=== PATIENT | male | born 1945 | race Caucasian/White ===

== ENCOUNTER → 2016-07-03 | Outpatient (CLI) | payer OTHER ==
[~2016-07-03] MED LIST: ADVIN25/60 INH; ALBUAER19 INH; AMOX875T PO; ASPI-435 PO; ASPI325T45 PO; ATOR-22 PO; CEPH500C2 PO; DOXE100C4 PO; DXP/75 PO; FLM4 PO; FRS/40 PO; FURO20TA PO; GLIP1TAB85 PO; IMDSR60 PO; INDO-24 PO; INSDGI SC; INSDGIPEN SC; IPRASOL4 INH; LPR25 PO; METF1000 PO; METO50TA16 PO; OMEP20CA9 PO; PRENTAB26 PO; QUIN40TA18 PO; SPRIN/30 INH; TIOTCAP INH; TRAM-10 PO; VNTHFA/IN INH
[2016-07-03 13:05] LABS: ALT/SGPT 39 U/L (12-78); BLOOD UREA NITROGEN 21 mg/dl (7-18); BUN/CREATININE RATIO 12.1 (10-20); CALCIUM 8.6 mg/dl (8.5-10.1); CARBON DIOXIDE 28 mmol/L (21-32); CHLORIDE 104 mmol/L (98-107); CHOLESTEROL 89 mg/dl (0-200); GLUCOSE 230 mg/dl (70-99); POTASSIUM 4.5 mmol/L (3.5-5.1); SODIUM 140 mmol/L (136-145)
[2016-07-03 13:08] LABS: ALB/GLOB RATIO 0.8 (0.9-2); ALKALINE PHOSPHATASE 68 U/L (45-117); AST/SGOT 22 U/L (15-37); CHOLESTEROL/HDL RATIO 3.6; HDL CHOLESTEROL 25 mg/dl; LDL CHOLESTEROL CALCULATED 31 mg/dl; TRIGLYCERIDES 166 mg/dl (0-150); VERY LOW DENSITY LIPOPROT CALC 33 mg/dl
[2016-07-03 13:16] LABS: ESTIMATED AVERAGE GLUCOSE 128 mg/dl; HA1C FLAG Normal (Normal)
== END | disposition home or self-care (01) ==
LOC: C.LABPVFM 07:25
PROVIDERS: ATTEND Family Medicine
DX: I10 Essential (primary) hypertension (principal); E11.9 Type 2 diabetes mellitus without complications; E78.5 Hyperlipidemia, unspecified; J44.9 Chronic obstructive pulmonary disease, unspecified; I25.10 Atherosclerotic heart disease of native coronary artery without angina pectoris

== ENCOUNTER → 2016-10-09 | Outpatient (CLI) | payer OTHER ==
[~2016-10-09] MED LIST changes: +AMLO-110 PO; +CEFT1INJ57 IV; -CEPH500C2 PO; +ENOX40IN SQ; -INSDGIPEN SC; +INSDGIPEN SQ; +ISOS60TA25 PO; +TAMS0.4C38 PO
[2016-10-09 13:13] LABS: ESTIMATED AVERAGE GLUCOSE 154 mg/dl; HA1C FLAG Normal (Normal)
[2016-10-09 13:30] LABS: ALT/SGPT 31 U/L (12-78); AST/SGOT 21 U/L (15-37); BLOOD UREA NITROGEN 17 mg/dl (7-18); BUN/CREATININE RATIO 13.1 (10-20); CALCIUM 8.6 mg/dl (8.5-10.1); CARBON DIOXIDE 32 mmol/L (21-32); CHLORIDE 105 mmol/L (98-107); GLUCOSE 114 mg/dl (70-99); POTASSIUM 4.3 mmol/L (3.5-5.1); SODIUM 143 mmol/L (136-145)
[2016-10-09 13:32] LABS: ALB/GLOB RATIO 0.8 (0.9-2); ALKALINE PHOSPHATASE 86 U/L (45-117)
[2016-10-09 13:52] LABS: RATIO 3258.3 mcg/mg (0-30.0)
== END | disposition home or self-care (01) ==
LOC: C.LABPVFM 07:30
PROVIDERS: ATTEND Family Medicine
DX: Z12.5 Encounter for screening for malignant neoplasm of prostate (principal); R79.89 Other specified abnormal findings of blood chemistry; E11.9 Type 2 diabetes mellitus without complications

== ENCOUNTER 2016-11-06 01:01 | Inpatient (IN) | payer OTHER ==
[~2016-11-06] VITALS: Ht 180.3 cm; Wt 89.1 kg
[2016-11-06] VITALS (15 sets, daily range): BP systolic 110–131; BP diastolic 68–82; PULSE 84–105; TEMP 36.3–37; O2SAT 89–97; BMI 26.8
[~2016-11-06 01:01] MED LIST changes: -AMLO-110 PO; -AMOX875T PO; -ASPI-435 PO; -ATOR-22 PO; -CEFT1INJ57 IV; -DOXE100C4 PO; -ENOX40IN SQ; -FLM4 PO; -FRS/40 PO; -IMDSR60 PO; -INDO-24 PO; -INSDGIPEN SQ; -IPRASOL4 INH; -ISOS60TA25 PO; -LPR25 PO; -SPRIN/30 INH; -TAMS0.4C38 PO; -TRAM-10 PO; -VNTHFA/IN INH
[2016-11-06] MEDS ORDERED: METHYLPREDNISOLONE 125 MG VIAL IV STA (01:26)
[2016-11-06] MEDS ORDERED: ALBUT/IPRATROP 3MG/0.5MG NEB 3 ML VIAL INH STA (01:27)
[2016-11-06 02:22] LABS: ALLEN TEST POS (POS); ARTERIAL BLD GAS O2 SATURATION 88.4 % (90-95); ARTERIAL BLOOD GAS BASE EXCESS 2.6 mEq/L (-9-1.8); ARTERIAL BLOOD GAS HCO3 28 mmol/L (19-24); ARTERIAL BLOOD GAS PO2 57 mm/Hg (80-95); ARTERIAL BLOOD GAS pH 7.41 (7.35-7.45); BUN/CREATININE RATIO 18.9 (10-20); CALCIUM 7.7 mg/dl (8.5-10.1); HEMATOCRIT 43.5 % (42-52); MEAN CELL VOLUME 89.7 fL (80-100); MEAN CORPUSCULAR HEMOGLOBIN 30.7 pg (25-34); MEAN CORPUSCULAR HGB CONC 34.3 g/dl (32-36); MEAN PLATELET VOLUME 10.7 fL (7.4-10.4); O2 ADMINISTRATION 6 L; PLATELET COUNT 88 K/uL (130-400); RED BLOOD COUNT 4.85 M/uL (4.7-6.1); WHITE BLOOD COUNT 21.09 K/uL (4.8-10.8)
[2016-11-06 02:23] LABS: COMPLETE YES; IG% 0.4 %; LYMPH % 1.7 %; LYMPH ABS # 0.35 K/uL (1.2-3.4); MONO % 2.3 %; NEUT % 95.6 %; PLT ESTIMATE DECREASED
[2016-11-06] MEDS ORDERED: PIPERACILLIN/TAZOBACTAM 4.5 GM/100ML D5W IV STA (02:35)
[2016-11-06] MEDS ORDERED: VANCOMYCIN INJ 1,000 MG in SODIUM CHLORIDE 0.9% 250ML 250 ML IV STA (02:35)
[2016-11-06 02:57] LABS: ALB/GLOB RATIO 0.5 (0.9-2)
[2016-11-06] MEDS ORDERED: ASPI-435 PO (02:59)
[2016-11-06] MEDS ORDERED: DOXE100C4 PO (03:00)
[2016-11-06] MEDS ORDERED: ATOR-22 PO (03:00)
[2016-11-06] MEDS ORDERED: FRS/40 PO (03:00)
[2016-11-06] MEDS ORDERED: VNTHFA/IN INH (03:04)
[2016-11-06] MEDS ORDERED: SPRIN/30 INH (03:04)
[2016-11-06] MEDS ORDERED: TRAM-10 PO (03:04)
[2016-11-06] MEDS ORDERED: INSDGIPEN SQ (03:04)
[2016-11-06] MEDS ORDERED: IPRASOL4 INH (03:05)
[2016-11-06] MEDS ORDERED: INDO-24 PO (03:05)
--- NOTE | 2016-11-06 03:11 | EMERGENCY ROOM VISIT NOTE ---
History Report prepared by Perico: Vaibhav Bruce Under the Supervision of: Dr. Kathy Long D.O. First contact with patient: 01:20 Chief Complaint: SHORTNESS OF BREATH Stated Complaint: DIFFICULTY BREATHING History of Present Illness The patient is a 71 year old male who presents to the Emergency Room with complaints of worsening shortness of breath beginning two days ago. He was diagnosed with pneumonia two weeks ago. He was prescribed Prednisone and Levaquin as well as a nebulizer. The patient finished his treatments for the pneumonia this week, and skipped his follow-up appointment three days ago. Per nursing staff, the patient was found to have an oxygen saturation of 78% in triage. The patient states "I thought I was going to yesterday". He also complains of a productive cough. He states that his cough produces a yellow sputum. Nothing has improved his symptoms. Source of History: patient Onset: two days ago Quality: other (shortness of breath) Timing: worsening Modifying Factors (Relieving): other (none) Associated Symptoms: + cough (produces yellow sputum) Review of Systems See HPI for pertinent positives & negatives. A total of 10 systems reviewed and were otherwise negative. Past Medical & Surgical Medical Problems: (1) CHF exacerbation (2) COPD exacerbation (3) Diabetes (4) Hypertension Family History FH: aneurysm FH: coronary artery disease FH: myocardial infarction Social History Smoking Status: Former Smoker Drug Use: none Marital Status: Housing Status: lives with family Occupation Status: employed Current/Historical Medications Scheduled Aspirin (Aspirin 81), 81 MG PO DAILY Atorvastatin (Lipitor), 20 MG PO DAILY Doxepin Hcl (Doxepin), 100 MG PO HS Fluticasone Prop/Salmeterol (Advair Diskus 250/50 60 Dose), 1 PUFF INH BID Furosemide (Lasix), 40 MG PO DAILY Glipizide Xl (Glucotrol Xl), 10 MG PO BID Insulin Glargine (Lantus Solostar), 46 UNITS SC QPM Metformin Hcl (Glucophage), 1,000 MG PO BID Metoprolol Tartrate (Lopressor) (Lopressor), 50 MG PO BID Omeprazole (Prilosec), 20 MG PO DAILY Quinapril Hcl (Accupril), 20 MG PO BID Tiotropium [place] (Spiriva Handihaler), 1 CAP INH DAILY Scheduled PRN Albuterol Hfa (Ventolin Hfa), 2 PUFFS INH Q4 PRN for SOB/Wheezing Indomethacin (Indocin), 50 MG PO TID PRN for Pain Ipratropium-Albuterol (Duoneb), 1 TREATMENT INH Q4H PRN for SOB/Wheezing Tramadol (Ultram), 50 MG PO Q6 PRN for Pain Allergies Coded Allergies: No Known Allergies (Verified , 11/06/16) Physical Exam Vital Signs Date Time Temp Pulse Resp B/P Pulse Ox O2 Delivery O2 Flow Rate FiO2 11/06/16 03:41 94 24 115/62 92 BiPAP 60 11/06/16 03:06 90 95 60 11/06/16 02:47 96 24 95/59 91 Non-Rebreather 12.0 11/06/16 02:45 90 Non-Rebreather 15.0 11/06/16 02:42 87 Nasal Cannula 6.0 11/06/16 02:41 93 Non-Rebreather 15.0 11/06/16 01:49 77 Room Air 11/06/16 01:38 98 26 108/62 90 Nebulizer 10.0 11/06/16 01:28 93 Non-Rebreather 10.0 11/06/16 01:26 82 Nasal Cannula 6.0 11/06/16 01:25 102 11/06/16 01:14 36.9 105 20 106/64 78 Room Air Physical Exam General: Appears to be in moderate respiratory distress. HEENT: Head - normocephalic and atraumatic Pupils are equal, round, and reactive to light. Extraocular eye muscles are intact, and sclera are anicteric. Nose - moist nasal mucosa without discharge. Mouth - moist buccal mucosa. Oropharynx is nonerythematous and there is no tonsillar exudate or edema noted. Neck: Supple; no JVD, nuchal rigidity, cervical lymphadenopathy. Heart: Tachycardic rate with a regular rhythm. There is a normal S1 and S2 with no murmurs, clicks, or gallops appreciated. Lungs: Tachypneic. Diminished breath sounds in all lung gutierrez. Expiratory wheezing. Abdomen: Soft, completely nontender, nondistended, with good bowel sounds. There are no palpable pulsatile masses or hepatosplenomegaly. There is no guarding, rigidity, or rebound noted. Extremities: Significant peripheral vascular changes to the lower extremities with trace edema Skin: warm and dry with good turgor and no rashes. Patient appears slightly cyanotic. Medical Decision & Procedures ER Provider Diagnostic Interpretation: One View Chest X-ray interpreted by me: Pacer in place. Bilateral lower lobe infiltrates. No cardiomegaly. Pulmonary vascular congestion. CT results per statrad and my review. CT CHEST Without Contrast: Comparison: CT chest 09/30/13; chest radiography 11/06/16 Heterogeneous airspace disease involving the right middle lobe, inferior lingula , and both lower lobes most dense less/confluent at the lower lobes particularly on the right side posteromedially. Correlate clinically to exclude pneumonia. Probably reactive mediastinal and hilar adenopathy. No pleural effusion or pneumothorax. No cardiomegaly or pericardial effusion. Multivessel coronary calcifications. Cirrhotic liver with splenomegaly. No ascites evident. Laboratory Results 11/06/16 01:40 Test 11/06/16 01:40 RDW Standard Deviation 49.6 fL (36.4-46.3) RDW Coefficient of Variation 15.3 % (11.5-14.5) White Blood Count 21.09 K/uL (4.8-10.8) Red Blood Count 4.85 M/uL (4.7-6.1) Hemoglobin 14.9 g/dL (14.0-18.0) Hematocrit 43.5 % (42-52) Mean Corpuscular Volume 89.7 fL (80-100) Mean Corpuscular Hemoglobin 30.7 pg (25-34) Mean Corpuscular Hemoglobin Concent 34.3 g/dl (32-36) Platelet Count 88 K/uL (130-400) Mean Platelet Volume 10.7 fL (7.4-10.4) Neutrophils (%) (Auto) 95.6 % Lymphocytes (%) (Auto) 1.7 % Monocytes (%) (Auto) 2.3 % Eosinophils (%) (Auto) 0.0 % Basophils (%) (Auto) 0.0 % Neutrophils # (Auto) 20.17 K/uL (1.4-6.5) Lymphocytes # (Auto) 0.35 K/uL (1.2-3.4) Monocytes # (Auto) 0.48 K/uL (0.11-0.59) Eosinophils # (Auto) 0.00 K/uL (0-0.5) Basophils # (Auto) 0.00 K/uL (0-0.2) Immature Granulocyte % (Auto) 0.4 % Immature Granulocyte # (Auto) 0.09 K/uL (0.00-0.02) Platelet Estimate DECREASED Red Blood Cell Morphology Unremarkable Arterial Blood pH 7.41 (7.35-7.45) Arterial Blood Partial Pressure CO2 46 mmHg (35-46) Arterial Blood Partial Pressure O2 57 mm/Hg (80-95) Arterial Blood HCO3 28 mmol/L (19-24) Arterial Blood Oxygen Saturation 88.4 % (90-95) Arterial Blood Base Excess 2.6 mEq/L (-9-1.8) Arterial Blood Gas Delivery 6 L Gunnar Test POS (POS) Anion Gap 8.0 mmol/L (3-11) Est Creatinine Clear Calc Drug Dose 37.1 ml/min Estimated GFR () 38.3 Estimated GFR (Non- 33.1 BUN/Creatinine Ratio 18.9 (10-20) Calcium Level 7.7 mg/dl (8.5-10.1) Total Bilirubin 0.7 mg/dl (0.2-1) Aspartate Amino Transf (AST/SGOT) 22 U/L (15-37) Alanine Aminotransferase (ALT/SGPT) 30 U/L (12-78) Alkaline Phosphatase 73 U/L (45-117) Total Creatine Kinase 122 U/L (39-308) Creatine Kinase MB 3.7 ng/ml (0.5-3.6) Creatine Kinase MB Ratio 3.0 (0-3.0) Troponin I 2.160 ng/ml (0-0.045) Pro-B-Type Natriuretic Peptide 4030 pg/ml (0-900) Total Protein 6.5 gm/dl (6.4-8.2) Albumin 2.3 gm/dl (3.4-5.0) Globulin 4.2 gm/dl (2.5-4.0) Albumin/Globulin Ratio 0.5 (0.9-2) Laboratory results per my review. Medications Administered Medications (Trade) Dose Ordered Sig/Elsie Route Start Time Stop Time Status Last Admin Dose Admin Methylprednisolone Sodium Succinate (Solu-Medrol IV) 125 mg NOW STAT IV 11/06/16 01:26 11/06/16 01:27 DC 11/06/16 01:35 125 MG Albuterol/ Ipratropium (Duoneb) 3 ml NOW STAT INH 11/06/16 01:27 11/06/16 01:29 DC 11/06/16 01:32 3 ML Piperacillin Sod/ Tazobactam Sod (Zosyn Iv) 4.5 gm NOW STAT IV 11/06/16 02:35 11/06/16 02:37 DC 11/06/16 03:11 4.5 GM Procedure Medications ordered: Solu-Medrol IV, DuoNeb INH, Vancomycin HCl IV, Zosyn IV. ECG Indication: SOB/dyspnea Rate (beats per minute): 101 Rhythm: sinus tachycardia Findings: RBBB, ST depression (anterior and lateral leads) Comparison ECG Date: October 06, 2013 Change: RBBB and ST depressions are new. ED Course 0120: Past medical records reviewed. The patient was evaluated in room B10. A complete history and physical exam was performed. The patient's O2 saturation could not be maintained on 6 L by nasal cannula. He was switched to a nonrebreather mask at 10 L. A twelve-lead EKG was obtained. An IV lock was initiated and labs were drawn as above. 0126: Ordered Solu-Medrol 125 mg IV, Duoneb 3 mL INH. A chest x-ray was obtained. 0155: I reassessed the patient. He was on 10 L of supplemental oxygen by rebreather, but his oxygen saturations were around 87% at that time. I increased the quantity of oxygen to 12 L and his oxygen saturation increased to 90%. 0235: Ordered Vancomycin HCl 1000 mg/Sodium Chloride 270 ml @ 125 mls/hr IV, Zosyn 4.5 gm IV. 0242: Nursing staff placed the patient on nasal canula, but his oxygen saturation quickly dropped to the high 80's. He was placed back on a rebreather. I checked in on the patient. He sounds more congested, and will be placed on BiPAP. 0300: Upon reevaluation, I discussed findings and results with the patient. He verbalized agreement of the treatment plan. I discussed the possibility of intubation with the patient, but he refuses to be intubated. I spoke with Dr. Souza of the [facility]ist [facility]. The patient will be evaluated for further management and care. 0335: I spoke with Dr. Souza at bedside. He recommended ordering a CT of the chest. The patient is tolerating BiPAP well. Medical Decision The patient is a 71 year old male who presents to the ED with shortness of breath. Differential diagnosis includes pneumonia, hypercarbic respiratory failure, COPD exacerbation, cardiac ischemia, and CHF. Laboratory studies: White count of 21.09. Stable H&H. Platelet count of 88.95% neutrophils. ABGH pH 7.41. pO2 is 57. Bicarb 28. Troponin 2.160. BMP of 4030. Glucose of 185. BUN 38. Creatinine 2. LFTs are normal. I attest that I have personally reviewed the patient's current medication list. Patient was found to have normal blood pressure on screening and does not require follow-up. This is a 71-year-old male patient who has worsening shortness of breath. The patient recently finished a course of prednisone and Levaquin but symptoms have worsened. Chest x-ray is concerning for bilateral pulmonary infiltrates. This in conjunction with a white blood cell count greater than 20 with a bandemia was concerning for sepsis. The patient failed outpatient therapy on Levaquin. He was treated with IV Zosyn and vancomycin here in the emergency department. The patient has an elevated troponin and BNP. The patient was noted to be thrombocytopenic. Once the patient was placed on BiPAP, his respiratory status did seem to improve somewhat. CT scan of the chest to confirm bilateral lower lobe infiltrates. [facility] and [facility] will evaluate for further management. Consults Time Called: [phone] Consulting Physician: Dr. Souza -[facility] Returned Call: [phone] Discussed the patient's case. The patient will be evaluated for further management. Impression Primary Impression: Respiratory failure Additional Impressions: NSTEMI (non-ST elevated myocardial infarction) Renal insufficiency Thrombocytopenia Bilateral pneumonia Critical Care I have personally spent greater than 90 minutes of critical care time in the direct management of this patient. This includes bedside care, interpretation of diagnostic studies, and testing, discussion with consultants, patient, and family members, and other required patient management activities. This 90 minutes is in excess of all separately billable procedures. Scribe Attestation The scribe's documentation has been prepared under my direction and personally reviewed by me in its entirety. I confirm that the note above accurately reflects all work, treatment, procedures, and medical decision making performed by me. Departure Information Dispostion Being Evaluated By Hospitalist Referrals No Doctor, Assigned (PCP) Patient Instructions My [facility] Problem Qualifiers
[2016-11-06] MEDS ORDERED: ALUMINUM/MAGNESIUM/SIMETH (MAALOX MAX) 30 ML UDC PO PRN (04:30)
[2016-11-06] MEDS ORDERED: ONDANSETRON INJ 2 MG/ML 2 ML VIAL IV PRN (04:30)
[2016-11-06] MEDS ORDERED: ACETAMINOPHEN 325 MG TAB PO PRN (04:30)
[2016-11-06] MEDS ORDERED: MAGNESIUM HYDROXIDE SUSP 30 ML UDC PO PRN (04:30)
[2016-11-06] MEDS ORDERED: TRAMADOL HCL 50 MG TAB PO PRN (04:30)
[2016-11-06] MEDS ORDERED: POLYETHYLENE (MIRALAX) 17 GM PACK PO PRN (04:30)
[2016-11-06] MEDS ORDERED: VANCOMYCIN 1GM/270ML NSS ONE (04:40)
--- NOTE | 2016-11-06 04:45 | History and Physical ---
History & Physical Date & Time of Service: November 06, 2016 at 04:35 Chief Complaint: Difficulty Breathing Primary Care Physician: Onofre Betancur M.D. History of Present Illness Source: patient 71 y/o M Hx COPD, DM, obesity, severe PVD, ARF, CAD - NSTEMI - cardiac arrest 2013, AICD. Pt was recently treated for a COPD exacerbation with a 7 day course of Levaquin and steroids. Despite complying with treatment he has become progressively SOB. He has not had CP. He does not know if he has had fevers however his daughter states that he was rigorous a few days ago. On arrival to the ER the pt required Bipap to maintain an adequate saturation. Initial CXR is consistent with pulmonary edema. His BP has been intermittently low in the high 80s. Initial labs are notable for a troponin of 2, a low platelet count, leukocytosis and ARF. An EKG reveals sinus tachycardia, a new RBBB and lateral depressions. At the time of admission he is AAO x 3 , reports symptomatic improvement with Bipap and has an SBP of 110. Past Medical/Surgical History 1) COPD 2) CAD - CA 2013 - cath revealed diffuse CAD and likely RCA plaque rupture as culprit lesion - he was transferred to [facility] for CABG 3) Cardiac arrest prior to CA 2013 4) Severe PVD 5) Osteomyelitis L and R 5th toe 2013 treated with hyperbaric therapy and later amputated - 6) ARF - has had intermittently elevated creatinine but may have normal baseline function 7) Reduced EF at 45% on echo 2013 - No diastolic or RV failure reported 9) DM 2 10) Obesity 11) GERD 12) HTN 13) Liver is cirrhotic on current CT 14) AICD placement 2013 Family History FH: aneurysm FH: coronary artery disease FH: myocardial infarction Social History Quit smoking 30 years ago 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 [employer] does not drink alcohol Reports recent social stress as his is recovering from a cerebral aneurysm Smoking Status: Former Smoker Drug Use: none Marital Status: Occupational Status: employed Immunizations History of Influenza Vaccine: Yes Influenza Vaccine Date: Mar 11, 2013 History of Tetanus Vaccine?: Unknown History of Pneumococcal: Yes Pneumococcal Date: Mar 11, 2013 History of Hepatitis B Vaccine: No Multi-Drug Resistant Organisms History of MDRO: No Allergies Coded Allergies: No Known Allergies (Verified , 11/06/16) Home Medications Scheduled Aspirin (Aspirin 81), 81 MG PO DAILY Atorvastatin (Lipitor), 20 MG PO DAILY Doxepin Hcl (Doxepin), 100 MG PO HS Fluticasone Prop/Salmeterol (Advair Diskus 250/50 60 Dose), 1 PUFF INH BID Furosemide (Lasix), 40 MG PO DAILY Glipizide Xl (Glucotrol Xl), 10 MG PO BID Insulin Glargine (Lantus Solostar), 46 UNITS SC QPM Metformin Hcl (Glucophage), 1,000 MG PO BID Metoprolol Tartrate (Lopressor) (Lopressor), 50 MG PO BID Omeprazole (Prilosec), 20 MG PO DAILY Quinapril Hcl (Accupril), 20 MG PO BID Tiotropium [place] (Spiriva Handihaler), 1 CAP INH DAILY Scheduled PRN Albuterol Hfa (Ventolin Hfa), 2 PUFFS INH Q4 PRN for SOB/Wheezing Indomethacin (Indocin), 50 MG PO TID PRN for Pain Ipratropium-Albuterol (Duoneb), 1 TREATMENT INH Q4H PRN for SOB/Wheezing Tramadol (Ultram), 50 MG PO Q6 PRN for Pain Review of Systems Constitutional: + chills, + fever Eyes: No eye pain, No worsening of vision ENT: No hearing loss, No nasal symptoms, No unusual epistaxis Respiratory: + cough, + dyspnea at rest, + dyspnea on exertion, + shortness of breath, + sputum Cardiovascular: No PND, No chest pain, No orthopnea Abdomen: No nausea, No pain, No vomiting Musculoskeletal: No joint pain Genitourinary - Male: No dysuria, No hematuria, No urinary frequency, No urinary urgency Neurologic: + weakness, No memory loss, No paralysis Psychiatric: No anhedonism, No depression symptoms Endocrine: + fatigue, No excessive thirst Hematologic / Lymphatic: No abnormal bleeding/bruising, No clotting problems Integumentary: No rash Allergic / Immunologic: No environmental allergies Physical Exam Vital Signs Date Time Temp Pulse Resp B/P Pulse Ox O2 Delivery O2 Flow Rate FiO2 11/06/16 03:41 94 24 115/62 92 BiPAP 60 11/06/16 03:06 90 95 60 11/06/16 02:47 96 24 95/59 91 Non-Rebreather 12.0 5/29/17 02:45 90 Non-Rebreather 15.0 11/06/16 02:42 87 Nasal Cannula 6.0 11/06/16 02:41 93 Non-Rebreather 15.0 11/06/16 01:49 77 Room Air 11/06/16 01:38 98 26 108/62 90 Nebulizer 10.0 11/06/16 01:28 93 Non-Rebreather 10.0 11/06/16 01:26 82 Nasal Cannula 6.0 11/06/16 01:25 102 11/06/16 01:14 36.9 105 20 106/64 78 Room Air General Appearance: + mild distress, + obese Head: normocephalic, atraumatic Eyes: normal inspection, EOMI ENT: normal ENT inspection, pharynx normal Neck: supple, + JVD Respiratory/Chest: chest non-tender, + decreased breath sounds, + accessory muscle use, + crackles Cardiovascular: regular rate, rhythm, no gallop, + JVD Abdomen/GI: normal bowel sounds, soft, + pertinent finding (RUQ hernia palpable ) Back: normal inspection, no CVA tenderness, no muscle spasm, normal range of motion Extremities/Musculoskelatal: normal inspection, no calf tenderness, + pertinent finding (Slow capillary refil - post amputation of %th toes B/L) Neurologic/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, no motor/sensory deficits, alert, normal mood/affect, normal reflexes, oriented x 3 Skin: normal color, warm/dry, no rash Diagnostics Laboratory Results Results Past 24 Hours Test 11/06/16 01:40 Range/Units White Blood Count 21.09 4.8-10.8 K/uL Red Blood Count 4.85 4.7-6.1 M/uL Hemoglobin 14.9 14.0-18.0 g/dL Hematocrit 43.5 42-52 % Mean Corpuscular Volume 89.7 80-100 fL Mean Corpuscular Hemoglobin 30.7 25-34 pg Mean Corpuscular Hemoglobin Concent 34.3 32-36 g/dl Platelet Count 88 130-400 K/uL Mean Platelet Volume 10.7 7.4-10.4 fL Neutrophils (%) (Auto) 95.6 % Lymphocytes (%) (Auto) 1.7 % Monocytes (%) (Auto) 2.3 % Eosinophils (%) (Auto) 0.0 % Basophils (%) (Auto) 0.0 % Neutrophils # (Auto) 20.17 1.4-6.5 K/uL Lymphocytes # (Auto) 0.35 1.2-3.4 K/uL Monocytes # (Auto) 0.48 0.11-0.59 K/uL Eosinophils # (Auto) 0.00 0-0.5 K/uL Basophils # (Auto) 0.00 0-0.2 K/uL RDW Standard Deviation 49.6 36.4-46.3 fL RDW Coefficient of Variation 15.3 11.5-14.5 % Immature Granulocyte % (Auto) 0.4 % Immature Granulocyte # (Auto) 0.09 0.00-0.02 K/uL Platelet Estimate DECREASED Red Blood Cell Morphology Unremarkable Arterial Blood pH 7.41 7.35-7.45 Arterial Blood Partial Pressure CO2 46 35-46 mmHg Arterial Blood Partial Pressure O2 57 80-95 mm/Hg Arterial Blood HCO3 28 19-24 mmol/L Arterial Blood Oxygen Saturation 88.4 90-95 % Arterial Blood Base Excess 2.6 -9-1.8 mEq/L Arterial Blood Gas Delivery 6 L Gunnar Test POS POS Sodium Level 141 136-145 mmol/L Potassium Level 4.0 3.5-5.1 mmol/L Chloride Level 105 98-107 mmol/L Carbon Dioxide Level 28 21-32 mmol/L Anion Gap 8.0 3-11 mmol/L Blood Urea Nitrogen 38 7-18 mg/dl Creatinine 2.00 0.60-1.40 mg/dl Est Creatinine Clear Calc Drug Dose 37.1 ml/min Estimated GFR () 38.3 Estimated GFR (Non- 33.1 BUN/Creatinine Ratio 18.9 10-20 Random Glucose 185 70-99 mg/dl Calcium Level 7.7 8.5-10.1 mg/dl Total Bilirubin 0.7 0.2-1 mg/dl Aspartate Amino Transf (AST/SGOT) 22 15-37 U/L Alanine Aminotransferase (ALT/SGPT) 30 12-78 U/L Alkaline Phosphatase 73 45-117 U/L Total Creatine Kinase 122 39-308 U/L Creatine Kinase MB 3.7 0.5-3.6 ng/ml Creatine Kinase MB Ratio 3.0 0-3.0 Troponin I 2.160 0-0.045 ng/ml Pro-B-Type Natriuretic Peptide 4030 0-900 pg/ml Total Protein 6.5 6.4-8.2 gm/dl Albumin 2.3 3.4-5.0 gm/dl Globulin 4.2 2.5-4.0 gm/dl Albumin/Globulin Ratio 0.5 0.9-[address] chest: heterogenous airspace disease - R mid lobe, both lower lobes, inf lingula - 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 Impression Assessment and Plan 71 y/o M Hx COPD, DM, obesity, severe PVD, ARF, CAD - NSTEMI - cardiac arrest 2013, AICD. Pt was recently treated for a COPD exacerbation with a 7 day course of Levaquin and steroids. Despite complying with treatment he has become progressively SOB. He has not had CP. He does not know if he has had fevers however his daughter states that he was rigorous a few days ago. On arrival to the ER the pt required Bipap to maintain an adequate saturation. Initial CXR is consistent with pulmonary edema. His BP has been intermittently low in the high 80s. Initial labs are notable for a troponin of 2, a low platelet count, leukocytosis and ARF. An EKG reveals sinus tachycardia, a new RBBB and lateral depressions. At the time of admission he is AAO x 3 , reports symptomatic improvement with Bipap and has an SBP of 110. 1) Hypoxia - possibly multifactorial - recently treated for PNM/COPD with Levaquin and steroid taper - we will place him on Vanc, Levaquin, Zithromax, Nebs and Solumedrol pending culture results - COPD - treating for presumed exacerbation as above - Suspected CHF - troponin is elevated, B/L JVD present - discussed case with cardio. We will give a single dose of Lasix and hold his B florentino and AFSANEH due to hypotension on arrival. He will have an early AM echo and we will consider transfer to the ICU with recurrence of hypotension. 2) Elevated troponin - differential includes Demand ischemia due to either CHF, pnm/hypoxia or infection with low BP - also includes acute CA as he does have a history of diffuse COPD and lat EKG depression. Serial enzymes requested, echo pending to evaluate for wall motion abnormalities, Heparin GTT provided and Lipitor continued. 3) ARF - has occurred previously and recovered to baseline - will repeat BMP following diuresis as we might expect improvement if this is cardiorenal. If this is prerenal due to dehydration, we should administer IVF. 4) DM - placed on SS 5) Low platelets - Cirrhosis on imaging - watch for bleeding and trend CBC while on heparin - is not aware of diagnosis - likely etiology is GOOD and pt should follow-up with GI. Unlikely advanced cirrhosis at present as he does not have expected sequelae. 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 Y/N: Yes Risk Level: Moderate Given or contraindicated: Other Anticoagulation
[2016-11-06] MEDS ORDERED: ALBUTEROL 0.083% NEBU SOLN 3 ML VIAL INH PRN (06:00)
[2016-11-06] MEDS ORDERED: PIPERACILL/TAZOBAC CONSULT ACTIVE PRN (06:00)
[2016-11-06] MEDS ORDERED: VANCOMYCIN CONSULT ACTIVE PRN (06:00)
[2016-11-06 06:05] LABS: HEMATOCRIT 43.6 % (42-52); MEAN CELL VOLUME 90.1 fL (80-100); MEAN CORPUSCULAR HEMOGLOBIN 28.9 pg (25-34); MEAN CORPUSCULAR HGB CONC 32.1 g/dl (32-36); RED BLOOD COUNT 4.84 M/uL (4.7-6.1); WHITE BLOOD COUNT 18.73 K/uL (4.8-10.8)
[2016-11-06 06:11] LABS: MEAN PLATELET VOLUME 10.4 fL (7.4-10.4); PLATELET COUNT 87 K/uL (130-400)
[2016-11-06] MEDS: AZITHROMYCIN IV 500 MG in DEXTROSE 5% 250ML 250 ML IV SCH (06:24)
[2016-11-06] MEDS ORDERED: FUROSEMIDE INJ 40 MG in SYRINGE 0 ML IV ONE (06:30)
[2016-11-06] MEDS ORDERED: HEPARIN 25,000 UNIT/500ML D5W 500 ML IV PRN (06:30)
[2016-11-06] MEDS ORDERED: HEPARIN IV BOLUS 6,000 UNIT in SYRINGE 0 ML IV ONE (06:30)
[2016-11-06 06:36] LABS: INR 1.4 (0.9-1.1); PARTIAL THROMBOPLASTIN RATIO 1.4; PROTHROMBIN TIME (PATIENT) 14.8 SECONDS (9.0-12.0)
[2016-11-06] MEDS ORDERED: PERFLUTREN LIPID MICROSPHERE (DEFINITY) IV ONE (06:49)
[2016-11-06] MEDS: ALBUT/IPRATROP 3MG/0.5MG NEB 3 ML VIAL INH SCH ×3 (07:14→19:38)
--- NOTE | 2016-11-06 07:35 | ECHOCARDIOGRAM REPORT ---
*NOTICE TO RECEIVING LIBERTARIAN AGENCY This information is strictly Confidential and protected under [place] law. [place] law prohibits you from making any further disclosure of this information unless further disclosure is expressly permitted by the written consent of the person to whom it pertains or is authorized by law. A general authorization for the release of medical or other information is not sufficient for this purpose. Hospital accepts no responsibility if the information is made available to any other person, INCLUDING THE PATIENT. Interpretation Summary * Name: ZEINA WALLACE Study Date: 11/06/2016 06:21 AM BP: 110/74 mmHg * Patient Location: [facility] HR: 94 * : 1945 (M/d/yyyy) Gender: Male Height: 71 in * Age: 71 yrs Ethnicity: [place] Weight: 191 lb * Ordering Physician: Teo Ocampo MD, [facility] * Performed By: Reina Garcia [facility] * * Reason For Study: CHF EXAC / COPD EXAC * BSA: 2.1 m2 * -- Conclusions -- * The left ventricle is normal in size. * There is mild concentric left ventricular hypertrophy. * There is subtle hypokinesis of the posterior wall and lateral apex with otherwise preserved wall motion * Ejection Fraction = 55-60%. * There is no significant valvular disease * Normal inferior vena cava diameter and respiratory variation suggests normal central venous pressure. Procedure Details * A complete two-dimensional transthoracic echocardiogram was performed (2D, M-mode, Doppler and color flow Doppler). * The study was technically difficult. * There were technical limitations due to patient'sPoor acoustic windows secondary to severe lung disease. * A contrast injection of Definity was performed to improve assessment of LV function. * Contrast was injected into an intravenous site in the left arm. * One vial of Definity ultrasound contrast was diluted in normal saline to a total volume of 10 ml. A total of '1.5' ml of solution was administered during imaging. * Lot # [id number] of Definity utilized for procedure. * Expiration date NOV 26. * The attending nurse who injected the contrast agent was JOAQUIM DOTSON, RN. Left Ventricle * The left ventricle is normal in size. * There is mild concentric left ventricular hypertrophy. * Left ventricular systolic function is normal. * Ejection Fraction = 55-60%. * There is subtle hypokinesis of the posterior wall and lateral apex with otherwise preserved wall motion Right Ventricle * The right ventricle is normal in size and function. * There is a pacemaker lead in the right ventricle. Atria * The left atrial size is normal. * Right atrial size is normal. * No ASD detected; PFO is not assessed. Mitral Valve * The mitral valve is normal. * There is no mitral valve stenosis. * There is trace mitral regurgitation. Tricuspid Valve * The tricuspid valve is normal. * There is no tricuspid stenosis. * There is trace tricuspid regurgitation. Aortic Valve * The aortic valve is trileaflet. * Aortic valve sclerosis mild, without significant aortic valvular stenosis. * No hemodynamically significant valvular aortic stenosis. * No aortic regurgitation is present. Pulmonic Valve * The pulmonic valve is not well visualized. Great Vessels * The aortic root is normal size. Pericardium/Pleural * There is no pericardial effusion. Great Vessels * Normal inferior vena cava diameter and respiratory variation suggests normal central venous pressure. MMode 2D Measurements and Calculations IVSd 1.8 cm IVSs 1.6 cm LVIDd 4.8 cm LVIDs 3.7 cm LVPWd 1.1 cm LVPWs 1.4 cm IVS/LVPW 1.7 FS 23.2 % EDV(Teich) 109.4 ml ESV(Teich) 58.6 ml EF(Teich) 46.4 % EDV(cubed) 113.1 ml ESV(cubed) 51.2 ml EF(cubed) 54.8 % % IVS thick -7.47 % % LVPW thick 34.0 % LV mass(C)d 284.3 grams LV mass(C)dI 137.5 grams/m\S\2 LV mass(C)s 218.8 grams LV mass(C)sI 105.8 grams/m\S\2 SV(Teich) 50.8 ml SI(Teich) 24.6 ml/m\S\2 SV(cubed) 61.9 ml SI(cubed) 29.9 ml/m\S\2 LVOT diam 2.1 cm LVOT area 3.4 cm\S\2 LVAd ap4 39.1 cm\S\2 LVLd ap4 9.0 cm EDV(MOD-sp4) 138.7 ml EDV(sp4-el) 143.8 ml LVAs ap4 25.5 cm\S\2 LVLs ap4 7.6 cm ESV(MOD-sp4) 77.1 ml ESV(sp4-el) 72.5 ml EF(MOD-sp4) 44.4 % EF(sp4-el) 49.6 % LVAd ap2 32.9 cm\S\2 LVLd ap2 8.8 cm EDV(MOD-sp2) 100.4 ml EDV(sp2-el) 104.4 ml LVAs ap2 19.9 cm\S\2 LVLs ap2 6.9 cm ESV(MOD-sp2) 47.4 ml ESV(sp2-el) 48.6 ml EF(MOD-sp2) 52.8 % EF(sp2-el) 53.5 % LVLd %diff -2.37 % EDV(MOD-bp) 119.0 ml LVLs %diff -9.99 % ESV(MOD-bp) 62.8 ml EF(MOD-bp) 47.2 % SV(MOD-sp4) 61.6 ml SI(MOD-sp4) 29.8 ml/m\S\2 SV(MOD-sp2) 53.0 ml SI(MOD-sp2) 25.6 ml/m\S\2 SV(MOD-bp) 56.2 ml SI(MOD-bp) 27.2 ml/m\S\2 SV(sp4-el) 71.3 ml SI(sp4-el) 34.5 ml/m\S\2 SV(sp2-el) 55.8 ml SI(sp2-el) 27.0 ml/m\S\2 Doppler Measurements and Calculations MV E max manan 48.5 cm/sec MV A max manan 57.7 cm/sec MV E/A 0.84 MV P1/2t max manan 46.2 cm/sec MV P1/2t 69.3 msec MVA(P1/2t) 3.2 cm\S\2 MV dec slope 195.3 cm/sec\S\2 MV dec time 0.17 sec PA V2 max 85.4 cm/sec PA max PG 2.9 mmHg TR max manan 250.2 cm/sec
--- NOTE | 2016-11-06 07:49 | DIAGNOSTIC IMAGING REPORT ---
CHEST CT WITHOUT CONTRAST CT DOSE: 776.81 mGy.cm HISTORY: Short of breath. Difficulty breathing. TECHNIQUE: Multiaxial CT images of the chest were performed without contrast. COMPARISON: Chest CTA 09/30/2013. FINDINGS: Motion artifact. Small amount of mucoid material within the right mainstem bronchus. No pneumothorax. Mild emphysema. Nodular and consolidative airspace opacity seen within the lung bases. This includes the right middle lobe, bilateral lower lobes, and lingula. The bibasilar pattern raises the possibility of an aspiration pneumonia. No pleural or pericardial effusions. Old, healed bilateral rib fractures. Poststernotomy changes. Left-sided pacemaker. Normal caliber thoracic aorta. The heart is normal in size. Nodular contour to the liver consistent with cirrhosis. The visualized spleen and adrenal glands are unremarkable. IMPRESSION: 1. Bibasilar multifocal airspace opacities. This may represent an aspiration pneumonia. Recommend follow-up to ensure resolution. 2. Mild emphysema. 3. Cirrhotic liver. Electronically signed by: Tam Berry M.D. 11/06/2016 7:48 AM Dictated Date/Time: 11/06/2016 7:44 AM
[2016-11-06] MEDS ORDERED: GLUCAGON FOR INJ 1 MG VIAL SQ PRN (08:00)
[2016-11-06] MEDS ORDERED: GLUCOSE 40% GEL 15 GM TUBE PO PRN (08:00)
[2016-11-06] MEDS ORDERED: DEXTROSE 50% 50 ML SYR IV PRN (08:00)
[2016-11-06] MEDS ORDERED: GLUCOSE 10 TABS/TUBE PO PRN (08:00)
--- NOTE | 2016-11-06 08:23 | DIAGNOSTIC IMAGING REPORT ---
CHEST ONE VIEW PORTABLE HISTORY: Short of breath. COMPARISON: Chest 08/24/2015. FINDINGS: Bibasilar airspace opacities. The heart is stable in size. Left-sided pacemaker. Poststernotomy changes. No pleural effusions. No pneumothorax. IMPRESSION: Interval development of bibasilar airspace opacities. This likely represents a pneumonia. Recommend follow-up to ensure resolution. Electronically signed by: Tam Beryr M.D. 11/06/2016 8:22 AM Dictated Date/Time: 11/06/2016 8:21 AM
[2016-11-06] MEDS: FLUTICASONE/SALMETEROL 250/50 (ADVAIR) 14 PUFF/1 INHALER INH SCH ×2 (08:31→21:10)
[2016-11-06] MEDS: PIPERACILL/TAZOBAC IV 3.375 GM in DEXTROSE 5% 100ML 100 ML IV SCH ×3 (08:31→23:25)
[2016-11-06] MEDS: ASPIRIN 81 MG ECTAB PO SCH (08:31)
[2016-11-06] MEDS: ATORVASTATIN 20 MG TAB PO SCH (08:31)
[2016-11-06] MEDS: PANTOprazole SOD 40 MG TAB PO SCH (08:32)
--- NOTE | 2016-11-06 08:50 | Pharmacy Progress Note ---
Pharmacy Antibiotic Consult Date of Service: November 06, 2016. Pharmacy Dosing Scope Pharmacy is consulted to initiate vancomycin, zosyn IV dosing therapy, order appropriate labs and adjust drug dose/frequency. Subjective The patient is a 71 year old male admitted on November 06, 2016 at 04:27. Objective Height (Feet): 5 Height (Inches): 11.00 Weight (Kilograms): 87.000 Lab Results (24hrs): Test 11/06/16 01:40 11/06/16 05:49 White Blood Count 21.09 K/uL (4.8-10.8) 18.73 K/uL (4.8-10.8) Red Blood Count 4.85 M/uL (4.7-6.1) 4.84 M/uL (4.7-6.1) Hemoglobin 14.9 g/dL (14.0-18.0) 14.0 g/dL (14.0-18.0) Hematocrit 43.5 % (42-52) 43.6 % (42-52) Mean Corpuscular Volume 89.7 fL (80-100) 90.1 fL (80-100) Mean Corpuscular Hemoglobin 30.7 pg (25-34) 28.9 pg (25-34) Mean Corpuscular Hemoglobin Concent 34.3 g/dl (32-36) 32.1 g/dl (32-36) Platelet Count 88 K/uL (130-400) 87 K/uL (130-400) Mean Platelet Volume 10.7 fL (7.4-10.4) 10.4 fL (7.4-10.4) Neutrophils (%) (Auto) 95.6 % Lymphocytes (%) (Auto) 1.7 % Monocytes (%) (Auto) 2.3 % Eosinophils (%) (Auto) 0.0 % Basophils (%) (Auto) 0.0 % Neutrophils # (Auto) 20.17 K/uL (1.4-6.5) Lymphocytes # (Auto) 0.35 K/uL (1.2-3.4) Monocytes # (Auto) 0.48 K/uL (0.11-0.59) Eosinophils # (Auto) 0.00 K/uL (0-0.5) Basophils # (Auto) 0.00 K/uL (0-0.2) RDW Standard Deviation 49.6 fL (36.4-46.3) 50.3 fL (36.4-46.3) RDW Coefficient of Variation 15.3 % (11.5-14.5) 15.2 % (11.5-14.5) Immature Granulocyte % (Auto) 0.4 % Immature Granulocyte # (Auto) 0.09 K/uL (0.00-0.02) Platelet Estimate DECREASED Red Blood Cell Morphology Unremarkable Arterial Blood pH 7.41 (7.35-7.45) Arterial Blood Partial Pressure CO2 46 mmHg (35-46) Arterial Blood Partial Pressure O2 57 mm/Hg (80-95) Arterial Blood HCO3 28 mmol/L (19-24) Arterial Blood Oxygen Saturation 88.4 % (90-95) Arterial Blood Base Excess 2.6 mEq/L (-9-1.8) Arterial Blood Gas Delivery 6 L Gunnar Test POS (POS) Sodium Level 141 mmol/L (136-145) Potassium Level 4.0 mmol/L (3.5-5.1) Chloride Level 105 mmol/L (98-107) Carbon Dioxide Level 28 mmol/L (21-32) Anion Gap 8.0 mmol/L (3-11) Blood Urea Nitrogen 38 mg/dl (7-18) Creatinine 2.00 mg/dl (0.60-1.40) Est Creatinine Clear Calc Drug Dose 37.1 ml/min Estimated GFR () 38.3 Estimated GFR (Non- 33.1 BUN/Creatinine Ratio 18.9 (10-20) Random Glucose 185 mg/dl (70-99) Calcium Level 7.7 mg/dl (8.5-10.1) Total Bilirubin 0.7 mg/dl (0.2-1) Aspartate Amino Transf (AST/SGOT) 22 U/L (15-37) Alanine Aminotransferase (ALT/SGPT) 30 U/L (12-78) Alkaline Phosphatase 73 U/L (45-117) Total Creatine Kinase 122 U/L (39-308) Creatine Kinase MB 3.7 ng/ml (0.5-3.6) Creatine Kinase MB Ratio 3.0 (0-3.0) Troponin I 2.160 ng/ml (0-0.045) Pro-B-Type Natriuretic Peptide 4030 pg/ml (0-900) Total Protein 6.5 gm/dl (6.4-8.2) Albumin 2.3 gm/dl (3.4-5.0) Globulin 4.2 gm/dl (2.5-4.0) Albumin/Globulin Ratio 0.5 (0.9-2) Prothrombin Time 14.8 SECONDS (9.0-12.0) Prothromb Time International Ratio 1.4 (0.9-1.1) Activated Partial Thromboplast Time 36.4 SECONDS (21.0-31.0) Partial Thromboplastin Ratio 1.4 Lactic Acid Level 1.7 mmol/L (0.4-2.0) Assessment & Plan Patient started on vancomycin, zosyn and azithromycin (not consult) for possible pneumonia. Vancomycin: * Pt received Vancomycin 1000 mg x 1 in the ED (~12 mg/kg) * Will start MD of vancomycin 1250 (~14 mg/kg) iv q 18 hrs to achieve an estimated trough 15-20 mcg/ml (goal for PNA) * Will start MD now, due to only partial loading dose being given in the ED * Estimated kinetics: t1/2~19 hrs, ke~0.035 hr-1, CrCl ~37 ml/min; baseline Scr closer to 1.3 mg/dL * Will reassess in the am and order trough as necessary Zosyn: * 3.375 gm iv q 8 hrs (appropriate for CrCl >20 ml/min); no change Pharmacy will continue to follow and will adjust dose/frequency as necessary. Thank you
[2016-11-06] MEDS ORDERED: METOPROLOL TARTRATE 50 MG TAB PO SCH (09:00)
[2016-11-06] MEDS ORDERED: VANCOMYCIN INJ 1,000 MG in SODIUM CHLORIDE 0.9% 250ML 250 ML IV SCH (09:00)
[2016-11-06] MEDS ORDERED: QUINAPRIL HCL 20 MG PO SCH (09:00)
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
[2016-11-06] MEDS: VANCOMYCIN INJ 1,250 MG in SODIUM CHLORIDE 0.9% 250ML 250 ML IV SCH (10:30)
[2016-11-06 12:29] LABS: HEMATOCRIT 39.9 % (42-52); MEAN CELL VOLUME 90.3 fL (80-100); MEAN CORPUSCULAR HGB CONC 32.1 g/dl (32-36); MEAN PLATELET VOLUME 10.3 fL (7.4-10.4); PLATELET COUNT 73 K/uL (130-400); RED BLOOD COUNT 4.42 M/uL (4.7-6.1); WHITE BLOOD COUNT 14.41 K/uL (4.8-10.8)
[2016-11-06] MEDS: METOPROLOL TARTRATE 25 MG TAB PO SCH ×3 (12:44→23:25)
[2016-11-06 12:54] LABS: CALCIUM 7.2 mg/dl (8.5-10.1); CREATININE 2.5 mg/dl (0.60-1.40); POTASSIUM 3.9 mmol/L (3.5-5.1)
[2016-11-06 12:58] LABS: PARTIAL THROMBOPLASTIN RATIO 4.2
[2016-11-06] MEDS ORDERED: NURSING VERBAL MED ORDER ONE (13:00)
[2016-11-06 13:10] LABS: BETA-HYDROXYBUTYRATE 11.05 mg/dL (0.2-2.81)
--- NOTE | 2016-11-06 15:05 | Medical Consult ---
Consultation Date of Consultation: November 06, 2016. Attending Physician: Elsy Morton M.D. Reason for Consultation: Pneumonia with sepsis History of Present Illness 71-year-old male with complicated past medical history including coronary artery disease status post CABG, a long history of COPD, status post defibrillator, peripheral vascular disease who approximately 10 days ago developed increasing shortness of breath and cough, with possible low-grade fever and chills, consistent with exacerbation of COPD. He was given levofloxacin by his primary care physician, but symptoms progressively worsening and patient felt that he was going to so came to the emergency department. He was found to be hypoxic, with leukocytosis, low platelets, elevated creatinine, and bilateral infiltrates on chest x-ray. He has been started on broad-spectrum antibiotics with azithromycin, Zosyn, and vancomycin. Blood cultures are no growth to date. Serum creatinine up today to 2.5. Platelets appear to be dropping. No significant travel or exposure history. Past Medical/Surgical History Medical Problems: (1) Bilateral pneumonia Status: Acute (2) NSTEMI (non-ST elevated myocardial infarction) Status: Acute (3) Renal insufficiency Status: Acute (4) Respiratory failure Status: Acute (5) Thrombocytopenia Status: Acute Medical Problems: (1) CHF exacerbation (2) COPD exacerbation (3) Diabetes (4) Hypertension Family History FH: aneurysm FH: coronary artery disease FH: myocardial infarction Social History Smoking Status: Never Smoker Drug Use: none Marital Status: Housing Status: lives with family Occupation Status: employed Allergies Coded Allergies: No Known Allergies (Verified , 11/06/16) Current Inpatient Medications Current Inpatient Medications Medications (Trade) Dose Ordered Sig/Elsie Route Start Time Stop Time Status Last Admin Dose Admin Aspirin (Ecotrin Tab) 81 mg DAILY PO 11/06/16 09:00 12/06/16 08:59 11/06/16 08:31 81 MG Atorvastatin Calcium (Lipitor Tab) 20 mg DAILY PO 11/06/16 09:00 12/06/16 08:59 11/06/16 08:31 20 MG Doxepin HCl (Sinequan Cap) 100 mg HS PO 11/06/16 21:00 12/06/16 20:59 Salmeterol Xinafoate/ Fluticasone (Advair Diskus 250/50 Inh) 1 puff BID INH 11/06/16 09:00 12/06/16 08:59 11/06/16 08:31 1 PUFF Insulin Glargine (Lantus Solostar Pen) 25 unit QPM SC 11/06/16 21:00 12/06/16 20:59 Tramadol HCl (Ultram Tab) 50 mg Q6 PRN PO 11/06/16 04:30 12/06/16 04:29 Pantoprazole Sodium (Protonix Tab) 40 mg DAILY PO 11/06/16 09:00 12/06/16 08:59 11/06/16 08:32 40 MG Acetaminophen (Tylenol Tab) 650 mg Q4H PRN PO 11/06/16 04:30 12/06/16 04:29 Al Hydrox/Mg Hydrox/Simethicone (Maalox Max Susp) 15 ml Q4H PRN PO 11/06/16 04:30 12/06/16 04:29 Magnesium Hydroxide (Milk Of Magnesia Susp) 30 ml Q12H PRN PO 11/06/16 04:30 12/06/16 04:29 Ondansetron HCl (Zofran Inj) 4 mg Q6H PRN IV 11/06/16 04:30 12/06/16 04:29 Polyethylene 17 gm 17 gm DAILY PRN PO 11/06/16 04:30 12/06/16 04:29 Piperacillin Sod/ Tazobactam Sod 3.375 gm/Dextrose 115 ml @ 28.75 mls/ hr Q8H IV 11/06/16 08:00 11/13/16 07:59 11/06/16 08:31 28.75 MLS/HR Azithromycin/ Dextrose (Zithromax IV/D5 250ml) 255 ml @ 125 mls/hr Q24H IV 11/06/16 06:00 11/13/16 05:59 11/06/16 06:24 125 MLS/HR Vancomycin HCl (Consult) 1 ea UD PRN N/A 11/06/16 06:00 12/06/16 05:59 Piperacillin Sod/ Tazobactam Sod (Consult) 1 ea UD PRN N/A 11/06/16 06:00 12/06/16 05:59 Albuterol/ Ipratropium (Duoneb) 3 ml Q6R INH 11/06/16 09:00 12/06/16 08:59 11/06/16 07:14 3 ML Albuterol Sulfate (Ventolin 0.083% 2.5MG/3ML Neb) 2.5 mg Q4H PRN INH 11/06/16 06:00 12/06/16 05:59 Glucose (Glucose 40% Gel) 15-30 GRAMS 15 GRAMS... UD PRN PO 11/06/16 08:00 12/06/16 07:59 Glucose (Glucose Chew Tab) 4-8 Tablets 4 Tabl... UD PRN PO 11/06/16 08:00 12/06/16 07:59 Dextrose (Dextrose 50% 50ML Syringe) 25-50ML OF 50% DW IV FOR... UD PRN IV 11/06/16 08:00 12/06/16 07:59 Glucagon (Glucagon Inj) 1 mg UD PRN SQ 11/06/16 08:00 12/06/16 07:59 Metoprolol Tartrate 25 mg 25 mg Q6 PO 11/06/16 12:00 12/06/16 11:59 11/06/16 12:44 25 MG Vancomycin HCl/ Sodium Chloride (Vancomycin Inj/ Nss 250ml) 275 ml @ 125 mls/hr Q18H IV 11/06/16 10:00 11/13/16 09:59 11/06/16 10:30 125 MLS/HR Review of Systems Constitutional: + chills, + fever Eyes: No problem reported ENT: No problem reported Respiratory: + cough, + dyspnea on exertion, + shortness of breath Cardiovascular: No problem reported Abdomen: + nausea Musculoskeletal: No problem reported Genitourinary - Male: No problem reported Neurologic: No problem reported Psychiatric: No problem reported Endocrine: No problem reported Hematologic / Lymphatic: No problem reported Integumentary: No problem reported Allergic / Immunologic: No problem reported Physical Exam Date Time Temp Pulse Resp B/P Pulse Ox O2 Delivery O2 Flow Rate FiO2 11/06/16 12:01 37.0 89 20 121/77 90 BiPAP 11/06/16 12:00 93 BiPAP 60 11/06/16 10:04 89 90 60 11/06/16 08:10 36.5 93 20 111/68 91 BiPAP 11/06/16 08:00 92 BiPAP 60 11/06/16 07:14 91 22 91 BiPAP/CPAP 60 11/06/16 07:14 91 91 60 11/06/16 05:42 105 96 60 11/06/16 05:32 36.3 95 27 110/74 93 BiPAP 11/06/16 04:43 97 25 111/73 91 CPAP 60 11/06/16 03:41 94 24 115/62 92 BiPAP 60 11/06/16 03:06 90 95 60 11/06/16 02:47 96 24 95/59 91 Non-Rebreather 12.0 11/06/16 02:45 90 Non-Rebreather 15.0 11/06/16 02:42 87 Nasal Cannula 6.0 11/06/16 02:41 93 Non-Rebreather 15.0 11/06/16 01:49 77 Room Air 11/06/16 01:38 98 26 108/62 90 Nebulizer 10.0 11/06/16 01:28 93 Non-Rebreather 10.0 11/06/16 01:26 82 Nasal Cannula 6.0 11/06/16 01:25 102 11/06/16 01:14 36.9 105 20 106/64 78 Room Air General Appearance: WD/WN, + mild distress Head: normocephalic, atraumatic Eyes: normal inspection, EOMI, sclerae normal ENT: normal ENT inspection, pharynx normal Neck: supple, no adenopathy, thyroid normal, trachea midline Respiratory/Chest: chest non-tender, + respiratory distress, + rales, + wheezing Cardiovascular: regular rate, rhythm, no gallop, no murmur Abdomen/GI: normal bowel sounds, non tender, soft, no organomegaly Back: normal inspection, no CVA tenderness Extremities/Musculoskelatal: no calf tenderness, non-tender Neurologic/Psych: alert, oriented x 3 Skin: normal color, warm/dry, no rash Lymphatic: no adenopathy Laboratory Results Date/Time Source Procedure Growth Status 11/06/16 01:36 Blood Blood Culture Pending Received 11/06/16 01:31 Blood Blood Culture Pending Received Last 24 Hours Test 11/06/16 01:40 11/06/16 05:49 11/06/16 11:03 11/06/16 12:02 White Blood Count 21.09 K/uL 18.73 K/uL 14.41 K/uL Red Blood Count 4.85 M/uL 4.84 M/uL 4.42 M/uL Hemoglobin 14.9 g/dL 14.0 g/dL 12.8 g/dL Hematocrit 43.5 % 43.6 % 39.9 % Mean Corpuscular Volume 89.7 fL 90.1 fL 90.3 fL Mean Corpuscular Hemoglobin 30.7 pg 28.9 pg 29.0 pg Mean Corpuscular Hemoglobin Concent 34.3 g/dl 32.1 g/dl 32.1 g/dl Platelet Count 88 K/uL 87 K/uL 73 K/uL Mean Platelet Volume 10.7 fL 10.4 fL 10.3 fL Neutrophils (%) (Auto) 95.6 % Lymphocytes (%) (Auto) 1.7 % Monocytes (%) (Auto) 2.3 % Eosinophils (%) (Auto) 0.0 % Basophils (%) (Auto) 0.0 % Neutrophils # (Auto) 20.17 K/uL Lymphocytes # (Auto) 0.35 K/uL Monocytes # (Auto) 0.48 K/uL Eosinophils # (Auto) 0.00 K/uL Basophils # (Auto) 0.00 K/uL RDW Standard Deviation 49.6 fL 50.3 fL 50.0 fL RDW Coefficient of Variation 15.3 % 15.2 % 15.2 % Immature Granulocyte % (Auto) 0.4 % Immature Granulocyte # (Auto) 0.09 K/uL Platelet Estimate DECREASED Red Blood Cell Morphology Unremarkable Arterial Blood pH 7.41 Arterial Blood Partial Pressure CO2 46 mmHg Arterial Blood Partial Pressure O2 57 mm/Hg Arterial Blood HCO3 28 mmol/L Arterial Blood Oxygen Saturation 88.4 % Arterial Blood Base Excess 2.6 mEq/L Arterial Blood Gas Delivery 6 L Gunnar Test POS Sodium Level 141 mmol/L 137 mmol/L Potassium Level 4.0 mmol/L 3.9 mmol/L Chloride Level 105 mmol/L 101 mmol/L Carbon Dioxide Level 28 mmol/L 27 mmol/L Anion Gap 8.0 mmol/L 9.0 mmol/L Blood Urea Nitrogen 38 mg/dl 47 mg/dl Creatinine 2.00 mg/dl 2.50 mg/dl Est Creatinine Clear Calc Drug Dose 37.1 ml/min 29.7 ml/min Estimated GFR () 38.3 29.3 Estimated GFR (Non- 33.1 25.3 BUN/Creatinine Ratio 18.9 19.0 Random Glucose 185 mg/dl 337 mg/dl Calcium Level 7.7 mg/dl 7.2 mg/dl Total Bilirubin 0.7 mg/dl Aspartate Amino Transf (AST/SGOT) 22 U/L Alanine Aminotransferase (ALT/SGPT) 30 U/L Alkaline Phosphatase 73 U/L Total Creatine Kinase 122 U/L Creatine Kinase MB 3.7 ng/ml Creatine Kinase MB Ratio 3.0 Troponin I 2.160 ng/ml 2.320 ng/ml Pro-B-Type Natriuretic Peptide 4030 pg/ml Total Protein 6.5 gm/dl Albumin 2.3 gm/dl Globulin 4.2 gm/dl Albumin/Globulin Ratio 0.5 Prothrombin Time 14.8 SECONDS Prothromb Time International Ratio 1.4 Activated Partial Thromboplast Time 36.4 SECONDS Partial Thromboplastin Ratio 1.4 Lactic Acid Level 1.7 mmol/L Hepatitis C Antibody Screen NEG Bedside Glucose 292 mg/dl Magnesium Level 2.0 mg/dl Beta-Hydroxybutyric Acid 11.05 mg/dL Test 11/06/16 12:25 Activated Partial Thromboplast Time 108.7 SECONDS Partial Thromboplastin Ratio 4.2 Patient Name: ZEINA WALLACE Unit Number: [id number] Dictated: 11/06/16743 Transcribed: 11/06/16743 [employer] Printed Date/Time: [~ rep prt dt]/[~ rep prt tm] [~ rep ct labl] - [~ rep ct ivnm] [facility] Radiology Department [place], [place] [id number] Dictated: 11/06/16743 Transcribed: 11/06/16743 [facility] Printed Date/Time: [~ rep prt dt]/[~ rep prt tm] [~ rep ct labl] - [~ rep ct ivnm] CT DOSE: 776.81 mGy.cm HISTORY: Short of breath. Difficulty breathing. TECHNIQUE: Multiaxial CT images of the chest were performed without contrast. COMPARISON: Chest CTA 09/30/2013. FINDINGS: Motion artifact. Small amount of mucoid material within the right mainstem bronchus. No pneumothorax. Mild emphysema. Nodular and consolidative airspace opacity seen within the lung bases. This includes the right middle lobe, bilateral lower lobes, and lingula. The bibasilar pattern raises the possibility of an aspiration pneumonia. No pleural or pericardial effusions. Old, healed bilateral rib fractures. Poststernotomy changes. Left-sided pacemaker. Normal caliber thoracic aorta. The heart is normal in size. Nodular contour to the liver consistent with cirrhosis. The visualized spleen and adrenal glands are unremarkable. IMPRESSION: 1. Bibasilar multifocal airspace opacities. This may represent an aspiration pneumonia. Recommend follow-up to ensure resolution. 2. Mild emphysema. 3. Cirrhotic liver. Electronically signed by: Tam Berry M.D. 11/06/2016 7:48 AM Dictated Date/Time: 11/06/2016 7:44 AM The status of this report is Signed. Draft = Not yet reviewed or approved by Radiologist. Signed = Reviewed and approved by Radiologist. <AttendingPhy>Aldo Souza M.D.</AttendingPhy> <FamilyPhy>Onofre Betancur M.D.</FamilyPhy> <PrimaryPhy>Onofre Betancur M.D.</PrimaryPhy> < UnitNumber>[id number]</UnitNumber> <VisitNumber>[id number]</VisitNumber> < PatientName>ZEINA WALLACE</PatientName> <DateOfBirth>1945</DateOfBirth> < Location>[facility]</Location> <ServiceDate>11/06/16</ServiceDate> <MNE>ESINDI</MNE> < OrderingPhy>Kathy Long D.O.</OrderingPhy> <OrderingPhyMNE>f rep ord dr pimentel< /OrderingPhyMNE> <DictatingPhyMNE>f rep dict dr pimentel</DictatingPhyMNE> <CCListMNE >f rep ct dannie</CCListMNE> <AdmittingPhyMNE>f pt admit dr pimentel</AdmittingPhyMNE> < AttendingPhyMNE>f pt attend dr pimentel</AttendingPhyMNE> <ConsultingPhyMNE>f pt consult dr pimentel</ConsultingPhyMNE> <FamilyPhyMNE>f pt fam dr pimentel</FamilyPhyMNE> <OtherPhyMNE>f pt other dr pimentel</OtherPhyMNE> < PrimaryPhyMNE>f pt prim care dr pimentel</PrimaryPhyMNE> <ReferringPhyMNE>f pt referring dr pimentel</ReferringPhyMNE> Assessment & Plan 71-year-old diabetic male with coronary artery disease and COPD now with sepsis with progressive bilateral infiltrates despite levofloxacin therapy. pending further culture results, current antibiotic therapy appropriate. I have ordered Legionella urinary antigen. We will follow.
--- NOTE | 2016-11-06 16:16 | Family Medicine Progress Note ---
Progress Note Date of Service November 06, 2016. Subjective Pt evaluation today including: conversation w/ patient, conversation w/ family , physical exam, chart review, lab review, conversation w/ cardiology clinical consultant, review of inpatient medication list Pain: minimal Patient with no acute events overnight He did have one episode of SVT. It was 10 beats long. He remained asymptomatic Ct scan showed bilateral aspiration pneumonia Patient denied any chest pain, palpitations, nausea, vomiting, abdominal pain, shortness of breath, wheezing, cough, headache, light headedness. He did say that he was feeling quite fatigued. Additional Comments: Please see note above for ROS Medications Current Inpatient Medications Medications (Trade) Dose Ordered Sig/Elsie Route Start Time Stop Time Status Last Admin Dose Admin Aspirin (Ecotrin Tab) 81 mg DAILY PO 11/06/16 09:00 12/06/16 08:59 11/06/16 08:31 81 MG Atorvastatin Calcium (Lipitor Tab) 20 mg DAILY PO 11/06/16 09:00 12/06/16 08:59 11/06/16 08:31 20 MG Doxepin HCl (Sinequan Cap) 100 mg HS PO 11/06/16 21:00 12/06/16 20:59 Salmeterol Xinafoate/ Fluticasone (Advair Diskus 250/50 Inh) 1 puff BID INH 11/06/16 09:00 12/06/16 08:59 11/06/16 08:31 1 PUFF Insulin Glargine (Lantus Solostar Pen) 25 unit QPM SC 11/06/16 21:00 12/06/16 20:59 Tramadol HCl (Ultram Tab) 50 mg Q6 PRN PO 11/06/16 04:30 12/06/16 04:29 Pantoprazole Sodium (Protonix Tab) 40 mg DAILY PO 11/06/16 09:00 12/06/16 08:59 11/06/16 08:32 40 MG Acetaminophen (Tylenol Tab) 650 mg Q4H PRN PO 11/06/16 04:30 12/06/16 04:29 Al Hydrox/Mg Hydrox/Simethicone (Maalox Max Susp) 15 ml Q4H PRN PO 11/06/16 04:30 12/06/16 04:29 Magnesium Hydroxide (Milk Of Magnesia Susp) 30 ml Q12H PRN PO 11/06/16 04:30 12/06/16 04:29 Ondansetron HCl (Zofran Inj) 4 mg Q6H PRN IV 11/06/16 04:30 12/06/16 04:29 Polyethylene 17 gm 17 gm DAILY PRN PO 11/06/16 04:30 12/06/16 04:29 Piperacillin Sod/ Tazobactam Sod 3.375 gm/Dextrose 115 ml @ 28.75 mls/ hr Q8H IV 11/06/16 08:00 11/13/16 07:59 11/06/16 08:31 28.75 MLS/HR Azithromycin/ Dextrose (Zithromax IV/D5 250ml) 255 ml @ 125 mls/hr Q24H IV 11/06/16 06:00 11/13/16 05:59 11/06/16 06:24 125 MLS/HR Vancomycin HCl (Consult) 1 ea UD PRN N/A 11/06/16 06:00 12/06/16 05:59 Piperacillin Sod/ Tazobactam Sod (Consult) 1 ea UD PRN N/A 11/06/16 06:00 12/06/16 05:59 Albuterol/ Ipratropium (Duoneb) 3 ml Q6R INH 11/06/16 09:00 12/06/16 08:59 11/06/16 07:14 3 ML Albuterol Sulfate (Ventolin 0.083% 2.5MG/3ML Neb) 2.5 mg Q4H PRN INH 11/06/16 06:00 12/06/16 05:59 Glucose (Glucose 40% Gel) 15-30 GRAMS 15 GRAMS... UD PRN PO 11/06/16 08:00 12/06/16 07:59 Glucose (Glucose Chew Tab) 4-8 Tablets 4 Tabl... UD PRN PO 11/06/16 08:00 12/06/16 07:59 Dextrose (Dextrose 50% 50ML Syringe) 25-50ML OF 50% DW IV FOR... UD PRN IV 11/06/16 08:00 12/06/16 07:59 Glucagon (Glucagon Inj) 1 mg UD PRN SQ 11/06/16 08:00 12/06/16 07:59 Metoprolol Tartrate 25 mg 25 mg Q6 PO 11/06/16 12:00 12/06/16 11:59 11/06/16 12:44 25 MG Vancomycin HCl/ Sodium Chloride (Vancomycin Inj/ Nss 250ml) 275 ml @ 125 mls/hr Q18H IV 11/06/16 10:00 11/13/16 09:59 11/06/16 10:30 125 MLS/HR Objective Vital Signs Date Time Temp Pulse Resp B/P Pulse Ox O2 Delivery O2 Flow Rate FiO2 11/06/16 15:22 36.6 86 18 112/72 89 Nasal Cannula 11/06/16 12:01 37.0 89 20 121/77 90 BiPAP 11/06/16 12:00 93 BiPAP 60 11/06/16 10:04 89 90 60 11/06/16 08:10 36.5 93 20 111/68 91 BiPAP 11/06/16 08:00 92 BiPAP 60 11/06/16 07:14 91 22 91 BiPAP/CPAP 60 11/06/16 07:14 91 91 60 11/06/16 05:42 105 96 60 11/06/16 05:32 36.3 95 27 110/74 93 BiPAP 11/06/16 04:43 97 25 111/73 91 CPAP 60 11/06/16 03:41 94 24 115/62 92 BiPAP 60 11/06/16 03:06 90 95 60 11/06/16 02:47 96 24 95/59 91 Non-Rebreather 12.0 11/06/16 02:45 90 Non-Rebreather 15.0 11/06/16 02:42 87 Nasal Cannula 6.0 11/06/16 02:41 93 Non-Rebreather 15.0 11/06/16 01:49 77 Room Air 11/06/16 01:38 98 26 108/62 90 Nebulizer 10.0 11/06/16 01:28 93 Non-Rebreather 10.0 11/06/16 01:26 82 Nasal Cannula 6.0 11/06/16 01:25 102 11/06/16 01:14 36.9 105 20 106/64 78 Room Air Physical Exam General Appearance: WD/WN, + mild distress, + pertinent finding (patient with bipap on) Neck: supple, no JVD, trachea midline Respiratory/Chest: chest non-tender, + decreased breath sounds, + rhonchi ( bilateral) Cardiovascular: regular rate, rhythm, no JVD, + pertinent finding (distant heart sounds) Abdomen: normal bowel sounds, non tender, soft Extremities: non-tender, + pertinent finding (chronic venous changes with +1 pitting edema to mid andrade) Neurologic/Psychiatric: alert, normal mood/affect, oriented x 3 Laboratory Results Results Past 24 Hours Test 11/06/16 01:40 11/06/16 05:49 11/06/16 11:03 11/06/16 12:02 Range/Units White Blood Count 21.09 18.73 14.41 4.8-10.8 K/uL Red Blood Count 4.85 4.84 4.42 4.7-6.1 M/uL Hemoglobin 14.9 14.0 12.8 14.0-18.0 g/dL Hematocrit 43.5 43.6 39.9 42-52 % Mean Corpuscular Volume 89.7 90.1 90.3 80-100 fL Mean Corpuscular Hemoglobin 30.7 28.9 29.0 25-34 pg Mean Corpuscular Hemoglobin Concent 34.3 32.1 32.1 32-36 g/dl Platelet Count 88 87 73 130-400 K/uL Mean Platelet Volume 10.7 10.4 10.3 7.4-10.4 fL Neutrophils (%) (Auto) 95.6 % Lymphocytes (%) (Auto) 1.7 % Monocytes (%) (Auto) 2.3 % Eosinophils (%) (Auto) 0.0 % Basophils (%) (Auto) 0.0 % Neutrophils # (Auto) 20.17 1.4-6.5 K/uL Lymphocytes # (Auto) 0.35 1.2-3.4 K/uL Monocytes # (Auto) 0.48 0.11-0.59 K/uL Eosinophils # (Auto) 0.00 0-0.5 K/uL Basophils # (Auto) 0.00 0-0.2 K/uL RDW Standard Deviation 49.6 50.3 50.0 36.4-46.3 fL RDW Coefficient of Variation 15.3 15.2 15.2 11.5-14.5 % Immature Granulocyte % (Auto) 0.4 % Immature Granulocyte # (Auto) 0.09 0.00-0.02 K/uL Platelet Estimate DECREASED Red Blood Cell Morphology Unremarkable Arterial Blood pH 7.41 7.35-7.45 Arterial Blood Partial Pressure CO2 46 35-46 mmHg Arterial Blood Partial Pressure O2 57 80-95 mm/Hg Arterial Blood HCO3 28 19-24 mmol/L Arterial Blood Oxygen Saturation 88.4 90-95 % Arterial Blood Base Excess 2.6 -9-1.8 mEq/L Arterial Blood Gas Delivery 6 L Gunnar Test POS POS Sodium Level 141 137 136-145 mmol/L Potassium Level 4.0 3.9 3.5-5.1 mmol/L Chloride Level 105 101 98-107 mmol/L Carbon Dioxide Level 28 27 21-32 mmol/L Anion Gap 8.0 9.0 3-11 mmol/L Blood Urea Nitrogen 38 47 7-18 mg/dl Creatinine 2.00 2.50 0.60-1.40 mg/dl Est Creatinine Clear Calc Drug Dose 37.1 29.7 ml/min Estimated GFR () 38.3 29.3 Estimated GFR (Non- 33.1 25.3 BUN/Creatinine Ratio 18.9 19.0 10-20 Random Glucose 185 337 70-99 mg/dl Calcium Level 7.7 7.2 8.5-10.1 mg/dl Total Bilirubin 0.7 0.2-1 mg/dl Aspartate Amino Transf (AST/SGOT) 22 15-37 U/L Alanine Aminotransferase (ALT/SGPT) 30 12-78 U/L Alkaline Phosphatase 73 45-117 U/L Total Creatine Kinase 122 39-308 U/L Creatine Kinase MB 3.7 0.5-3.6 ng/ml Creatine Kinase MB Ratio 3.0 0-3.0 Troponin I 2.160 2.320 0-0.045 ng/ml Pro-B-Type Natriuretic Peptide 4030 0-900 pg/ml Total Protein 6.5 6.4-8.2 gm/dl Albumin 2.3 3.4-5.0 gm/dl Globulin 4.2 2.5-4.0 gm/dl Albumin/Globulin Ratio 0.5 0.9-2 Prothrombin Time 14.8 9.0-12.0 SECONDS Prothromb Time International Ratio 1.4 0.9-1.1 Activated Partial Thromboplast Time 36.4 21.0-31.0 SECONDS Partial Thromboplastin Ratio 1.4 Lactic Acid Level 1.7 0.4-2.0 mmol/L Hepatitis C Antibody Screen NEG NEG Bedside Glucose 292 70-99 mg/dl Magnesium Level 2.0 1.8-2.4 mg/dl Beta-Hydroxybutyric Acid 11.05 0.2-2.81 mg/dL Test 11/06/16 12:25 Range/Units Activated Partial Thromboplast Time 108.7 21.0-31.0 SECONDS Partial Thromboplastin Ratio 4.2 Microbiology Results 11/06/16 Blood Culture, Received Pending 11/06/16 Blood Culture, Received Pending Assessment and Plan 71 y/o M Hx COPD, DM, obesity, severe PVD, ARF, CAD - NSTEMI - cardiac arrest 2013, AICD. Pt was recently treated for a COPD exacerbation with a 7 day course of Levaquin and steroids. Despite complying with treatment he has become progressively SOB. Acute respiratory failure - sec to pneumonia with COPD exacerbation - Continue bipap Bilateral pneumonia (recent hospitalization with levaquin and steroids) - Vanc, Pip-Tazo and Azithromycin IV - Pending cultures - Duo nebs (not available), fluticasone and albuterol - methylprednisolone 40mg IV - ID consult (legionella antigen ordered) - Trend WBC - speech eval COPD exacerbation sec to pneumonia - Steroids - Nebs Elevated troponin with h/o DE, Cardiac arrest and AICD placement - restart BB - trend troponin - heparin stopped - cardiac consult - trop elevation likely due to demand ischemia - on surveillance system monitor Chronic CHF - echo this morning showed EF of 55-60% - stop alexey inhibitor - monitor I/O's Thrombocytopenia sec to cirrhosis - platelets in 80's - stopped heparin - elevated aptt--> continue to monitor - check for hep B and C HLD - lipitor ARF - start gentle IV hydration 80mls/hr - trend bmp DM - placed on SS Cirrhosis - diagnosed on CT - ordered hepatitis panel and portal vein US - follow as outpatient Diet - regular heart healthy Code - Full Continued [facility] stay due to: multiple IV medications needed Reviewed: Pt Seen/Exam by Me History breathing is improving. Constitutional: denies: fever Cardiovascular: denies chest pain Gastrointestinal/Abdominal: negative: abdominal pain General Appearance: other (comfortable on bipap) Respiratory: decreased breath sounds, other (on bipap) Cardiovascular: regular rate, rhythm Neurologic/Psychiatric: alert, oriented x 3 Skin Characteristics: warm/dry Assessment/Plan I have reviewed the medical record and performed a history and physical examination of this patient today. I have discussed the case with Dr. Snyder. The above note reflects my findings, conclusions, and recommendations.
[2016-11-06] MEDS: SODIUM CHLORIDE 0.9% 1000ML 1,000 ML IV SCH (16:41)
[2016-11-06] MEDS ORDERED: INSULIN GLARGINE SOLOSTAR 100 UNITS/ML 3 ML PEN SC SCH (21:00)
[2016-11-06] MEDS: DOXEPIN HCL 50 MG CAP PO SCH (21:10)
--- NOTE | 2016-11-06 22:46 | DIAGNOSTIC IMAGING REPORT ---
DOPPLER ULTRASOUND OF THE HEPATIC VESSELS CLINICAL HISTORY: Cirrhosis. COMPARISON STUDY: CT of the abdomen and pelvis September 30, 2013. TECHNIQUE: Color and duplex Doppler sonography of the major hepatic vessels was performed. FINDINGS: The main, left and right portal veins are patent with appropriately directed flow. The splenic vein is patent. Middle, left and right hepatic veins are patent. IMPRESSION: Patent major hepatic vessels with appropriately directed flow. Electronically signed by: Sathya Krishnan M.D. 11/06/2016 10:45 PM Dictated Date/Time: 11/06/2016 10:44 PM
[2016-11-07] VITALS (10 sets, daily range): BP systolic 125–159; BP diastolic 72–83; PULSE 81–103; TEMP 36.5–36.8; O2SAT 92–96; Ht 180.3 cm; Wt 89.1 kg
[2016-11-07] MEDS: ALBUT/IPRATROP 3MG/0.5MG NEB 3 ML VIAL INH SCH ×4 (03:18→19:52)
[2016-11-07] MEDS: VANCOMYCIN INJ 1,250 MG in SODIUM CHLORIDE 0.9% 250ML 250 ML IV SCH (03:51)
[2016-11-07] MEDS: SODIUM CHLORIDE 0.9% 1000ML 1,000 ML IV SCH ×2 (03:52→17:10)
[2016-11-07] MEDS: AZITHROMYCIN IV 500 MG in DEXTROSE 5% 250ML 250 ML IV SCH (06:06)
[2016-11-07] MEDS: METOPROLOL TARTRATE 25 MG TAB PO SCH ×4 (06:06→23:30)
[2016-11-07] MEDS ORDERED: METHYLPREDNISOLONE IV 40 MG in SYRINGE 0 ML IV SCH (06:15)
[2016-11-07 06:56] LABS: HEMATOCRIT 36.6 % (42-52); MEAN CELL VOLUME 90.8 fL (80-100); MEAN CORPUSCULAR HEMOGLOBIN 29.5 pg (25-34); MEAN CORPUSCULAR HGB CONC 32.5 g/dl (32-36); RED BLOOD COUNT 4.03 M/uL (4.7-6.1); WHITE BLOOD COUNT 9.53 K/uL (4.8-10.8)
[2016-11-07 06:58] LABS: COMPLETE YES; IG% 0.2 %; LYMPH % 1.9 %; LYMPH ABS # 0.18 K/uL (1.2-3.4); MEAN PLATELET VOLUME 11.1 fL (7.4-10.4); MONO % 2.6 %; NEUT % 95.3 %; PLATELET COUNT 78 K/uL (130-400)
[2016-11-07 07:09] LABS: INR 1.2 (0.9-1.1); PARTIAL THROMBOPLASTIN RATIO 1.4; PROTHROMBIN TIME (PATIENT) 12.7 SECONDS (9.0-12.0)
[2016-11-07 07:33] LABS: BUN/CREATININE RATIO 18.7 (10-20); CALCIUM 6.9 mg/dl (8.5-10.1); CREATININE 3.1 mg/dl (0.60-1.40); POTASSIUM 3.9 mmol/L (3.5-5.1)
[2016-11-07 07:35] LABS: ALB/GLOB RATIO 0.5 (0.9-2)
[2016-11-07 07:43] LABS: BETA-HYDROXYBUTYRATE 2.08 mg/dL (0.2-2.81)
[2016-11-07] MEDS: ATORVASTATIN 20 MG TAB PO SCH (07:46)
[2016-11-07] MEDS: ASPIRIN 81 MG ECTAB PO SCH (07:46)
[2016-11-07] MEDS: PANTOprazole SOD 40 MG TAB PO SCH (07:46)
[2016-11-07] MEDS: FLUTICASONE/SALMETEROL 250/50 (ADVAIR) 14 PUFF/1 INHALER INH SCH ×2 (07:47→21:31)
[2016-11-07] MEDS: INSULIN ASPART 100 UNITS/ML 3 ML PEN SC SCH ×4 (08:01→21:30)
[2016-11-07] MEDS: PIPERACILL/TAZOBAC IV 3.375 GM in DEXTROSE 5% 100ML 100 ML IV SCH ×3 (08:51→23:29)
--- NOTE | 2016-11-07 09:51 | Clinical Documentation Query ---
THOMAS Penaloza : CLINICAL DOCUMENTATION QUERY Patient is a 71 year old male admitted with increasing SOB, having undergone recent treatment for COPD exacerbation with Levaquin. Documentation includes pneumonia, not otherwise specified. Treatment included Vancomycin, Zosyn, and Azithromycin, with discontinuation of Vancomycin this a.m. CT scan of the chest suggested possible aspiration pneumonia. In your clinical opinion is this patient being managed for: ( ) (Possible/Likely/Suspected) Gram-negative and/or aspiration pneumonia ( ) Other explanation of clinical findings (Please Explain) ( ) Unable to determine (Please Define) ( ) Need to Discuss ( ) Not Agree The medical record reflects the following clinical findings, treatment, and risk factors. Clinical Indicators: Recent antibiotic use, CT findings, additionally as above. Treatment: As above, and additionally including nebs, steroids, cultures, speech eval. Risk Factors:COPD, smoking history, age, comorbidities Please clarify and document your clinical opinion in the progress notes and discharge summary. Terms such as "probable", "suspected", "likely", "questionable", "possible", or "still to be ruled out" are acceptable. IF IN AGREEMENT, YOU MUST DOCUMENT ABOVE DIAGNOSTIC STATEMENT IN DAILY PROGRESS NOTES AND DISCHARGE SUMMARY. This document is not part of the patient's record. Thank You, Brad Malik, JOSEFINA [phone]
--- NOTE | 2016-11-07 09:51 | Infectious Disease Progress Nt ---
Progress Note Date of Service November 07, 2016. Subjective Pt evaluation today including: conversation w/ patient, physical exam, chart review, lab review, review of studies, conversation w/ child welfare consultant, review of inpatient medication list Patient feeling better with less shortness of breath and cough. Remains afebrile. White count improving, now normal. Tolerating antibiotics without apparent difficulty. All cultures remain negative to date. All Other Systems: Reviewed and Negative Medications Current Inpatient Medications Medications (Trade) Dose Ordered Sig/Elsie Route Start Time Stop Time Status Last Admin Dose Admin Aspirin (Ecotrin Tab) 81 mg DAILY PO 11/06/16 09:00 12/06/16 08:59 11/07/16 07:46 81 MG Atorvastatin Calcium (Lipitor Tab) 20 mg DAILY PO 11/06/16 09:00 12/06/16 08:59 11/07/16 07:46 20 MG Doxepin HCl (Sinequan Cap) 100 mg HS PO 11/06/16 21:00 12/06/16 20:59 11/06/16 21:10 100 MG Salmeterol Xinafoate/ Fluticasone (Advair Diskus 250/50 Inh) 1 puff BID INH 11/06/16 09:00 12/06/16 08:59 11/07/16 07:47 1 PUFF Insulin Glargine (Lantus Solostar Pen) 25 unit QPM SC 11/06/16 21:00 12/06/16 20:59 11/06/16 21:10 25 UNIT Tramadol HCl (Ultram Tab) 50 mg Q6 PRN PO 11/06/16 04:30 12/06/16 04:29 Pantoprazole Sodium (Protonix Tab) 40 mg DAILY PO 11/06/16 09:00 12/06/16 08:59 11/07/16 07:46 40 MG Acetaminophen (Tylenol Tab) 650 mg Q4H PRN PO 11/06/16 04:30 12/06/16 04:29 11/07/16 07:46 650 MG Al Hydrox/Mg Hydrox/Simethicone (Maalox Max Susp) 15 ml Q4H PRN PO 11/06/16 04:30 12/06/16 04:29 Magnesium Hydroxide (Milk Of Magnesia Susp) 30 ml Q12H PRN PO 11/06/16 04:30 12/06/16 04:29 Ondansetron HCl (Zofran Inj) 4 mg Q6H PRN IV 11/06/16 04:30 12/06/16 04:29 Polyethylene 17 gm 17 gm DAILY PRN PO 11/06/16 04:30 12/06/16 04:29 Piperacillin Sod/ Tazobactam Sod 3.375 gm/Dextrose 115 ml @ 28.75 mls/ hr Q8H IV 11/06/16 08:00 11/13/16 07:59 11/07/16 08:51 28.75 MLS/HR Azithromycin/ Dextrose (Zithromax IV/D5 250ml) 255 ml @ 125 mls/hr Q24H IV 11/06/16 06:00 11/13/16 05:59 11/07/16 06:06 125 MLS/HR Piperacillin Sod/ Tazobactam Sod (Consult) 1 ea UD PRN N/A 11/06/16 06:00 12/06/16 05:59 Albuterol/ Ipratropium (Duoneb) 3 ml Q6R INH 11/06/16 09:00 12/06/16 08:59 11/07/16 07:23 3 ML Albuterol Sulfate (Ventolin 0.083% 2.5MG/3ML Neb) 2.5 mg Q4H PRN INH 11/06/16 06:00 12/06/16 05:59 Glucose (Glucose 40% Gel) 15-30 GRAMS 15 GRAMS... UD PRN PO 11/06/16 08:00 12/06/16 07:59 Glucose (Glucose Chew Tab) 4-8 Tablets 4 Tabl... UD PRN PO 11/06/16 08:00 12/06/16 07:59 Dextrose (Dextrose 50% 50ML Syringe) 25-50ML OF 50% DW IV FOR... UD PRN IV 11/06/16 08:00 12/06/16 07:59 Glucagon (Glucagon Inj) 1 mg UD PRN SQ 11/06/16 08:00 12/06/16 07:59 Metoprolol Tartrate 25 mg 25 mg Q6 PO 11/06/16 12:00 12/06/16 11:59 11/07/16 06:06 25 MG Methylprednisolone Sodium Succinate 40 mg/Syringe 0.64 ml @ 1.5 mls/min Q24H IV 11/07/16 06:15 12/07/16 06:14 11/07/16 06:06 1.5 MLS/MIN Sodium Chloride (Nss 1000ml) 1,000 ml @ 80 mls/hr [id number] IV 11/06/16 16:15 12/06/16 16:14 11/07/16 03:52 80 MLS/HR Insulin Aspart (novoLOG ASPART) SLIDING SCALE G... ACHS SC 11/07/16 07:00 12/07/16 06:59 11/07/16 08:01 13 UNITS Objective Vital Signs Date Time Temp Pulse Resp B/P Pulse Ox O2 Delivery O2 Flow Rate FiO2 11/07/16 08:00 Nasal Cannula 6.0 11/07/16 07:23 92 18 92 Nasal Cannula 5.0 11/07/16 04:15 36.5 85 19 136/79 92 Nasal Cannula 6.0 11/07/16 04:00 Nasal Cannula 6.0 11/07/16 03:18 92 18 94 Nasal Cannula 5.0 11/07/16 00:10 36.6 81 18 125/76 93 Nasal Cannula 6.0 11/06/16 23:59 Nasal Cannula 6.0 11/06/16 20:00 97 BiPAP 50 11/06/16 19:43 86 97 60 11/06/16 19:42 86 20 97 BiPAP/CPAP 60 11/06/16 19:15 36.4 84 16 131/82 96 BiPAP 11/06/16 16:00 97 BiPAP 60 11/06/16 15:22 36.6 86 18 112/72 89 Nasal Cannula 11/06/16 12:01 37.0 89 20 121/77 90 BiPAP 11/06/16 12:00 93 BiPAP 60 11/06/16 10:04 89 90 60 Physical Exam General Appearance: WD/WN, no apparent distress Eyes: normal inspection, EOMI, sclerae normal ENT: normal ENT inspection, pharynx normal Neck: supple, no adenopathy, trachea midline Respiratory/Chest: chest non-tender, no respiratory distress, + rales, + wheezing Cardiovascular: regular rate, rhythm, no gallop, no murmur Abdomen: normal bowel sounds, non tender, soft, no organomegaly Extremities: non-tender, + pertinent finding (Chronic venous stasis changes) Neurologic/Psychiatric: alert, oriented x 3 Skin: normal color, no rash, + pertinent finding (Bilateral lower extremity stasis dermatitis) Lymphatic: no adenopathy Laboratory Results Date/Time Source Procedure Growth Status 11/06/16 19:45 Nasal MRSA DNA Surveillance Screen - Final Specimen Negative for MRSA by DNA Probe Complete Last 24 Hours Test 11/06/16 11:03 11/06/16 12:02 11/06/16 12:25 11/06/16 15:57 Bedside Glucose 292 mg/dl 345 mg/dl White Blood Count 14.41 K/uL Red Blood Count 4.42 M/uL Hemoglobin 12.8 g/dL Hematocrit 39.9 % Mean Corpuscular Volume 90.3 fL Mean Corpuscular Hemoglobin 29.0 pg Mean Corpuscular Hemoglobin Concent 32.1 g/dl RDW Standard Deviation 50.0 fL RDW Coefficient of Variation 15.2 % Platelet Count 73 K/uL Mean Platelet Volume 10.3 fL Sodium Level 137 mmol/L Potassium Level 3.9 mmol/L Chloride Level 101 mmol/L Carbon Dioxide Level 27 mmol/L Anion Gap 9.0 mmol/L Blood Urea Nitrogen 47 mg/dl Creatinine 2.50 mg/dl Est Creatinine Clear Calc Drug Dose 29.7 ml/min Estimated GFR () 29.3 Estimated GFR (Non- 25.3 BUN/Creatinine Ratio 19.0 Random Glucose 337 mg/dl Calcium Level 7.2 mg/dl Magnesium Level 2.0 mg/dl Troponin I 2.320 ng/ml Beta-Hydroxybutyric Acid 11.05 mg/dL Activated Partial Thromboplast Time 108.7 SECONDS Partial Thromboplastin Ratio 4.2 Test 11/06/16 16:20 11/06/16 20:09 11/06/16 21:05 11/07/16 06:30 Troponin I 2.450 ng/ml Hepatitis B Surface Antigen NEG Hepatitis C Antibody NEG Bedside Glucose 340 mg/dl White Blood Count 9.53 K/uL Red Blood Count 4.03 M/uL Hemoglobin 11.9 g/dL Hematocrit 36.6 % Mean Corpuscular Volume 90.8 fL Mean Corpuscular Hemoglobin 29.5 pg Mean Corpuscular Hemoglobin Concent 32.5 g/dl Platelet Count 78 K/uL Mean Platelet Volume 11.1 fL Neutrophils (%) (Auto) 95.3 % Lymphocytes (%) (Auto) 1.9 % Monocytes (%) (Auto) 2.6 % Eosinophils (%) (Auto) 0.0 % Basophils (%) (Auto) 0.0 % Neutrophils # (Auto) 9.08 K/uL Lymphocytes # (Auto) 0.18 K/uL Monocytes # (Auto) 0.25 K/uL Eosinophils # (Auto) 0.00 K/uL Basophils # (Auto) 0.00 K/uL RDW Standard Deviation 50.7 fL RDW Coefficient of Variation 15.1 % Immature Granulocyte % (Auto) 0.2 % Immature Granulocyte # (Auto) 0.02 K/uL Prothrombin Time 12.7 SECONDS Prothromb Time International Ratio 1.2 Activated Partial Thromboplast Time 35.4 SECONDS Partial Thromboplastin Ratio 1.4 Sodium Level 137 mmol/L Potassium Level 3.9 mmol/L Chloride Level 102 mmol/L Carbon Dioxide Level 27 mmol/L Anion Gap 8.0 mmol/L Blood Urea Nitrogen 58 mg/dl Creatinine 3.10 mg/dl Est Creatinine Clear Calc Drug Dose 26.0 ml/min Estimated GFR () 22.6 Estimated GFR (Non- 19.5 BUN/Creatinine Ratio 18.7 Random Glucose 350 mg/dl Calcium Level 6.9 mg/dl Total Bilirubin 0.6 mg/dl Aspartate Amino Transf (AST/SGOT) 21 U/L Alanine Aminotransferase (ALT/SGPT) 27 U/L Alkaline Phosphatase 115 U/L Total Protein 5.8 gm/dl Albumin 1.8 gm/dl Globulin 4.0 gm/dl Albumin/Globulin Ratio 0.5 Beta-Hydroxybutyric Acid 2.08 mg/dL Procalcitonin 1.65 ng/ml Test 11/07/16 06:59 Bedside Glucose 399 mg/dl Patient Name: ZEINA WALLACE Unit Number: [id number] Dictated: 11/06/162243 Transcribed: 11/06/162243 ALONDRA Printed Date/Time: [~ rep prt dt]/[~ rep prt tm] [~ rep ct labl] - [~ rep ct ivnm] [facility] [place] [address] Dictated: 11/06/162243 Transcribed: 11/06/162243 ALONDRA Printed Date/Time: [~ rep prt dt]/[~ rep prt tm] [~ rep ct labl] - [~ rep ct ivnm] DOPPLER ULTRASOUND OF THE HEPATIC VESSELS CLINICAL HISTORY: Cirrhosis. COMPARISON STUDY: CT of the abdomen and pelvis September 30, 2013. TECHNIQUE: Color and duplex Doppler sonography of the major hepatic vessels was performed. FINDINGS: The main, left and right portal veins are patent with appropriately directed flow. The splenic vein is patent. Middle, left and right hepatic veins are patent. IMPRESSION: Patent major hepatic vessels with appropriately directed flow. Electronically signed by: Sathya Krishnan M.D. 11/06/2016 10:45 PM Dictated Date/Time: 11/06/2016 10:44 PM The status of this report is Signed. Draft = Not yet reviewed or approved by Radiologist. Signed = Reviewed and approved by Radiologist. <AttendingPhy>Elsy Morton M.D.</AttendingPhy> <FamilyPhy>Onofre Betancur M.D.</FamilyPhy> <PrimaryPhy>Onofre Betancur M.D.</PrimaryPhy > <UnitNumber>[id number]</UnitNumber> <VisitNumber>[id number]</VisitNumber> < PatientName>ZEINA WALLACE</PatientName> <DateOfBirth>1945</DateOfBirth> < Location>[facility]</Location> <ServiceDate>11/06/16</ServiceDate> <MNE>ESINDI</MNE> < OrderingPhy>Jung Snyder MD</OrderingPhy> <OrderingPhyMNE>f rep ord dr pimentel</ OrderingPhyMNE> <DictatingPhyMNE>f rep dict dr pimentel</DictatingPhyMNE> <CCListMNE> f rep ct dannie</CCListMNE> <AdmittingPhyMNE>f pt admit dr pimentel</AdmittingPhyMNE> < AttendingPhyMNE>f pt attend dr pimentel</AttendingPhyMNE> <ConsultingPhyMNE>f pt consult dr pimentel</ConsultingPhyMNE> <FamilyPhyMNE>f pt fam dr pimentel</FamilyPhyMNE> <OtherPhyMNE>f pt other dr pimentel</OtherPhyMNE> < PrimaryPhyMNE>f pt prim care dr pimentel</PrimaryPhyMNE> <ReferringPhyMNE>f pt referring dr pimentel</ReferringPhyMNE> Assessment and Plan 71-year-old diabetic male with coronary artery disease and COPD now with sepsis with progressive bilateral infiltrates despite levofloxacin therapy. Patient appears to be improving on current antibiotic therapy, would continue IVs for at least another day or 2. Await final culture and serology results.
--- NOTE | 2016-11-07 09:52 | Clinical Documentation Query ---
Dr. [facility] : CLINICAL DOCUMENTATION QUERY Patient is a 71 year old male admitted with increasing SOB, having undergone recent treatment for COPD exacerbation with Levaquin. Documentation includes pneumonia, not otherwise specified. Treatment included Vancomycin, Zosyn, and Azithromycin, with discontinuation of Vancomycin this a.m. CT scan of the chest suggested possible aspiration pneumonia. In your clinical opinion is this patient being managed for: (x ) (Possible/Likely/Suspected) Gram-negative and/or aspiration pneumonia ( ) Other explanation of clinical findings (Please Explain) ( ) Unable to determine (Please Define) ( ) Need to Discuss ( ) Not Agree The medical record reflects the following clinical findings, treatment, and risk factors. Clinical Indicators: Recent antibiotic use, CT findings, additionally as above. Treatment: As above, and additionally including nebs, steroids, cultures, speech eval. Risk Factors:COPD, smoking history, age, comorbidities Please clarify and document your clinical opinion in the progress notes and discharge summary. Terms such as "probable", "suspected", "likely", "questionable", "possible", or "still to be ruled out" are acceptable. IF IN AGREEMENT, YOU MUST DOCUMENT ABOVE DIAGNOSTIC STATEMENT IN DAILY PROGRESS NOTES AND DISCHARGE SUMMARY. This document is not part of the patient's record. Thank You, Brad Malik, JOSEFINA [phone]
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
--- NOTE | 2016-11-07 15:16 | Family Medicine Progress Note ---
Progress Note Date of Service November 07, 2016. Subjective Pt evaluation today including: conversation w/ patient Pain: none PO Intake: adeqaute Patient with no acute events overnight He is feeling much better since yesterday. He was transitioned off the bipap and is now on oxygen via nasal cannula He slept well throughout the night, he still has a dry cough but has not been expectorating sputum. Patient is able to ambulate to a from the washroom without any trouble Patient denies any chest pain, palpitations, fever, chills, night sweats, shortness of breath at rest, diarrhea, constipation Additional Comments: please see note above for ROS Medications Current Inpatient Medications Medications (Trade) Dose Ordered Sig/Elsie Route Start Time Stop Time Status Last Admin Dose Admin Aspirin (Ecotrin Tab) 81 mg DAILY PO 11/06/16 09:00 12/06/16 08:59 11/07/16 07:46 81 MG Atorvastatin Calcium (Lipitor Tab) 20 mg DAILY PO 11/06/16 09:00 12/06/16 08:59 11/07/16 07:46 20 MG Doxepin HCl (Sinequan Cap) 100 mg HS PO 11/06/16 21:00 12/06/16 20:59 11/06/16 21:10 100 MG Salmeterol Xinafoate/ Fluticasone (Advair Diskus 250/50 Inh) 1 puff BID INH 11/06/16 09:00 12/06/16 08:59 11/07/16 07:47 1 PUFF Insulin Glargine (Lantus Solostar Pen) 25 unit QPM SC 11/06/16 21:00 12/06/16 20:59 11/06/16 21:10 25 UNIT Tramadol HCl (Ultram Tab) 50 mg Q6 PRN PO 11/06/16 04:30 12/06/16 04:29 Pantoprazole Sodium (Protonix Tab) 40 mg DAILY PO 11/06/16 09:00 12/06/16 08:59 11/07/16 07:46 40 MG Acetaminophen (Tylenol Tab) 650 mg Q4H PRN PO 11/06/16 04:30 12/06/16 04:29 11/07/16 07:46 650 MG Al Hydrox/Mg Hydrox/Simethicone (Maalox Max Susp) 15 ml Q4H PRN PO 11/06/16 04:30 12/06/16 04:29 Magnesium Hydroxide (Milk Of Magnesia Susp) 30 ml Q12H PRN PO 11/06/16 04:30 12/06/16 04:29 Ondansetron HCl (Zofran Inj) 4 mg Q6H PRN IV 11/06/16 04:30 12/06/16 04:29 Polyethylene 17 gm 17 gm DAILY PRN PO 11/06/16 04:30 12/06/16 04:29 Piperacillin Sod/ Tazobactam Sod 3.375 gm/Dextrose 115 ml @ 28.75 mls/ hr Q8H IV 11/06/16 08:00 11/13/16 07:59 11/07/16 08:51 28.75 MLS/HR Azithromycin/ Dextrose (Zithromax IV/D5 250ml) 255 ml @ 125 mls/hr Q24H IV 11/06/16 06:00 11/13/16 05:59 11/07/16 06:06 125 MLS/HR Piperacillin Sod/ Tazobactam Sod (Consult) 1 ea UD PRN N/A 11/06/16 06:00 12/06/16 05:59 Albuterol/ Ipratropium (Duoneb) 3 ml Q6R INH 11/06/16 09:00 12/06/16 08:59 11/07/16 14:14 3 ML Albuterol Sulfate (Ventolin 0.083% 2.5MG/3ML Neb) 2.5 mg Q4H PRN INH 11/06/16 06:00 12/06/16 05:59 Glucose (Glucose 40% Gel) 15-30 GRAMS 15 GRAMS... UD PRN PO 11/06/16 08:00 12/06/16 07:59 Glucose (Glucose Chew Tab) 4-8 Tablets 4 Tabl... UD PRN PO 11/06/16 08:00 12/06/16 07:59 Dextrose (Dextrose 50% 50ML Syringe) 25-50ML OF 50% DW IV FOR... UD PRN IV 11/06/16 08:00 12/06/16 07:59 Glucagon (Glucagon Inj) 1 mg UD PRN SQ 11/06/16 08:00 12/06/16 07:59 Metoprolol Tartrate 25 mg 25 mg Q6 PO 11/06/16 12:00 12/06/16 11:59 11/07/16 11:44 25 MG Methylprednisolone Sodium Succinate 40 mg/Syringe 0.64 ml @ 1.5 mls/min Q24H IV 11/07/16 06:15 12/07/16 06:14 11/07/16 06:06 1.5 MLS/MIN Sodium Chloride (Nss 1000ml) 1,000 ml @ 80 mls/hr [id number] IV 11/06/16 16:15 12/06/16 16:14 11/07/16 03:52 80 MLS/HR Insulin Aspart (novoLOG ASPART) SLIDING SCALE G... ACHS SC 11/07/16 07:00 12/07/16 06:59 11/07/16 11:46 2 UNITS Objective Vital Signs Date Time Temp Pulse Resp B/P Pulse Ox O2 Delivery O2 Flow Rate FiO2 11/07/16 14:15 92 18 92 Nasal Cannula 5.0 11/07/16 12:08 36.8 99 18 138/72 96 11/07/16 12:00 Nasal Cannula 5.0 11/07/16 08:00 Nasal Cannula 6.0 11/07/16 07:23 92 18 92 Nasal Cannula 5.0 11/07/16 04:15 36.5 85 19 136/79 92 Nasal Cannula 6.0 11/07/16 04:00 Nasal Cannula 6.0 11/07/16 03:18 92 18 94 Nasal Cannula 5.0 11/07/16 00:10 36.6 81 18 125/76 93 Nasal Cannula 6.0 11/06/16 23:59 Nasal Cannula 6.0 11/06/16 20:00 97 BiPAP 50 11/06/16 19:43 86 97 60 11/06/16 19:42 86 20 97 BiPAP/CPAP 60 11/06/16 19:15 36.4 84 16 131/82 96 BiPAP 11/06/16 16:00 97 BiPAP 60 11/06/16 15:22 36.6 86 18 112/72 89 Nasal Cannula Physical Exam General Appearance: WD/WN, + mild distress ENT: hearing grossly normal, pharynx normal Neck: supple, no adenopathy, no JVD, no carotid bruits Respiratory/Chest: chest non-tender, no accessory muscle use, + decreased breath sounds, + rhonchi (diffuse bilaterally) Cardiovascular: no edema, no JVD, no murmur, + pertinent finding (decreased peripheral pulses with decreased sensation up the ankle bilaterally) Extremities: + pertinent finding (chronic venous changes of the extremities bilaterally) Neurologic/Psychiatric: alert, normal mood/affect, oriented x 3 Laboratory Results Results Past 24 Hours Test 11/06/16 15:57 11/06/16 16:20 11/06/16 20:09 11/06/16 21:05 Range/Units Bedside Glucose 345 340 70-99 mg/dl Troponin I 2.450 0-0.045 ng/ml Hepatitis B Surface Antigen NEG NEG Hepatitis C Antibody NEG NEG Test 11/07/16 06:30 11/07/16 06:59 Range/Units White Blood Count 9.53 4.8-10.8 K/uL Red Blood Count 4.03 4.7-6.1 M/uL Hemoglobin 11.9 14.0-18.0 g/dL Hematocrit 36.6 42-52 % Mean Corpuscular Volume 90.8 80-100 fL Mean Corpuscular Hemoglobin 29.5 25-34 pg Mean Corpuscular Hemoglobin Concent 32.5 32-36 g/dl Platelet Count 78 130-400 K/uL Mean Platelet Volume 11.1 7.4-10.4 fL Neutrophils (%) (Auto) 95.3 % Lymphocytes (%) (Auto) 1.9 % Monocytes (%) (Auto) 2.6 % Eosinophils (%) (Auto) 0.0 % Basophils (%) (Auto) 0.0 % Neutrophils # (Auto) 9.08 1.4-6.5 K/uL Lymphocytes # (Auto) 0.18 1.2-3.4 K/uL Monocytes # (Auto) 0.25 0.11-0.59 K/uL Eosinophils # (Auto) 0.00 0-0.5 K/uL Basophils # (Auto) 0.00 0-0.2 K/uL RDW Standard Deviation 50.7 36.4-46.3 fL RDW Coefficient of Variation 15.1 11.5-14.5 % Immature Granulocyte % (Auto) 0.2 % Immature Granulocyte # (Auto) 0.02 0.00-0.02 K/uL Prothrombin Time 12.7 9.0-12.0 SECONDS Prothromb Time International Ratio 1.2 0.9-1.1 Activated Partial Thromboplast Time 35.4 21.0-31.0 SECONDS Partial Thromboplastin Ratio 1.4 Sodium Level 137 136-145 mmol/L Potassium Level 3.9 3.5-5.1 mmol/L Chloride Level 102 98-107 mmol/L Carbon Dioxide Level 27 21-32 mmol/L Anion Gap 8.0 3-11 mmol/L Blood Urea Nitrogen 58 7-18 mg/dl Creatinine 3.10 0.60-1.40 mg/dl Est Creatinine Clear Calc Drug Dose 26.0 ml/min Estimated GFR () 22.6 Estimated GFR (Non- 19.5 BUN/Creatinine Ratio 18.7 10-20 Random Glucose 350 70-99 mg/dl Calcium Level 6.9 8.5-10.1 mg/dl Total Bilirubin 0.6 0.2-1 mg/dl Aspartate Amino Transf (AST/SGOT) 21 15-37 U/L Alanine Aminotransferase (ALT/SGPT) 27 12-78 U/L Alkaline Phosphatase 115 45-117 U/L Total Protein 5.8 6.4-8.2 gm/dl Albumin 1.8 3.4-5.0 gm/dl Globulin 4.0 2.5-4.0 gm/dl Albumin/Globulin Ratio 0.5 0.9-2 Beta-Hydroxybutyric Acid 2.08 0.2-2.81 mg/dL Procalcitonin 1.65 0-0.5 ng/ml Bedside Glucose 399 70-99 mg/dl Microbiology Results 11/06/16 MRSA DNA Surveillance Screen - Final, Complete Specimen Negative for MRSA by DNA Probe 11/07/16 Gram Stain, Received Pending 11/07/16 Sputum Culture, Received Pending Assessment and Plan 71 y/o M Hx COPD, DM, obesity, severe PVD, ARF, CAD - NSTEMI - cardiac arrest 2013, AICD. Pt was recently treated for a COPD exacerbation with a 7 day course of Levaquin and steroids. Despite complying with treatment he has become progressively SOB. Acute respiratory failure - sec to pneumonia with COPD exacerbation - no longer on bipap and currently on nasal cannula Suspected Gram-negative and/or aspiration pneumonia (recent hospitalization with levaquin and steroids) - Pip-Tazo and Azithromycin IV, Vanc stopped as patient with negative nasal MRSA swab - Pending cultures - Duo nebs (not available), fluticasone and albuterol - methylprednisolone 40mg IV bid - ID consult (legionella antigen ordered) - Trend WBC - speech eval COPD exacerbation sec to pneumonia - Steroids - Nebs Elevated troponin with h/o [place], Cardiac arrest and AICD placement - continue metoprolol and aspirin - trend troponin - heparin stopped - cardiac consult - trop elevation likely due to demand ischemia - on insurance adjustor Chronic CHF - echo this morning showed EF of 55-60% - hold alexey inhibitor and furosemide - monitor I/O's Thrombocytopenia sec to cirrhosis - platelets in 80's - stopped heparin - elevated aptt--> continue to monitor - check for hep B and C HLD - lipitor ARF - start gentle IV hydration 80mls/hr - trend bmp DM - placed on SS Cirrhosis - diagnosed on CT - Hep B and C both negative - portal vein US normal - follow as outpatient Diet - regular heart healthy Code - Full Continued [facility] stay due to: multiple IV medications needed Reviewed: Pt Seen/Exam by Me History off bipap breathing much better Constitutional: denies: fever Respiratory: negative: short of breath Cardiovascular: denies chest pain Gastrointestinal/Abdominal: negative: abdominal pain General Appearance: no apparent distress Respiratory: no respiratory distress, decreased breath sounds Cardiovascular: regular rate, rhythm Gastrointestinal: normal bowel sounds, non tender, soft Neurologic/Psychiatric: alert, oriented x 3 Assessment/Plan I have reviewed the medical record and performed a history and physical examination of this patient today. I have discussed the case with Dr. Snyder. The above note reflects my findings, conclusions, and recommendations.
[2016-11-07] MEDS: DOXEPIN HCL 50 MG CAP PO SCH (21:29)
[2016-11-07] MEDS: INSULIN GLARGINE SOLOSTAR 100 UNITS/ML 3 ML PEN SC SCH (21:30)
[2016-11-08] VITALS (19 sets, daily range): BP systolic 152–173; BP diastolic 72–96; PULSE 84–106; TEMP 36.5–37; O2SAT 94–98
[2016-11-08] MEDS ORDERED: NURSING VERBAL MED ORDER ONE (00:30)
[2016-11-08] MEDS ORDERED: INSULIN ASPART 100 UNITS/ML 3 ML PEN SC STA (00:38)
[2016-11-08] MEDS: ALBUT/IPRATROP 3MG/0.5MG NEB 3 ML VIAL INH SCH ×4 (02:15→19:26)
[2016-11-08 02:35] LABS: HEMATOCRIT 36.2 % (42-52); MEAN CELL VOLUME 89.6 fL (80-100); MEAN CORPUSCULAR HEMOGLOBIN 29.2 pg (25-34); MEAN CORPUSCULAR HGB CONC 32.6 g/dl (32-36); RED BLOOD COUNT 4.04 M/uL (4.7-6.1); WHITE BLOOD COUNT 7.03 K/uL (4.8-10.8)
[2016-11-08 02:47] LABS: MEAN PLATELET VOLUME 10.6 fL (7.4-10.4); PLATELET COUNT 87 K/uL (130-400)
[2016-11-08 02:54] LABS: INR 1.1 (0.9-1.1); PARTIAL THROMBOPLASTIN RATIO 1.2
[2016-11-08 02:58] LABS: BUN/CREATININE RATIO 18.1 (10-20); CALCIUM 6.8 mg/dl (8.5-10.1); CREATININE 3.3 mg/dl (0.60-1.40); POTASSIUM 3.7 mmol/L (3.5-5.1)
[2016-11-08 03:08] LABS: BETA-HYDROXYBUTYRATE 0.86 mg/dL (0.2-2.81)
[2016-11-08] MEDS: METOPROLOL TARTRATE 25 MG TAB PO SCH ×2 (05:43→11:49)
[2016-11-08] MEDS: SODIUM CHLORIDE 0.9% 1000ML 1,000 ML IV SCH (05:44)
[2016-11-08] MEDS: AZITHROMYCIN IV 500 MG in DEXTROSE 5% 250ML 250 ML IV SCH (05:44)
[2016-11-08] MEDS: BUDESONIDE 0.5 MG/2 ML VIAL (PULMICORT) INH SCH ×2 (07:53→19:26)
[2016-11-08] MEDS: PANTOprazole SOD 40 MG TAB PO SCH (08:02)
[2016-11-08] MEDS: ASPIRIN 81 MG ECTAB PO SCH (08:02)
[2016-11-08] MEDS: ATORVASTATIN 20 MG TAB PO SCH (08:03)
[2016-11-08] MEDS: FLUTICASONE/SALMETEROL 250/50 (ADVAIR) 14 PUFF/1 INHALER INH SCH ×2 (08:03→20:22)
[2016-11-08] MEDS: PIPERACILL/TAZOBAC IV 3.375 GM in DEXTROSE 5% 100ML 100 ML IV SCH ×3 (08:04→23:48)
[2016-11-08] MEDS: INSULIN ASPART 100 UNITS/ML 3 ML PEN SC SCH ×4 (08:12→20:34)
[2016-11-08] MEDS: INSULIN GLARGINE SOLOSTAR 100 UNITS/ML 3 ML PEN SC SCH ×2 (08:12→20:35)
[2016-11-08] MEDS: METHYLPREDNISOLONE IV 20 MG in SYRINGE 0 ML IV SCH (08:39)
--- NOTE | 2016-11-08 10:41 | Cardiology Follow-Up ---
Subjective General Date of Service: November 08, 2016. Chief Complaint: SOB Pt evaluation today including: conversation w/ patient, physical exam, chart review, lab review, review of studies, review of inpatient medication list History of Present Illness Patient seen and examined. Feeling better, improvement in dyspnea and congestion. Denies chest pain or tachypalpitations. Blood pressures are trending upward, off furosemide (40 mg/day) and quinapril ( 20 mg BID) Telemetry: Sinus rhythm in the 80's. PVC's in singles. No further wide complex runs since 11/06/2016 at 12:49:57. No significant bradyarrhythmias. November 06, 2016 TTE Interpretation Summary ([facility], Dr. Ocampo): The left ventricle is normal in size. There is mild concentric left ventricular hypertrophy. There is subtle hypokinesis of the posterior wall and lateral apex with otherwise preserved wall motion. Ejection Fraction = 55-60%. There is no significant valvular disease. Normal inferior vena cava diameter and respiratory variation suggests normal central venous pressure. Allergies Coded Allergies: No Known Allergies (Verified , 11/06/16) Social History Smoking Status: Never Smoker Hx Tobacco Use In Past Year?: No Hx Alcohol Use - Type And Amou: No Hx Substance Use - Type And Am: No Problem List Medical Problems: (1) Bilateral pneumonia Status: Acute (2) NSTEMI (non-ST elevated myocardial infarction) Status: Acute (3) Renal insufficiency Status: Acute (4) Respiratory failure Status: Acute (5) Thrombocytopenia Status: Acute Physical Exam Vital Signs Last Vital Signs Documentation Date Time Temp Pulse Resp B/P Pulse Ox O2 Delivery O2 Flow Rate FiO2 11/08/16 08:00 97 Nasal Cannula 3.0 11/08/16 07:53 36.7 98 20 153/93 11/08/16 04:00 50 Physical Exam Constitutional: Level of Distress: acutely ill, chronically ill Psychiatric: Mental Status: active & alert Orientation: to time, to place, to person Memory: recent memory normal, remote memory normal Head: normocephalic, atraumatic ENMT: pertinent finding (mucous membranes are quite dry) Neck: pertinent finding (Neck veins are flat) Lungs: Respiratory effort: dyspneic Auscultation: deminished air movement, decreased breath sounds, expiratory wheezing, rhonchi Cardiovascular: Heart Auscultation: normal S1, normal S2, no murmurs, no rubs, tachycardia ( 100 bpm) Peripheral Pulses: Radial Pulse: normal on the left, normal on the right Dorsalis Pedis Pulse: absent on the left, absent on the right Abdomen: Bowel Sounds: normal Inspection & Palpation: soft Extremities: pertinent finding (marked stasis changes. skin excoriation right andrade) Neurologic: Cranial Nerves: grossly intact Assessment and Plan Assessment and Plan Admission with acute respiratory failure secondary to pneumonia, acute obstructive pulmonary exacerbation. Elevated troponin, demand ischemia secondary to the above. No history or examination evidence of acute decompensated congestive heart failure History of ischemic heart disease, cardiac arrest in September 2013; severe three vessel CAD s/p CABG x 2 with a FREITAS to the LAD and a LEEANNA to the RCA. Non- graftable LCX. Status post single chamber defibrillator implantation with backup pacer set VVI 40 bpm. Chronic right bundle branch block Peripheral vascular disease Hypertension Hyperlipidemia Cirrhotic liver. RECOMMENDATIONS/PLAN: Change metoprolol tartrate back to 50 mg twice a day Add oral nitrates for additional blood pressure control. Continue without quinapril; furosemide (40 mg/day) remains on hold. Continue ASA and statin. CARDIOLOGY ATTENDING ADDENDUM: The patient was seen and personally examined. Agree with Zander Zabala PA-C's findings and plans as documented above. Pt. very ill on presentation. slowly improving. Laboratory Results Last 24 Hours Test 11/07/16 17:06 11/07/16 20:35 11/07/16 23:45 11/08/16 02:28 Bedside Glucose 471 mg/dl 467 mg/dl 384 mg/dl White Blood Count 7.03 K/uL Red Blood Count 4.04 M/uL Hemoglobin 11.8 g/dL Hematocrit 36.2 % Mean Corpuscular Volume 89.6 fL Mean Corpuscular Hemoglobin 29.2 pg Mean Corpuscular Hemoglobin Concent 32.6 g/dl RDW Standard Deviation 48.2 fL RDW Coefficient of Variation 14.8 % Platelet Count 87 K/uL Mean Platelet Volume 10.6 fL Prothrombin Time 12.0 SECONDS Prothromb Time International Ratio 1.1 Activated Partial Thromboplast Time 31.3 SECONDS Partial Thromboplastin Ratio 1.2 Sodium Level 140 mmol/L Potassium Level 3.7 mmol/L Chloride Level 104 mmol/L Carbon Dioxide Level 27 mmol/L Anion Gap 9.0 mmol/L Blood Urea Nitrogen 60 mg/dl Creatinine 3.30 mg/dl Est Creatinine Clear Calc Drug Dose 24.4 ml/min Estimated GFR () 20.9 Estimated GFR (Non- 18.1 BUN/Creatinine Ratio 18.1 Random Glucose 348 mg/dl Calcium Level 6.8 mg/dl Beta-Hydroxybutyric Acid 0.86 mg/dL Test 11/08/16 06:56 Bedside Glucose 335 mg/dl
--- NOTE | 2016-11-08 11:21 | Family Medicine Progress Note ---
Progress Note Date of Service November 08, 2016. 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 His creatinine also continued to rise and he had a bladder scan and was found to have 700ml and he urinated 300. We therefore d/c his fluids, started him on flomax and reinserted a guan catheter. We will have to investigate this issue further. Otherwise he has been asymptomatic and denies any worsening chest pain, palpitations, nausea, vomiting, abdominal pain, fevers, night sweats, chills. He continues to have a dry cough but has not brought up any sputum. Additional Comments: Please see note for ROS Medications Current Inpatient Medications Medications (Trade) Dose Ordered Sig/Elsie Route Start Time Stop Time Status Last Admin Dose Admin Aspirin (Ecotrin Tab) 81 mg DAILY PO 11/06/16 09:00 12/06/16 08:59 11/08/16 08:02 81 MG Atorvastatin Calcium (Lipitor Tab) 20 mg DAILY PO 11/06/16 09:00 12/06/16 08:59 11/08/16 08:03 20 MG Doxepin HCl (Sinequan Cap) 100 mg HS PO 11/06/16 21:00 12/06/16 20:59 11/07/16 21:29 100 MG Salmeterol Xinafoate/ Fluticasone (Advair Diskus 250/50 Inh) 1 puff BID INH 11/06/16 09:00 12/06/16 08:59 11/08/16 08:03 1 PUFF Tramadol HCl (Ultram Tab) 50 mg Q6 PRN PO 11/06/16 04:30 12/06/16 04:29 Pantoprazole Sodium (Protonix Tab) 40 mg DAILY PO 11/06/16 09:00 12/06/16 08:59 11/08/16 08:02 40 MG Acetaminophen (Tylenol Tab) 650 mg Q4H PRN PO 11/06/16 04:30 12/06/16 04:29 11/07/16 07:46 650 MG Al Hydrox/Mg Hydrox/Simethicone (Maalox Max Susp) 15 ml Q4H PRN PO 11/06/16 04:30 12/06/16 04:29 Magnesium Hydroxide (Milk Of Magnesia Susp) 30 ml Q12H PRN PO 11/06/16 04:30 12/06/16 04:29 Ondansetron HCl (Zofran Inj) 4 mg Q6H PRN IV 11/06/16 04:30 12/06/16 04:29 Polyethylene 17 gm 17 gm DAILY PRN PO 11/06/16 04:30 12/06/16 04:29 Piperacillin Sod/ Tazobactam Sod 3.375 gm/Dextrose 115 ml @ 28.75 mls/ hr Q8H IV 11/06/16 08:00 11/13/16 07:59 11/08/16 08:04 28.75 MLS/HR Azithromycin/ Dextrose (Zithromax IV/D5 250ml) 255 ml @ 125 mls/hr Q24H IV 11/06/16 06:00 11/13/16 05:59 11/08/16 05:44 125 MLS/HR Piperacillin Sod/ Tazobactam Sod (Consult) 1 ea UD PRN N/A 11/06/16 06:00 12/06/16 05:59 Albuterol/ Ipratropium (Duoneb) 3 ml Q6R INH 11/06/16 09:00 12/06/16 08:59 11/08/16 07:53 3 ML Albuterol Sulfate (Ventolin 0.083% 2.5MG/3ML Neb) 2.5 mg Q4H PRN INH 11/06/16 06:00 12/06/16 05:59 Glucose (Glucose 40% Gel) 15-30 GRAMS 15 GRAMS... UD PRN PO 11/06/16 08:00 12/06/16 07:59 Glucose (Glucose Chew Tab) 4-8 Tablets 4 Tabl... UD PRN PO 11/06/16 08:00 12/06/16 07:59 Dextrose (Dextrose 50% 50ML Syringe) 25-50ML OF 50% DW IV FOR... UD PRN IV 11/06/16 08:00 12/06/16 07:59 Glucagon (Glucagon Inj) 1 mg UD PRN SQ 11/06/16 08:00 12/06/16 07:59 Metoprolol Tartrate (Lopressor Tab) 25 mg Q6 PO 11/06/16 12:00 11/08/16 12:00 11/08/16 05:43 25 MG Insulin Aspart (novoLOG ASPART) SLIDING SCALE G... ACHS SC 11/07/16 07:00 11/08/16 08:12 10 UNITS Insulin Glargine 25 unit 25 unit BID SC 11/07/16 21:00 12/07/16 20:59 11/08/16 08:12 25 UNIT Methylprednisolone Sodium Succinate/ Syringe (Solu-Medrol IV/ Syringe) 0.32 ml @ 1.5 mls/min DAILY IV 11/08/16 09:00 12/08/16 08:59 11/08/16 08:39 1.5 MLS/MIN Budesonide (Pulmicort Respules 0.5MG/ 2ML Neb Soln) 0.5 mg BIDR INH 11/08/16 08:00 12/08/16 07:59 11/08/16 07:53 0.5 MG Metoprolol Tartrate (Lopressor Tab) 50 mg BID PO 11/08/16 21:00 12/08/16 20:59 Isosorbide Mononitrate (Imdur Ext Rel Tab) 60 mg QAM PO 11/08/16 10:45 12/08/16 10:44 Objective Vital Signs Date Time Temp Pulse Resp B/P Pulse Ox O2 Delivery O2 Flow Rate FiO2 11/08/16 08:00 97 Nasal Cannula 3.0 11/08/16 07:53 36.7 98 20 153/93 95 Nasal Cannula 4.0 11/08/16 07:53 92 16 97 Nasal Cannula 4.0 11/08/16 04:00 94 Nasal Cannula 6.0 50 11/08/16 03:53 36.5 99 19 158/83 94 Nasal Cannula 6.0 11/08/16 02:16 92 16 97 Nasal Cannula 4.0 11/08/16 00:00 96 Nasal Cannula 5.0 50 11/07/16 23:30 36.8 96 19 159/83 92 Nasal Cannula 4.0 11/07/16 20:00 Nasal Cannula 5.0 11/07/16 19:54 94 18 96 Nasal Cannula 5.0 11/07/16 19:45 36.5 96 20 155/83 94 Nasal Cannula 5.0 11/07/16 16:05 36.8 103 18 158/81 96 11/07/16 16:00 Nasal Cannula 5.0 11/07/16 14:15 92 18 92 Nasal Cannula 5.0 11/07/16 12:08 36.8 99 18 138/72 96 11/07/16 12:00 Nasal Cannula 5.0 Physical Exam Notes: General Appearance: WD/WN, no distress and on nasal cannula ENT: hearing grossly normal, pharynx normal Neck: supple, no adenopathy, no JVD, no carotid bruits Respiratory/Chest: chest non-tender, no accessory muscle use, + decreased breath sounds, + rhonchi (diffuse bilaterally) Cardiovascular: no edema, no JVD, no murmur, + pertinent finding (decreased peripheral pulses with decreased sensation up the ankle bilaterally) Extremities: + pertinent finding (chronic venous changes of the extremities bilaterally) Neurologic/Psychiatric: alert, normal mood/affect, oriented x 3 Laboratory Results Results Past 24 Hours Test 11/07/16 17:06 11/07/16 20:35 11/07/16 23:45 11/08/16 02:28 Range/Units Bedside Glucose 471 467 384 70-99 mg/dl White Blood Count 7.03 4.8-10.8 K/uL Red Blood Count 4.04 4.7-6.1 M/uL Hemoglobin 11.8 14.0-18.0 g/dL Hematocrit 36.2 42-52 % Mean Corpuscular Volume 89.6 80-100 fL Mean Corpuscular Hemoglobin 29.2 25-34 pg Mean Corpuscular Hemoglobin Concent 32.6 32-36 g/dl RDW Standard Deviation 48.2 36.4-46.3 fL RDW Coefficient of Variation 14.8 11.5-14.5 % Platelet Count 87 130-400 K/uL Mean Platelet Volume 10.6 7.4-10.4 fL Prothrombin Time 12.0 9.0-12.0 SECONDS Prothromb Time International Ratio 1.1 0.9-1.1 Activated Partial Thromboplast Time 31.3 21.0-31.0 SECONDS Partial Thromboplastin Ratio 1.2 Sodium Level 140 136-145 mmol/L Potassium Level 3.7 3.5-5.1 mmol/L Chloride Level 104 98-107 mmol/L Carbon Dioxide Level 27 21-32 mmol/L Anion Gap 9.0 3-11 mmol/L Blood Urea Nitrogen 60 7-18 mg/dl Creatinine 3.30 0.60-1.40 mg/dl Est Creatinine Clear Calc Drug Dose 24.4 ml/min Estimated GFR () 20.9 Estimated GFR (Non- 18.1 BUN/Creatinine Ratio 18.1 10-20 Random Glucose 348 70-99 mg/dl Calcium Level 6.8 8.5-10.1 mg/dl Beta-Hydroxybutyric Acid 0.86 0.2-2.81 mg/dL Test 11/08/16 06:56 Range/Units Bedside Glucose 335 70-99 mg/dl Assessment and Plan 71 y/o M Hx COPD, DM, obesity, severe PVD, ARF, CAD - NSTEMI - cardiac arrest 2013, AICD. Pt was recently treated for a COPD exacerbation with a 7 day course of Levaquin and steroids and presented to [facility] with worsening shortness of breath Acute respiratory failure - sec to pneumonia with COPD exacerbation - no longer on bipap and currently on nasal cannula Suspected Gram-negative and/or aspiration pneumonia (recent hospitalization with levaquin and steroids) - Pip-Tazo and Azithromycin IV - Pending cultures - Duo nebs Q6, budesonide neb INH started, albuterol prn, fluticasone held for now - methylprednisolone 40mg IV bid--> decreased to 20mg IV OD - ID consult (legionella antigen ordered) - WBC normal - speech eval done. continue current diet. aspiration precautions ARF - creatinine trending up - last creatinine was 3.3, likely due to bladder obstruction as post void residual was 400cc, guan catheter place and IVF stopped - trend bmp - check renal ultrasound - add flomax COPD exacerbation sec to pneumonia - Steroids - Nebs Elevated troponin with h/o VT, Cardiac arrest and AICD placement - increase metoprolol to 50 bid, hold furosemide - imdur 60mg OD added by cardiology - trend troponin - heparin stopped - cardiac consult - trop elevation likely due to demand ischemia - on cardiac monitor technician Chronic CHF - echo showed EF of 55-60% - hold alexey inhibitor and furosemide - monitor I/O's Thrombocytopenia sec to cirrhosis - platelets in 80's - stopped heparin - elevated aptt--> continue to monitor - Hep B and C both negative HLD - lipitor DM - placed on SS - insulin glargine 25 bid started Cirrhosis - diagnosed on CT - Hep B and C both negative - portal vein US normal - follow as outpatient Diet - regular heart healthy Code - Full Continued [facility] stay due to: multiple IV medications needed Reviewed: Pt Seen/Exam by Me History breathing continuing to be better noted to have urine retention last night - 700ml on bladder scan. guan placed. Constitutional: denies: fever Respiratory: negative: short of breath Cardiovascular: denies chest pain General Appearance: no apparent distress Respiratory: no respiratory distress, decreased breath sounds, rhonchi Cardiovascular: regular rate, rhythm Neurologic/Psychiatric: alert, oriented x 3 Skin Characteristics: warm/dry Assessment/Plan I have reviewed the medical record and performed a history and physical examination of this patient today. I have discussed the case with Dr. Snyder. The above note reflects my findings, conclusions, and recommendations.
[2016-11-08] MEDS: ISOSORBIDE MONONITRATE 60 MG TABCR PO SCH (11:50)
[2016-11-08] MEDS ORDERED: TAMSULOSIN HCL 0.4 MG CAP PO ONE (13:15)
[2016-11-08 14:24] LABS: LEGIONELLA ANTIGEN NOT DETECTED (NOT DETECTED)
--- NOTE | 2016-11-08 14:58 | DIAGNOSTIC IMAGING REPORT ---
ULTRASOUND KIDNEYS AND BLADDER CLINICAL HISTORY: Acute renal insufficiency. COMPARISON STUDY: Abdominal CT dated 09/30/2013. TECHNIQUE: Real-time, grayscale, and color flow sonography of the kidneys and bladder is performed. Images are reviewed in the transverse and longitudinal planes. FINDINGS: Kidneys: The kidneys demonstrate mild cortical atrophy and are normal in echotexture. The right kidney measures 12.7 x 5.9 x 6.1 cm and the left kidney measures 13.5 x 5.1 x 5.6 cm. There is no hydronephrosis. No shadowing renal calculi are identified. There is no sonographic evidence of contour deforming renal mass lesion. No perinephric fluid is identified. Bladder: The bladder is decompressed around a Moreira catheter and not well assessed. Ureteral jets could not be seen. Upper abdomen: Survey images of the upper abdomen show a cirrhotic liver morphology with heterogeneous echotexture and a nodular surface contour. Calcified gallstones are noted. The spleen is enlarged measuring 15 cm in length. IMPRESSION: 1. The kidneys demonstrate mild cortical atrophy and are without hydronephrosis. 2. The bladder was decompressed around a Moreira catheter and not well assessed. 3. Cirrhosis, splenomegaly, and cholelithiasis. Electronically signed by: Dexter Koenig M.D. 11/08/2016 2:57 PM Dictated Date/Time: 11/08/2016 2:54 PM
[2016-11-08 15:07] LABS: BUN/CREATININE RATIO 19.8 (10-20); CALCIUM 6.9 mg/dl (8.5-10.1); CREATININE 2.9 mg/dl (0.60-1.40); POTASSIUM 4.5 mmol/L (3.5-5.1)
[2016-11-08] MEDS: METOPROLOL TARTRATE 50 MG TAB PO SCH (20:22)
[2016-11-08] MEDS: DOXEPIN HCL 50 MG CAP PO SCH (20:23)
[2016-11-09] VITALS (17 sets, daily range): BP systolic 151–176; BP diastolic 62–95; PULSE 84–94; TEMP 36.4–37.2; O2SAT 93–97
[2016-11-09] MEDS: ALBUT/IPRATROP 3MG/0.5MG NEB 3 ML VIAL INH SCH ×4 (01:13→19:00)
[2016-11-09] MEDS: AZITHROMYCIN IV 500 MG in DEXTROSE 5% 250ML 250 ML IV SCH (05:37)
[2016-11-09] MEDS: BUDESONIDE 0.5 MG/2 ML VIAL (PULMICORT) INH SCH ×2 (07:16→19:00)
[2016-11-09 07:21] LABS: HEMATOCRIT 36.5 % (42-52); MEAN CELL VOLUME 90.8 fL (80-100); MEAN CORPUSCULAR HEMOGLOBIN 30.3 pg (25-34); MEAN CORPUSCULAR HGB CONC 33.4 g/dl (32-36); RED BLOOD COUNT 4.02 M/uL (4.7-6.1); WHITE BLOOD COUNT 4.59 K/uL (4.8-10.8)
[2016-11-09 07:30] LABS: MEAN PLATELET VOLUME 10.3 fL (7.4-10.4); PLATELET COUNT 79 K/uL (130-400)
[2016-11-09 08:00] LABS: BUN/CREATININE RATIO 19.7 (10-20); CALCIUM 7.1 mg/dl (8.5-10.1); CREATININE 2.7 mg/dl (0.60-1.40); POTASSIUM 3.9 mmol/L (3.5-5.1)
[2016-11-09 08:02] LABS: ALB/GLOB RATIO 0.5 (0.9-2)
[2016-11-09] MEDS: FLUTICASONE/SALMETEROL 250/50 (ADVAIR) 14 PUFF/1 INHALER INH SCH ×2 (08:02→20:29)
[2016-11-09] MEDS: METHYLPREDNISOLONE IV 20 MG in SYRINGE 0 ML IV SCH (08:02)
[2016-11-09] MEDS: TAMSULOSIN HCL 0.4 MG CAP PO SCH (08:03)
[2016-11-09] MEDS: ISOSORBIDE MONONITRATE 60 MG TABCR PO SCH (08:03)
[2016-11-09] MEDS: ATORVASTATIN 20 MG TAB PO SCH (08:03)
[2016-11-09] MEDS: METOPROLOL TARTRATE 50 MG TAB PO SCH (08:03)
[2016-11-09] MEDS: ASPIRIN 81 MG ECTAB PO SCH (08:03)
[2016-11-09] MEDS: PANTOprazole SOD 40 MG TAB PO SCH (08:03)
[2016-11-09] MEDS: PIPERACILL/TAZOBAC IV 3.375 GM in DEXTROSE 5% 100ML 100 ML IV SCH ×2 (08:07→16:19)
[2016-11-09] MEDS: INSULIN ASPART 100 UNITS/ML 3 ML PEN SC SCH ×4 (08:11→20:35)
[2016-11-09] MEDS: INSULIN GLARGINE SOLOSTAR 100 UNITS/ML 3 ML PEN SC SCH ×2 (08:12→20:36)
--- NOTE | 2016-11-09 10:45 | Cardiology Follow-Up ---
Subjective General Date of Service: Nov 09, 2016. Chief Complaint: SOB Pt evaluation today including: conversation w/ patient, physical exam, chart review, lab review, review of studies, review of inpatient medication list History of Present Illness Patient seen and examined. Feeling better. Denies chest pain or tachypalpitations. Improved dyspnea. Telemetry: Sinus rhythm in the 90's. Ectopy, without further wide complex runs since 11/06/2016 at 12:49:57. No significant bradyarrhythmias. November 06, 2016 TTE Interpretation Summary ([facility], Dr. Ocampo): The left ventricle is normal in size. There is mild concentric left ventricular hypertrophy. There is subtle hypokinesis of the posterior wall and lateral apex with otherwise preserved wall motion. Ejection Fraction = 55-60%. There is no significant valvular disease. Normal inferior vena cava diameter and respiratory variation suggests normal central venous pressure. Allergies Coded Allergies: No Known Allergies (Verified , 11/06/16) Social History Smoking Status: Never Smoker Hx Tobacco Use In Past Year?: No Hx Alcohol Use - Type And Amou: No Hx Substance Use - Type And Am: No Problem List Medical Problems: (1) Bilateral pneumonia Status: Acute (2) NSTEMI (non-ST elevated myocardial infarction) Status: Acute (3) Renal insufficiency Status: Acute (4) Respiratory failure Status: Acute (5) Thrombocytopenia Status: Acute Physical Exam Vital Signs Last Vital Signs Documentation Date Time Temp Pulse Resp B/P (MAP) Pulse Ox O2 Delivery O2 Flow Rate FiO2 11/09/16 08:07 36.4 94 16 163/82 (109) 95 2.0 11/09/16 08:00 Nasal Cannula 11/08/16 16:00 50 Physical Exam Constitutional: Level of Distress: acutely ill, chronically ill Psychiatric: Mental Status: active & alert Orientation: to time, to place, to person Memory: recent memory normal, remote memory normal Head: normocephalic, atraumatic ENMT: pertinent finding (mucous membranes are quite dry) Neck: pertinent finding (Neck veins are flat) Lungs: Respiratory effort: dyspneic Auscultation: deminished air movement, decreased breath sounds, expiratory wheezing, rhonchi Cardiovascular: Heart Auscultation: normal S1, normal S2, no murmurs, no rubs, tachycardia ( 100 bpm) Peripheral Pulses: Radial Pulse: normal on the left, normal on the right Dorsalis Pedis Pulse: absent on the left, absent on the right Abdomen: Bowel Sounds: normal Inspection & Palpation: soft Extremities: pertinent finding (marked stasis changes. skin excoriation right andrade) Neurologic: Cranial Nerves: grossly intact Assessment and Plan Assessment and Plan Admission with acute respiratory failure secondary to pneumonia, acute obstructive pulmonary exacerbation. Elevated troponin, demand ischemia secondary to the above. No history or examination evidence of acute decompensated congestive heart failure History of ischemic heart disease, cardiac arrest in September 2013; severe three vessel CAD s/p CABG x 2 with a FREITAS to the LAD and a LEEANNA to the RCA. Non- graftable LCX. Status post single chamber defibrillator implantation with backup pacer set VVI 40 bpm. Chronic right bundle branch block Peripheral vascular disease Hypertension Hyperlipidemia Cirrhotic liver. RECOMMENDATIONS/PLAN: Increase metoprolol tartrate to 75 mg twice a day for additional blood pressure and heart rate control. Imdur 60 mg/day added yesterday without difficulty. He does not utilize phosphodiesterase-5 inhibitors Continue ASA and statin. Please call with any questions or concerns Outpatient cardiology follow-up with Dr. Jorge A Bustillo Jr., DO on 2016 @ 8:25 AM. CARDIOLOGY ATTENDING ADDENDUM: The patient was seen and personally examined. Agree with Zander Zabala PA-C's findings and plans as documented above. Ok for D/C from cardiology stand point. Pt. doing much better. Laboratory Results Last 24 Hours Test 11/08/16 11:06 11/08/16 14:00 11/08/16 16:41 11/08/16 20:29 Bedside Glucose 297 mg/dl 224 mg/dl 288 mg/dl Sodium Level 142 mmol/L Potassium Level 4.5 mmol/L Chloride Level 107 mmol/L Carbon Dioxide Level 26 mmol/L Anion Gap 9.0 mmol/L Blood Urea Nitrogen 57 mg/dl Creatinine 2.90 mg/dl Est Creatinine Clear Calc Drug Dose 28.1 ml/min Estimated GFR () 24.5 Estimated GFR (Non- 21.1 BUN/Creatinine Ratio 19.8 Random Glucose 300 mg/dl Calcium Level 6.9 mg/dl Test 11/09/16 06:55 11/09/16 07:09 11/09/16 10:05 Bedside Glucose 193 mg/dl White Blood Count 4.59 K/uL Red Blood Count 4.02 M/uL Hemoglobin 12.2 g/dL Hematocrit 36.5 % Mean Corpuscular Volume 90.8 fL Mean Corpuscular Hemoglobin 30.3 pg Mean Corpuscular Hemoglobin Concent 33.4 g/dl RDW Standard Deviation 49.0 fL RDW Coefficient of Variation 14.7 % Platelet Count 79 K/uL Mean Platelet Volume 10.3 fL Activated Partial Thromboplast Time 26.1 SECONDS Partial Thromboplastin Ratio 1.0 Sodium Level 143 mmol/L Potassium Level 3.9 mmol/L Chloride Level 108 mmol/L Carbon Dioxide Level 28 mmol/L Anion Gap 7.0 mmol/L Blood Urea Nitrogen 53 mg/dl Creatinine 2.70 mg/dl Est Creatinine Clear Calc Drug Dose 29.8 ml/min Estimated GFR () 26.7 Estimated GFR (Non- 23.0 BUN/Creatinine Ratio 19.7 Random Glucose 207 mg/dl Calcium Level 7.1 mg/dl Total Bilirubin 0.5 mg/dl Aspartate Amino Transf (AST/SGOT) 34 U/L Alanine Aminotransferase (ALT/SGPT) 84 U/L Alkaline Phosphatase 57 U/L Total Protein 6.0 gm/dl Albumin 2.0 gm/dl Globulin 4.0 gm/dl Albumin/Globulin Ratio 0.5
[2016-11-09 11:12] LABS: ARTERIAL BLOOD GAS BASE EXCESS 1.9 mEq/L (-9-1.8); ARTERIAL BLOOD GAS HCO3 27 mmol/L (19-24); ARTERIAL BLOOD GAS PO2 84 mm/Hg (80-95); ARTERIAL BLOOD GAS pH 7.41 (7.35-7.45)
[2016-11-09 11:13] LABS: ALLEN TEST POS (POS); O2 ADMINISTRATION 2 L
--- NOTE | 2016-11-09 14:07 | Infectious Disease Progress Nt ---
Progress Note Date of Service Nov 09, 2016. Subjective Pt evaluation today including: conversation w/ patient, physical exam, chart review, lab review, review of studies, conversation w/ financial analysis consultant, review of inpatient medication list Offers no new complaints. Less cough. Less SOB. No fever. No CP. All Other Systems: Reviewed and Negative Medications Current Inpatient Medications Medications (Trade) Dose Ordered Sig/Elsie Route Start Time Stop Time Status Last Admin Dose Admin Aspirin (Ecotrin Tab) 81 mg DAILY PO 11/06/16 09:00 12/06/16 08:59 11/09/16 08:03 81 MG Atorvastatin Calcium (Lipitor Tab) 20 mg DAILY PO 11/06/16 09:00 12/06/16 08:59 11/09/16 08:03 20 MG Doxepin HCl (Sinequan Cap) 100 mg HS PO 11/06/16 21:00 12/06/16 20:59 11/08/16 20:23 100 MG Salmeterol Xinafoate/ Fluticasone (Advair Diskus 250/50 Inh) 1 puff BID INH 11/06/16 09:00 12/06/16 08:59 11/09/16 08:02 1 PUFF Tramadol HCl (Ultram Tab) 50 mg Q6 PRN PO 11/06/16 04:30 12/06/16 04:29 Pantoprazole Sodium (Protonix Tab) 40 mg DAILY PO 11/06/16 09:00 12/06/16 08:59 11/09/16 08:03 40 MG Acetaminophen (Tylenol Tab) 650 mg Q4H PRN PO 11/06/16 04:30 12/06/16 04:29 11/07/16 07:46 650 MG Al Hydrox/Mg Hydrox/Simethicone (Maalox Max Susp) 15 ml Q4H PRN PO 11/06/16 04:30 12/06/16 04:29 Magnesium Hydroxide (Milk Of Magnesia Susp) 30 ml Q12H PRN PO 11/06/16 04:30 12/06/16 04:29 Ondansetron HCl (Zofran Inj) 4 mg Q6H PRN IV 11/06/16 04:30 12/06/16 04:29 Polyethylene (Miralax Powder Packet) 17 gm DAILY PRN PO 11/06/16 04:30 12/06/16 04:29 Piperacillin Sod/ Tazobactam Sod 3.375 gm/Dextrose 115 ml @ 28.75 mls/ hr Q8H IV 11/06/16 08:00 11/13/16 07:59 11/09/16 08:07 28.75 MLS/HR Azithromycin 500 mg/Dextrose 255 ml @ 125 mls/hr Q24H IV 11/06/16 06:00 11/13/16 05:59 11/09/16 05:37 125 MLS/HR Piperacillin Sod/ Tazobactam Sod (Consult) 1 ea UD PRN N/A 11/06/16 06:00 12/06/16 05:59 Albuterol/ Ipratropium (Duoneb) 3 ml Q6R INH 11/06/16 09:00 12/06/16 08:59 11/09/16 07:16 3 ML Albuterol Sulfate (Ventolin 0.083% 2.5MG/3ML Neb) 2.5 mg Q4H PRN INH 11/06/16 06:00 12/06/16 05:59 Glucose (Glucose 40% Gel) 15-30 GRAMS 15 GRAMS... UD PRN PO 11/06/16 08:00 12/06/16 07:59 Glucose (Glucose Chew Tab) 4-8 Tablets 4 Tabl... UD PRN PO 11/06/16 08:00 12/06/16 07:59 Dextrose (Dextrose 50% 50ML Syringe) 25-50ML OF 50% DW IV FOR... UD PRN IV 11/06/16 08:00 12/06/16 07:59 Glucagon (Glucagon Inj) 1 mg UD PRN SQ 11/06/16 08:00 12/06/16 07:59 Insulin Aspart (novoLOG ASPART) SLIDING SCALE G... ACHS SC 11/07/16 07:00 11/09/16 12:36 9 UNITS Insulin Glargine (Lantus Solostar Pen) 25 unit BID SC 11/07/16 21:00 12/07/16 20:59 11/09/16 08:12 25 UNIT Methylprednisolone Sodium Succinate 20 mg/Syringe 0.32 ml @ 1.5 mls/min DAILY IV 11/08/16 09:00 12/08/16 08:59 11/09/16 08:02 1.5 MLS/MIN Budesonide (Pulmicort Respules 0.5MG/ 2ML Neb Soln) 0.5 mg BIDR INH 11/08/16 08:00 12/08/16 07:59 11/09/16 07:16 0.5 MG Isosorbide Mononitrate (Imdur Ext Rel Tab) 60 mg QAM PO 11/08/16 10:45 12/08/16 10:44 11/09/16 08:03 60 MG Tamsulosin HCl (Flomax Cap) 0.4 mg QAM PO 11/09/16 09:00 12/09/16 08:59 11/09/16 08:03 0.4 MG Metoprolol Tartrate (Lopressor Tab) 75 mg BID PO 11/09/16 21:00 12/08/16 20:59 Objective Vital Signs Date Time Temp Pulse Resp B/P (MAP) Pulse Ox O2 Delivery O2 Flow Rate FiO2 11/09/16 12:00 95 Nasal Cannula 2.0 11/09/16 11:52 36.9 84 18 154/62 (92) 96 11/09/16 08:07 36.4 94 16 163/82 (109) 95 2.0 11/09/16 08:00 97 Nasal Cannula 3.0 11/09/16 07:16 90 16 97 Nasal Cannula 3.0 11/09/16 04:02 36.8 91 20 166/86 (112) 93 Nasal Cannula 3.0 160/95 (116) 11/09/16 04:00 96 Nasal Cannula 3.0 11/09/16 01:14 88 16 96 Nasal Cannula 3.0 11/08/16 23:59 96 Nasal Cannula 3.0 11/08/16 23:32 37.0 89 20 152/72 (98) 94 Nasal Cannula 2.0 11/08/16 20:19 106 159/75 (103) 11/08/16 20:00 98 Nasal Cannula 11/08/16 19:45 36.7 99 22 171/85 (113) 98 Nasal Cannula 3.0 11/08/16 19:26 94 18 95 Nasal Cannula 3.0 11/08/16 16:00 95 Nasal Cannula 3.0 50 11/08/16 15:21 36.5 88 20 159/79 (105) 95 Nasal Cannula 3.0 11/08/16 14:07 92 16 97 Nasal Cannula 3.0 Physical Exam General Appearance: WD/WN, no apparent distress Eyes: normal inspection, sclerae normal ENT: normal ENT inspection, pharynx normal Neck: supple, no adenopathy, trachea midline Respiratory/Chest: chest non-tender, no respiratory distress, + rhonchi, + wheezing Cardiovascular: regular rate, rhythm, no gallop, no murmur Abdomen: normal bowel sounds, non tender, soft, no organomegaly Extremities: non-tender, no calf tenderness Neurologic/Psychiatric: alert, oriented x 3 Skin: normal color, warm/dry, no rash Lymphatic: no adenopathy Laboratory Results Last 24 Hours Test 11/08/16 14:00 11/08/16 16:41 11/08/16 20:29 11/09/16 06:55 Sodium Level 142 mmol/L Potassium Level 4.5 mmol/L Chloride Level 107 mmol/L Carbon Dioxide Level 26 mmol/L Anion Gap 9.0 mmol/L Blood Urea Nitrogen 57 mg/dl Creatinine 2.90 mg/dl Est Creatinine Clear Calc Drug Dose 28.1 ml/min Estimated GFR () 24.5 Estimated GFR (Non- 21.1 BUN/Creatinine Ratio 19.8 Random Glucose 300 mg/dl Calcium Level 6.9 mg/dl Bedside Glucose 224 mg/dl 288 mg/dl 193 mg/dl Test 11/09/16 07:09 11/09/16 10:57 11/09/16 11:27 White Blood Count 4.59 K/uL Red Blood Count 4.02 M/uL Hemoglobin 12.2 g/dL Hematocrit 36.5 % Mean Corpuscular Volume 90.8 fL Mean Corpuscular Hemoglobin 30.3 pg Mean Corpuscular Hemoglobin Concent 33.4 g/dl RDW Standard Deviation 49.0 fL RDW Coefficient of Variation 14.7 % Platelet Count 79 K/uL Mean Platelet Volume 10.3 fL Activated Partial Thromboplast Time 26.1 SECONDS Partial Thromboplastin Ratio 1.0 Sodium Level 143 mmol/L Potassium Level 3.9 mmol/L Chloride Level 108 mmol/L Carbon Dioxide Level 28 mmol/L Anion Gap 7.0 mmol/L Blood Urea Nitrogen 53 mg/dl Creatinine 2.70 mg/dl Est Creatinine Clear Calc Drug Dose 29.8 ml/min Estimated GFR () 26.7 Estimated GFR (Non- 23.0 BUN/Creatinine Ratio 19.7 Random Glucose 207 mg/dl Calcium Level 7.1 mg/dl Total Bilirubin 0.5 mg/dl Aspartate Amino Transf (AST/SGOT) 34 U/L Alanine Aminotransferase (ALT/SGPT) 84 U/L Alkaline Phosphatase 57 U/L Total Protein 6.0 gm/dl Albumin 2.0 gm/dl Globulin 4.0 gm/dl Albumin/Globulin Ratio 0.5 Arterial Blood pH 7.41 Arterial Blood Partial Pressure CO2 43 mmHg Arterial Blood Partial Pressure O2 84 mm/Hg Arterial Blood HCO3 27 mmol/L Arterial Blood Oxygen Saturation 96.0 % Arterial Blood Base Excess 1.9 mEq/L Arterial Blood Gas Delivery 2 L Gunnar Test POS Bedside Glucose 268 mg/dl Assessment and Plan 71-year-old diabetic male with coronary artery disease and COPD now with sepsis with progressive bilateral infiltrates despite levofloxacin therapy. Patient appears to be improving on current antibiotic therapy, would continue IVs for at least another day.
--- NOTE | 2016-11-09 15:24 | Family Medicine Progress Note ---
Progress Note Date of Service Nov 09, 2016. Subjective Pt evaluation today including: conversation w/ patient, physical exam, chart review, conversation w/ telecom sales consultant Pain: none PO Intake: good Voiding: guan catheter in place Patient with no acute events overnight He is feeling much better this morning and says his appetite is fully recovered He is still mildly short of breath at rest, but says he can walk to the toilet without any trouble He still has a mild dry cough but no mucus. He denies any wheezing, chest pain, palpitations, fevers, night sweats, chills, nausea, vomiting, leg swelling Additional Comments: Please see above for ROS Medications Current Inpatient Medications Medications (Trade) Dose Ordered Sig/Elsie Route Start Time Stop Time Status Last Admin Dose Admin Aspirin (Ecotrin Tab) 81 mg DAILY PO 11/06/16 09:00 12/06/16 08:59 11/09/16 08:03 81 MG Atorvastatin Calcium (Lipitor Tab) 20 mg DAILY PO 11/06/16 09:00 12/06/16 08:59 11/09/16 08:03 20 MG Doxepin HCl (Sinequan Cap) 100 mg HS PO 11/06/16 21:00 12/06/16 20:59 11/08/16 20:23 100 MG Salmeterol Xinafoate/ Fluticasone (Advair Diskus 250/50 Inh) 1 puff BID INH 11/06/16 09:00 12/06/16 08:59 11/09/16 08:02 1 PUFF Tramadol HCl (Ultram Tab) 50 mg Q6 PRN PO 11/06/16 04:30 12/06/16 04:29 Pantoprazole Sodium (Protonix Tab) 40 mg DAILY PO 11/06/16 09:00 12/06/16 08:59 11/09/16 08:03 40 MG Acetaminophen (Tylenol Tab) 650 mg Q4H PRN PO 11/06/16 04:30 12/06/16 04:29 11/07/16 07:46 650 MG Al Hydrox/Mg Hydrox/Simethicone (Maalox Max Susp) 15 ml Q4H PRN PO 11/06/16 04:30 12/06/16 04:29 Magnesium Hydroxide (Milk Of Magnesia Susp) 30 ml Q12H PRN PO 11/06/16 04:30 12/06/16 04:29 Ondansetron HCl (Zofran Inj) 4 mg Q6H PRN IV 11/06/16 04:30 12/06/16 04:29 Polyethylene (Miralax Powder Packet) 17 gm DAILY PRN PO 11/06/16 04:30 12/06/16 04:29 Piperacillin Sod/ Tazobactam Sod 3.375 gm/Dextrose 115 ml @ 28.75 mls/ hr Q8H IV 11/06/16 08:00 11/13/16 07:59 11/09/16 08:07 28.75 MLS/HR Azithromycin 500 mg/Dextrose 255 ml @ 125 mls/hr Q24H IV 11/06/16 06:00 11/13/16 05:59 11/09/16 05:37 125 MLS/HR Piperacillin Sod/ Tazobactam Sod (Consult) 1 ea UD PRN N/A 11/06/16 06:00 12/06/16 05:59 Albuterol/ Ipratropium (Duoneb) 3 ml Q6R INH 11/06/16 09:00 12/06/16 08:59 11/09/16 14:14 3 ML Albuterol Sulfate (Ventolin 0.083% 2.5MG/3ML Neb) 2.5 mg Q4H PRN INH 11/06/16 06:00 12/06/16 05:59 Glucose (Glucose 40% Gel) 15-30 GRAMS 15 GRAMS... UD PRN PO 11/06/16 08:00 12/06/16 07:59 Glucose (Glucose Chew Tab) 4-8 Tablets 4 Tabl... UD PRN PO 11/06/16 08:00 12/06/16 07:59 Dextrose (Dextrose 50% 50ML Syringe) 25-50ML OF 50% DW IV FOR... UD PRN IV 11/06/16 08:00 12/06/16 07:59 Glucagon (Glucagon Inj) 1 mg UD PRN SQ 11/06/16 08:00 12/06/16 07:59 Insulin Aspart (novoLOG ASPART) SLIDING SCALE G... ACHS SC 11/07/16 07:00 11/09/16 12:36 9 UNITS Insulin Glargine (Lantus Solostar Pen) 25 unit BID SC 11/07/16 21:00 12/07/16 20:59 11/09/16 08:12 25 UNIT Methylprednisolone Sodium Succinate 20 mg/Syringe 0.32 ml @ 1.5 mls/min DAILY IV 11/08/16 09:00 12/08/16 08:59 11/09/16 08:02 1.5 MLS/MIN Budesonide (Pulmicort Respules 0.5MG/ 2ML Neb Soln) 0.5 mg BIDR INH 11/08/16 08:00 12/08/16 07:59 11/09/16 07:16 0.5 MG Isosorbide Mononitrate (Imdur Ext Rel Tab) 60 mg QAM PO 11/08/16 10:45 12/08/16 10:44 11/09/16 08:03 60 MG Tamsulosin HCl (Flomax Cap) 0.4 mg QAM PO 11/09/16 09:00 12/09/16 08:59 11/09/16 08:03 0.4 MG Metoprolol Tartrate (Lopressor Tab) 75 mg BID PO 11/09/16 21:00 12/08/16 20:59 Objective Vital Signs Date Time Temp Pulse Resp B/P (MAP) Pulse Ox O2 Delivery O2 Flow Rate FiO2 11/09/16 14:15 90 16 95 Nasal Cannula 2.0 11/09/16 12:00 95 Nasal Cannula 2.0 11/09/16 11:52 36.9 84 18 154/62 (92) 96 11/09/16 08:07 36.4 94 16 163/82 (109) 95 2.0 11/09/16 08:00 97 Nasal Cannula 3.0 11/09/16 07:16 90 16 97 Nasal Cannula 3.0 11/09/16 04:02 36.8 91 20 166/86 (112) 93 Nasal Cannula 3.0 160/95 (116) 11/09/16 04:00 96 Nasal Cannula 3.0 11/09/16 01:14 88 16 96 Nasal Cannula 3.0 11/08/16 23:59 96 Nasal Cannula 3.0 11/08/16 23:32 37.0 89 20 152/72 (98) 94 Nasal Cannula 2.0 11/08/16 20:19 106 159/75 (103) 11/08/16 20:00 98 Nasal Cannula 11/08/16 19:45 36.7 99 22 171/85 (113) 98 Nasal Cannula 3.0 11/08/16 19:26 94 18 95 Nasal Cannula 3.0 11/08/16 16:00 95 Nasal Cannula 3.0 50 11/08/16 15:21 36.5 88 20 159/79 (105) 95 Nasal Cannula 3.0 Physical Exam Notes: General Appearance: WD/WN, no distress and on nasal cannula ENT: hearing grossly normal, pharynx normal Neck: supple, no adenopathy, no JVD, no carotid bruits Respiratory/Chest: chest non-tender, no accessory muscle use, good air entry bilaterally, mild scattered rhonchi bilaterally Cardiovascular: no edema, no JVD, no murmur, + pertinent finding (decreased peripheral pulses with decreased sensation up the ankle bilaterally) Extremities: + pertinent finding (chronic venous changes of the extremities bilaterally) Neurologic/Psychiatric: alert, normal mood/affect, oriented x 3 Laboratory Results Results Past 24 Hours Test 11/08/16 16:41 11/08/16 20:29 11/09/16 06:55 11/09/16 07:09 Range/Units Bedside Glucose 224 288 193 70-99 mg/dl White Blood Count 4.59 4.8-10.8 K/uL Red Blood Count 4.02 4.7-6.1 M/uL Hemoglobin 12.2 14.0-18.0 g/dL Hematocrit 36.5 42-52 % Mean Corpuscular Volume 90.8 80-100 fL Mean Corpuscular Hemoglobin 30.3 25-34 pg Mean Corpuscular Hemoglobin Concent 33.4 32-36 g/dl RDW Standard Deviation 49.0 36.4-46.3 fL RDW Coefficient of Variation 14.7 11.5-14.5 % Platelet Count 79 130-400 K/uL Mean Platelet Volume 10.3 7.4-10.4 fL Activated Partial Thromboplast Time 26.1 21.0-31.0 SECONDS Partial Thromboplastin Ratio 1.0 Sodium Level 143 136-145 mmol/L Potassium Level 3.9 3.5-5.1 mmol/L Chloride Level 108 98-107 mmol/L Carbon Dioxide Level 28 21-32 mmol/L Anion Gap 7.0 3-11 mmol/L Blood Urea Nitrogen 53 7-18 mg/dl Creatinine 2.70 0.60-1.40 mg/dl Est Creatinine Clear Calc Drug Dose 29.8 ml/min Estimated GFR () 26.7 Estimated GFR (Non- 23.0 BUN/Creatinine Ratio 19.7 10-20 Random Glucose 207 70-99 mg/dl Calcium Level 7.1 8.5-10.1 mg/dl Total Bilirubin 0.5 0.2-1 mg/dl Aspartate Amino Transf (AST/SGOT) 34 15-37 U/L Alanine Aminotransferase (ALT/SGPT) 84 12-78 U/L Alkaline Phosphatase 57 45-117 U/L Total Protein 6.0 6.4-8.2 gm/dl Albumin 2.0 3.4-5.0 gm/dl Globulin 4.0 2.5-4.0 gm/dl Albumin/Globulin Ratio 0.5 0.9-2 Test 11/09/16 10:57 11/09/16 11:27 Range/Units Arterial Blood pH 7.41 7.35-7.45 Arterial Blood Partial Pressure CO2 43 35-46 mmHg Arterial Blood Partial Pressure O2 84 80-95 mm/Hg Arterial Blood HCO3 27 19-24 mmol/L Arterial Blood Oxygen Saturation 96.0 90-95 % Arterial Blood Base Excess 1.9 -9-1.8 mEq/L Arterial Blood Gas Delivery 2 L Gunnar Test POS POS Bedside Glucose 268 70-99 mg/dl Assessment and Plan 71 y/o M Hx COPD, DM, obesity, severe PVD, ARF, CAD - NSTEMI - cardiac arrest 2013, AICD. Pt was recently treated for a COPD exacerbation with a 7 day course of Levaquin and steroids and presented to [facility] with worsening shortness of breath Acute respiratory failure - sec to pneumonia with COPD exacerbation - off bipap - continuing to oxygenate well on [place] oxygen Suspected Gram-negative and/or aspiration pneumonia (recent hospitalization with levaquin and steroids) - Pip-Tazo and Azithromycin IV - Blood cultures and sputum cultures negative - Duo nebs Q6, budesonide neb INH started, albuterol prn, fluticasone held for now - methylprednisolone 20mg IV OD - wean to prednisone in am - ID consult (legionella antigen ordered and negative result) - WBC normal - speech eval done. continue current diet. aspiration precautions ARF - postobstructive sec to ?BPH - d/bailee ivf - added flomax - continue guan. voiding trial in am - creatinine trending down at 2.7. - retroperitoneal ultrasound showed mild renal cortical atrophy COPD exacerbation sec to pneumonia - Steroids - Nebs Elevated troponin with h/o [place], Cardiac arrest and AICD placement - increase metoprolol to 50 bid, hold furosemide - imdur 60mg OD added by cardiology - trend troponin - heparin stopped - cardiac consult - trop elevation likely due to demand ischemia - transfer off tele Chronic CHF - echo showed EF of 55-60% - hold alexey inhibitor and furosemide - monitor I/O's Thrombocytopenia sec to cirrhosis - platelets in 80's - stopped heparin - elevated aptt--> continue to monitor - Hep B and C both negative HLD - lipitor DM - placed on SS - insulin glargine 25 bid started Cirrhosis - diagnosed on CT - Hep B and C both negative - portal vein US normal - follow as outpatient Diet - regular heart healthy Code - Full Continued [facility] stay due to: multiple IV medications needed Reviewed: Pt Seen/Exam by Me Constitutional: denies: fever Respiratory: negative: short of breath Cardiovascular: denies chest pain Gastrointestinal/Abdominal: negative: abdominal pain General Appearance: no apparent distress Respiratory: no respiratory distress, decreased breath sounds Cardiovascular: regular rate, rhythm Neurologic/Psychiatric: alert, oriented x 3 Skin Characteristics: warm/dry Assessment/Plan I have reviewed the medical record and performed a history and physical examination of this patient today. I have discussed the case with Dr. Snyder. The above note reflects my findings, conclusions, and recommendations. Anticipate d/c once renal function improved Might need O2 on discharge. Check nocturnal pulse ox
[2016-11-09] MEDS: METOPROLOL TARTRATE 25 MG TAB PO SCH (19:04)
[2016-11-09] MEDS: DOXEPIN HCL 50 MG CAP PO SCH (20:37)
[2016-11-10] VITALS: O2SAT 90
[2016-11-10] MEDS: PIPERACILL/TAZOBAC IV 3.375 GM in DEXTROSE 5% 100ML 100 ML IV SCH ×2 (00:19→08:23)
[2016-11-10 00:21] VITALS: BP 173/89; PULSE 80; TEMP 36.4; O2SAT 90
[2016-11-10] MEDS: ALBUT/IPRATROP 3MG/0.5MG NEB 3 ML VIAL INH SCH ×2 (02:00→07:43)
[2016-11-10] MEDS: AZITHROMYCIN IV 500 MG in DEXTROSE 5% 250ML 250 ML IV SCH (06:13)
[2016-11-10 07:09] VITALS: BP 158/89; PULSE 89; TEMP 36.5; O2SAT 89
[2016-11-10 07:32] LABS: HEMATOCRIT 39.2 % (42-52); MEAN CELL VOLUME 89.5 fL (80-100); MEAN CORPUSCULAR HEMOGLOBIN 28.8 pg (25-34); MEAN CORPUSCULAR HGB CONC 32.1 g/dl (32-36); RED BLOOD COUNT 4.38 M/uL (4.7-6.1); WHITE BLOOD COUNT 4.91 K/uL (4.8-10.8)
[2016-11-10 07:34] LABS: COMPLETE YES; EOS % 0.4 %; IG% 0.4 %; LYMPH ABS # 0.54 K/uL (1.2-3.4); MEAN PLATELET VOLUME 10.8 fL (7.4-10.4); MONO % 5.5 %; NEUT % 82.7 %; PLATELET COUNT 91 K/uL (130-400)
[2016-11-10 07:42] LABS: INR 1.2 (0.9-1.1); PARTIAL THROMBOPLASTIN RATIO 0.9; PROTHROMBIN TIME (PATIENT) 12.4 SECONDS (9.0-12.0)
[2016-11-10] MEDS: BUDESONIDE 0.5 MG/2 ML VIAL (PULMICORT) INH SCH (07:43)
[2016-11-10 07:45] VITALS: PULSE 92; O2SAT 93
[2016-11-10 07:59] LABS: BUN/CREATININE RATIO 17.6 (10-20); CALCIUM 7.4 mg/dl (8.5-10.1); CREATININE 2.5 mg/dl (0.60-1.40); POTASSIUM 3.9 mmol/L (3.5-5.1)
[2016-11-10] MEDS: TAMSULOSIN HCL 0.4 MG CAP PO SCH (08:18)
[2016-11-10] MEDS: PANTOprazole SOD 40 MG TAB PO SCH (08:19)
[2016-11-10] MEDS: FLUTICASONE/SALMETEROL 250/50 (ADVAIR) 14 PUFF/1 INHALER INH SCH (08:19)
[2016-11-10] MEDS: METOPROLOL TARTRATE 25 MG TAB PO SCH (08:19)
[2016-11-10] MEDS: ASPIRIN 81 MG ECTAB PO SCH (08:20)
[2016-11-10] MEDS: ATORVASTATIN 20 MG TAB PO SCH (08:20)
[2016-11-10] MEDS: ISOSORBIDE MONONITRATE 60 MG TABCR PO SCH (08:20)
[2016-11-10] MEDS: INSULIN ASPART 100 UNITS/ML 3 ML PEN SC SCH ×2 (08:29→13:10)
[2016-11-10] MEDS: METHYLPREDNISOLONE IV 20 MG in SYRINGE 0 ML IV SCH (08:48)
[2016-11-10] MEDS: INSULIN GLARGINE SOLOSTAR 100 UNITS/ML 3 ML PEN SC SCH (08:50)
--- NOTE | 2016-11-10 09:50 | Family Medicine Progress Note ---
Progress Note Date of Service Nov 10, 2016. Subjective Pt evaluation today including: conversation w/ patient, physical exam, chart review, lab review, conversation w/ wound care center consultant, review of inpatient medication list Pain: none PO Intake: good Voiding: guan catheter in place Patient with no acute events overnight He is feeling much better. he passed his two step last night and his shortness of breath has improved immensely.He still has a dry cough His creatinine is improving and he still has his guan catheter in place. We will remove this morning and attempt a voiding trial. He wants to be discharged today so that he can go look after his who has just been transferred to [facility] after having a brain aneurysm Patient denies any chest pain, wheezing, shortness of breath, leg swelling, palpitations, wet cough, fevers, night sweats or chills Additional Comments: Please see above for ROS Medications Current Inpatient Medications Medications (Trade) Dose Ordered Sig/Elsie Route Start Time Stop Time Status Last Admin Dose Admin Aspirin (Ecotrin Tab) 81 mg DAILY PO 11/06/16 09:00 12/06/16 08:59 11/10/16 08:20 81 MG Atorvastatin Calcium (Lipitor Tab) 20 mg DAILY PO 11/06/16 09:00 12/06/16 08:59 11/10/16 08:20 20 MG Doxepin HCl (Sinequan Cap) 100 mg HS PO 11/06/16 21:00 12/06/16 20:59 11/09/16 20:37 100 MG Salmeterol Xinafoate/ Fluticasone (Advair Diskus 250/50 Inh) 1 puff BID INH 11/06/16 09:00 12/06/16 08:59 11/10/16 08:19 1 PUFF Tramadol HCl (Ultram Tab) 50 mg Q6 PRN PO 11/06/16 04:30 12/06/16 04:29 Pantoprazole Sodium (Protonix Tab) 40 mg DAILY PO 11/06/16 09:00 12/06/16 08:59 11/10/16 08:19 40 MG Acetaminophen (Tylenol Tab) 650 mg Q4H PRN PO 11/06/16 04:30 12/06/16 04:29 11/07/16 07:46 650 MG Al Hydrox/Mg Hydrox/Simethicone (Maalox Max Susp) 15 ml Q4H PRN PO 11/06/16 04:30 12/06/16 04:29 Magnesium Hydroxide (Milk Of Magnesia Susp) 30 ml Q12H PRN PO 11/06/16 04:30 12/06/16 04:29 Ondansetron HCl (Zofran Inj) 4 mg Q6H PRN IV 11/06/16 04:30 12/06/16 04:29 Polyethylene (Miralax Powder Packet) 17 gm DAILY PRN PO 11/06/16 04:30 12/06/16 04:29 Piperacillin Sod/ Tazobactam Sod 3.375 gm/Dextrose 115 ml @ 28.75 mls/ hr Q8H IV 11/06/16 08:00 11/13/16 07:59 11/10/16 08:23 28.75 MLS/HR Azithromycin 500 mg/Dextrose 255 ml @ 125 mls/hr Q24H IV 11/06/16 06:00 11/13/16 05:59 11/10/16 06:13 125 MLS/HR Piperacillin Sod/ Tazobactam Sod (Consult) 1 ea UD PRN N/A 11/06/16 06:00 12/06/16 05:59 Albuterol/ Ipratropium (Duoneb) 3 ml Q6R INH 11/06/16 09:00 12/06/16 08:59 11/10/16 07:43 3 ML Albuterol Sulfate (Ventolin 0.083% 2.5MG/3ML Neb) 2.5 mg Q4H PRN INH 11/06/16 06:00 12/06/16 05:59 Glucose (Glucose 40% Gel) 15-30 GRAMS 15 GRAMS... UD PRN PO 11/06/16 08:00 12/06/16 07:59 Glucose (Glucose Chew Tab) 4-8 Tablets 4 Tabl... UD PRN PO 11/06/16 08:00 12/06/16 07:59 Dextrose (Dextrose 50% 50ML Syringe) 25-50ML OF 50% DW IV FOR... UD PRN IV 11/06/16 08:00 12/06/16 07:59 Glucagon (Glucagon Inj) 1 mg UD PRN SQ 11/06/16 08:00 12/06/16 07:59 Insulin Aspart (novoLOG ASPART) SLIDING SCALE G... ACHS SC 11/07/16 07:00 11/10/16 08:29 6 UNITS Insulin Glargine (Lantus Solostar Pen) 25 unit BID SC 11/07/16 21:00 12/07/16 20:59 11/10/16 08:50 25 UNIT Methylprednisolone Sodium Succinate 20 mg/Syringe 0.32 ml @ 1.5 mls/min DAILY IV 11/08/16 09:00 12/08/16 08:59 11/10/16 08:48 1.5 MLS/MIN Budesonide (Pulmicort Respules 0.5MG/ 2ML Neb Soln) 0.5 mg BIDR INH 11/08/16 08:00 12/08/16 07:59 11/10/16 07:43 0.5 MG Isosorbide Mononitrate (Imdur Ext Rel Tab) 60 mg QAM PO 11/08/16 10:45 12/08/16 10:44 11/10/16 08:20 60 MG Tamsulosin HCl (Flomax Cap) 0.4 mg QAM PO 11/09/16 09:00 12/09/16 08:59 11/10/16 08:18 0.4 MG Metoprolol Tartrate (Lopressor Tab) 75 mg BID PO 11/09/16 20:00 12/08/16 20:59 11/10/16 08:19 75 MG Objective Vital Signs Date Time Temp Pulse Resp B/P (MAP) Pulse Ox O2 Delivery O2 Flow Rate FiO2 11/10/16 07:45 92 16 93 Room Air 11/10/16 07:09 36.5 89 20 158/89 (112) 89 Room Air 11/10/16 00:21 36.4 80 18 173/89 (117) 90 Room Air 11/10/16 00:00 90 Room Air 11/09/16 21:35 151/69 (96) 11/09/16 19:00 84 18 95 Nasal Cannula 2.0 11/09/16 18:48 176/89 (118) 11/09/16 18:30 36.8 93 173/87 (115) 95 Nasal Cannula 2.0 11/09/16 17:55 95 Nasal Cannula 2.0 50 11/09/16 16:57 37.2 85 20 95 2.0 11/09/16 16:00 95 Nasal Cannula 2.0 11/09/16 15:35 37.2 85 20 161/88 (112) 93 Room Air 11/09/16 14:15 90 16 95 Nasal Cannula 2.0 11/09/16 12:00 95 Nasal Cannula 2.0 11/09/16 11:52 36.9 84 18 154/62 (92) 96 Physical Exam General Appearance: WD/WN, no apparent distress, + pertinent finding (patient sitting comfortably at side of bed) Neck: supple, no JVD, no carotid bruits, trachea midline Respiratory/Chest: chest non-tender, no respiratory distress, no accessory muscle use, + wheezing (very mild wheeze at left lower quadrant, otherwise lungs clear) Cardiovascular: regular rate, rhythm, no edema, no murmur Abdomen: normal bowel sounds, non tender, soft, + distended Extremities: non-tender, no calf tenderness, normal capillary refill, + pertinent finding (chronic venous skin changes bilaterally) Neurologic/Psychiatric: alert, normal mood/affect, oriented x 3 Laboratory Results Results Past 24 Hours Test 11/09/16 10:57 11/09/16 11:27 11/09/16 16:36 11/09/16 20:02 Range/Units Arterial Blood pH 7.41 7.35-7.45 Arterial Blood Partial Pressure CO2 43 35-46 mmHg Arterial Blood Partial Pressure O2 84 80-95 mm/Hg Arterial Blood HCO3 27 19-24 mmol/L Arterial Blood Oxygen Saturation 96.0 90-95 % Arterial Blood Base Excess 1.9 -9-1.8 mEq/L Arterial Blood Gas Delivery 2 L Gunnar Test POS POS Bedside Glucose 268 254 351 70-99 mg/dl Test 11/10/16 00:33 11/10/16 07:10 Range/Units Bedside Glucose 181 70-99 mg/dl White Blood Count 4.91 4.8-10.8 K/uL Red Blood Count 4.38 4.7-6.1 M/uL Hemoglobin 12.6 14.0-18.0 g/dL Hematocrit 39.2 42-52 % Mean Corpuscular Volume 89.5 80-100 fL Mean Corpuscular Hemoglobin 28.8 25-34 pg Mean Corpuscular Hemoglobin Concent 32.1 32-36 g/dl Platelet Count 91 130-400 K/uL Mean Platelet Volume 10.8 7.4-10.4 fL Neutrophils (%) (Auto) 82.7 % Lymphocytes (%) (Auto) 11.0 % Monocytes (%) (Auto) 5.5 % Eosinophils (%) (Auto) 0.4 % Basophils (%) (Auto) 0.0 % Neutrophils # (Auto) 4.06 1.4-6.5 K/uL Lymphocytes # (Auto) 0.54 1.2-3.4 K/uL Monocytes # (Auto) 0.27 0.11-0.59 K/uL Eosinophils # (Auto) 0.02 0-0.5 K/uL Basophils # (Auto) 0.00 0-0.2 K/uL RDW Standard Deviation 47.1 36.4-46.3 fL RDW Coefficient of Variation 14.4 11.5-14.5 % Immature Granulocyte % (Auto) 0.4 % Immature Granulocyte # (Auto) 0.02 0.00-0.02 K/uL Prothrombin Time 12.4 9.0-12.0 SECONDS Prothromb Time International Ratio 1.2 0.9-1.1 Activated Partial Thromboplast Time 24.6 21.0-31.0 SECONDS Partial Thromboplastin Ratio 0.9 Sodium Level 145 136-145 mmol/L Potassium Level 3.9 3.5-5.1 mmol/L Chloride Level 108 98-107 mmol/L Carbon Dioxide Level 30 21-32 mmol/L Anion Gap 7.0 3-11 mmol/L Blood Urea Nitrogen 44 7-18 mg/dl Creatinine 2.50 0.60-1.40 mg/dl Est Creatinine Clear Calc Drug Dose 29.7 ml/min Estimated GFR () 29.3 Estimated GFR (Non- 25.3 BUN/Creatinine Ratio 17.6 10-20 Random Glucose 143 70-99 mg/dl Calcium Level 7.4 8.5-10.1 mg/dl
[2016-11-10] MEDS ORDERED: FLM4 PO (14:38)
[2016-11-10] MEDS ORDERED: IMDSR60 PO (14:38)
[2016-11-10] MEDS ORDERED: LPR25 PO (14:38)
--- NOTE | 2016-11-10 14:42 | Discharge Instructions ---
Discharge Instructions Date of Service Nov 10, 2016. Admission Reason for Admission: Chf Exacerbation, Copd Exacerbation Discharge Discharge Diagnosis / Problem: Pneumonia Discharge Goals Goal(s): Decrease discomfort, Therapeutic intervention Activity Recommendations Activity Limitations: resume your previous activity . Instructions / Follow-Up Instructions / Follow-Up You were diagnosed with pneumonia while in the hospital. We will be sending you home with an antibiotic to take for another 3 days. Please take the medication as prescribed. We have stopped or quinapril and furosemide due to you kidney function. Please let your PCP know this. We have started you on tamsulosin (for enlarged prostate), metoprolol 75 mg twice daily and imdur. Please get your blood work drawn on Sunday before you go see your PCP. Current Hospital Diet Patient's current hospital diet: AHA Diet (Heart Healthy) Discharge Diet Recommended Diet: AHA Diet (Heart Healthy) Pending Studies Studies pending at discharge: no Laboratory Results Hemoglobin A1c Test 10/09/16 07:40 Range/Units Estimated Average Glucose 154 mg/dl Hemoglobin A1c 7.0 H 4.5-5.6 % Medical Emergencies . Who to Call and When: Medical Emergencies: If at any time you feel your situation is an emergency, please call 911 immediately. . Non-Emergent Contact Non-Emergency issues call your: Primary Care Provider, Enterostomal Therapy Nurse . . "Provider Documentation" section prepared by Jung Snyder. . VTE Core Measure Inpt VTE Proph given/why not?: Other Anticoagulation
[2016-11-10] MEDS ORDERED: AMOX875T PO (14:43)
--- NOTE | 2016-11-10 14:51 | Discharge Summary ---
Discharge Summary Date of Service Nov 10, 2016. (Jung Snyder MD) Discharge Summary Admission Date: November 06, 2016 at 04:27 Discharge Date: Nov 10, 2016 Discharge Disposition: Home Principal Diagnosis: Pneumonia Immunizations: Have You Had Influenza Vaccine: Yes Influenza Vaccine Date: Mar 11, 2013 History of Tetanus Vaccine?: Unknown History of Pneumococcal: Yes Pneumococcal Date: Mar 11, 2013 History of Hepatitis B Vaccine: No Consultations: Cardiology (Jung Snyder MD) Principal Diagnosis: Acute respiratory failure, Probable Gram negative pneumonia (Elsy Morton M.D.) Medication Reconciliation New Medications: Amoxicillin & Pot Clavulanate (Augmentin 875-125 mg) 1 Tab Tab 1 TAB PO BID for 3 Days, #6 TAB Isosorbide Mononitrate (Isosorbide Mononitrate ER) 60 Mg Tab 60 MG PO QAM for 30 Days, #30 TAB Metoprolol Tartrate (Lopressor) 25 Mg Tab 75 MG PO BID for 30 Days, #60 TAB Tamsulosin HCl (Tamsulosin HCl) 0.4 Mg Cap 0.4 MG PO QAM for 30 Days, #30 CAP Continued Medications: Albuterol Hfa (Ventolin Hfa) 200 Puffs/48853 Mcg Aers 2 PUFFS INH Q4 PRN for SOB/Wheezing, #1 INHALER Aspirin (Aspirin 81) 81 Mg Tab 81 MG PO DAILY Atorvastatin (Lipitor) 20 Mg Tab 20 MG PO DAILY, TAB Doxepin Hcl (Doxepin) 100 Mg Cap 100 MG PO HS Fluticasone Prop/Salmeterol (Advair Diskus 250/50 60 Dose) 1 Ea Aerp 1 PUFF INH BID, INHALER Glipizide Xl (Glucotrol Xl) 10 Mg Tab 10 MG PO BID Indomethacin (Indocin) 50 Mg Cap 50 MG PO TID PRN for Pain TAKE WITH FOOD Insulin Glargine (Lantus Solostar) 100 Unit/Ml Inj 46 UNITS SC QPM, PEN Ipratropium-Albuterol (Duoneb) 3 Ml Nebu 1 TREATMENT INH Q4H PRN for SOB/Wheezing, INHA Metformin Hcl (Glucophage) 1,000 Mg Tab 1000 MG PO BID, TAB Omeprazole (Prilosec) 20 Mg Cap 20 MG PO DAILY, CAP Tiotropium Vichy (Spiriva Handihaler) 30 Puff/540 Mcg Aerp 1 CAP INH DAILY, INHALER Tramadol (Ultram) 50 Mg Tab 50 MG PO Q6 PRN for Pain, TAB Discontinued Medications: Furosemide (Lasix) 40 Mg Tab 40 MG PO DAILY, TAB Metoprolol Tartrate (Lopressor) (Lopressor) 50 Mg Tab 50 MG PO BID Quinapril Hcl (Accupril) 40 Mg Tab 20 MG PO BID, TAB Discharge Exam Patient with no acute events overnight He is feeling much better. he passed his two step last night and his shortness of breath has improved immensely.He still has a dry cough His creatinine is improving and he still has his guan catheter in place. We will remove this morning and attempt a voiding trial. He wants to be discharged today so that he can go look after his who has just been transferred to [facility] after having a brain aneurysm Patient denies any chest pain, wheezing, shortness of breath, leg swelling, palpitations, wet cough, fevers, night sweats or chills Review of Systems: Constitutional: No fever, No chills, No sweats Respiratory: No cough, No sputum, No wheezing Cardiovascular: No chest pain, No orthopnea, No PND Abdomen: No pain, No nausea, No vomiting Genitourinary - Female: No dysuria, No urinary frequency, No urinary urgency , No urinary incontinence (Jung Snyder MD) Review of Systems: Constitutional: No fever Respiratory: No shortness of breath Cardiovascular: No chest pain Abdomen: No pain Physical Exam: General Appearance: no apparent distress (sitting comfortably at the edge of bed) Respiratory/Chest: lungs clear, no respiratory distress Cardiovascular: regular rate, rhythm Abdomen / GI: soft Neurologic/Psychiatric: alert, oriented x 3 Skin: warm/dry (Elsy Morton M.D.) Hospital Course 71 y/o M Hx COPD, DM, obesity, severe PVD, ARF, CAD - NSTEMI - cardiac arrest 2013, AICD. Pt was recently treated for a COPD exacerbation with a 7 day course of Levaquin and steroids and presented to [facility] with worsening shortness of breath. Acute respiratory failure - sec to pneumonia with COPD exacerbation - patient was on bipap in the hospital, but upon discharge he left with passing two step and did not require oxygen Suspected Gram-negative and/or aspiration pneumonia (recent hospitalization with levaquin and steroids) - Pip-Tazo and Azithromycin IV in hospital - Discharged with augmentin for 3 days, was not discharged with any steroids, did receive IV steroids in hospital - Blood cultures and sputum cultures negative - methylprednisolone 20mg IV OD - wean to prednisone in am ARF - postobstructive sec to ?BPH - added flomax on discharge - creatinine was 2.5 upon discharge, patient getting repeat BMP on Sunday - retroperitoneal ultrasound showed mild renal cortical atrophy Elevated troponin with h/o ID, Cardiac arrest and AICD placement - increase metoprolol to 75 bid - furosemide and AFSANEH held upon discharge due to elevated creatinine - imdur 60mg OD added by cardiology Chronic CHF - echo showed EF of 55-60% HLD - lipitor DM - placed on SS glargine 25 bid in hospital - metformin held on discharge due to elevated creatinine - patient discharged with home diabetes regimen (except for metformin) Cirrhosis - diagnosed on CT - Hep B and C both negative - portal vein US normal - follow as outpatient Total Time Spent: Less than 30 minutes This includes examination of the patient, discharge planning, medication reconciliation, and communication with other providers. (Jung Snyder MD) I have reviewed the medical record and performed a history and physical examination of this patient today. I have discussed the case with Dr. Snyder. The above note reflects my findings, conclusions, and recommendations. Total Time Spent: Greater than 30 minutes (Elsy Morton M.D.) Discharge Instructions Please refer to the electronic Patient Visit Report (Discharge Instructions) for additional information. (Jung Snyder MD) Additional Copies To Onofre Betancur M.D.
[2016-11-10 14:55] VITALS: BP 158/89; PULSE 92; TEMP 36.5; O2SAT 93
[2017-05-07] MEDS ORDERED: AMLO-110 PO (22:42)
[2017-05-17] MEDS ORDERED: ASPI325T45 PO (12:31)
== END 2016-11-10 15:21 | disposition home or self-care (01) | DRG 177 ==
LOC: ENRESERVDT → ENRESERVTM → C.EDB 01:03 → C.2T 04:27 → ENRESERV 11-09 16:21 → C.MS4W 11-09 17:44
PROVIDERS: ADMIT Internal Medicine; ATTEND Family Medicine
DX: J15.6 Pneumonia due to other Gram-negative bacteria (principal); I21.4 Non-ST elevation (NSTEMI) myocardial infarction; J44.1 Chronic obstructive pulmonary disease with (acute) exacerbation; N17.9 Acute kidney failure, unspecified; J96.01 Acute respiratory failure with hypoxia; J44.0 Chronic obstructive pulmonary disease with (acute) lower respiratory infection; I24.8 Other forms of acute ischemic heart disease; J69.0 Pneumonitis due to inhalation of food and vomit; I50.9 Heart failure, unspecified; I10 Essential (primary) hypertension; Z79.82 Long term (current) use of aspirin; D69.6 Thrombocytopenia, unspecified; I25.2 Old myocardial infarction; I73.9 Peripheral vascular disease, unspecified; I25.10 Atherosclerotic heart disease of native coronary artery without angina pectoris; K21.9 Gastro-esophageal reflux disease without esophagitis; K74.60 Unspecified cirrhosis of liver; Z82.49 Family history of ischemic heart disease and other diseases of the circulatory system; N40.1 Benign prostatic hyperplasia with lower urinary tract symptoms; E78.5 Hyperlipidemia, unspecified; Z95.810 Presence of automatic (implantable) cardiac defibrillator; E11.9 Type 2 diabetes mellitus without complications; Z86.74 Personal history of sudden cardiac arrest; Z95.1 Presence of aortocoronary bypass graft; Z87.891 Personal history of nicotine dependence; I45.10 Unspecified right bundle-branch block

== ENCOUNTER → 2016-11-13 | Outpatient (CLI) | payer OTHER ==
[~2016-11-13] MED LIST changes: -ALBUAER19 INH; +AMLO-110 PO; +AMOX875T PO; +ASPI-435 PO; +ATOR-22 PO; +CEFT1INJ57 IV; +DOXE100C4 PO; -DXP/75 PO; +ENOX40IN SQ; +FLM4 PO; -FURO20TA PO; +IMDSR60 PO; +INDO-24 PO; -INSDGI SC; +INSDGIPEN SQ; +IPRASOL4 INH; +ISOS60TA25 PO; +LPR25 PO; -METF1000 PO; -PRENTAB26 PO; -QUIN40TA18 PO; +SPRIN/30 INH; +TAMS0.4C38 PO; -TIOTCAP INH; +TRAM-10 PO; +VNTHFA/IN INH
[2016-11-13 12:29] LABS: BLOOD UREA NITROGEN 31 mg/dl (7-18); BUN/CREATININE RATIO 13.7 (10-20); CALCIUM 7.9 mg/dl (8.5-10.1); CARBON DIOXIDE 36 mmol/L (21-32); CHLORIDE 105 mmol/L (98-107); GLUCOSE 71 mg/dl (70-99); POTASSIUM 4.7 mmol/L (3.5-5.1); SODIUM 144 mmol/L (136-145)
--- NOTE | 2016-11-15 13:47 | CODING QUERY NO DIAGNOSIS ---
: 1945 TREATMENT RENDERED WITHOUT A DIAGNOSIS To promote full compliance with coding requirements relating to patient care, physician participation is requested in all cases of kiln furniture caster uncertainty. Please assist us with providing a diagnosis/symptom for the test(s) below: A diagnosis/symptom was not documented on your Order. A valid diagnosis/symptom is required to bill all insurances. Please remember that we are unable to code a diagnosis of rule out, probable, possible, questionable, or suspected. Tests that require a diagnosis: DOS: 11/13/16 * Partial Renal Profile DIAGNOSIS: Provider Signature: Date: Thank you Pilar Quiroz Health Information Management Once completed, please kindly fax back to [phone] For questions please call [phone]
== END | disposition home or self-care (01) ==
LOC: C.LABPVFM 07:26
PROVIDERS: ATTEND Family Medicine
DX: E11.9 Type 2 diabetes mellitus without complications (principal); J18.9 Pneumonia, unspecified organism

== ENCOUNTER → 2016-11-22 | Outpatient (CLI) | payer OTHER ==
[~2016-11-22] MED LIST changes: -AMOX875T PO
--- NOTE | 2016-11-22 15:14 | DIAGNOSTIC IMAGING REPORT ---
EXAMINATION: RENAL ULTRASOUND CLINICAL HISTORY: N18.9 Chronic kidney [id number] COMPARISON STUDY: 11/08/2016 FINDINGS: The right kidney measures 12.5 cm. The left kidney measures 14.1 cm. There is no evidence of hydronephrosis. There is a tiny left renal cyst. There is a prominent prostate. Neither ureteral jet was visualized. Spleen is enlarged measuring 15.5 cm IMPRESSION : 1. Relatively symmetric renal size and cortical thickness. No evidence of hydronephrosis 2. Mild splenomegaly (15.5 cm). Electronically signed by: Kamaljit Raymundo M.D. 11/22/2016 3:12 PM Dictated Date/Time: 11/22/2016 3:10 PM
== END | disposition home or self-care (01) ==
LOC: C.ULTR 14:39
PROVIDERS: ATTEND Family Medicine
DX: N18.9 Chronic kidney disease, unspecified (principal)

== ENCOUNTER → 2016-11-24 | Outpatient (CLI) | payer OTHER ==
[2016-11-24 13:31] LABS: URINE PROTIEN/CREAT RATIO 3.6 (0-0.2); URINE TOTAL PROTEIN 467.2 mg/dl (0-11.9)
[2016-11-24 13:39] LABS: URINE APPEARANCE CLEAR (CLEAR); URINE BILIRUBIN NEG (NEG); URINE COLOR YELLOW; URINE EPITHELIAL CELL AUTO 20-30 /lpf (0-5); URINE NITRITE NEG (NEG); URINE PH 5.5 (4.5-7.5); URINE SPECIFIC GRAVITY 1.022 (1.000-1.030); UROBILINOGEN NEG (NEG); ZZUR CULT IF INDIC CLEAN CATCH NO
[2016-11-24 13:56] LABS: MANUAL MICROSCOPIC REQUIRED? NO; REVIEW REQ? NO
== END | disposition home or self-care (01) ==
LOC: C.LABPVFM 15:08
PROVIDERS: ATTEND Internal Medicine Nephrology
DX: N28.9 Disorder of kidney and ureter, unspecified (principal)

== ENCOUNTER → 2017-01-02 | Outpatient (CLI) | payer OTHER ==
[~2017-01-02] MED LIST changes: -AMLO-110 PO; -ASPI325T45 PO; -CEFT1INJ57 IV; -ENOX40IN SQ; +INSDGIPEN SC; -INSDGIPEN SQ; -ISOS60TA25 PO; -METO50TA16 PO; -TAMS0.4C38 PO
[2017-01-02 17:45] LABS: URINE APPEARANCE CLEAR (CLEAR); URINE BILIRUBIN NEG (NEG); URINE COLOR YELLOW; URINE NITRITE NEG (NEG); URINE PH 6.5 (4.5-7.5); URINE SPECIFIC GRAVITY 1.024 (1.000-1.030); UROBILINOGEN NEG (NEG); ZZUR CULT IF INDIC CLEAN CATCH NO
[2017-01-02 17:48] LABS: MANUAL MICROSCOPIC REQUIRED? NO; REVIEW REQ? NO
[2017-01-02 18:05] LABS: ALT/SGPT 30 U/L (12-78); BLOOD UREA NITROGEN 17 mg/dl (7-18); BUN/CREATININE RATIO 11.8 (10-20); CALCIUM 9.1 mg/dl (8.5-10.1); CARBON DIOXIDE 33 mmol/L (21-32); CHLORIDE 104 mmol/L (98-107); GLUCOSE 206 mg/dl (70-99); POTASSIUM 4.7 mmol/L (3.5-5.1); SODIUM 140 mmol/L (136-145)
[2017-01-02 18:08] LABS: ALKALINE PHOSPHATASE 84 U/L (45-117); AST/SGOT 22 U/L (15-37); PHOSPHORUS 3.1 mg/dl (2.5-4.9)
== END | disposition home or self-care (01) ==
LOC: C.LABPVFM 10:38
PROVIDERS: ATTEND Internal Medicine Nephrology
DX: K76.9 Liver disease, unspecified (principal); N28.9 Disorder of kidney and ureter, unspecified; N18.9 Chronic kidney disease, unspecified

== ENCOUNTER → 2017-02-24 | Outpatient (CLI) | payer OTHER ==
[2017-02-24 13:10] LABS: ESTIMATED AVERAGE GLUCOSE 166 mg/dl; HA1C FLAG Normal (Normal)
[2017-02-24 13:19] LABS: ALT/SGPT 26 U/L (12-78); BLOOD UREA NITROGEN 19 mg/dl (7-18); BUN/CREATININE RATIO 16.8 (10-20); CALCIUM 9.2 mg/dl (8.5-10.1); CARBON DIOXIDE 30 mmol/L (21-32); CHLORIDE 103 mmol/L (98-107); CHOLESTEROL 94 mg/dl (0-200); GLUCOSE 107 mg/dl (70-99); POTASSIUM 4.1 mmol/L (3.5-5.1); SODIUM 139 mmol/L (136-145); URIC ACID 6.1 mg/dl (2.6-7.2)
[2017-02-24 13:22] LABS: ALB/GLOB RATIO 0.8 (0.9-2); ALKALINE PHOSPHATASE 73 U/L (45-117); AST/SGOT 21 U/L (15-37); CHOLESTEROL/HDL RATIO 3.2; HDL CHOLESTEROL 29 mg/dl; LDL CHOLESTEROL CALCULATED 50 mg/dl; TRIGLYCERIDES 76 mg/dl (0-150); VERY LOW DENSITY LIPOPROT CALC 15 mg/dl
== END | disposition home or self-care (01) ==
LOC: C.LABPVFM 08:38
PROVIDERS: ATTEND Family Medicine
DX: I10 Essential (primary) hypertension (principal); E11.9 Type 2 diabetes mellitus without complications; E78.5 Hyperlipidemia, unspecified; M25.562 Pain in left knee

== ENCOUNTER → 2017-04-02 | Outpatient (CLI) | payer OTHER ==
[2017-04-02 13:41] LABS: ALT/SGPT 36 U/L (12-78); AST/SGOT 26 U/L (15-37); BLOOD UREA NITROGEN 23 mg/dl (7-18); BUN/CREATININE RATIO 17.7 (10-20); CALCIUM 8.6 mg/dl (8.5-10.1); CARBON DIOXIDE 30 mmol/L (21-32); CHLORIDE 103 mmol/L (98-107); CREATININE 1.28 mg/dl (0.60-1.40); GLUCOSE 147 mg/dl (70-99); POTASSIUM 4.8 mmol/L (3.5-5.1); SODIUM 138 mmol/L (136-145)
[2017-04-02 13:46] LABS: ALB/GLOB RATIO 0.8 (0.9-2); ALKALINE PHOSPHATASE 82 U/L (45-117)
== END | disposition home or self-care (01) ==
LOC: C.LABPVFM 08:17
PROVIDERS: ATTEND Family Medicine
DX: N18.9 Chronic kidney disease, unspecified (principal); K76.9 Liver disease, unspecified

== ENCOUNTER 2017-05-07 19:25 | Inpatient (IN) | payer OTHER ==
[~2017-05-07] VITALS: Ht 177.8 cm; Wt 88.2 kg
[~2017-05-07 19:25] MED LIST changes: -INSDGIPEN SC; +INSDGIPEN SQ; +IPRA-64 INH; -IPRASOL4 INH
[2017-05-07] MEDS ORDERED: PIPERACILL/TAZOBAC IV 4.5 GM in DEXTROSE 5% 100ML 100 ML IV STA (19:45)
[2017-05-07] MEDS ORDERED: VANCOMYCIN IV 2,000 MG in SODIUM CHLORIDE 0.9% 250ML 250 ML IV STA (19:45)
[2017-05-07] MEDS ORDERED: SODIUM CHLORIDE 0.9% 1000ML 2,000 ML IV STA (19:45)
[2017-05-07] MEDS ORDERED: ACETAMINOPHEN IV 100 ML IV STA (19:53)
--- NOTE | 2017-05-07 20:24 | DIAGNOSTIC IMAGING REPORT ---
CHEST ONE VIEW PORTABLE CLINICAL HISTORY: 72 years-old Male presenting with Evaluate Fever/Sepsis. TECHNIQUE: Portable upright AP view of the chest was obtained. COMPARISON: 11/06/2016. FINDINGS: Left subclavian implanted cardiac defibrillator with lead to the right ventricle. Median sternotomy wires unchanged. Cardiac mediastinal silhouette otherwise normal. Interval resolution of previously noted bibasilar opacities. No new focal infiltrate. No large effusion or pneumothorax. Osseous structures normal. Upper abdomen normal. IMPRESSION: 1. No acute cardiopulmonary disease. Electronically signed by: Shon Morgan M.D. 05/07/2017 8:23 PM Dictated Date/Time: 05/07/2017 8:22 PM
--- NOTE | 2017-05-07 20:27 | DIAGNOSTIC IMAGING REPORT ---
L TIBIA/FIBULA 2 VIEWS ROUTINE CLINICAL HISTORY: 72 years-old Male presenting with eval osteo, nec fasc. TECHNIQUE: Frontal and lateral views of the left lower leg were obtained. COMPARISON: None. FINDINGS: No acute fracture or malalignment. No osseous erosion or periosteal reaction. Diffuse infiltration of the subcutaneous tissue. No radiographic evidence of soft tissue emphysema. Atherosclerosis. Knee joint and ankle mortise grossly congruent. IMPRESSION: No radiographic evidence of osteomyelitis or necrotizing fasciitis within the limitations of technique. If there is continuing clinical concern, cross-sectional imaging could be obtained. Electronically signed by: Shon Morgan M.D. 05/07/2017 8:26 PM Dictated Date/Time: 05/07/2017 8:24 PM
--- NOTE | 2017-05-07 20:29 | DIAGNOSTIC IMAGING REPORT ---
L ANKLE MIN 3 VIEWS ROUTINE CLINICAL HISTORY: 72 years-old Male presenting with eval osteo, nec fasc. TECHNIQUE: Frontal, mortise, and lateral views of the left ankle were obtained. COMPARISON: None. FINDINGS: Ankle mortise intact. No acute fracture or malalignment. No osseous erosion. Suggestion of periosteal reaction along the medial aspect of the distal tibia. Diffuse soft tissue swelling and infiltration. No radiographic evidence of soft tissue emphysema. Atherosclerosis. Enthesophyte noted at the inferior calcaneus. IMPRESSION: Suggestion of subtle periosteal reaction along the medial distal tibia. This raises concern for osteomyelitis in the appropriate clinical setting. Electronically signed by: Shon Morgan M.D. 05/07/2017 8:28 PM Dictated Date/Time: 05/07/2017 8:26 PM
--- NOTE | 2017-05-07 20:31 | DIAGNOSTIC IMAGING REPORT ---
L FOOT MIN 3 VIEWS ROUTINE CLINICAL HISTORY: 72 years-old Male presenting with eval osteo, nec fasc. TECHNIQUE: Frontal, oblique, and lateral views the left foot were obtained. COMPARISON: None. FINDINGS: Postsurgical changes of resection of the distal fifth metatarsal and fifth toe. Extensive soft tissue emphysema noted at the bases of the first through fourth toes. Osteopenia suspected, which limits evaluation for osseous erosion and nondisplaced fracture. Within this limitation, no radiographic evidence of osseous erosion or periosteal reaction. Diffuse soft tissue swelling and subcutaneous edema suggested. No acute fracture or malalignment. IMPRESSION: Soft tissue emphysema at the bases of the first through fourth toes raise concern for necrotizing fasciitis. Correlate clinically. The report will be called/faxed according to standard departmental protocol. Electronically signed by: Shon Morgan M.D. 05/07/2017 8:30 PM Dictated Date/Time: 05/07/2017 8:28 PM
[2017-05-07 20:37] LABS: BASO % 0.1 %; BASO ABS # 0.01 K/uL (0-0.2); EOS % 0.1 %; EOS ABS # 0.01 K/uL (0-0.5); HEMATOCRIT 36.2 % (42-52); HEMOGLOBIN 12.4 g/dL (14.0-18.0); IG# 0.02 K/uL (0.00-0.02); LYMPH % 3.2 %; LYMPH ABS # 0.31 K/uL (1.2-3.4); MEAN CELL VOLUME 86.8 fL (80-100); MEAN CORPUSCULAR HEMOGLOBIN 29.7 pg (25-34); MEAN CORPUSCULAR HGB CONC 34.3 g/dl (32-36); MEAN PLATELET VOLUME 9.9 fL (7.4-10.4); MONO % 4.4 %; MONO ABS # 0.43 K/uL (0.11-0.59); NEUT ABS # 9.05 K/uL (1.4-6.5); PLATELET COUNT 155 K/uL (130-400); RED CELL DISTRIBUTION WIDTH CV 15.4 % (11.5-14.5); RED CELL DISTRIBUTION WIDTH SD 48.8 fL (36.4-46.3); WHITE BLOOD COUNT 9.83 K/uL (4.8-10.8)
[2017-05-07] MEDS ORDERED: VANCOMYCIN IV 2,000 MG in SODIUM CHLORIDE 0.9% 500ML 500 ML IV ONE (20:45)
[2017-05-07 20:48] LABS: ISTAT CREATININE 1.7 mg/dl (0.6-1.3); ISTAT IONIZED CALCIUM 1.11 mmol/l (1.12-1.32); ISTAT POTASSIUM 3.9 mEq/L (3.3-5.0)
[2017-05-07 20:50] LABS: INR 1.3 (0.9-1.1); PTT PATIENT 35.1 SECONDS (21.0-31.0)
[2017-05-07 20:57] LABS: ALBUMIN 2.5 gm/dl (3.4-5.0); CREATININE 1.79 mg/dl (0.60-1.40); POTASSIUM 3.9 mmol/L (3.5-5.1)
[2017-05-07 21:04] LABS: TOTAL PROTEIN 7.8 gm/dl (6.4-8.2)
--- NOTE | 2017-05-07 21:28 | EMERGENCY ROOM VISIT NOTE ---
History First contact with patient: 19:37 Chief Complaint: INFECTION Stated Complaint: UGLY TOE Nursing Triage Summary: would to left foot, started "some time ago" and "I was stupid I should have come in earlier". Aram noticed sangeous d/c this date hwile in shower that prompted ED evaluation. Fever this date on arrival. Aram has history of amputations of 4th adn 5th digit on same foot. History of Present Illness The patient is a 72 year old male who presents to the Emergency Room with complaints of wound to his left foot that he believes started approximately 2 weeks ago. He is a poor historian and unable to give specific details regarding his condition. He states he noticed a small bump on his left fourth toe several days ago, when he squeezed it "pus came out." He did not see his doctor regarding this, and wrapped the foot in a dressing. He states that he has not taken his socks off for at least 4 or 5 days, today when he got in the shower, he noticed that his fourth toe was black, and had discharge and a foul odor. He also notes some increased redness and swelling with mild pain to his left foot and calf, but notes that he has "bad neuropathy" and peripheral vascular disease of the lower extremities. Patient states that he has been having some chills and feeling poorly yesterday and today. He also reports that he has had a decreased appetite and has not been eating much for the past few days. He is an insulin-dependent diabetic, history of amputation of his left fifth toe in the past. He denies any chest pain, shortness of breath, dizziness or passing out, abdominal pain, nausea or vomiting, diarrhea, blood in his stool, dysuria or urinary frequency, rash. Review of Systems A complete 10 point review of systems was reviewed with the patient with pertinent positives and negatives as per history of present illness. All else were negative. Past Medical/Surgical History Medical Problems: (1) CHF exacerbation (2) COPD exacerbation (3) Diabetes (4) Hypertension Family History FH: aneurysm FH: coronary artery disease FH: myocardial infarction Social History Smoking Status: Former Smoker Drug Use: none Marital Status: Housing Status: lives with family Occupation Status: employed Current/Historical Medications Scheduled Amlodipine (Norvasc), 5 MG PO DAILY Aspirin (Aspirin 81), 81 MG PO DAILY Atorvastatin (Lipitor), 20 MG PO DAILY Doxepin Hcl (Doxepin), 100 MG PO HS Fluticasone Prop/Salmeterol (Advair Diskus 250/50 60 Dose), 1 PUFF INH BID Glipizide Xl (Glucotrol Xl), 10 MG PO BID Insulin Glargine (Lantus Solostar), 48 UNITS SQ QPM Isosorbide Mononitrate Ext Rel (Imdur Ext Rel), 60 MG PO QAM Metoprolol Tartrate (Lopressor) (Lopressor), 75 MG PO BID Omeprazole (Prilosec), 20 MG PO DAILY Tamsulosin Hcl (Flomax), 0.4 MG PO QAM Tiotropium [place] (Spiriva Handihaler), 1 CAP INH DAILY Scheduled PRN Albuterol Hfa (Ventolin Hfa), 2 PUFFS INH Q4 PRN for SOB/Wheezing Ipratropium-Albuterol (Duoneb), 1 TREATMENT INH Q4H PRN for SOB/Wheezing Tramadol (Ultram), 50 MG PO Q6 PRN for Pain Allergies Coded Allergies: No Known Allergies (Verified , 11/06/16) Physical Exam Vital Signs Date Time Temp Pulse Resp B/P (MAP) Pulse Ox O2 Delivery O2 Flow Rate FiO2 05/07/17 22:03 37.5 96 16 132/63 94 05/07/17 20:42 122 16 157/75 97 05/07/17 19:57 39.5 05/07/17 19:31 38.4 128 20 132/68 96 Room Air Physical Exam CONSTITUTIONAL: No acute distress. Dehydrated. Disheveled with poor hygiene. Alert and oriented X 4 with normal affect. HEENT: Normocephalic, atraumatic. Pupils equal, round and reactive to light, EOMI. TMs normal. Pharynx normal. Dry mucous membranes. NECK: Supple, full active range of motion without discomfort. RESPIRATORY: Clear to auscultation bilaterally with no wheezing, crackles, rhonchi or stridor. Equal expansion bilaterally. CARDIOVASCULAR: Regular rate and rhythm with no murmurs, rubs or gallops. Normal peripheral perfusion. No edema. GASTROINTESTINAL: Soft, nontender, nondistended. Bowel sounds present in all quadrants. MUSCULOSKELETAL: The left fourth toe is black, necrotic, boggy, with foul- smelling discharge. The toenail and surrounding skin is sloughing off of the toe. The entire foot and calf are swollen, erythematous and hot to the touch, with some weeping wounds to the calf of serosanguineous fluid. No palpable crepitus, but the leg and foot are edematous and boggy. PT and DP pulses intact , sensation diminished secondary to neuropathy, which patient states is unchanged. INTEGUMENTARY: No rash. Skin is dry. NEUROLOGIC: Cranial nerves II-XII grossly intact. No focal neurologic deficits noted. Medical Decision & Procedures ER Provider Diagnostic Interpretation: CHEST ONE VIEW PORTABLE CLINICAL HISTORY: 72 years-old Male presenting with Evaluate Fever/Sepsis. TECHNIQUE: Portable upright AP view of the chest was obtained. COMPARISON: 11/06/2016. FINDINGS: Left subclavian implanted cardiac defibrillator with lead to the right ventricle. Median sternotomy wires unchanged. Cardiac mediastinal silhouette otherwise normal. Interval resolution of previously noted bibasilar opacities. No new focal infiltrate. No large effusion or pneumothorax. Osseous structures normal. Upper abdomen normal. IMPRESSION: 1. No acute cardiopulmonary disease. ----- L FOOT MIN 3 VIEWS ROUTINE CLINICAL HISTORY: 72 years-old Male presenting with eval osteo, nec fasc. TECHNIQUE: Frontal, oblique, and lateral views the left foot were obtained. COMPARISON: None. FINDINGS: Postsurgical changes of resection of the distal fifth metatarsal and fifth toe. Extensive soft tissue emphysema noted at the bases of the first through fourth toes. Osteopenia suspected, which limits evaluation for osseous erosion and nondisplaced fracture. Within this limitation, no radiographic evidence of osseous erosion or periosteal reaction. Diffuse soft tissue swelling and subcutaneous edema suggested. No acute fracture or malalignment. IMPRESSION: Soft tissue emphysema at the bases of the first through fourth toes raise concern for necrotizing fasciitis. Correlate clinically. ----- LOWER EXTREMITY WITHOUT CLINICAL HISTORY: 72 years-old Male presenting with eval nec fasc. TECHNIQUE: Multidetector CT of the left lower extremity was performed without the use of intravenous contrast. IV contrast: None. A dose lowering technique was used consistent with the principles of ALARA (as low as reasonably achievable). COMPARISON: Plain radiographs performed earlier the same day. CT DOSE (mGy.cm): The estimated cumulative dose is 334.24 mGy.cm. 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 Extensive subcutaneous emphysema in the fourth toe extending from the tuft to the base of the toe along the medial aspect. Soft tissue gas also surrounds the fourth metatarsophalangeal articulation extends proximally and medially along the flexor compartment. Soft tissue gas is noted immediately inferior to the sustentaculum reginaldo in the hindfoot but does not appear to extend proximal to the ankle mortise. Extensive subcutaneous edema and skin thickening noted diffusely in the foot and extending proximally to the level of the knee. Fatty atrophy of musculature noted. Osseous erosion of the proximal phalanx of the fourth toe suspected. Postsurgical changes of the fifth toe amputation as well as amputation of the head of the fifth metatarsal. No acute fracture or malalignment. Visualized portion of the right lower extremity within normal limits. Extensive atherosclerosis. IMPRESSION: Soft tissue emphysema most concerning for necrotizing fasciitis involving the fourth toe and extending proximally in the flexor compartment to the level of the sustentaculum reginaldo but not proximal to the ankle mortise. Osseous erosion of the proximal phalanx of the fourth toe also suggest osteomyelitis. Extensive soft tissue subcutaneous infiltration could suggest cellulitis. Laboratory Results Test 05/07/17 20:12 05/07/17 20:36 Erythrocyte Sedimentation Rate 67 mm/hr (0-14) Prothrombin Time 13.7 SECONDS (9.0-12.0) Prothromb Time International Ratio 1.3 (0.9-1.1) Activated Partial Thromboplast Time 35.1 SECONDS (21.0-31.0) Partial Thromboplastin Ratio 1.4 Total Bilirubin 1.3 mg/dl (0.2-1) Direct Bilirubin 0.7 mg/dl (0-0.2) Aspartate Amino Transf (AST/SGOT) 83 U/L (15-37) Alanine Aminotransferase (ALT/SGPT) 81 U/L (12-78) Alkaline Phosphatase 82 U/L (45-117) Troponin I 0.041 ng/ml (0-0.045) C-Reactive Protein 22.70 mg/dl (0-0.29) Total Protein 7.8 gm/dl (6.4-8.2) Albumin 2.5 gm/dl (3.4-5.0) Bedside Hemoglobin 11.6 g/dl (14.0-18.0) Bedside Hematocrit 34 % (42-52) Bedside Sodium 134 mEq/L (135-144) Bedside Potassium 3.9 mEq/L (3.3-5.0) Bedside Chloride 96 mEq/L (101-112) Bedside Total CO2 25 mEq/l (24-31) Bedside Blood Urea Nitrogen 26 mg/dl (7-18) Bedside Creatinine 1.7 mg/dl (0.6-1.3) Bedside Glucose (other) 182 mg/dl (70-99) Bedside Ionized Calcium (Javan) 1.11 mmol/l (1.12-1.32) Medications Administered Medications (Trade) Dose Ordered Sig/Elsie Route Start Time Stop Time Status Last Admin Dose Admin Sodium Chloride 2,000 ml @ 999 mls/hr Q2H1M STAT IV 05/07/17 19:45 05/07/17 21:45 DC 05/07/17 20:42 999 MLS/HR Piperacillin Sod/ Tazobactam Sod 4.5 gm/Dextrose 120 ml @ 200 mls/hr NOW STAT IV 05/07/17 19:45 05/07/17 20:20 DC 05/07/17 21:01 200 MLS/HR Acetaminophen 100 ml @ 400 mls/hr NOW STAT IV 05/07/17 19:53 05/07/17 20:07 DC 05/07/17 20:42 400 MLS/HR Vancomycin HCl 2000 mg/Sodium Chloride 540 ml @ 200 mls/hr 2045 ONCE IV 05/07/17 20:45 05/07/17 23:26 DC 05/07/17 22:03 200 MLS/HR Clindamycin Phosphate (Cleocin 600mg/ 54ml D5W) 600 mg ONE ONCE IV 05/07/17 22:30 05/07/17 22:31 DC 05/07/17 22:51 600 MG Sodium Chloride 1,000 ml @ 125 mls/hr Q8H STAT IV 05/07/17 22:24 05/08/17 00:06 DC 05/07/17 22:51 125 MLS/HR ECG Indication: tachycardia Rate (beats per minute): 115 Rhythm: sinus tachycardia Findings: RBBB, ST depression (Anterior), no ectopy Change: no significant change (when compared to EKG from 11/06/2016, RBBB and ST depression appears to be unchanged) Medical Decision CC: Patient presenting with complaint of cellulitis and wound of left foot Interpretation of Labs: No leukocytosis, but note left shift, no significant anemia, no significant electrolyte abnormalities, elevated BUN and creatinine ( no significant change from baseline), elevated T bili and ALT/AST. Lactic acid WNL. Inflammatory markers significantly elevated. UA negative. Differential Diagnosis: Includes, but not limited to cellulitis, abscess, gas gangrene, osteomyelitis, necrotizing fasciitis, dehydration, sepsis/bacteremia, among others Medication Reconciliation: I attest that I have personally reviewed the patient' s current medication list. Vital signs review: I reviewed the patient's vital signs and interpret them as follows: T: Febrile; BP: Normotensive; HR: Tachycardic; RR: Within normal limits; Pulse Ox: Within normal limits on room air. Summary: Patient was evaluated at bedside, history and physical exam performed. Patient is alert and oriented, in no acute distress, sitting in a chair fully clothed in the exam room. The patient was asked to change into a gown. Patient is noted to be febrile and tachycardic, he does appear clinically dehydrated on exam as well. Evaluation of the foot wound revealed a necrotic fourth toe, with sloughing off of the nail and surrounding tissues, very foul odor. There is no palpable crepitus on my exam, however given the patient's significant clinical progression of cellulitis, abnormal vital signs, and history of diabetes, I am concerned for gas gangrene/necrotizing fasciitis of the foot and lower extremity. Orders were placed at bedside for labs, UA, urine and blood cultures, lactic acid, plain film x-rays of the foot, ankle, tib/fib to evaluate for osteomyelitis, subcutaneous gas. 2 L IV fluid bolus and broad-spectrum antibiotics were ordered to cover for sepsis, suspected secondary to cellulitis. Patient discussed with Dr. Hodge, who agrees with my assessment and plan. Labs reviewed as above, significant for a left shift with markedly elevated inflammatory markers. X-ray imaging concerning for possible soft tissue gas of the left foot. CT imaging of the lower extremity was ordered for further clarification. CT imaging confirms presence of soft tissue emphysema of the left foot, concerning for necrotizing fasciitis. IV clindamycin was ordered for additional antitoxin coverage. I spoke on the phone with Dr. Siddiqi, orthopedics, regarding my concern for necrotizing fasciitis. He agrees to come in to evaluate the patient, and recommends getting him admitted to the hospitalist for medical management. I then spoke on the phone with Dr. Holden, hospitalist, who agrees to come evaluate the patient for admission. The OR has also been notified by Dr. Siddiqi for possible surgery tonight. Patient reassessed multiple times throughout ED stay, he remains clinically stable, alert and oriented, defervesce after Tylenol and tachycardia has improved after IV fluid boluses. Patient is remaining nothing by mouth, IV fluid maintenance running. Patient awaiting evaluation by orthopedic surgery and hospitalist team for admission and management. Consults Time Called: 10:09M Consulting Physician: Dr. Siddiiq (Orthopedics) Returned Call: 10:14PM Impression Primary Impression: Gangrenous toe Additional Impressions: Cellulitis of lower extremity Sepsis Necrotizing fasciitis Departure Information Dispostion Being Evaluated By Surgeon Condition FAIR Referrals Onofre Betancur M.D. (PCP) Patient Instructions My [facility] Problem Qualifiers Additional Impressions: Cellulitis of lower extremity Laterality: left Qualified Codes: L03.116 - Cellulitis of left lower limb Sepsis Sepsis type: sepsis due to unspecified organism Qualified Codes: A41.9 - Sepsis, unspecified organism
--- NOTE | 2017-05-07 22:06 | DIAGNOSTIC IMAGING REPORT ---
LOWER EXTREMITY WITHOUT CLINICAL HISTORY: 72 years-old Male presenting with eval nec fasc. TECHNIQUE: Multidetector CT of the left lower extremity was performed without the use of intravenous contrast. IV contrast: None. A dose lowering technique was used consistent with the principles of ALARA (as low as reasonably achievable). COMPARISON: Plain radiographs performed earlier the same day. CT DOSE (mGy.cm): The estimated cumulative dose is 334.24 mGy.cm. FINDINGS: Super[employer] topogram: Unremarkable. Extensive subcutaneous emphysema in the fourth toe extending from the tuft to the base of the toe along the medial aspect. Soft tissue gas also surrounds the fourth metatarsophalangeal articulation extends proximally and medially along the flexor compartment. Soft tissue gas is noted immediately inferior to the sustentaculum reginaldo in the hindfoot but does not appear to extend proximal to the ankle mortise. Extensive subcutaneous edema and skin thickening noted diffusely in the foot and extending proximally to the level of the knee. Fatty atrophy of musculature noted. Osseous erosion of the proximal phalanx of the fourth toe suspected. Postsurgical changes of the fifth toe amputation as well as amputation of the head of the fifth metatarsal. No acute fracture or malalignment. Visualized portion of the right lower extremity within normal limits. Extensive atherosclerosis. IMPRESSION: Soft tissue emphysema most concerning for necrotizing fasciitis involving the fourth toe and extending proximally in the flexor compartment to the level of the sustentaculum reginaldo but not proximal to the ankle mortise. Osseous erosion of the proximal phalanx of the fourth toe also suggest osteomyelitis. Extensive soft tissue subcutaneous infiltration could suggest cellulitis. The report will be called/faxed according to standard departmental protocol. Electronically signed by: Shon Mrogan M.D. 05/07/2017 10:05 PM Dictated Date/Time: 05/07/2017 10:01 PM
[2017-05-07] MEDS ORDERED: SODIUM CHLORIDE 0.9% 1000ML 1,000 ML IV STA (22:24)
[2017-05-07] MEDS ORDERED: CLINDAMYCIN 600 MG/54 ML D5W IV ONE (22:30)
[2017-05-07] MEDS ORDERED: AMLO5TAB3 PO (22:42)
[2017-05-07] MEDS ORDERED: ISOS60TA25 PO (22:45)
[2017-05-07] MEDS ORDERED: METO50TA16 PO (22:47)
[2017-05-07] MEDS ORDERED: TAMS0.4C38 PO (22:49)
[2017-05-07] MEDS ORDERED: ACETAMINOPHEN 325 MG TAB PO PRN (23:15)
[2017-05-07] MEDS ORDERED: POLYETHYLENE (MIRALAX) 17 GM PACK PO PRN (23:15)
[2017-05-07] MEDS ORDERED: ALUMINUM/MAGNESIUM/SIMETH (MAALOX MAX) 30 ML UDC PO PRN (23:15)
[2017-05-07] MEDS ORDERED: MAGNESIUM HYDROXIDE SUSP 30 ML UDC PO PRN (23:15)
[2017-05-07] MEDS ORDERED: ONDANSETRON INJ 2 MG/ML 2 ML VIAL IV PRN (23:15)
[2017-05-07] MEDS ORDERED: MoRPHine SULFATE 2 MG/ML CARP IV PRN (23:15)
[2017-05-07] MEDS ORDERED: TRAMADOL HCL 50 MG TAB PO PRN (23:45)
[2017-05-07] MEDS ORDERED: ALBUTEROL HFA 8 GM INHALER INH PRN (23:45)
[2017-05-08] VITALS (11 sets, daily range): BP systolic 111–166; BP diastolic 66–77; PULSE 83–109; TEMP 36.4–38.2; O2SAT 90–97; BMI 27.9
[2017-05-08] MEDS ORDERED: ALBUT/IPRATROP 3MG/0.5MG NEB 3 ML VIAL INH PRN
[2017-05-08] MEDS ORDERED: GLUCAGON FOR INJ 1 MG VIAL SQ PRN (00:15)
[2017-05-08] MEDS ORDERED: VANCOMYCIN CONSULT ACTIVE PRN (00:15)
[2017-05-08] MEDS ORDERED: GLUCOSE 10 TABS/TUBE PO PRN (00:15)
[2017-05-08] MEDS ORDERED: PIPERACILL/TAZOBAC CONSULT ACTIVE PRN (00:15)
[2017-05-08] MEDS ORDERED: GLUCOSE 40% GEL 15 GM TUBE PO PRN (00:15)
[2017-05-08] MEDS ORDERED: LEVOFLOXACIN CONSULT ACTIVE PRN (00:15)
[2017-05-08] MEDS ORDERED: DEXTROSE 50% 50 ML SYR IV PRN (00:15)
--- NOTE | 2017-05-08 00:22 | Medical Consult ---
Consultation Note Date of Service May 07, 2017. Consultation Note CC: Ugly toe HPI: The patient is a 72 year old male who presented to the ER with complaints of wound to his left foot that he believes started approximately 2 weeks ago. He noticed a bump and squeezed pus out of his left 4th toe several days ago and did not see his doctor. In stead he wrapped the foot in a dressing. He did not take his socks off for at 4 or 5 days. After he showered today, he noticed that his fourth toe was black, and had discharge and a foul odor. He has "bad neuropathy" and peripheral vascular disease of the lower extremities. + chills and feeling poorly past 2 days. He has had a decreased appetite. He is an insulin-dependent diabetic, history of amputation of his left fifth toe in the past. He denies any chest pain, shortness of breath, dizziness or passing out, abdominal pain, nausea or vomiting, diarrhea, blood in his stool, dysuria or urinary frequency, rash. Orthopaedics was consulted as there was concern for necrotizing fascitis. 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 Toe amputations x 2. Lumbar surgery. FHx: aneurysm, coronary artery disease, myocardial infarction Current/Historical Medications Scheduled Amlodipine (Norvasc), 5 MG PO DAILY Aspirin (Aspirin 81), 81 MG PO DAILY Atorvastatin (Lipitor), 20 MG PO DAILY Doxepin Hcl (Doxepin), 100 MG PO HS Fluticasone Prop/Salmeterol (Advair Diskus 250/50 60 Dose), 1 PUFF INH BID Glipizide Xl (Glucotrol Xl), 10 MG PO BID Insulin Glargine (Lantus Solostar), 46 UNITS SC QPM Isosorbide Mononitrate (Isosorbide Mononitrate ER), 60 MG PO QAM Isosorbide Mononitrate Ext Rel (Imdur Ext Rel), 60 MG PO QAM Metoprolol Tartrate (Lopressor), 75 MG PO BID Omeprazole (Prilosec), 20 MG PO DAILY Tamsulosin HCl (Tamsulosin HCl), 0.4 MG PO QAM Tiotropium [place] (Spiriva Handihaler), 1 CAP INH DAILY Scheduled PRN Albuterol Hfa (Ventolin Hfa), 2 PUFFS INH Q4 PRN for SOB/Wheezing Indomethacin (Indocin), 50 MG PO TID PRN for Pain Ipratropium-Albuterol (Duoneb), 1 TREATMENT INH Q4H PRN for SOB/Wheezing Tramadol (Ultram), 50 MG PO Q6 PRN for Pain Allergies: NKDA. Social History: Denies smoking, quit drinking 8 yrs ago after CO. . 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 ROS: 10 point review of systems is noted in the ER and patient had not been feeling well over the last couple of days. Physical Exam: Vitals: Temp 39.5-37.5, Pulse 128-96, RR 20-16, BP 132/64, Pulse Ox 94 % RA. Focusing on the left lower extremity, he has limited sensation to light touch on the dorsum of foot. Evidence of previous left small toe amputation. able to wiggle toes and ankle up and down. Left 4th toe has an eschar around it and the nail is falling off. The is some soft tissue swelling and thickening of the skin on the dorsum of the foot and anterior aspect of the lower leg consistent with cellulitis. IMAGIN views of the Left foot show evidence of osteomyelitis Small toe distal phalanx and previous 5th toe amputation. No free air noted on x-ray. Radiographs ankle and Tib/fib show no evidence of acute fracture or dislocation or free air. Evidence of peripheral vascular disease. CT scan of the LLE show evidence of the 4th toe osteomyelitis and emphysema within the flexor tendons of foot. 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 Plan: After a lengthy discussion with the patient regarding my above findings, I recommended surgical I&D, partial 4th toe amputation and possible wound vac placement once medically stable. Discussed plan with primary team and there is significant concern about the cardiac risk for this patient as he was admitted for CO back in November. He will be treated with IV antibiotics and admitted to hospital under the medicine service. He will remain NPO and has been placed on the add on list for tomorrow. WBAT through his heel. Orthopaedics will continue to follow while in the hospital. The patient understands the risks of surgery and I, Dr. Siddiqi, had him sign the informed consent.
[2017-05-08] MEDS ORDERED: INSULIN GLARGINE SOLOSTAR 100 UNITS/ML 3 ML PEN SC STA (00:36)
--- NOTE | 2017-05-08 00:37 | NUR ---
A/I&D: PT ADMITTED TO ROOM 229-1. PT ABLE TO WALK TO BED WITH MIN ASSIST. PLACED ON MONITOR, PT ASSESSED IN BED, SEE INTERVENTIONS FOR DETAILS. PT NPO FOR PROCEDURE IN AM. RAILS X 2 AND CALL FERRIS WITHIN REACH. D/C PLANS TO BE DETERMINED.
[2017-05-08] MEDS ORDERED: LEVOFLOXACIN / D5W 750 MG in PREMIXED IN D5W 150 ML IV SCH (01:00)
--- NOTE | 2017-05-08 01:27 | History and Physical ---
History & Physical Date & Time of Service: May 07, 2017 at 23:59 Chief Complaint: Sepsis Primary Care Physician: Onofre Betancur M.D. History of Present Illness Source: patient The patient is a 72 year old male with a history of CHF, CAD s/p CABG, COPD, Type 2 DM with peripheral neuropathy, HTN, and Depression who presents to the ED with a gangrenous toe. The patients states that 3 week ago he was having his toenails cut by a software engineering manager who noted a small boil under his left 4th toe. The boil was popped. The patient wanted to have the wound assessed at the wound clinic but was unable to get an appointment. He states that for the past 1 week he has been covering the left foot with wrapping in hopes that it would improve healing. However, today he took off the wrapping so he could shower and noted that the 4th toe was dark and gangrenous. He denies having in pain in the toe, foot or calf, but admits that this is due to his neuropathy. He denies any fevers, chills or sweats. He does states poor appetite and no intake in the past 48 hours. He has not had any shortness of breath, coughing, wheezing, chest pain, palpitation, orthopnea, syncope or lower extremity edema. Given the dark toe the patient came to the ED for further evaluation. On arrival he was found to have features of sepsis. Imaging of the foot was concerning for necrotizing fasciitis. Orthopedics was called to evaluate the patient for possible surgical intervention this tonight. Decision was made to admit the patient for evaluation. 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 Family History FH: aneurysm FH: coronary artery disease FH: myocardial infarction No family history was endorsed by the patient Social History Smoking Status: Former Smoker Smokeless Tobacco Use: No Alcohol Use: none Drug Use: none Marital Status: Housing status: lives alone Occupational Status: employed Immunizations History of Influenza Vaccine: Yes Influenza Vaccine Date: Mar 11, 2013 History of Tetanus Vaccine?: Unknown History of Pneumococcal: Yes Pneumococcal Date: Mar 11, 2013 History of Hepatitis B Vaccine: No Multi-Drug Resistant Organisms History of MDRO: No Allergies Coded Allergies: No Known Allergies (Verified , 11/06/16) Home Medications Scheduled Amlodipine (Norvasc), 5 MG PO DAILY Aspirin (Aspirin 81), 81 MG PO DAILY Atorvastatin (Lipitor), 20 MG PO DAILY Doxepin Hcl (Doxepin), 100 MG PO HS Fluticasone Prop/Salmeterol (Advair Diskus 250/50 60 Dose), 1 PUFF INH BID Glipizide Xl (Glucotrol Xl), 10 MG PO BID Insulin Glargine (Lantus Solostar), 48 UNITS SQ QPM Isosorbide Mononitrate Ext Rel (Imdur Ext Rel), 60 MG PO QAM Metoprolol Tartrate (Lopressor) (Lopressor), 75 MG PO BID Omeprazole (Prilosec), 20 MG PO DAILY Tamsulosin Hcl (Flomax), 0.4 MG PO QAM Tiotropium [place] (Spiriva [place]), 1 CAP INH DAILY Scheduled PRN Albuterol Hfa (Ventolin Hfa), 2 PUFFS INH Q4 PRN for SOB/Wheezing Ipratropium-Albuterol (Duoneb), 1 TREATMENT INH Q4H PRN for SOB/Wheezing Tramadol (Ultram), 50 MG PO Q6 PRN for Pain Review of Systems A 10 point review of systems was negative unless stated above. Physical Exam Vital Signs Date Time Temp Pulse Resp B/P (MAP) Pulse Ox O2 Delivery O2 Flow Rate FiO2 05/08/17 00:28 94 16 141/75 98 05/08/17 00:18 94 16 141/75 98 Room Air 05/07/17 23:18 90 18 132/60 98 Room Air 05/07/17 22:03 37.5 96 16 132/63 94 05/07/17 20:42 122 16 157/75 97 05/07/17 19:57 39.5 05/07/17 19:31 38.4 128 20 132/68 96 Room Air General Appearance: WD/WN, no apparent distress Head: normocephalic, atraumatic Eyes: normal inspection, EOMI ENT: hearing grossly normal, pharynx normal Neck: supple, no adenopathy, no JVD Respiratory/Chest: lungs clear, + wheezing (mild end-expiratory wheezing) Cardiovascular: regular rate, rhythm, no gallop, no murmur Abdomen/GI: normal bowel sounds, non tender, soft Back: no CVA tenderness, no muscle spasm Extremities/Musculoskelatal: + pertinent finding (chronic hemosiderin deposition bilaterally; erythema of the left calf and foot; 5th digit amputations bilaterally; gangrenous left 4th toe) Neurologic/Psych: alert, normal mood/affect, oriented x 3 Skin: normal color, warm/dry, no rash Lymphatic: no adenopathy Diagnostics Laboratory Results Results Past 24 Hours Test 05/07/17 20:12 05/07/17 20:36 05/08/17 00:26 Range/Units White Blood Count 9.83 4.8-10.8 K/uL Red Blood Count 4.17 4.7-6.1 M/uL Hemoglobin 12.4 14.0-18.0 g/dL Hematocrit 36.2 42-52 % Mean Corpuscular Volume 86.8 80-100 fL Mean Corpuscular Hemoglobin 29.7 25-34 pg Mean Corpuscular Hemoglobin Concent 34.3 32-36 g/dl Platelet Count 155 130-400 K/uL Mean Platelet Volume 9.9 7.4-10.4 fL Neutrophils (%) (Auto) 92.0 % Lymphocytes (%) (Auto) 3.2 % Monocytes (%) (Auto) 4.4 % Eosinophils (%) (Auto) 0.1 % Basophils (%) (Auto) 0.1 % Neutrophils # (Auto) 9.05 1.4-6.5 K/uL Lymphocytes # (Auto) 0.31 1.2-3.4 K/uL Monocytes # (Auto) 0.43 0.11-0.59 K/uL Eosinophils # (Auto) 0.01 0-0.5 K/uL Basophils # (Auto) 0.01 0-0.2 K/uL RDW Standard Deviation 48.8 36.4-46.3 fL RDW Coefficient of Variation 15.4 11.5-14.5 % Immature Granulocyte % (Auto) 0.2 % Immature Granulocyte # (Auto) 0.02 0.00-0.02 K/uL Erythrocyte Sedimentation Rate 67 0-14 mm/hr Prothrombin Time 13.7 9.0-12.0 SECONDS Prothromb Time International Ratio 1.3 0.9-1.1 Activated Partial Thromboplast Time 35.1 21.0-31.0 SECONDS Partial Thromboplastin Ratio 1.4 Sodium Level 131 136-145 mmol/L Potassium Level 3.9 3.5-5.1 mmol/L Chloride Level 97 98-107 mmol/L Carbon Dioxide Level 25 21-32 mmol/L Anion Gap 9.0 18.0 16-25 mmol/L Blood Urea Nitrogen 27 7-18 mg/dl Creatinine 1.79 0.60-1.40 mg/dl Est Creatinine Clear Calc Drug Dose 39.5 ml/min Estimated GFR () 43.5 Estimated GFR (Non- 37.6 BUN/Creatinine Ratio 15.0 10-20 Random Glucose 178 70-99 mg/dl Lactic Acid Level 1.7 0.7 0.4-2.0 mmol/L Calcium Level 9.0 8.5-10.1 mg/dl Total Bilirubin 1.3 0.2-1 mg/dl Direct Bilirubin 0.7 0-0.2 mg/dl Aspartate Amino Transf (AST/SGOT) 83 15-37 U/L Alanine Aminotransferase (ALT/SGPT) 81 12-78 U/L Alkaline Phosphatase 82 45-117 U/L Troponin I 0.041 0-0.045 ng/ml C-Reactive Protein 22.70 0-0.29 mg/dl Total Protein 7.8 6.4-8.2 gm/dl Albumin 2.5 3.4-5.0 gm/dl Bedside Hemoglobin 11.6 14.0-18.0 g/dl Bedside Hematocrit 34 42-52 % Bedside Sodium 134 135-144 mEq/L Bedside Potassium 3.9 3.3-5.0 mEq/L Bedside Chloride 96 101-112 mEq/L Bedside Total CO2 25 24-31 mEq/l Bedside Blood Urea Nitrogen 26 7-18 mg/dl Bedside Creatinine 1.7 0.6-1.3 mg/dl Bedside Glucose (other) 182 70-99 mg/dl Bedside Ionized Calcium (Javan) 1.11 1.12-1.32 mmol/l Microbiology Results 05/07/17 Blood Culture, Received Pending 05/07/17 Blood Culture, Received Pending 05/07/17 Gram Stain - Final, Resulted 05/07/17 Wound Culture, Resulted Pending Diagnostic Radiology LOWER EXTREMITY WITHOUT CLINICAL HISTORY: 72 years-old Male presenting with eval nec fasc. TECHNIQUE: Multidetector CT of the left lower extremity was performed without the use of intravenous contrast. IV contrast: None. A dose lowering technique was used consistent with the principles of ALARA (as low as reasonably achievable). COMPARISON: Plain radiographs performed earlier the same day. CT DOSE (mGy.cm): The estimated cumulative dose is 334.24 mGy.cm. FINDINGS: Manual Plate Filler topogram: Unremarkable. Extensive subcutaneous emphysema in the fourth toe extending from the tuft to the base of the toe along the medial aspect. Soft tissue gas also surrounds the fourth metatarsophalangeal articulation extends proximally and medially along the flexor compartment. Soft tissue gas is noted immediately inferior to the sustentaculum reginaldo in the hindfoot but does not appear to extend proximal to the ankle mortise. Extensive subcutaneous edema and skin thickening noted diffusely in the foot and extending proximally to the level of the knee. Fatty atrophy of musculature noted. Osseous erosion of the proximal phalanx of the fourth toe suspected. Postsurgical changes of the fifth toe amputation as well as amputation of the head of the fifth metatarsal. No acute fracture or malalignment. Visualized portion of the right lower extremity within normal limits. Extensive atherosclerosis. IMPRESSION: Soft tissue emphysema most concerning for necrotizing fasciitis involving the fourth toe and extending proximally in the flexor compartment to the level of the sustentaculum reginaldo but not proximal to the ankle mortise. Osseous erosion of the proximal phalanx of the fourth toe also suggest osteomyelitis. Extensive soft tissue subcutaneous infiltration could suggest cellulitis. The report will be called/faxed according to standard departmental protocol. Electronically signed by: Shon Morgan M.D. 05/07/2017 10:05 PM Dictated Date/Time: 05/07/2017 10:01 PM L ANKLE MIN 3 VIEWS ROUTINE CLINICAL HISTORY: 72 years-old Male presenting with eval osteo, nec fasc. TECHNIQUE: Frontal, mortise, and lateral views of the left ankle were obtained. COMPARISON: None. FINDINGS: Ankle mortise intact. No acute fracture or malalignment. No osseous erosion. Suggestion of periosteal reaction along the medial aspect of the distal tibia. Diffuse soft tissue swelling and infiltration. No radiographic evidence of soft tissue emphysema. Atherosclerosis. Enthesophyte noted at the inferior calcaneus. IMPRESSION: Suggestion of subtle periosteal reaction along the medial distal tibia. This raises concern for osteomyelitis in the appropriate clinical setting. Electronically signed by: Shon Morgan M.D. 05/07/2017 8:28 PM Dictated Date/Time: 05/07/2017 8:26 PM L FOOT MIN 3 VIEWS ROUTINE CLINICAL HISTORY: 72 years-old Male presenting with eval osteo, nec fasc. TECHNIQUE: Frontal, oblique, and lateral views the left foot were obtained. COMPARISON: None. FINDINGS: Postsurgical changes of resection of the distal fifth metatarsal and fifth toe. Extensive soft tissue emphysema noted at the bases of the first through fourth toes. Osteopenia suspected, which limits evaluation for osseous erosion and nondisplaced fracture. Within this limitation, no radiographic evidence of osseous erosion or periosteal reaction. Diffuse soft tissue swelling and subcutaneous edema suggested. No acute fracture or malalignment. IMPRESSION: Soft tissue emphysema at the bases of the first through fourth toes raise concern for necrotizing fasciitis. Correlate clinically. The report will be called/faxed according to standard departmental protocol. Electronically signed by: Shon Morgan M.D. 05/07/2017 8:30 PM Dictated Date/Time: 05/07/2017 8:28 PM L TIBIA/FIBULA 2 VIEWS ROUTINE CLINICAL HISTORY: 72 years-old Male presenting with eval osteo, nec fasc. TECHNIQUE: Frontal and lateral views of the left lower leg were obtained. COMPARISON: None. FINDINGS: No acute fracture or malalignment. No osseous erosion or periosteal reaction. Diffuse infiltration of the subcutaneous tissue. No radiographic evidence of soft tissue emphysema. Atherosclerosis. Knee joint and ankle mortise grossly congruent. IMPRESSION: No radiographic evidence of osteomyelitis or necrotizing fasciitis within the limitations of technique. If there is continuing clinical concern, cross-sectional imaging could be obtained. Electronically signed by: Shon Morgan M.D. 05/07/2017 8:26 PM Dictated Date/Time: 05/07/2017 8:24 PM Impression Assessment and Plan 72 year old with sepsis 2/2 necrotizing fasciitis of the left lower extremity. His problem list is as follows: 1 - Sepsis 2/2 Necrotizing fasciitis of the left lower extremity 2 - Acute Kidney Injury 3 - Hyponatremia 4 - Chronic CHF with preserved EF 5 - COPD 6 - Type 2 Diabetes Mellitus 7 - Peripheral Neuropathy 8 - Hypertension 9 - Depression The plan is as follows: - Regarding necrotizing fasciitis, orthopedics has been consulted and has evaluated the patient. Patient NPO except meds for anticipated surgery tomorrow. Cardiology ([facility]) consulted for pre-operative cardiac evaluation - Vancomycin/Zosyn/Levaquin, which includes MRSA and dual Pseudomonal cover. Patient will likely require prolonged antibiotic course. Per day team to consider need for PICC placement - Regarding ANGELITO, gentle rehydration (cautious with hx of CHF). Baseline Cr 1.2- 1.4. Repeat BMP daily. Avoid nephrotoxins. Renally dose meds as needed - Regarding hyponatremia, currently rehydrating gently. Repeat daily BMP. - Regarding diabetes, home meds held. Lantus changed to 15 units HS, day team to adjust once patient can eat. SSI protocol started. q6h BSG when NPO. AC/ HS BSG when eating. Type 2 DM diet - Regarding COPD: Continue Ventolin, Advair and Spiriva. Duonebs q4h PRN as needed - ASA held as anticipated for surgery tomorrow. Automatic order to resume in 24 hours. - Continue home doses of Amlodipine, Metoprolol and Atorvastatin - For Depression, continue Doxepine - DVT prophylaxis: SCDs and TEDs - OT and PT consults - Level I Full Code - Admission Telemetry Attending Addendum: I have physically seen and examined this patient, have directed the resident's medical activities, and agree with the H&P as noted above with the following exceptions as noted. The patient is awake, alert and oriented 3, normocephalic and atraumatic, lying in bed and in no acute distress. HEENT--PERRL, EOMI, mucous membranes and oropharynx dry. Neck--supple, no JVD or bruits, thyroid normal, trachea midline, no adenopathy. Heart--normal S1 and S2, no extra beats, no murmurs, rubs or gallops. Lungs--clear bilaterally with good air movement, no respiratory distress, no accessory muscle use. Abdomen--normal bowel sounds and soft, nontender and nondistended, no hernias or masses, no organomegaly. Extremities--right lower extremity with chronic venous stasis changes. Left lower extremity left fifth toe irritation/left fourth toe with erythema and Eschar Dermatologic--as above Neurologic--cranial nerves II through XII grossly intact. Rheumatologic--normal range of motion. Psychiatric--normal affect. Assessment and Plan: Cellulitis of left lower extremity-- Possible necrotizing fasciitis Place on vancomycin IV, Zosyn IV and Levaquin IV. Seen by orthopedics Dr. Siddiqi in the ED. Has significant cardiac history and will need to be followed by cardiology, who was contacted in the ED, due to recent NSTEMI in October 2016. Order a three-phase limited bone scan since CT with unclear results, and inability to do MRI due to AICD Patient has agreed to PICC line, as in either case, the patient will need long- term antibiotic therapy. Consult infectious disease. CAD/hypertension/history of NSTEMI/status post CABG-- Hold aspirin for possible procedure Continue amlodipine 5 mg by mouth daily, Imdur extended release 60 mg by mouth every morning and metoprolol tartrate 75 mg by mouth twice a day with hold parameters Diabetes mellitus-- Reduce Lantus insulin in half Hold Glipizide XL Place on Accu-Cheks before meals and at bedtime with NovoLog coverage per scale. COPD-- Continue Advair discus and Spiriva. Duonebs every 4 hours when necessary Hyperlipidemia-- Continue atorvastatin 20 mg by mouth daily. GERD-- Change omeprazole to pantoprazole with milligrams daily BPH-- Continue tamsulosin 0.4 mg but change to at bedtime Insomnia-- Continue doxepin 100 mg by mouth at bedtime ASA Classification: ASA Class III Level of Care Telemetry Advanced Directives Existing Advance Directive: No Existing Living Will: No Existing Power of Acoustical Material Worker: No Resuscitation Status FULL RESUSCITATION VTE Prophylaxis VTE Risk Assessment Done? Y/N: Yes Risk Level: Moderate Given or contraindicated: SCD's, Contraindicated
[2017-05-08] MEDS ORDERED: PNEUMOCOCCAL ADMINISTRATION CHARGE ONE (01:30)
[2017-05-08] MEDS ORDERED: PNEUMOCOCCAL POLYSACCHARIDES 25 MCG/0.5 ML VIAL/SYR IM. ONE (01:30)
--- NOTE | 2017-05-08 01:40 | NUR ---
A: Dr Holden contacted re: insulin dose, NPO status. Lantus to be given as ordered.
[2017-05-08] MEDS ORDERED: PIPERACILL/TAZOBAC IV 3.375 GM in DEXTROSE 5% 100ML 100 ML IV SCH (02:00)
[2017-05-08] MEDS ORDERED: NSS + 20MEQ KCL 1000ML 1,000 ML IV SCH (02:00)
--- NOTE | 2017-05-08 04:00 | NUR ---
A: Pt alert and oriented, VSS on room air. SR/ST on monitor. Pt denies pain or SOB at this time. IV fluids infusing per MD order. Dressing to left foot c/d/i. NPO for surgery today. Voiding concentrated urine in urinal. D/c plans uncertain at this time. Call vieira in reach. Will continue to monitor.
[2017-05-08] MEDS: INSULIN ASPART 100 UNITS/ML 3 ML PEN SC SCH ×4 (06:00→20:06)
[2017-05-08 06:54] LABS: CALCIUM 7.8 mg/dl (8.5-10.1); CREATININE 1.33 mg/dl (0.60-1.40); POTASSIUM 3.9 mmol/L (3.5-5.1)
[2017-05-08 06:55] LABS: BASO % 0.2 %; BASO ABS # 0.01 K/uL (0-0.2); EOS % 0.6 %; EOS ABS # 0.04 K/uL (0-0.5); HEMATOCRIT 31.1 % (42-52); HEMOGLOBIN 10.7 g/dL (14.0-18.0); IG# 0.01 K/uL (0.00-0.02); LYMPH ABS # 0.44 K/uL (1.2-3.4); MEAN CELL VOLUME 87.1 fL (80-100); MEAN CORPUSCULAR HGB CONC 34.4 g/dl (32-36); MONO % 7.3 %; MONO ABS # 0.46 K/uL (0.11-0.59); NEUT % 84.7 %; PLATELET COUNT 143 K/uL (130-400); RED CELL DISTRIBUTION WIDTH CV 15.4 % (11.5-14.5); RED CELL DISTRIBUTION WIDTH SD 49.3 fL (36.4-46.3); WHITE BLOOD COUNT 6.26 K/uL (4.8-10.8)
[2017-05-08] MEDS ORDERED: INSULIN ASPART 100 UNITS/ML 3 ML PEN SC SCH (07:00)
--- NOTE | 2017-05-08 07:55 | Family Medicine Progress Note ---
Progress Note Date of Service May 08, 2017. Subjective Pt evaluation today including: conversation w/ patient, physical exam, chart review, lab review, review of inpatient medication list Pain: No pain reported PO Intake: NPO Voiding: no voiding problems Mr. Frank reports he feels fine today. He denies any fever, chills, nausea, vomiting, chest pain and SOB. He reports he does not feel pain in his toe, but also has severe peripheral neuropathy so this is normal for him. He is upset about his current situation and not taking better care of it. He states he had his last 2 amputations somewhere from 5-8 years ago. He reports he was in the hospital for a pneumonia about a year ago and they had some concerns about his heart at that time. Constitutional: No fever, No chills, No sweats Respiratory: No cough, No sputum, No wheezing, No shortness of breath Cardiovascular: No chest pain Abdomen: No pain, No nausea, No vomiting, No diarrhea Musculoskeletal: No joint pain All Other Systems: Reviewed and Negative Medications Current Inpatient Medications Medications (Trade) Dose Ordered Sig/Elsie Route Start Time Stop Time Status Last Admin Dose Admin Acetaminophen (Tylenol Tab) 650 mg Q4H PRN PO 05/07/17 23:15 06/06/17 23:14 Al Hydrox/Mg Hydrox/Simethicone (Maalox Max Susp) 15 ml Q4H PRN PO 05/07/17 23:15 06/06/17 23:14 Magnesium Hydroxide (Milk Of Magnesia Susp) 30 ml Q12H PRN PO 05/07/17 23:15 06/06/17 23:14 Ondansetron HCl (Zofran Inj) 4 mg Q6H PRN IV 05/07/17 23:15 06/06/17 23:14 Morphine Sulfate (MoRPHine SULFATE INJ) 2 mg Q30M PRN IV 05/07/17 23:15 05/21/17 23:14 Polyethylene (Miralax Powder Packet) 17 gm DAILY PRN PO 05/07/17 23:15 06/06/17 23:14 Levofloxacin 750 mg/Prmx 150 ml @ 100 mls/hr Q48H IV 05/08/17 01:00 05/18/17 00:59 05/08/17 01:40 100 MLS/HR Piperacillin Sod/ Tazobactam Sod 3.375 gm/Dextrose 115 ml @ 28.75 mls/ hr Q8H IV 05/08/17 02:00 05/18/17 01:59 05/08/17 03:23 28.75 MLS/HR Albuterol (Ventolin Hfa Inhaler) 2 puffs Q4 PRN INH 05/07/17 23:45 06/06/17 23:44 Amlodipine Besylate (Norvasc Tab) 5 mg DAILY PO 05/08/17 09:00 06/07/17 08:59 Aspirin (Ecotrin Tab) 81 mg DAILY PO 05/08/17 09:00 06/07/17 08:59 Future hold Atorvastatin Calcium (Lipitor Tab) 20 mg DAILY PO 05/08/17 09:00 06/07/17 08:59 Doxepin HCl (Sinequan Cap) 100 mg HS PO 05/08/17 21:00 06/07/17 20:59 Salmeterol Xinafoate/ Fluticasone (Advair Diskus 250/50 Inh) 1 puff BID INH 05/08/17 09:00 06/07/17 08:59 05/08/17 08:41 1 PUFF Isosorbide Mononitrate (Imdur Ext Rel Tab) 60 mg QAM PO 05/08/17 09:00 06/07/17 08:59 Metoprolol Tartrate (Lopressor Tab) 75 mg BID PO 05/08/17 09:00 06/07/17 08:59 Tamsulosin HCl (Flomax Cap) 0.4 mg QAM PO 05/08/17 09:00 06/07/17 08:59 Tiotropium [place] (Spiriva Handihaler Inhaler) 1 puff DAILY INH 05/08/17 09:00 06/07/17 08:59 05/08/17 08:41 1 PUFF Tramadol HCl (Ultram Tab) 50 mg Q6 PRN PO 05/07/17 23:45 06/06/17 23:44 Pantoprazole Sodium (Protonix Tab) 40 mg QAM PO 05/08/17 09:00 06/07/17 08:59 Albuterol/ Ipratropium (Duoneb) 3 ml Q4H PRN INH 05/08/17 00:00 06/07/17 00:00 Glucose (Glucose 40% Gel) 15-30 GRAMS 15 GRAMS... UD PRN PO 05/08/17 00:15 06/07/17 00:14 Glucose (Glucose Chew Tab) 4-8 Tablets 4 Tabl... UD PRN PO 05/08/17 00:15 06/07/17 00:14 Dextrose (Dextrose 50% 50ML Syringe) 25-50ML OF 50% DW IV FOR... UD PRN IV 05/08/17 00:15 06/07/17 00:14 Glucagon (Glucagon Inj) 1 mg UD PRN SQ 05/08/17 00:15 06/07/17 00:14 Vancomycin HCl (Consult) 1 ea UD PRN N/A 05/08/17 00:15 06/07/17 00:14 Piperacillin Sod/ Tazobactam Sod (Consult) 1 ea UD PRN N/A 05/08/17 00:15 06/07/17 00:14 Levofloxacin (Consult) 1 ea UD PRN N/A 05/08/17 00:15 06/07/17 00:14 Insulin Glargine (Lantus Solostar Pen) 15 units HS SC 05/08/17 21:00 06/07/17 20:59 Insulin Aspart (novoLOG ASPART) SLIDING SCALE G... Q6 SC 05/08/17 06:00 06/07/17 05:59 Potassium Chloride/Sodium Chloride 1,000 ml @ 75 mls/hr [id number] IV 05/08/17 02:00 06/07/17 01:59 05/08/17 03:23 75 MLS/HR Objective Vital Signs Date Time Temp Pulse Resp B/P (MAP) Pulse Ox O2 Delivery O2 Flow Rate FiO2 05/08/17 07:53 37.9 99 20 164/75 (104) 92 Room Air 05/08/17 07:53 Room Air 05/08/17 04:03 36.5 85 18 166/75 (105) 94 Room Air 05/08/17 04:00 Room Air 05/08/17 00:36 36.4 93 16 163/70 92 Room Air 05/08/17 00:28 94 16 141/75 98 05/08/17 00:18 94 16 141/75 98 Room Air 05/07/17 23:18 90 18 132/60 98 Room Air 05/07/17 22:03 37.5 96 16 132/63 94 05/07/17 20:42 122 16 157/75 97 05/07/17 19:57 39.5 05/07/17 19:31 38.4 128 20 132/68 96 Room Air Physical Exam General Appearance: WD/WN, no apparent distress Respiratory/Chest: chest non-tender, lungs clear, normal breath sounds, no respiratory distress, no accessory muscle use Cardiovascular: regular rate, rhythm, no edema, no gallop, no JVD, no murmur Abdomen: normal bowel sounds, non tender, soft, no organomegaly, no pulsatile mass Extremities: no pedal edema, + pertinent finding (left foot in dressing ) Laboratory Results Last 24 Hours Test 05/07/17 20:12 05/07/17 20:36 05/08/17 00:26 05/08/17 00:58 White Blood Count 9.83 K/uL Red Blood Count 4.17 M/uL Hemoglobin 12.4 g/dL Hematocrit 36.2 % Mean Corpuscular Volume 86.8 fL Mean Corpuscular Hemoglobin 29.7 pg Mean Corpuscular Hemoglobin Concent 34.3 g/dl Platelet Count 155 K/uL Mean Platelet Volume 9.9 fL Neutrophils (%) (Auto) 92.0 % Lymphocytes (%) (Auto) 3.2 % Monocytes (%) (Auto) 4.4 % Eosinophils (%) (Auto) 0.1 % Basophils (%) (Auto) 0.1 % Neutrophils # (Auto) 9.05 K/uL Lymphocytes # (Auto) 0.31 K/uL Monocytes # (Auto) 0.43 K/uL Eosinophils # (Auto) 0.01 K/uL Basophils # (Auto) 0.01 K/uL RDW Standard Deviation 48.8 fL RDW Coefficient of Variation 15.4 % Immature Granulocyte % (Auto) 0.2 % Immature Granulocyte # (Auto) 0.02 K/uL Erythrocyte Sedimentation Rate 67 mm/hr Prothrombin Time 13.7 SECONDS Prothromb Time International Ratio 1.3 Activated Partial Thromboplast Time 35.1 SECONDS Partial Thromboplastin Ratio 1.4 Sodium Level 131 mmol/L Potassium Level 3.9 mmol/L Chloride Level 97 mmol/L Carbon Dioxide Level 25 mmol/L Anion Gap 9.0 mmol/L 18.0 mmol/L Blood Urea Nitrogen 27 mg/dl Creatinine 1.79 mg/dl Est Creatinine Clear Calc Drug Dose 39.5 ml/min Estimated GFR () 43.5 Estimated GFR (Non- 37.6 BUN/Creatinine Ratio 15.0 Random Glucose 178 mg/dl Lactic Acid Level 1.7 mmol/L 0.7 mmol/L Calcium Level 9.0 mg/dl Total Bilirubin 1.3 mg/dl Direct Bilirubin 0.7 mg/dl Aspartate Amino Transf (AST/SGOT) 83 U/L Alanine Aminotransferase (ALT/SGPT) 81 U/L Alkaline Phosphatase 82 U/L Troponin I 0.041 ng/ml C-Reactive Protein 22.70 mg/dl Total Protein 7.8 gm/dl Albumin 2.5 gm/dl Bedside Hemoglobin 11.6 g/dl Bedside Hematocrit 34 % Bedside Sodium 134 mEq/L Bedside Potassium 3.9 mEq/L Bedside Chloride 96 mEq/L Bedside Total CO2 25 mEq/l Bedside Blood Urea Nitrogen 26 mg/dl Bedside Creatinine 1.7 mg/dl Bedside Glucose (other) 182 mg/dl Bedside Ionized Calcium (Javan) 1.11 mmol/l Bedside Glucose 194 mg/dl Test 05/08/17 05:24 05/08/17 06:46 White Blood Count 6.26 K/uL Red Blood Count 3.57 M/uL Hemoglobin 10.7 g/dL Hematocrit 31.1 % Mean Corpuscular Volume 87.1 fL Mean Corpuscular Hemoglobin 30.0 pg Mean Corpuscular Hemoglobin Concent 34.4 g/dl Platelet Count 143 K/uL Mean Platelet Volume 10.0 fL Neutrophils (%) (Auto) 84.7 % Lymphocytes (%) (Auto) 7.0 % Monocytes (%) (Auto) 7.3 % Eosinophils (%) (Auto) 0.6 % Basophils (%) (Auto) 0.2 % Neutrophils # (Auto) 5.30 K/uL Lymphocytes # (Auto) 0.44 K/uL Monocytes # (Auto) 0.46 K/uL Eosinophils # (Auto) 0.04 K/uL Basophils # (Auto) 0.01 K/uL RDW Standard Deviation 49.3 fL RDW Coefficient of Variation 15.4 % Immature Granulocyte % (Auto) 0.2 % Immature Granulocyte # (Auto) 0.01 K/uL Sodium Level 136 mmol/L Potassium Level 3.9 mmol/L Chloride Level 102 mmol/L Carbon Dioxide Level 26 mmol/L Anion Gap 8.0 mmol/L Blood Urea Nitrogen 23 mg/dl Creatinine 1.33 mg/dl Est Creatinine Clear Calc Drug Dose 57.8 ml/min Estimated GFR () 62.3 Estimated GFR (Non- 53.8 BUN/Creatinine Ratio 17.4 Random Glucose 182 mg/dl Calcium Level 7.8 mg/dl Hepatitis C Antibody Screen NEG Bedside Glucose 173 mg/dl Assessment and Plan Mr. 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 Sepsis secondary to necrotizing fasciitis of the left lower extremity - ortho following - surgery this afternoon - cleared for surgery by cardiology - thank you for the consult - continue Vancomycin/Zosyn/Levaquin, which includes MRSA and dual Pseudomonal cover. Patient will likely require prolonged antibiotic course. ?PICC placement. Will re-evaluate post-surgery to determine if ID needs to be consulted - blood cultures and wound cultures pending Acute Kidney Injury - gentle rehydration (cautious with hx of CHF). Baseline Cr 1.2-1.4 - improved from 1.7 to 1.3 - seems to be back at baseline - continue 75mls/hr of KCl/NaCl - continue to monitor - Avoid nephrotoxins. - Renally dose meds as needed Hyponatremia - resolved - Na 136 (increased from 134 yesterday) - daily BMP CAD s/p CABG & Chronic CHF with preserved EF - ASA held in anticipation of surgery. - Continue home doses of Amlodipine, Metoprolol and Atorvastatin Peripheral Arterial Disease - as per cardio - pt will be establishing care with [facility] vascular surgery for f/u of his peripheral arterial disease COPD - Continue Ventolin, Advair and Spiriva. Duonebs q4h PRN as needed Type 2 Diabetes Mellitus - home meds held. - Lantus changed to 15 units HS - SSI with q6h BSG when NPO - AC/HS BSG when eating. Depression - continue Doxepine DVT prophylaxis: SCDs and TEDs Code Status: Full Disposition: remains on telemetry Resident Physician Supervision Note: I interviewed and examined the patient. Discussed with Dr. Casas and agree with findings and plan as documented in the note. Any exceptions or clarifications are listed here: None Documented By: Tyler Maria feeling OK, waiting on OR. no new complaints. vitals noted nad breathing unlabored L 4th toe purple and blistered somewhat. no erythema up andrade gangrenous toe, concern on necrotizing fasciitis on imaging - fortunately more consistent with "just" severe infection clinically - for OR this afternoon, agree amputation unfortunately appears best course, continue current antibiotics , otherwise as above Resident Tracking Resident Involvement: Resident Care Provided Care Provided: Adult Hospital Medicine
--- NOTE | 2017-05-08 08:00 | NUR ---
A: pt assessed.a/ox4 siting at bs. cooperative.sr with ivcd and pvc. ra lungs clear. abd soft + bs. pt npo for surgery. voiding chanelle urine. margret lower edema with purple red color. pt has neuropathy from knees down.
[2017-05-08] MEDS: FLUTICASONE/SALMETEROL 250/50 (ADVAIR) 14 PUFF/1 INHALER INH SCH ×2 (08:41→20:16)
[2017-05-08] MEDS: TIOTROPIUM BROMIDE 5 PUFF/90 MCG INH INH SCH (08:41)
[2017-05-08] MEDS: AMLODIPINE BESYLATE 5 MG TAB PO SCH ×2 (08:44→10:25)
[2017-05-08] MEDS: PANTOprazole SOD 40 MG TAB PO SCH ×2 (08:44→10:26)
[2017-05-08] MEDS: ISOSORBIDE MONONITRATE 60 MG TABCR PO SCH ×2 (08:44→10:25)
[2017-05-08] MEDS: METOPROLOL TARTRATE 50 MG TAB PO SCH ×2 (08:44→20:18)
[2017-05-08] MEDS: ATORVASTATIN 20 MG TAB PO SCH ×2 (08:44→10:26)
[2017-05-08] MEDS: TAMSULOSIN HCL 0.4 MG CAP PO SCH ×2 (08:44→10:25)
[2017-05-08] MEDS ORDERED: VANCOMYCIN IV 1,000 MG in SODIUM CHLORIDE 0.9% 250ML 250 ML IV SCH (09:00)
--- NOTE | 2017-05-08 09:45 | Orthopedic Progress Note ---
Orthopedic Progress Note Date of Service May 08, 2017. 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 Significant peripheral vascular diseases of both LE's with hypertrophic eschar epidermal tissue extending from dorsum of foot to area just distal to knee joint. No tenderness to palpation. No active discharge. Appropriate dexterity of 1st,2nd and 3rd toes. Unable to depict sensation to 4th toe. Periph pulses faintly palpable. Cap refill unable to be tested due to onychomycosis of nails. Previous amputation of Lt 5th toe. Date Time Temp Pulse Resp B/P (MAP) Pulse Ox O2 Delivery O2 Flow Rate FiO2 05/08/17 07:53 37.9 99 20 164/75 (104) 92 Room Air 05/08/17 07:53 Room Air 05/08/17 04:03 36.5 85 18 166/75 (105) 94 Room Air 05/08/17 04:00 Room Air 05/08/17 00:36 36.4 93 16 163/70 92 Room Air 05/08/17 00:28 94 16 141/75 98 05/08/17 00:18 94 16 141/75 98 Room Air 05/07/17 23:18 90 18 132/60 98 Room Air 05/07/17 22:03 37.5 96 16 132/63 94 05/07/17 20:42 122 16 157/75 97 05/07/17 19:57 39.5 05/07/17 19:31 38.4 128 20 132/68 96 Room Air Laboratory Results 24 Hours: Test 05/07/17 20:12 05/08/17 05:24 White Blood Count 9.83 K/uL 6.26 K/uL Red Blood Count 4.17 M/uL 3.57 M/uL Hemoglobin 12.4 g/dL 10.7 g/dL Hematocrit 36.2 % 31.1 % Mean Corpuscular Volume 86.8 fL 87.1 fL Mean Corpuscular Hemoglobin 29.7 pg 30.0 pg Mean Corpuscular Hemoglobin Concent 34.3 g/dl 34.4 g/dl Platelet Count 155 K/uL 143 K/uL Mean Platelet Volume 9.9 fL 10.0 fL Neutrophils (%) (Auto) 92.0 % 84.7 % Lymphocytes (%) (Auto) 3.2 % 7.0 % Monocytes (%) (Auto) 4.4 % 7.3 % Eosinophils (%) (Auto) 0.1 % 0.6 % Basophils (%) (Auto) 0.1 % 0.2 % Neutrophils # (Auto) 9.05 K/uL 5.30 K/uL Lymphocytes # (Auto) 0.31 K/uL 0.44 K/uL Monocytes # (Auto) 0.43 K/uL 0.46 K/uL Eosinophils # (Auto) 0.01 K/uL 0.04 K/uL Basophils # (Auto) 0.01 K/uL 0.01 K/uL Prothromb Time International Ratio 1.3 Prothrombin Time 13.7 SECONDS Assessment & Plan Assessment: Gangrenous Left 4th toe (Possible Necrotizing Fascitis) Plan: Cont PO pain meds Cont IV ABX Dressing changed (keep in place) Has been evaluated by Medicine Still awaiting Cardiac Clearance Planning on Surgical Amputation with Dr. Siddiqi this afternoon Will discuss findings with Dr. Siddiqi. I, Dr. Siddiqi, saw and examined the patient and agree with the above findings and plan of care as discussed with the PA. Cardiac and medical cleared. Will hold off on Bone scan as that would delay surgery.
--- NOTE | 2017-05-08 09:52 | Pharmacy Progress Note ---
Pharmacy Abx Initial Consult Date of Service May 08, 2017. Pharmacy Dosing Scope Date of Consult: 05/07/17 Consultation requested by: Dr. Holden Pharmacy is consulted to initiate IV VANCOMYCIN + ZOSYN + LEVOFLOXACIN therapy, order appropriate labs and adjust drug dose/frequency. Subjective The patient is a 72 year old male admitted on May 07, 2017 at 23:15 for gangrenous L 4th toe. Objective Height (Feet): 5 Height (Inches): 10.00 Weight (Kilograms): 88.200 Vital Signs (Past 12Hrs) Vital Signs Past 12 Hours Date Time Temp Pulse Resp B/P (MAP) Pulse Ox O2 Delivery O2 Flow Rate FiO2 05/08/17 07:53 37.9 99 20 164/75 (104) 92 Room Air 05/08/17 07:53 Room Air 05/08/17 04:03 36.5 85 18 166/75 (105) 94 Room Air 05/08/17 04:00 Room Air 05/08/17 00:36 36.4 93 16 163/70 92 Room Air 05/08/17 00:28 94 16 141/75 98 05/08/17 00:18 94 16 141/75 98 Room Air 05/07/17 23:18 90 18 132/60 98 Room Air 05/07/17 22:03 37.5 96 16 132/63 94 Lab Results (24Hrs) Laboratory Tests (24 Hours) Test 05/07/17 20:12 05/08/17 00:26 05/08/17 05:24 C-Reactive Protein 22.70 mg/dl (0-0.29) H Erythrocyte Sedimentation Rate 67 mm/hr (0-14) H Lactic Acid Level 0.7 mmol/L (0.4-2.0) White Blood Count 6.26 K/uL (4.8-10.8) Red Blood Count 3.57 M/uL (4.7-6.1) L Hemoglobin 10.7 g/dL (14.0-18.0) L Hematocrit 31.1 % (42-52) L Mean Corpuscular Volume 87.1 fL (80-100) Mean Corpuscular Hemoglobin 30.0 pg (25-34) Mean Corpuscular Hemoglobin Concent 34.4 g/dl (32-36) Platelet Count 143 K/uL (130-400) Mean Platelet Volume 10.0 fL (7.4-10.4) Neutrophils (%) (Auto) 84.7 % Lymphocytes (%) (Auto) 7.0 % Monocytes (%) (Auto) 7.3 % Eosinophils (%) (Auto) 0.6 % Basophils (%) (Auto) 0.2 % Neutrophils # (Auto) 5.30 K/uL (1.4-6.5) Lymphocytes # (Auto) 0.44 K/uL (1.2-3.4) L Monocytes # (Auto) 0.46 K/uL (0.11-0.59) Eosinophils # (Auto) 0.04 K/uL (0-0.5) Basophils # (Auto) 0.01 K/uL (0-0.2) Micro Results Date/Time Source Procedure Growth Status 05/07/17 20:19 Blood Blood Culture Pending Received 05/07/17 20:12 Blood Blood Culture Pending Received 05/07/17 19:55 Abscess Swab Gram Stain - Final Resulted 05/07/17 19:55 Abscess Swab Wound Culture Pending Resulted Assessment & Plan Assessment * 72 year old male admitted w/ gangrenous L 4th toe + sepsis * Patient does have a h/o DM and prior h/o amputation of R + L 5th toes * Blood and wound abscess cx's pending * CT of L lower extremity: Soft tissue emphysema most concerning for necrotizing fasciitis involving the fourth toe and extending proximally in the flexor compartment to the level of the sustentaculum reginaldo but not proximal to the ankle mortise. Osseous erosion of the proximal phalanx of the fourth toe also suggest osteomyelitis. Extensive soft tissue subcutaneous infiltration could suggest cellulitis. * Empiric broad-spectrum abx started last evening * Renal fxn improving based upon labs w/ IV hydration, SCr down to 1.33 today, reported baseline ~1.2-1.4 * Planned OR today Plan Vancomycin IV * Loading dose: 2000 mg (22.6 mg/kg) * Maintenance dose: 1250 mg IV (14.1 mg/kg) every 14 hours * Goal trough level for sepsis / necrotizing fasciitis : 15 to 20 mcg/mL * Trough level ordered for 05/10/17 w/ 4th maintenance dose * p'kinetic estimates: Vd 0.7L/kg; half-life ~13 hours Piperacillin/tazobactam * 4.5 g bolus administered over 30 minutes, then 4.5 g IV extended infusion every 8 hours for CrCl greater than 20 mL/min * Aggressive dosing selected due to severity of infxn Levofloxacin * Increase dose to 750mg IV Q 24 hours as eCrCl > 50cc/min with IV hydration Pharmacy will continue to follow and will adjust dose/frequency as necessary. Thank you.
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
--- NOTE | 2017-05-08 10:47 | NUR ---
Case management note. Social service consult for discharge planning. Spoke with pt. Pt lives at home alone. Pt just put his in a snf. Pt lives in a 2 story house and normally can ambulate the steps. Pt does not use any assistive devices. Pt drives. Pt does not have home health. Pt is normally independent with adl's. Explained role of disease case manager rn. Discharge needs are uncertain at this time. Recommend PT/OT evals once able. Plan for OR today. Case management to follow with pt.
[2017-05-08] MEDS: VANCOMYCIN IV 1,250 MG in SODIUM CHLORIDE 0.9% 250ML 250 ML IV SCH (12:29)
[2017-05-08] MEDS: PIPERACILL/TAZOBAC IV 4.5 GM in DEXTROSE 5% 100ML IV SCH ×2 (12:30→20:13)
[2017-05-08] MEDS ORDERED: ONDANSETRON INJ 2 MG/ML 2 ML VIAL IV PRN (15:30)
[2017-05-08] MEDS ORDERED: ATROPINE SULFATE 0.1 MG/ML 5ML SYR IV PRN (15:30)
[2017-05-08] MEDS ORDERED: MEPERIDINE HCL 25 MG/ML CARP IV PRN (15:30)
[2017-05-08] MEDS ORDERED: HYDROmorphone INJ 1 MG/ML SYR IV PRN (15:30)
[2017-05-08] MEDS ORDERED: FENTANYL CITRATE INJ 50 MCG/1 ML 2 ML VIAL IV PRN (15:30)
[2017-05-08] MEDS ORDERED: LABETALOL HCL IV 5 MG/ML 20ML IV PRN (15:30)
[2017-05-08] MEDS ORDERED: EpHEDrine SULFATE INJ 50 MG/ML AMP IV PRN (15:30)
[2017-05-08] MEDS ORDERED: LIDOCAINE/EPINEPHRINE 1% 20 ML VIAL ONE (15:44)
[2017-05-08] MEDS ORDERED: BACITRACIN 50000 UNIT VIAL ONE (15:45)
[2017-05-08] MEDS ORDERED: BUPIVACAINE 0.5 % 5 MG/1 ML MPF 30ML VIAL ONE (15:45)
--- NOTE | 2017-05-08 15:52 | NUR ---
A: pt to OR at this time, up to see pt. made aware temp 38.2.
[2017-05-08] MEDS ORDERED: MIDAZOLAM HCL 1 MG/ML 2ML VIAL ONE (16:05)
[2017-05-08] MEDS ORDERED: FENTANYL CITRATE INJ 50 MCG/1 ML 2 ML VIAL ONE (16:05)
[2017-05-08] MEDS ORDERED: POVIDONE-IODINE OP SOLN 30 ML BTL ONE (16:40)
[2017-05-08] MEDS ORDERED: ONDANSETRON INJ 2 MG/ML 2 ML VIAL ONE (16:49)
[2017-05-08] MEDS ORDERED: PHENYLEPHRINE 100MCG/ML 5ML SYR ONE (16:49)
[2017-05-08] MEDS ORDERED: LIDOCAINE HCL 2% 2 ML VIAL (20MG/ML) ONE (16:49)
[2017-05-08] MEDS ORDERED: PROPOFOL IV EMULSION 10 MG/ML 20 ML VIAL IV ONE (16:49)
[2017-05-08] MEDS ORDERED: HYDROCODONE/ACETAMIN 5/325MG TAB PO PRN (18:00)
--- NOTE | 2017-05-08 19:02 | [facility] Operative Report ---
Operative Report Operative Date May 08, 2017. Pre-Operative Diagnosis left fourth toe gangrene Post-Operative Diagnosis left fourth toe gangrene Procedure(s) Performed 1) left fourth toe amputation. 2) Incision and Drainage Left Foot, deep. 3) Wound vac placement. Surgeon Dr. Collin Siddiqi Rubber Cutter Surgeon(s) Dr. Umair Simon Estimated Blood Loss 10ML Findings As above, with tracking of purulent material along the flexor tendons. Remaining wound 4 x 8 cm. Fluids 750 Specimens A: Lefth fourth toe B: Lefth fourth metatarsal tissue Micro-#1: Left fourth toe exudate-gram stain, culture and sensitivity, anaerobic/aerobic #2: Left fourth toe deep exudate-gram stain, culture and sensitivity, anaerobic/aerobic Drains Wound Vac Anesthesia LMA Complication(s) None Disposition Recovery Room / PACU (Stable) Indications The patient is a 72-year-old male with history of diabetes and peripheral vascular disease, past surgical history with previous fifth toe amputations, presents now with several day history of draining and gangrenous left fourth toe. The patient understands the risks of surgery, which include but are not limited to: bleeding, infection, re-operation, damage to nerves and arteries, continued pain and DVT. The patient understands all of these instructions and explanations, all of their questions have been satisfactorily addressed. The patient has elected to proceed with surgery and the informed consent was signed. Description of Procedure The patient was taken to the Operating Room and placed in the [place] position on the operating table. After general anesthetic was administered a multidisciplinary time-out was performed identifying my initials on the left limb as the correct and operative limb. Antibiotics were held as he is on a regime of vancomycin and Zosyn. The left leg was prepped and draped in the usual Orthopaedic sterile fashion. The patient's previous incision along was marked as well as elliptical excision of the 2 open lesions. The skin edges and a digital block were injected with a 50:50 mixture of 1% lidocaine and 0.5 % Marcaine with epi for a total of 6cc. The planned incision around the left fourth toe had been marked with a racket type approach extending proximally along the lateral aspect as there was some macerated skin. The left fourth toe was sharply removed through the MCP joint. The metatarsal head and distal aspect of the bone was soft. There was devitalized, necrotic soft tissue all around the fourth metatarsal head. The metatarsal head and neck were removed with a combination of rongeur and saw. The devitalized and necrotic soft tissue was removed with a combination of sharp dissection with a scalpel, curette, rongeur, and VersaJet. The wound was copiously irrigated with Betadine/Betadine ophthalmic solution and another 2.5 L of normal saline throughout the case. There was noted tracking of purulent material down the flexor tendons. Using the suction down the track, an incision was made over the sucker tip along the plantar surface of the foot allowing for evacuation and irrigation through both wounds. The flexor tendons were excised. Cultures had been obtained early on as the toe was amputated as well as later on from the purulent drainage that was tracking down the flexor tendons. Following irrigation and debridement there was some bleeding. The incision on the plantar aspect of the foot was closed with 3-0 Prolene. A wound VAC along with an incisional bridging components was placed over the wounds in the standard fashion and maintained a continuous 125 mmHg vacuum seal. The sponge and needle counts were correct. POST-OP: Patient will be re-admitted and continued on IV per the primary service. He will start Lovenox in the a.m. 40 mg daily subcutaneous. He will be allowed to be weightbearing as tolerated through his heel. Continue wound VAC at 125 mmHg on continuous. Postop x-rays of the left foot will be obtained. Due to the tracking of the purulent drainage down the flexor tendons , we will plan on returning to the operating room on Sunday for a wound VAC exchange and repeat I&D. I attest to the content of the Intraoperative Record and any orders documented therein. Any exceptions are noted below.
--- NOTE | 2017-05-08 19:31 | DIAGNOSTIC IMAGING REPORT ---
L FOOT 2 VIEWS CLINICAL HISTORY: s/p L 4th toe amputation postoperative evaluation COMPARISON: None. DISCUSSION: Evidence for pre-existing resection of the phalanges and distal aspect of the fifth metatarsal. Current operative changes consistent with resection of the phalanges as well as distal aspect of the fourth metatarsal. Bony alignment is anatomic. Soft tissue postoperative edema is present. IMPRESSION: Expected post operative changes post resection of the phalanges and distal aspect of the fourth metatarsal. Pre-existing similar resection of the fifth toe phalanges and distal fifth metatarsal. Unremarkable post operative images. The above report was generated using voice recognition software. It may contain grammatical, syntax or spelling errors. Electronically signed by: Zander Rodrigues M.D. 05/08/2017 7:30 PM Dictated Date/Time: 05/08/2017 7:28 PM
--- NOTE | 2017-05-08 19:42 | Anesthesiology Progress Note ---
Anesthesia Post Op Note Date & Time May 08, 2017 at 19:42 Vital Signs Pain Intensity: 0 Vital Signs Past 12 Hours Date Time Temp Pulse Resp B/P (MAP) Pulse Ox O2 Delivery O2 Flow Rate FiO2 05/08/17 19:36 109 22 05/08/17 19:36 110 22 127/67 97 05/08/17 19:35 37.0 110 20 127/67 (83) 95 Nasal Cannula 2 05/08/17 19:31 108 21 144/67 96 05/08/17 19:31 109 21 05/08/17 19:27 122/66 05/08/17 19:26 112 19 97 05/08/17 19:26 112 19 05/08/17 19:25 113 20 97 05/08/17 19:25 113 20 97 05/08/17 19:25 113 20 05/08/17 19:25 113 20 05/08/17 19:21 104/48 05/08/17 19:21 104/48 05/08/17 19:20 109 20 05/08/17 19:20 20 05/08/17 19:20 109 20 05/08/17 19:20 20 05/08/17 19:16 112/48 05/08/17 19:16 112/48 05/08/17 19:15 107 19 05/08/17 19:15 106 19 100 05/08/17 19:15 106 19 100 05/08/17 19:15 107 19 05/08/17 19:11 133/69 05/08/17 19:11 133/69 05/08/17 19:10 102 20 99 05/08/17 19:10 104 20 05/08/17 19:10 102 20 99 05/08/17 19:10 104 20 05/08/17 19:07 126/69 05/08/17 19:07 126/69 05/08/17 19:05 37.0 101 14 126/69 99 Oxymask 10 05/08/17 15:53 38.5 105 16 131/68 (89) 92 Room Air 05/08/17 15:21 38.2 104 20 150/70 (96) 90 Room Air 05/08/17 12:15 92 Room Air 05/08/17 11:01 37.3 100 20 153/68 (96) 92 05/08/17 07:53 37.9 99 20 164/75 (104) 92 Room Air 05/08/17 07:53 Room Air Notes Mental Status: alert / awake / arousable, participated in evaluation Pt Amnestic to Procedure: Yes Nausea / Vomiting: adequately controlled Pain: adequately controlled Airway Patency, RR, SpO2: stable & adequate BP & HR: stable & adequate Hydration State: stable & adequate Anesthetic Complications: no major complications apparent
--- NOTE | 2017-05-08 20:00 | NUR ---
A: ARRIVED POST OP TOE AMPUTATION/FOOT I&D. VSS. MONITOR ON READS ST 110'S. DENIES SOB/CP, PAIN, NAUSEA OR NUMBNESS/TINGLING. +CMS. WOUND VAC IN PLACE TO -125MMHG. AFSANEH DSG CDI. EATING DINNER TRAY. GIVEN HS MEDS. SEE EMR FOR COMPLETE POST OP ASSESSMENT. CALL FERRIS IN REACH.
[2017-05-08] MEDS: POTASSIUM CHLORIDE INJ 10 MEQ in SODIUM CHLORIDE 0.9% 1000ML 1,000 ML IV SCH (20:13)
[2017-05-08] MEDS: DOCUSATE SODIUM 100 MG CAP PO SCH (20:17)
[2017-05-08] MEDS: DOXEPIN HCL 50 MG CAP PO SCH (20:19)
[2017-05-08] MEDS ORDERED: INSULIN GLARGINE SOLOSTAR 100 UNITS/ML 3 ML PEN SC SCH (21:00)
[2017-05-09] VITALS (11 sets, daily range): BP systolic 121–166; BP diastolic 66–92; PULSE 66–101; TEMP 36.4–37.5; O2SAT 90–98
--- NOTE | 2017-05-09 | NUR ---
A: Pt alert and oriented, VSS on 2l oxygen. SR on monitor. AFSANEH wrap, wound vac c/d/i, ice pack in place. Pt denies pain at this time. IV fluids infusing per MD order. Voiding concentrated yellow in urinal. D/c plans uncertain at this time. Call vieira in reach. Will continue to monitor.
[2017-05-09] MEDS: LEVOFLOXACIN / D5W 750 MG in PREMIXED IN D5W 150 ML IV SCH (00:25)
[2017-05-09] MEDS: VANCOMYCIN IV 1,250 MG in SODIUM CHLORIDE 0.9% 250ML 250 ML IV SCH ×2 (02:12→16:19)
--- NOTE | 2017-05-09 04:00 | NUR ---
A: Assessment and vitals as charted. No change in pt condition noted. No new needs verbalized. Monitoring ongoing.
[2017-05-09] MEDS: PIPERACILL/TAZOBAC IV 4.5 GM in DEXTROSE 5% 100ML IV SCH (04:37)
[2017-05-09] MEDS: POTASSIUM CHLORIDE INJ 10 MEQ in SODIUM CHLORIDE 0.9% 1000ML 1,000 ML IV SCH (05:56)
[2017-05-09 06:02] LABS: HEMATOCRIT 30.1 % (42-52); HEMOGLOBIN 9.9 g/dL (14.0-18.0); MEAN CELL VOLUME 88.5 fL (80-100); MEAN CORPUSCULAR HEMOGLOBIN 29.1 pg (25-34); MEAN CORPUSCULAR HGB CONC 32.9 g/dl (32-36); MEAN PLATELET VOLUME 9.3 fL (7.4-10.4); PLATELET COUNT 150 K/uL (130-400); RED CELL DISTRIBUTION WIDTH CV 15.6 % (11.5-14.5); RED CELL DISTRIBUTION WIDTH SD 50.3 fL (36.4-46.3); WHITE BLOOD COUNT 9.12 K/uL (4.8-10.8)
[2017-05-09 06:30] LABS: CALCIUM 7.6 mg/dl (8.5-10.1); CREATININE 1.32 mg/dl (0.60-1.40); POTASSIUM 4.2 mmol/L (3.5-5.1)
--- NOTE | 2017-05-09 07:28 | Family Medicine Progress Note ---
Progress Note Date of Service May 09, 2017. Subjective Pt evaluation today including: conversation w/ patient, physical exam, chart review, lab review, review of inpatient medication list Pain: No pain reported PO Intake: Tolerating PO intake Voiding: no voiding problems Mr. Frank states he feels well today. He denies any chest pain, SOB, n/v, diarrhea, abdominal pain or pain in his legs. Constitutional: No fever, No chills Respiratory: No cough, No sputum Cardiovascular: No chest pain Abdomen: No pain, No nausea, No vomiting, No diarrhea All Other Systems: Reviewed and Negative Medications Current Inpatient Medications Medications (Trade) Dose Ordered Sig/Elsie Route Start Time Stop Time Status Last Admin Dose Admin Acetaminophen (Tylenol Tab) 650 mg Q4H PRN PO 05/07/17 23:15 06/06/17 23:14 Al Hydrox/Mg Hydrox/Simethicone (Maalox Max Susp) 15 ml Q4H PRN PO 05/07/17 23:15 06/06/17 23:14 Magnesium Hydroxide (Milk Of Magnesia Susp) 30 ml Q12H PRN PO 05/07/17 23:15 06/06/17 23:14 Ondansetron HCl (Zofran Inj) 4 mg Q6H PRN IV 05/07/17 23:15 06/06/17 23:14 Morphine Sulfate (MoRPHine SULFATE INJ) 2 mg Q30M PRN IV 05/07/17 23:15 05/21/17 23:14 Polyethylene (Miralax Powder Packet) 17 gm DAILY PRN PO 05/07/17 23:15 06/06/17 23:14 Albuterol (Ventolin Hfa Inhaler) 2 puffs Q4 PRN INH 05/07/17 23:45 06/06/17 23:44 Amlodipine Besylate (Norvasc Tab) 5 mg DAILY PO 05/08/17 09:00 06/07/17 08:59 05/09/17 08:28 5 MG Aspirin (Ecotrin Tab) 81 mg DAILY PO 05/08/17 09:00 06/07/17 08:59 Future hold Atorvastatin Calcium (Lipitor Tab) 20 mg DAILY PO 05/08/17 09:00 06/07/17 08:59 05/09/17 08:28 20 MG Doxepin HCl (Sinequan Cap) 100 mg HS PO 05/08/17 21:00 06/07/17 20:59 05/08/17 20:19 100 MG Salmeterol Xinafoate/ Fluticasone (Advair Diskus 250/50 Inh) 1 puff BID INH 05/08/17 09:00 06/07/17 08:59 05/09/17 08:25 1 PUFF Isosorbide Mononitrate (Imdur Ext Rel Tab) 60 mg QAM PO 05/08/17 09:00 06/07/17 08:59 05/09/17 08:28 60 MG Metoprolol Tartrate (Lopressor Tab) 75 mg BID PO 05/08/17 09:00 06/07/17 08:59 05/09/17 08:27 75 MG Tamsulosin HCl (Flomax Cap) 0.4 mg QAM PO 05/08/17 09:00 06/07/17 08:59 05/09/17 08:26 0.4 MG Tiotropium [place] (Spiriva Handihaler Inhaler) 1 puff DAILY INH 05/08/17 09:00 06/07/17 08:59 05/09/17 08:25 1 PUFF Tramadol HCl (Ultram Tab) 50 mg Q6 PRN PO 05/07/17 23:45 06/06/17 23:44 Pantoprazole Sodium (Protonix Tab) 40 mg QAM PO 05/08/17 09:00 06/07/17 08:59 05/09/17 08:28 40 MG Albuterol/ Ipratropium (Duoneb) 3 ml Q4H PRN INH 05/08/17 00:00 06/07/17 00:00 Glucose (Glucose 40% Gel) 15-30 GRAMS 15 GRAMS... UD PRN PO 05/08/17 00:15 06/07/17 00:14 Glucose (Glucose Chew Tab) 4-8 Tablets 4 Tabl... UD PRN PO 05/08/17 00:15 06/07/17 00:14 Dextrose (Dextrose 50% 50ML Syringe) 25-50ML OF 50% DW IV FOR... UD PRN IV 05/08/17 00:15 06/07/17 00:14 Glucagon (Glucagon Inj) 1 mg UD PRN SQ 05/08/17 00:15 06/07/17 00:14 Vancomycin HCl (Consult) 1 ea UD PRN N/A 05/08/17 00:15 06/07/17 00:14 Piperacillin Sod/ Tazobactam Sod (Consult) 1 ea UD PRN N/A 05/08/17 00:15 06/07/17 00:14 Levofloxacin (Consult) 1 ea UD PRN N/A 05/08/17 00:15 06/07/17 00:14 Insulin Glargine (Lantus Solostar Pen) 15 units HS SC 05/08/17 21:00 06/07/17 20:59 05/08/17 20:24 15 UNITS Insulin Aspart (novoLOG ASPART) SLIDING SCALE G... Q6 SC 05/08/17 06:00 06/07/17 05:59 05/09/17 08:30 2 UNITS Vancomycin HCl 1250 mg/Sodium Chloride 275 ml @ 125 mls/hr Q14H IV 05/08/17 12:00 05/18/17 11:59 05/09/17 02:12 125 MLS/HR Levofloxacin 750 mg/Prmx 150 ml @ 100 mls/hr Q24H IV 05/09/17 01:00 05/18/17 00:59 05/09/17 00:25 100 MLS/HR Piperacillin Sod/ Tazobactam Sod 4.5 gm/Dextrose 120 ml @ 30 mls/hr Q8H IV 05/08/17 12:00 05/18/17 03:59 05/09/17 04:37 30 MLS/HR Potassium Chloride 10 meq/ Sodium Chloride 1,005 ml @ 100 mls/hr Q10H3M IV 05/08/17 19:00 05/09/17 18:59 05/09/17 05:56 100 MLS/HR Acetaminophen/ Hydrocodone Bitart ([place] 5/325 Tab) 1-2 TABS FOR PAIN 1 TABLET ... Q6H PRN PO 05/08/17 18:00 05/22/17 17:59 Docusate Sodium (coLACE CAP) 100 mg BID PO 05/08/17 21:00 06/07/17 20:59 05/09/17 08:26 100 MG Multivitamins (Multivitamin Tab) 1 tab QAM PO 05/09/17 09:00 06/08/17 08:59 05/09/17 08:26 1 TAB Enoxaparin Sodium (Lovenox Inj) 40 mg QAM SQ 05/09/17 09:00 06/08/17 08:59 05/09/17 08:29 40 MG Objective Vital Signs Date Time Temp Pulse Resp B/P (MAP) Pulse Ox O2 Delivery O2 Flow Rate FiO2 05/09/17 07:33 37.0 91 18 129/71 (90) 94 Nasal Cannula 3.0 05/09/17 04:23 36.7 87 20 121/66 (84) 97 Nasal Cannula 2.0 05/09/17 04:00 Nasal Cannula 2.0 05/09/17 00:48 37.5 05/09/17 00:00 Nasal Cannula 2.0 05/08/17 23:37 37.9 97 20 158/68 (98) 95 Nasal Cannula 2.0 05/08/17 21:30 37.0 83 20 111/66 (81) 97 Nasal Cannula 2.0 05/08/17 21:00 36.8 91 20 133/77 (95) 96 Nasal Cannula 2.0 05/08/17 20:30 37.0 108 20 156/72 (100) 97 Nasal Cannula 2.0 05/08/17 20:30 94 Nasal Cannula 2.0 05/08/17 20:00 37.3 109 20 129/70 (89) 94 Nasal Cannula 2.0 05/08/17 20:00 94 Nasal Cannula 2.0 05/08/17 19:47 109 17 05/08/17 19:47 109 17 94 05/08/17 19:46 143/67 05/08/17 19:42 111 23 05/08/17 19:42 111 23 134/66 94 05/08/17 19:41 160/129 05/08/17 19:37 110 20 98 05/08/17 19:37 110 20 05/08/17 19:36 109 22 05/08/17 19:36 110 22 127/67 97 05/08/17 19:35 37.0 110 20 127/67 (83) 95 Nasal Cannula 2 05/08/17 19:31 108 21 144/67 96 05/08/17 19:31 109 21 05/08/17 19:27 122/66 05/08/17 19:26 112 19 97 05/08/17 19:26 112 19 05/08/17 19:25 113 20 97 05/08/17 19:25 113 20 97 05/08/17 19:25 113 20 05/08/17 19:25 113 20 05/08/17 19:21 104/48 05/08/17 19:21 104/48 05/08/17 19:20 109 20 05/08/17 19:20 20 05/08/17 19:20 109 20 05/08/17 19:20 20 05/08/17 19:16 112/48 05/08/17 19:16 112/48 05/08/17 19:15 107 19 05/08/17 19:15 106 19 100 05/08/17 19:15 106 19 100 05/08/17 19:15 107 19 05/08/17 19:11 133/69 05/08/17 19:11 133/69 05/08/17 19:10 102 20 99 05/08/17 19:10 104 20 05/08/17 19:10 102 20 99 05/08/17 19:10 104 20 05/08/17 19:07 126/69 05/08/17 19:07 126/69 05/08/17 19:05 37.0 101 14 126/69 99 Oxymask 10 05/08/17 15:53 38.5 105 16 131/68 (89) 92 Room Air 05/08/17 15:21 38.2 104 20 150/70 (96) 90 Room Air 05/08/17 12:15 92 Room Air 05/08/17 11:01 37.3 100 20 153/68 (96) 92 Physical Exam General Appearance: WD/WN, no apparent distress Respiratory/Chest: chest non-tender, lungs clear, normal breath sounds, no respiratory distress, no accessory muscle use Cardiovascular: regular rate, rhythm, no edema, no gallop, no JVD, no murmur Abdomen: normal bowel sounds, non tender, soft, no organomegaly, no pulsatile mass Extremities: + pertinent finding (left foot bandaged with wound vac in place draining brown fluid. Left calf appears hyperpigmented, warm to touch, but is not tender) Laboratory Results Last 24 Hours Test 05/08/17 11:03 05/08/17 19:12 05/08/17 20:01 05/09/17 05:33 Bedside Glucose 166 mg/dl 130 mg/dl 156 mg/dl White Blood Count 9.12 K/uL Red Blood Count 3.40 M/uL Hemoglobin 9.9 g/dL Hematocrit 30.1 % Mean Corpuscular Volume 88.5 fL Mean Corpuscular Hemoglobin 29.1 pg Mean Corpuscular Hemoglobin Concent 32.9 g/dl RDW Standard Deviation 50.3 fL RDW Coefficient of Variation 15.6 % Platelet Count 150 K/uL Mean Platelet Volume 9.3 fL Sodium Level 132 mmol/L Potassium Level 4.2 mmol/L Chloride Level 101 mmol/L Carbon Dioxide Level 27 mmol/L Anion Gap 4.0 mmol/L Blood Urea Nitrogen 18 mg/dl Creatinine 1.32 mg/dl Est Creatinine Clear Calc Drug Dose 58.2 ml/min Estimated GFR () 62.9 Estimated GFR (Non- 54.3 BUN/Creatinine Ratio 13.4 Random Glucose 222 mg/dl Calcium Level 7.6 mg/dl Test 05/09/17 06:43 Bedside Glucose 224 mg/dl Assessment and Plan Mr. 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 Sepsis secondary to necrotizing fasciitis of the left lower extremity - cleared for surgery by cardiology - thank you for the consult - post-op day 1 - Dr. Siddiqi performed a left fourth toe amputation, incision and drainage and placed a wound vac - he will be taking the patient back on Sunday for a repeat I&D and wound vac exchange --> he noted the presence of purulent material tracking along flexor tendons --> as per Dr. Siddiqi, vascular surgery will be consulted given his poor vascular status - continue Vancomycin and Levaquin, given culture and sensitivity results. Patient will likely require prolonged antibiotic course. - d/c zosyn as no need for dual pseudomonal cover given culture results - blood cultures - one positive for staph aureus and one negative - likely contaminated. Repeating today. - wound cx - grew klebsiella oxytoca and group G beta strep Acute Kidney Injury - gentle rehydration (cautious with hx of CHF). Baseline Cr 1.2-1.4 - improved from 1.7 to 1.32 - seems to be back at baseline - d/c IVF given adequate oral intake - continue to monitor - Avoid nephrotoxins. Hyponatremia - Na low at 132, decreased from 136 yesterday - daily BMP CAD s/p CABG & Chronic CHF with preserved EF - continue aspirin - Continue home doses of Amlodipine, Metoprolol and Atorvastatin Peripheral Arterial Disease - as per cardio - pt will be establishing care with [facility] vascular surgery for f/u of his peripheral arterial disease COPD - Continue Ventolin, Advair and Spiriva. Duonebs q4h PRN as needed Type 2 Diabetes Mellitus - home meds held. - Lantus 15 units HS increased to 25 units HS now that he is no longer NPO ( home dose was 48 units HS) - sugars today have been 130-241 - SSI with AC/HS BSG . Depression - continue Doxepine DVT prophylaxis: SCDs and TEDs Code Status: Full Disposition: transferred to med/surg Resident Physician Supervision Note: I interviewed and examined the patient. Discussed with Dr. Casas and agree with findings and plan as documented in the note. Any exceptions or clarifications are listed here: None Documented By: Tyler Maria feeling better, no significant pain no f/c/s. understands need for ongoing IV abx and likely further surgery vitals noted nad breathing unlabored no pallor or icterus. legs w L foot dresssed, no tracking erythema or crepitis, just chronic changes. nontender - admittedly sensation seems diminished but does have sensation, and also both legs feel the same to him wtih pressure not worse on L side gangrenous toe infection w sepsis - improving post op. will likely need more debridement. ortho requested vascular consult but d/w vascular and felt that fasciotomy/debridement type interventions were not in their realm as much as in the realm of orthopedics. since pt improving/stable and no urgency to situtaion , asked surgical subspecialists to discuss so that optimal care can be continued. otherwise as above Resident Tracking Resident Involvement: Resident Care Provided Care Provided: [facility] Medicine
[2017-05-09] MEDS: TIOTROPIUM BROMIDE 5 PUFF/90 MCG INH INH SCH (08:25)
[2017-05-09] MEDS: FLUTICASONE/SALMETEROL 250/50 (ADVAIR) 14 PUFF/1 INHALER INH SCH ×2 (08:25→20:53)
[2017-05-09] MEDS: MULTIVITAMIN TAB PO SCH (08:26)
[2017-05-09] MEDS: TAMSULOSIN HCL 0.4 MG CAP PO SCH (08:26)
[2017-05-09] MEDS: DOCUSATE SODIUM 100 MG CAP PO SCH ×2 (08:26→20:00)
[2017-05-09] MEDS: METOPROLOL TARTRATE 50 MG TAB PO SCH ×2 (08:27→20:54)
[2017-05-09] MEDS: ATORVASTATIN 20 MG TAB PO SCH (08:28)
[2017-05-09] MEDS: PANTOprazole SOD 40 MG TAB PO SCH (08:28)
[2017-05-09] MEDS: ISOSORBIDE MONONITRATE 60 MG TABCR PO SCH (08:28)
[2017-05-09] MEDS: AMLODIPINE BESYLATE 5 MG TAB PO SCH (08:28)
[2017-05-09] MEDS: ENOXAPARIN 40 MG/0.4 ML SYR SQ SCH (08:29)
[2017-05-09] MEDS: INSULIN ASPART 100 UNITS/ML 3 ML PEN SC SCH ×4 (08:30→21:31)
--- NOTE | 2017-05-09 09:12 | NUR ---
A: pt assessed. a/ox4. cooperative.sr on monitor. 2l weaned to room air.lungs clear diminished in bases. no sob. face flushed.+ edema lower ext. left more than right. lower legs purple red in color. left wound vac and alexey intact. wound MD in to see pt. ot at bs and in chair. [place] well. voiding light chanelle urine
--- NOTE | 2017-05-09 09:27 | Orthopedic Progress Note ---
Orthopedic Progress Note Date of Service May 09, 2017. Subjective Post OP Day: 1 Reports: feeling well, Denies: complaints, chest pain, SOB, nausea / vomiting, light headedness, calf pain, pain controlled w PO medications Additional Notes: Denies pain in left foot. States that he is doing well. Tolerating a regular diet. Ate breakfast this morning. Objective calves soft nontender, capillary refill less than 2 sec., dressing C/D/I, A&O x3 , toes mobile Wound VAC functioning. Decreased sensation left foot as present preoperatively. Chronic stasis changes of left lower extremity. Minimal edema. Able to tolerate gentle range of motion of left knee ankle and toes. Left foot elevated on pillow. Date Time Temp Pulse Resp B/P (MAP) Pulse Ox O2 Delivery O2 Flow Rate FiO2 05/09/17 08:00 Room Air 05/09/17 07:33 37.0 91 18 129/71 (90) 94 Nasal Cannula 3.0 05/09/17 04:23 36.7 87 20 121/66 (84) 97 Nasal Cannula 2.0 05/09/17 04:00 Nasal Cannula 2.0 05/09/17 00:48 37.5 05/09/17 00:00 Nasal Cannula 2.0 05/08/17 23:37 37.9 97 20 158/68 (98) 95 Nasal Cannula 2.0 05/08/17 21:30 37.0 83 20 111/66 (81) 97 Nasal Cannula 2.0 05/08/17 21:00 36.8 91 20 133/77 (95) 96 Nasal Cannula 2.0 05/08/17 20:30 37.0 108 20 156/72 (100) 97 Nasal Cannula 2.0 05/08/17 20:30 94 Nasal Cannula 2.0 05/08/17 20:00 37.3 109 20 129/70 (89) 94 Nasal Cannula 2.0 05/08/17 20:00 94 Nasal Cannula 2.0 05/08/17 19:47 109 17 05/08/17 19:47 109 17 94 05/08/17 19:46 143/67 05/08/17 19:42 111 23 05/08/17 19:42 111 23 134/66 94 05/08/17 19:41 160/129 05/08/17 19:37 110 20 98 05/08/17 19:37 110 20 05/08/17 19:36 109 22 05/08/17 19:36 110 22 127/67 97 05/08/17 19:35 37.0 110 20 127/67 (83) 95 Nasal Cannula 2 05/08/17 19:31 108 21 144/67 96 05/08/17 19:31 109 21 05/08/17 19:27 122/66 05/08/17 19:26 112 19 97 05/08/17 19:26 112 19 05/08/17 19:25 113 20 97 05/08/17 19:25 113 20 97 05/08/17 19:25 113 20 05/08/17 19:25 113 20 05/08/17 19:21 104/48 05/08/17 19:21 104/48 05/08/17 19:20 109 20 05/08/17 19:20 20 05/08/17 19:20 109 20 05/08/17 19:20 20 05/08/17 19:16 112/48 05/08/17 19:16 112/48 05/08/17 19:15 107 19 05/08/17 19:15 106 19 100 05/08/17 19:15 106 19 100 05/08/17 19:15 107 19 05/08/17 19:11 133/69 05/08/17 19:11 133/69 05/08/17 19:10 102 20 99 05/08/17 19:10 104 20 05/08/17 19:10 102 20 99 05/08/17 19:10 104 20 05/08/17 19:07 126/69 05/08/17 19:07 126/69 05/08/17 19:05 37.0 101 14 126/69 99 Oxymask 10 05/08/17 15:53 38.5 105 16 131/68 (89) 92 Room Air 05/08/17 15:21 38.2 104 20 150/70 (96) 90 Room Air 05/08/17 12:15 92 Room Air 05/08/17 11:01 37.3 100 20 153/68 (96) 92 Laboratory Results 24 Hours: Test 05/09/17 05:33 Hematocrit 30.1 % Hemoglobin 9.9 g/dL Assessment & Plan Assessment: POD # 1 -status post left fourth toe/ray amputation/resection, I&D of left foot abscess, wound VAC placement. Plan: Cont PO pain meds Cont IV ABX As prescribed May be out of bed, weightbearing as tolerated on his left heel. Keep dressings intact. Keep wound VAC intact. Postop shoe left foot when out of bed. May need a walker to assist with ambulation for safety. Continue elevation for swelling Wound VAC nurse consulted, wound VAC currently functioning well. Continue regular diet. Plans for return to the OR on May [address] Siddiqi for repeat I&D and wound VAC change of his left foot. We will continue to follow cultures. Findings discussed with Dr. Siddiqi We will continue to follow during this admission. I, Dr. Siddiqi, saw and examined the patient and discussed the management with my PA. I reviewed my PAs note and agree with the documented findings and the plan of care I developed. We will continue to monitor labs and cultures and sensitivities. Would appreciate a vascular consult to assess the viability and to potentially optimize perfusion of the foot for healing purposes and also in the event that he is unable to heal this wound, to determine the appropriate level where there would be good healing. Will continue care per the primary service. The patient will be made nothing by mouth after midnight May 10, 2017 for planned return to the OR May 11, 2017. Lovenox will be held after tomorrow's dose.
--- NOTE | 2017-05-09 09:44 | NUR ---
Per Operative report, plan is to return to OR on 05/11, patient states that is the plan. Spoke with RN about plan. Will f/u on 05/10.
--- NOTE | 2017-05-09 11:14 | Cardiology Follow-Up ---
Subjective General Date of Service: May 09, 2017. Chief Complaint: follow up CAD Pt evaluation today including: conversation w/ patient, physical exam History of Present Illness The patient is a 72 year old male seen in follow up. Denies chest pain or shortness of breath. Has felt cold at times, but no definite subjective fevers and chills. Allergies Coded Allergies: No Known Allergies (Verified , 11/06/16) Social History Smoking Status: Former Smoker Hx Tobacco Use In Past Year?: No Hx Alcohol Use - Type And Amou: No Hx Substance Use - Type And Am: No Problem List Medical Problems: (1) Bilateral pneumonia Status: Acute (2) Cellulitis of lower extremity Status: Acute (3) Gangrenous toe Status: Acute (4) Necrotizing fasciitis Status: Acute (5) NSTEMI (non-ST elevated myocardial infarction) Status: Acute (6) Renal insufficiency Status: Acute (7) Respiratory failure Status: Acute (8) Sepsis Status: Acute (9) Thrombocytopenia Status: Acute Physical Exam Vital Signs Last Vital Signs Documentation Date Time Temp Pulse Resp B/P (MAP) Pulse Ox O2 Delivery O2 Flow Rate FiO2 05/09/17 10:51 37.4 86 20 123/66 (85) 90 Room Air 05/09/17 07:33 3.0 Physical Exam Constitutional: Level of Distress: NAD ENMT: normal ENT inspection Neck: supple, trachea midline Lungs: Auscultation: no wheezing, no rales/crackles, no rhonchi Cardiovascular: Heart Auscultation: RRR, no murmurs Extremities: pertinent finding (Left foot wrapped) Neurologic: Gait & Station: pertinent finding (no focal deficits ) Assessment and Plan Assessment and Plan Impression: 1. Post op , left 4rth toe amputation, osteomyelitis 2. Stable CAD Plan: Blood cultures drawn on admission have yielded one of 2 samples positive for staph aureus. Will repeat 2 sets of blood cultures. Continue current antibiotics. Continue current cardiac medications. Laboratory Results Last 24 Hours Test 05/08/17 19:12 05/08/17 20:01 05/09/17 05:33 05/09/17 06:43 Bedside Glucose 130 mg/dl 156 mg/dl 224 mg/dl White Blood Count 9.12 K/uL Red Blood Count 3.40 M/uL Hemoglobin 9.9 g/dL Hematocrit 30.1 % Mean Corpuscular Volume 88.5 fL Mean Corpuscular Hemoglobin 29.1 pg Mean Corpuscular Hemoglobin Concent 32.9 g/dl RDW Standard Deviation 50.3 fL RDW Coefficient of Variation 15.6 % Platelet Count 150 K/uL Mean Platelet Volume 9.3 fL Sodium Level 132 mmol/L Potassium Level 4.2 mmol/L Chloride Level 101 mmol/L Carbon Dioxide Level 27 mmol/L Anion Gap 4.0 mmol/L Blood Urea Nitrogen 18 mg/dl Creatinine 1.32 mg/dl Est Creatinine Clear Calc Drug Dose 58.2 ml/min Estimated GFR () 62.9 Estimated GFR (Non- 54.3 BUN/Creatinine Ratio 13.4 Random Glucose 222 mg/dl Calcium Level 7.6 mg/dl
[2017-05-09] MEDS: ASPIRIN 81 MG ECTAB PO SCH (11:37)
--- NOTE | 2017-05-09 12:32 | NUR ---
A: pt back to bed blood cultures drawn. appetite good. wound vac intact. denies pain. voiding clear chanelle urine. pt for transfer to floor.
--- NOTE | 2017-05-09 15:07 | NUR ---
A: Report called to [facility] on 4th floor. pt transfer with belongings to [id number]
--- NOTE | 2017-05-09 15:15 | NUR ---
A: Pt arrived to room 408-1 at this time. VSS. Pt oriented to room and call vieira system and encouraged to ring for assistance. Pt alert and oriented x4. Lung sounds clear diminished on RA and denies and pain or SOB. L foot would vac and alexey bandage intact. L foot purple/red in color, +warm, posterior tibial pulse palpable and pt able to wiggle L toes. Pt to be non weight bearing on front of L foot, surgical boot, and using walker w/ supervision for assistance. Call vieira within reach and encouraged to ring for assistance. Will continue to monitor.
--- NOTE | 2017-05-09 15:43 | NUR ---
Case management note. Pt transferred to room 408-1. Pt lives at home alone. Plan for OR again Sunday. Pt may need rehab. Will need PT/OT richard once able. Report to unit case manager specialist. Case management to follow with pt.
[2017-05-09] MEDS ORDERED: NURSING VERBAL MED ORDER ONE ×3 (16:15→21:00)
[2017-05-09] MEDS: DOXEPIN HCL 50 MG CAP PO SCH (20:54)
[2017-05-09] MEDS ORDERED: INSULIN GLARGINE SOLOSTAR 100 UNITS/ML 3 ML PEN SC SCH (21:00)
[2017-05-09] MEDS ORDERED: INSULIN HUMAN REGULAR PER UNIT 4 UNITS in SYRINGE 3.96 ML IV ONE (21:15)
[2017-05-10 00:45] VITALS: O2SAT 90
[2017-05-10] MEDS: LEVOFLOXACIN / D5W 750 MG in PREMIXED IN D5W 150 ML IV SCH (00:45)
[2017-05-10] MEDS ORDERED: VANCOMYCIN TROUGH ONE (05:30)
[2017-05-10] MEDS: VANCOMYCIN IV 1,250 MG in SODIUM CHLORIDE 0.9% 250ML 250 ML IV SCH (05:45)
[2017-05-10 05:59] LABS: HEMATOCRIT 29.8 % (42-52); HEMOGLOBIN 9.8 g/dL (14.0-18.0); MEAN CELL VOLUME 88.7 fL (80-100); MEAN CORPUSCULAR HEMOGLOBIN 29.2 pg (25-34); MEAN CORPUSCULAR HGB CONC 32.9 g/dl (32-36); MEAN PLATELET VOLUME 9.2 fL (7.4-10.4); PLATELET COUNT 155 K/uL (130-400); RED CELL DISTRIBUTION WIDTH CV 15.4 % (11.5-14.5); RED CELL DISTRIBUTION WIDTH SD 50.4 fL (36.4-46.3); WHITE BLOOD COUNT 6.96 K/uL (4.8-10.8)
[2017-05-10 06:24] LABS: CALCIUM 7.6 mg/dl (8.5-10.1); CREATININE 1.53 mg/dl (0.60-1.40); POTASSIUM 4.2 mmol/L (3.5-5.1)
[2017-05-10] MEDS: ENOXAPARIN 40 MG/0.4 ML SYR SQ SCH (07:03)
--- NOTE | 2017-05-10 07:20 | NUR ---
ID: AAO x 4. VSS, sats 93% 2L HS, sats 90% room air while awake. Denies any SOB/cough. IV SL, receiving intermittent IV antibiotics. Wound Vac intact to left foot (4th toe), no leaks. Plan is to return to OR on Sunday for repeat I&D/re-application of wound vac. Denies any pain, able to ambulate with postop shoe/walker with supervision. See EMR for full assessment. SS following, may need inpatient rehab on discharge.
[2017-05-10 07:48] VITALS: BP 137/70; PULSE 82; TEMP 36.3; O2SAT 97
[2017-05-10] MEDS: FLUTICASONE/SALMETEROL 250/50 (ADVAIR) 14 PUFF/1 INHALER INH SCH ×2 (08:18→21:10)
[2017-05-10] MEDS: TIOTROPIUM BROMIDE 5 PUFF/90 MCG INH INH SCH (08:19)
[2017-05-10] MEDS: ASPIRIN 81 MG ECTAB PO SCH (08:19)
[2017-05-10] MEDS: METOPROLOL TARTRATE 50 MG TAB PO SCH ×2 (08:22→21:18)
[2017-05-10] MEDS: INSULIN ASPART 100 UNITS/ML 3 ML PEN SC SCH ×4 (08:27→21:17)
[2017-05-10 08:30] VITALS: O2SAT 97
[2017-05-10] MEDS ORDERED: INSULIN GLARGINE SOLOSTAR 100 UNITS/ML 3 ML PEN SC ONE (08:30)
[2017-05-10] MEDS: DOCUSATE SODIUM 100 MG CAP PO SCH ×2 (09:04→20:00)
[2017-05-10] MEDS: MULTIVITAMIN TAB PO SCH (09:05)
[2017-05-10] MEDS: TAMSULOSIN HCL 0.4 MG CAP PO SCH (09:05)
[2017-05-10] MEDS: ISOSORBIDE MONONITRATE 60 MG TABCR PO SCH (09:05)
[2017-05-10] MEDS: ATORVASTATIN 20 MG TAB PO SCH (09:05)
[2017-05-10] MEDS: PANTOprazole SOD 40 MG TAB PO SCH (09:06)
[2017-05-10] MEDS: AMLODIPINE BESYLATE 5 MG TAB PO SCH (09:06)
--- NOTE | 2017-05-10 09:17 | Family Medicine Progress Note ---
Progress Note Date of Service May 10, 2017. Subjective Pt evaluation today including: conversation w/ patient, physical exam, chart review, lab review, review of inpatient medication list Pain: No pain reported PO Intake: Tolerating PO intake Voiding: no voiding problems Mr. Frank reports he feels well today. He denies any chest pain, shortness of breath, fever, chills, n/v, or pain in his feet. He states he has been having regular bowel movements. He is able to ambulate with his postop shoes. Constitutional: No fever, No chills Respiratory: No cough, No sputum, No wheezing, No shortness of breath, No dyspnea on exertion, No dyspnea at rest Cardiovascular: No chest pain Abdomen: No pain, No nausea, No vomiting All Other Systems: Reviewed and Negative Medications Current Inpatient Medications Medications (Trade) Dose Ordered Sig/Elsie Route Start Time Stop Time Status Last Admin Dose Admin Acetaminophen (Tylenol Tab) 650 mg Q4H PRN PO 05/07/17 23:15 06/06/17 23:14 Al Hydrox/Mg Hydrox/Simethicone (Maalox Max Susp) 15 ml Q4H PRN PO 05/07/17 23:15 06/06/17 23:14 Magnesium Hydroxide (Milk Of Magnesia Susp) 30 ml Q12H PRN PO 05/07/17 23:15 06/06/17 23:14 Ondansetron HCl (Zofran Inj) 4 mg Q6H PRN IV 05/07/17 23:15 06/06/17 23:14 Morphine Sulfate (MoRPHine SULFATE INJ) 2 mg Q30M PRN IV 05/07/17 23:15 05/21/17 23:14 Polyethylene (Miralax Powder Packet) 17 gm DAILY PRN PO 05/07/17 23:15 06/06/17 23:14 Albuterol (Ventolin Hfa Inhaler) 2 puffs Q4 PRN INH 05/07/17 23:45 06/06/17 23:44 Amlodipine Besylate (Norvasc Tab) 5 mg DAILY PO 05/08/17 09:00 06/07/17 08:59 05/09/17 08:28 5 MG Aspirin (Ecotrin Tab) 81 mg DAILY PO 05/08/17 09:00 06/07/17 08:59 Future hold 05/10/17 08:19 81 MG Atorvastatin Calcium (Lipitor Tab) 20 mg DAILY PO 05/08/17 09:00 06/07/17 08:59 05/09/17 08:28 20 MG Doxepin HCl (Sinequan Cap) 100 mg HS PO 05/08/17 21:00 06/07/17 20:59 05/09/17 20:54 100 MG Salmeterol Xinafoate/ Fluticasone (Advair Diskus 250/50 Inh) 1 puff BID INH 05/08/17 09:00 06/07/17 08:59 05/10/17 08:18 1 PUFF Isosorbide Mononitrate (Imdur Ext Rel Tab) 60 mg QAM PO 05/08/17 09:00 06/07/17 08:59 05/09/17 08:28 60 MG Metoprolol Tartrate (Lopressor Tab) 75 mg BID PO 05/08/17 09:00 06/07/17 08:59 05/10/17 08:22 75 MG Tamsulosin HCl (Flomax Cap) 0.4 mg QAM PO 05/08/17 09:00 06/07/17 08:59 05/09/17 08:26 0.4 MG Tiotropium [place] (Spiriva Handihaler Inhaler) 1 puff DAILY INH 05/08/17 09:00 06/07/17 08:59 05/10/17 08:19 1 PUFF Tramadol HCl (Ultram Tab) 50 mg Q6 PRN PO 05/07/17 23:45 06/06/17 23:44 Pantoprazole Sodium (Protonix Tab) 40 mg QAM PO 05/08/17 09:00 06/07/17 08:59 05/09/17 08:28 40 MG Albuterol/ Ipratropium (Duoneb) 3 ml Q4H PRN INH 05/08/17 00:00 06/07/17 00:00 Glucose (Glucose 40% Gel) 15-30 GRAMS 15 GRAMS... UD PRN PO 05/08/17 00:15 06/07/17 00:14 Glucose (Glucose Chew Tab) 4-8 Tablets 4 Tabl... UD PRN PO 05/08/17 00:15 06/07/17 00:14 Dextrose (Dextrose 50% 50ML Syringe) 25-50ML OF 50% DW IV FOR... UD PRN IV 05/08/17 00:15 06/07/17 00:14 Glucagon (Glucagon Inj) 1 mg UD PRN SQ 05/08/17 00:15 06/07/17 00:14 Vancomycin HCl (Consult) 1 ea UD PRN N/A 05/08/17 00:15 06/07/17 00:14 Levofloxacin (Consult) 1 ea UD PRN N/A 05/08/17 00:15 06/07/17 00:14 Vancomycin HCl 1250 mg/Sodium Chloride 275 ml @ 125 mls/hr Q14H IV 05/08/17 12:00 05/18/17 11:59 05/10/17 05:45 125 MLS/HR Levofloxacin 750 mg/Prmx 150 ml @ 100 mls/hr Q24H IV 05/09/17 01:00 05/18/17 00:59 05/10/17 00:45 100 MLS/HR Acetaminophen/ Hydrocodone Bitart ([place] 5/325 Tab) 1-2 TABS FOR PAIN 1 TABLET ... Q6H PRN PO 05/08/17 18:00 05/22/17 17:59 Docusate Sodium (coLACE CAP) 100 mg BID PO 05/08/17 21:00 06/07/17 20:59 05/09/17 08:26 100 MG Multivitamins (Multivitamin Tab) 1 tab QAM PO 05/09/17 09:00 06/08/17 08:59 05/09/17 08:26 1 TAB Enoxaparin Sodium (Lovenox Inj) 40 mg QAM SQ 05/09/17 09:00 06/08/17 08:59 05/09/17 08:29 40 MG Insulin Aspart (novoLOG ASPART) SLIDING SCALE G... ACHS SC 05/09/17 16:35 06/08/17 16:34 05/10/17 08:27 2 UNITS Insulin Glargine (Lantus Solostar Pen) 35 units HS SC 05/10/17 21:00 05/24/17 20:59 Objective Vital Signs Date Time Temp Pulse Resp B/P (MAP) Pulse Ox O2 Delivery O2 Flow Rate FiO2 05/10/17 07:48 36.3 82 18 137/70 (92) 97 Nasal Cannula 2.0 05/10/17 00:45 90 Nasal Cannula 2.0 05/09/17 23:53 36.4 91 18 144/71 (95) 90 Nasal Cannula 2.0 05/09/17 20:52 101 136/67 (90) 05/09/17 16:41 146/71 (96) 05/09/17 16:00 Room Air 05/09/17 15:38 36.9 97 18 166/92 (116) 93 Room Air 05/09/17 12:07 37.4 86 20 90 05/09/17 10:51 37.4 86 20 123/66 (85) 90 Room Air Physical Exam General Appearance: WD/WN, no apparent distress Respiratory/Chest: chest non-tender, lungs clear, normal breath sounds, no respiratory distress, no accessory muscle use Cardiovascular: regular rate, rhythm, no edema, no gallop, no JVD, no murmur Abdomen: normal bowel sounds, non tender, soft, no organomegaly, no pulsatile mass Extremities: + pertinent finding (wound vac and dressing in place on left foot , draining dark brown liquid. Also has chronic skin changes of both calves, not hot to touch, not erythematous, but darkened compared to his normal skin) Laboratory Results Last 24 Hours Test 05/09/17 11:06 05/09/17 20:37 05/10/17 01:15 05/10/17 05:33 Bedside Glucose 241 mg/dl 329 mg/dl 283 mg/dl White Blood Count 6.96 K/uL Red Blood Count 3.36 M/uL Hemoglobin 9.8 g/dL Hematocrit 29.8 % Mean Corpuscular Volume 88.7 fL Mean Corpuscular Hemoglobin 29.2 pg Mean Corpuscular Hemoglobin Concent 32.9 g/dl RDW Standard Deviation 50.4 fL RDW Coefficient of Variation 15.4 % Platelet Count 155 K/uL Mean Platelet Volume 9.2 fL Sodium Level 135 mmol/L Potassium Level 4.2 mmol/L Chloride Level 104 mmol/L Carbon Dioxide Level 28 mmol/L Anion Gap 3.0 mmol/L Blood Urea Nitrogen 18 mg/dl Creatinine 1.53 mg/dl Est Creatinine Clear Calc Drug Dose 50.3 ml/min Estimated GFR () 52.6 Estimated GFR (Non- 45.4 BUN/Creatinine Ratio 11.8 Random Glucose 241 mg/dl Calcium Level 7.6 mg/dl Vancomycin Level Trough 15.8 mcg/ml Test 05/10/17 07:28 Bedside Glucose 227 mg/dl Assessment and Plan Mr. 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 Sepsis secondary to necrotizing fasciitis of the left lower extremity - cleared for surgery by cardiology - thank you for the consult - post-op day 2 - Dr. Siddiqi performed a left fourth toe amputation, incision and drainage and placed a wound vac - he will be taking the patient back tomorrow for a repeat I&D and wound vac exchange --> he noted the presence of purulent material tracking along flexor tendons --> as per Dr. Siddiqi, vascular surgery will be consulted given his poor vascular status --> NPO after midnight and lovenox held tonight for surgery tomorrow - d/c vancomycin as cultures do not show resistant bacteria. d/c levaquin due to QT prolongation and restart IV zosyn. Patient will likely require prolonged antibiotic course. - blood cultures - one positive for staph aureus and one negative - likely contaminated. Awaiting repeat culture - wound cx - grew klebsiella oxytoca and group G beta strep - toe drainage grew staph aureus and alpha strep that are pansensitive Acute Kidney Injury - gentle rehydration (cautious with hx of CHF). Baseline Cr 1.2-1.4 - creatinine 1.53, slightly elevated from baseline - continue to monitor - Avoid nephrotoxins, d/c vanco Hyponatremia - Na improved to 135 - daily BMP CAD s/p CABG & Chronic CHF with preserved EF - continue aspirin - Continue home doses of Amlodipine, Metoprolol and Atorvastatin Peripheral Arterial Disease - as per cardio - pt will be establishing care with [facility] vascular surgery for f/u of his peripheral arterial disease COPD - Continue Ventolin, Advair and Spiriva. Duonebs q4h PRN as needed Type 2 Diabetes Mellitus - home meds held. - Lantus 25 units HS increased to 35 units HS as sugars were running high (home dose was 48 units HS) - 10 units Lantus given in the AM - sugars today have been 227-283 - SSI with AC/HS BSG . Depression - continue Doxepine DVT prophylaxis: SCDs and TEDs Code Status: Full Disposition: remains on med/surg Resident Physician Supervision Note: I interviewed and examined the patient. Discussed with Dr. Casas and agree with findings and plan as documented in the note. Any exceptions or clarifications are listed here: None Documented By: Tyler Maria feeling fairly good. d/w ortho,vascular and cardiology. no new complaints. discussed probable need for SNF or rehab after finally ready for dsicharge vitals noted nad breathing unlabored foot dressed wound vac in place sepsis from gangrenous toe - improving. continue current abx. polymicrobial infection - 1/2 blood cultures positive suggesting possible contaminant but is staph as is one of the many bacteria in his foot. repeat cultures pending. may need ALEKSANDER. for now stable/safe on abx otherwise as above Resident Tracking Resident Involvement: Resident Care Provided Care Provided: Adult [facility]
--- NOTE | 2017-05-10 10:37 | Pharmacy Progress Note ---
Pharmacy Antibiotic Prog Note Date of Service May 10, 2017. Subjective The patient is currently receiving vancomycin 1250 mg IV every 14 hours, and Levaquin 750 mg IV q24h. The patient is currently on day # 4 of vancomycin IV therapy, and day 3 of Levaquin therapy. Objective Height (Feet): 5 Height (Inches): 10.00 Weight (Kilograms): 88.200 Levels: Item Value Date Time Vancomycin Level Trough 15.8 mcg/ml 05/10/17 0533 Previous dose hung 05/09 @1619. Lab Results (24hrs): Test 05/10/17 01:15 05/10/17 05:33 05/10/17 07:28 Bedside Glucose 283 mg/dl (70-99) 227 mg/dl (70-99) White Blood Count 6.96 K/uL (4.8-10.8) Red Blood Count 3.36 M/uL (4.7-6.1) Hemoglobin 9.8 g/dL (14.0-18.0) Hematocrit 29.8 % (42-52) Mean Corpuscular Volume 88.7 fL (80-100) Mean Corpuscular Hemoglobin 29.2 pg (25-34) Mean Corpuscular Hemoglobin Concent 32.9 g/dl (32-36) RDW Standard Deviation 50.4 fL (36.4-46.3) RDW Coefficient of Variation 15.4 % (11.5-14.5) Platelet Count 155 K/uL (130-400) Mean Platelet Volume 9.2 fL (7.4-10.4) Sodium Level 135 mmol/L (136-145) Potassium Level 4.2 mmol/L (3.5-5.1) Chloride Level 104 mmol/L (98-107) Carbon Dioxide Level 28 mmol/L (21-32) Anion Gap 3.0 mmol/L (3-11) Blood Urea Nitrogen 18 mg/dl (7-18) Creatinine 1.53 mg/dl (0.60-1.40) Est Creatinine Clear Calc Drug Dose 50.3 ml/min Estimated GFR () 52.6 Estimated GFR (Non- 45.4 BUN/Creatinine Ratio 11.8 (10-20) Random Glucose 241 mg/dl (70-99) Calcium Level 7.6 mg/dl (8.5-10.1) Vancomycin Level Trough 15.8 mcg/ml (SEE COMMENT) Micro Results: 05/07 blood x2- NGTD in one, MSSA pansensitive in one 05/07 abscess- Kleb. oxytoca, sens Zosyn; MSSA, pansensitive; GBBS; anaerobic GNB 05/08 drainage deep L 4th toe x 2- MSSA, alpha strep nonentero 05/09 blood x2 pending Recent Pertinent Medications Item Value Date Time Levofloxacin 750 150 ml @ 100 mls/hr 05/09/17 0100 mg/Prmx Q24H/IV 05/10/17 0045 Vancomycin HCl 275 ml @ 125 mls/hr 05/08/17 1200 1250 mg/Sodium Q14H/IV 05/10/17 0545 Chloride Piperacillin Sod/ 120 ml @ 30 mls/hr 05/08/17 1200 Tazobactam Sod Q8H/IV 05/09/17 0437 4.5 gm/Dextrose Assessment & Plan This drug level is: Therapeutic . Continue vancomycin 1250 mg IV every 14 hours. Goal trough level estimate: between 15-20 mcg/mL. Trough has been ordered for: 05/12 before 1400 dose. Continue Levaquin 750 mg q24h for unchanged renal function. Pharmacy will continue to follow and will adjust dose/frequency as necessary. Thank you
--- NOTE | 2017-05-10 10:43 | Orthopedic Progress Note ---
Orthopedic Progress Note Date of Service May 10, 2017. Subjective Post OP Day: 2 Reports: feeling well, Denies: complaints, chest pain, SOB, nausea / vomiting, light headedness, calf pain Additional Notes: Left foot is bandaged.Drain in place. Sitting in a chair. Objective calves soft nontender, capillary refill less than 2 sec., dressing C/D/I, A&O x3 , toes mobile, CMS intact complains of mild pain with palpation around the ankle. Date Time Temp Pulse Resp B/P (MAP) Pulse Ox O2 Delivery O2 Flow Rate FiO2 05/10/17 07:48 36.3 82 18 137/70 (92) 97 Nasal Cannula 2.0 05/10/17 00:45 90 Nasal Cannula 2.0 05/09/17 23:53 36.4 91 18 144/71 (95) 90 Nasal Cannula 2.0 05/09/17 20:52 101 136/67 (90) 05/09/17 16:41 146/71 (96) 05/09/17 16:00 Room Air 05/09/17 15:38 36.9 97 18 166/92 (116) 93 Room Air 05/09/17 12:07 37.4 86 20 90 05/09/17 10:51 37.4 86 20 123/66 (85) 90 Room Air Laboratory Results 24 Hours: Test 05/10/17 05:33 Hematocrit 29.8 % Hemoglobin 9.8 g/dL Assessment & Plan Assessment: POD # 2 -status post left fourth toe/ray amputation/resection, I&D of left foot abscess, wound VAC placement. Plan: Cont PO pain meds Cont IV ABX As prescribed May be out of bed, weightbearing as tolerated on his left heel. Keep dressings intact. Keep wound VAC intact. Postop shoe left foot when out of bed. May need a walker to assist with ambulation. Continue elevation for swelling Wound VAC nurse consulted, wound VAC currently functioning well. Continue regular diet. Plans for return to the OR on May [address] Siddiqi for repeat I&D and wound VAC change of his left foot. NPO tonight after midnight stopped Lovenox tonight in anticipation of surgery.
--- NOTE | 2017-05-10 12:20 | NUR ---
ELÍAS received [facility] notification for skin breakdown, refer to linked note for full assessment and recommendations. Addendum: 05/10/17 at [address] Amended: Links added.
--- NOTE | 2017-05-10 12:53 | Anesthesiology Progress Note ---
Pre-OP Anesthesia Assessment Date of Note May 10, 2017. Review patient information reviewed, chart reviewed, labs reviewed, acceptable for surgery Notes Elderly male scheduled for I & D left foot wound. PMH includes DM, HTN, CAD, AK , AICD/pacemaker. Pt had 4th toe amputation and debridement of this wound under GA without problems. Anticipate GA for planned procedure. Pt expressed understanding and signed informed consent.
[2017-05-10] MEDS ORDERED: PIPERACILL/TAZOBAC CONSULT ACTIVE PRN (14:15)
[2017-05-10] MEDS ORDERED: PIPERACILL/TAZOBAC IV 3.375 GM in DEXTROSE 5% 100ML IV ONE ×2 (14:30→16:00)
[2017-05-10 15:19] VITALS: BP 143/73; PULSE 71; TEMP 36.7; O2SAT 94
--- NOTE | 2017-05-10 15:46 | DIAGNOSTIC IMAGING REPORT ---
ULTRASOUND BILATERAL LOWER EXTREMITY ARTERIAL; ANKLE-BRACHIAL INDICES CLINICAL HISTORY: Gangrene. COMPARISON STUDY: Bilateral lower extremity arterial ultrasound dated 07/31/13. TECHNIQUE: Real-time, grayscale, and color Doppler sonography of the arteries of the right and left lower extremities performed from the inguinal crease to the foot. Ankle-brachial indices were attempted. FINDINGS: Ankle brachial indices: Right brachial pressure measures 158 and left brachial pressure measures 166. The posterior tibial and dorsalis pedis arteries were not compressible bilaterally. Digital pressures on the right measured 74 for an JEREMIAH of 0.45, and digital pressures on the left measured 126 from JEREMIAH of 0.76. Right lower extremity: There is advanced atherosclerotic plaque and irregularity seen throughout the arteries of the right lower extremity. The common femoral artery is patent with triphasic arterial waveforms and velocities measuring up to 132 cm/s. The profunda femoris artery is patent with velocities measuring up to 70 cm/s. There are triphasic waveforms in the proximal right superficial femoral artery. Borderline elevated velocities measure up to 196 cm/s. There are biphasic to triphasic waveforms in the mid to distal superficial femoral artery with velocities measuring up to 137 cm/s. There are biphasic to triphasic waveforms in the right popliteal artery with velocities measuring up to 75 cm/s. There is three-vessel runoff to the right foot. Biphasic arterial waveforms are noted. Velocities within the right calf arteries measure up to 89 cm/s. The dorsalis pedis artery is patent with velocities measuring up to 17 cm/s. Left lower externally: There is advanced atherosclerotic plaque and irregularity seen throughout the arteries of the left lower extremity. There are triphasic waveforms in the left common femoral artery with velocities measuring up to 173 cm/s. The left profundus artery is patent with velocities measuring up to 109 cm second. There are elevated velocities within the proximal left superficial femoral artery which measure up to 207 cm/s. Arterial waveforms are biphasic to triphasic. There are biphasic arterial waveforms in the mid to distal superficial femoral artery. Velocities in the mid superficial femoral artery measure up to 158 cm/s. Elevated velocities within the distal aspect of the superficial femoral artery measure up to 305 cm/s. There are biphasic waveforms in the popliteal artery with delayed arterial upstroke. Velocities in the popliteal artery measure up to 77 cm/s. There is three-vessel runoff to left foot. Velocities in the calf arteries measure up to 73 cm/s. Velocities in the left dorsalis pedis artery measure up to 36 cm/s. Blunted arterial waveforms are noted in the calf. IMPRESSION: 1. Peripheral vascular disease as above. 2. Borderline elevated velocities within the proximal right superficial femoral artery suggests stenosis. 3. Mildly elevated velocities within the proximal and distal portions of the left superficial femoral artery suggest stenosis. 4. There is three-vessel runoff to the foot bilaterally. 5. Ankle brachial indices as above. Dictated: 05/10/2017 3:26 PM Transcribed: 05/10/2017 3:46 PM LAVONNE_Radha Electronically signed by: Dexter Koenig M.D. 05/10/2017 3:55 PM Dictated Date/Time: 05/10/2017 3:26 PM
[2017-05-10 16:00] VITALS: O2SAT 94
--- NOTE | 2017-05-10 16:00 | NUR ---
A: pt alert and oriented. he is OOB w/ assist and walker to BR. pt on room air. no sob noted w/ activity. saline lock intact and being used for intermitt. abx. site flushing w/o issue. pt denies any pain. he is tolerating diet w/o nausea. pt voiding in BR . he does have some urge incontinence. trace edema to BLE. BLE are discolored. wound vac intact and functional to LLE. alexey wrap covers extremity. vitals remain stable. he is ringing for assist as needed. pt is for OR tomorrow and is NPO at MD. will continue care.
[2017-05-10 16:15] VITALS: BMI 27.9
--- NOTE | 2017-05-10 16:16 | NUR ---
DIABETES Pt identified for elevated BG > 300 via BG report. BG 178 on admit. Last A1c 7.4% (eAG 252) on 02/24. Current Diabetes Meds: Lantus 35units HS (was 25units) and Novolog CF:30 with BG goal of 140-180. Fasting BG 227 this AM. BG 280 pre-lunch. Other values [phone] yesterday. Pt received an additional 15units of coverage x 24hrs. Please see [facility]: Inpatient Teaching Record (note pad) for additional information. INPATIENT RECOMMENDATIONS: 1. Consider adding Novolog CR for improved BG control. Addendum: 05/10/17 at [address] Amended: Links added.
--- NOTE | 2017-05-10 17:15 | Cardiology Follow-Up ---
Subjective General Date of Service: May 10, 2017. Chief Complaint: follow up CAD Pt evaluation today including: conversation w/ patient, physical exam History of Present Illness The patient is a 72 year old male seen in follow up. Pt denies subjective fever. Denies chest discomfort or shortness of breath. He is feeling well and watching television. A wound vacuum is in place. Allergies Coded Allergies: No Known Allergies (Verified , 11/06/16) Social History Smoking Status: Former Smoker Hx Tobacco Use In Past Year?: No Hx Alcohol Use - Type And Amou: No Hx Substance Use - Type And Am: No Problem List Medical Problems: (1) Bilateral pneumonia Status: Acute (2) Cellulitis of lower extremity Status: Acute (3) Gangrenous toe Status: Acute (4) Necrotizing fasciitis Status: Acute (5) NSTEMI (non-ST elevated myocardial infarction) Status: Acute (6) Renal insufficiency Status: Acute (7) Respiratory failure Status: Acute (8) Sepsis Status: Acute (9) Thrombocytopenia Status: Acute Physical Exam Vital Signs Last Vital Signs Documentation Date Time Temp Pulse Resp B/P (MAP) Pulse Ox O2 Delivery O2 Flow Rate FiO2 05/10/17 15:19 36.7 71 18 143/73 (96) 94 Room Air 05/10/17 07:48 2.0 Physical Exam Constitutional: Level of Distress: NAD ENMT: normal ENT inspection Neck: supple, trachea midline Lungs: Auscultation: no wheezing, no rales/crackles, no rhonchi Cardiovascular: Heart Auscultation: RRR, no murmurs Extremities: pertinent finding (Left foot wrapped) Neurologic: Gait & Station: pertinent finding (no focal deficits ) Assessment and Plan Assessment and Plan Impression: 1. Post op , left 4rth toe amputation, osteomyelitis -Sensitive staph aureus in one of 2 blood cultures drawn 05/07/17 -Repeat blood cultures drawn 05/09/17 with no growth thus far -Polymicrobial sophia noted on drainage from the operating room, including sensitive staph aureus 2. Stable CAD, history of ischemia mediated cardiac arrest and 2013, with subsequent findings of multivessel coronary artery disease and CABG 2 with FREITAS to LAD and right internal mammary artery graft to the right coronary artery at that time, circumflex was not amenable to revascularization. 3. Single-chamber [employer] AICD 4. Normal left ventricular ejection fraction, echocardiogram November, Plan: Patient stable from a cardiac standpoint to return to the operating room tomorrow 05/11/17 as planned. Continue antibiotic therapy. Await repeat blood cultures. Patient has persistent bacteremia, he would be at risk for potential intracardiac device involvement from an infection standpoint. Case discussed with Dr. Maria Agree with holding lovenox pre op, would resume post op when OK with surgery. Will need to re-establish with vascular surgery either during this admission or as outpatient. Laboratory Results Last 24 Hours Test 05/09/17 20:37 05/10/17 01:15 05/10/17 05:33 05/10/17 07:28 Bedside Glucose 329 mg/dl 283 mg/dl 227 mg/dl White Blood Count 6.96 K/uL Red Blood Count 3.36 M/uL Hemoglobin 9.8 g/dL Hematocrit 29.8 % Mean Corpuscular Volume 88.7 fL Mean Corpuscular Hemoglobin 29.2 pg Mean Corpuscular Hemoglobin Concent 32.9 g/dl RDW Standard Deviation 50.4 fL RDW Coefficient of Variation 15.4 % Platelet Count 155 K/uL Mean Platelet Volume 9.2 fL Sodium Level 135 mmol/L Potassium Level 4.2 mmol/L Chloride Level 104 mmol/L Carbon Dioxide Level 28 mmol/L Anion Gap 3.0 mmol/L Blood Urea Nitrogen 18 mg/dl Creatinine 1.53 mg/dl Est Creatinine Clear Calc Drug Dose 50.3 ml/min Estimated GFR () 52.6 Estimated GFR (Non- 45.4 BUN/Creatinine Ratio 11.8 Random Glucose 241 mg/dl Calcium Level 7.6 mg/dl Vancomycin Level Trough 15.8 mcg/ml Test 05/10/17 11:07 05/10/17 16:06 Bedside Glucose 280 mg/dl 336 mg/dl
[2017-05-10] MEDS: PIPERACILL/TAZOBAC IV 4.5 GM in DEXTROSE 5% 100ML 100 ML IV SCH (21:10)
[2017-05-10] MEDS: INSULIN GLARGINE SOLOSTAR 100 UNITS/ML 3 ML PEN SC SCH (21:16)
[2017-05-10] MEDS: DOXEPIN HCL 50 MG CAP PO SCH (21:17)
[2017-05-10 23:33] VITALS: BP 151/75; PULSE 86; TEMP 37.5; O2SAT 90
--- NOTE | 2017-05-11 04:46 | NUR ---
ID: Pt A/Ox4. +1 assist with walker oob. VSS. Pt denies CP, SOB, N/V or pain at this time. Saline locked in the left hand. Wound vac intact to left foot. Pt NPO after midnight for repeat I&D and wound vac exchange. For full assessment see EMR. Q1H rounding maintained and call vieira within reach. Discharge plans uncertain at this time. Will continue to monitor.
[2017-05-11] MEDS: PIPERACILL/TAZOBAC IV 4.5 GM in DEXTROSE 5% 100ML 100 ML IV SCH ×2 (05:26→18:13)
[2017-05-11 06:10] LABS: HEMATOCRIT 30.8 % (42-52); HEMOGLOBIN 9.9 g/dL (14.0-18.0); MEAN CELL VOLUME 88.5 fL (80-100); MEAN CORPUSCULAR HEMOGLOBIN 28.4 pg (25-34); MEAN CORPUSCULAR HGB CONC 32.1 g/dl (32-36); MEAN PLATELET VOLUME 9.7 fL (7.4-10.4); PLATELET COUNT 178 K/uL (130-400); RED CELL DISTRIBUTION WIDTH CV 15.3 % (11.5-14.5); RED CELL DISTRIBUTION WIDTH SD 49.5 fL (36.4-46.3); WHITE BLOOD COUNT 6.03 K/uL (4.8-10.8)
[2017-05-11] MEDS: INSULIN ASPART 100 UNITS/ML 3 ML PEN SC SCH ×4 (06:46→21:27)
[2017-05-11 06:47] LABS: CALCIUM 7.9 mg/dl (8.5-10.1); CREATININE 1.57 mg/dl (0.60-1.40)
[2017-05-11 07:28] VITALS: BP 150/74; PULSE 76; TEMP 36.5; O2SAT 90
[2017-05-11] MEDS: METOPROLOL TARTRATE 50 MG TAB PO SCH ×2 (08:00→20:27)
[2017-05-11] MEDS: DOCUSATE SODIUM 100 MG CAP PO SCH ×2 (08:00→20:00)
--- NOTE | 2017-05-11 08:25 | Orthopedic Progress Note ---
Orthopedic Progress Note Date of Service May 11, 2017. Subjective Post OP Day: 3 Reports: feeling well, pain controlled w PO medications, Denies: complaints, chest pain, SOB, nausea / vomiting, light headedness, calf pain, using CONSTRUCTION SITE MANAGER Objective calves soft nontender, N/V intact, dressing C/D/I, incision C/D/I, A&O x3, toes mobile, CMS intact, hemovac drainage Cap refill not able to be checked due to toenail onychomycosis Date Time Temp Pulse Resp B/P (MAP) Pulse Ox O2 Delivery O2 Flow Rate FiO2 05/11/17 07:28 36.5 76 18 150/74 (99) 90 05/11/17 00:00 Room Air 05/10/17 23:33 37.5 86 18 151/75 (100) 90 Room Air 05/10/17 16:00 94 Room Air 05/10/17 15:19 36.7 71 18 143/73 (96) 94 Room Air 05/10/17 08:30 97 Laboratory Results 24 Hours: Test 05/11/17 05:45 Hematocrit 30.8 % Hemoglobin 9.9 g/dL Assessment & Plan Assessment: POD # 3 -status post left fourth toe/ray amputation/resection, I&D of left foot abscess, wound VAC placement. Plan: Cont PO pain meds Cont IV ABX As prescribed May be out of bed, weightbearing as tolerated on his left heel. Keep dressings intact. Keep wound VAC intact. Postop shoe left foot when out of bed. May need a walker to assist with ambulation. Continue elevation for swelling Wound VAC nurse consulted, wound VAC currently functioning well. Continue regular diet. Plans to return to the OR on today, with Dr. Siddiqi for repeat I&D and wound VAC change of his left foot. Currently NPO stopped Lovenox last night in anticipation of surgery.
[2017-05-11] MEDS: TIOTROPIUM BROMIDE 5 PUFF/90 MCG INH INH SCH (08:41)
[2017-05-11] MEDS: FLUTICASONE/SALMETEROL 250/50 (ADVAIR) 14 PUFF/1 INHALER INH SCH ×2 (08:41→20:27)
--- NOTE | 2017-05-11 09:28 | Family Medicine Progress Note ---
Progress Note Date of Service May 11, 2017. Subjective Pt evaluation today including: conversation w/ patient, physical exam, chart review, lab review, review of inpatient medication list Pain: No pain reported PO Intake: NPO for procedure today Voiding: no voiding problems Mr. Frank reports he feels fine today. He denies chest pain, shortness of breath, n/v, fever or chills. He understands he will be placed on a long course of antibiotics and will need rehab after his surgeries. He states he does not have pain in his feet. Constitutional: No fever, No chills Cardiovascular: No chest pain Abdomen: No pain, No nausea, No vomiting All Other Systems: Reviewed and Negative Medications Current Inpatient Medications Medications (Trade) Dose Ordered Sig/Elsie Route Start Time Stop Time Status Last Admin Dose Admin Acetaminophen (Tylenol Tab) 650 mg Q4H PRN PO 05/07/17 23:15 06/06/17 23:14 Al Hydrox/Mg Hydrox/Simethicone (Maalox Max Susp) 15 ml Q4H PRN PO 05/07/17 23:15 06/06/17 23:14 Magnesium Hydroxide (Milk Of Magnesia Susp) 30 ml Q12H PRN PO 05/07/17 23:15 06/06/17 23:14 Ondansetron HCl (Zofran Inj) 4 mg Q6H PRN IV 05/07/17 23:15 06/06/17 23:14 Morphine Sulfate (MoRPHine SULFATE INJ) 2 mg Q30M PRN IV 05/07/17 23:15 05/21/17 23:14 Polyethylene (Miralax Powder Packet) 17 gm DAILY PRN PO 05/07/17 23:15 06/06/17 23:14 Albuterol (Ventolin Hfa Inhaler) 2 puffs Q4 PRN INH 05/07/17 23:45 06/06/17 23:44 Amlodipine Besylate (Norvasc Tab) 5 mg DAILY PO 05/08/17 09:00 06/07/17 08:59 05/10/17 09:06 5 MG Aspirin (Ecotrin Tab) 81 mg DAILY PO 05/08/17 09:00 06/07/17 08:59 Future hold 05/10/17 08:19 81 MG Atorvastatin Calcium (Lipitor Tab) 20 mg DAILY PO 05/08/17 09:00 06/07/17 08:59 05/10/17 09:05 20 MG Doxepin HCl ([place] Cap) 100 mg HS PO 05/08/17 21:00 06/07/17 20:59 05/10/17 21:17 100 MG Salmeterol Xinafoate/ Fluticasone (Advair Diskus 250/50 Inh) 1 puff BID INH 05/08/17 09:00 06/07/17 08:59 05/11/17 08:41 1 PUFF Isosorbide Mononitrate (Imdur Ext Rel Tab) 60 mg QAM PO 05/08/17 09:00 06/07/17 08:59 05/10/17 09:05 60 MG Metoprolol Tartrate (Lopressor Tab) 75 mg BID PO 05/08/17 09:00 06/07/17 08:59 05/10/17 21:18 75 MG Tamsulosin HCl (Flomax Cap) 0.4 mg QAM PO 05/08/17 09:00 06/07/17 08:59 05/10/17 09:05 0.4 MG Tiotropium [place] (Spiriva Handihaler Inhaler) 1 puff DAILY INH 05/08/17 09:00 06/07/17 08:59 05/11/17 08:41 1 PUFF Tramadol HCl (Ultram Tab) 50 mg Q6 PRN PO 05/07/17 23:45 06/06/17 23:44 Pantoprazole Sodium (Protonix Tab) 40 mg QAM PO 05/08/17 09:00 06/07/17 08:59 05/10/17 09:06 40 MG Albuterol/ Ipratropium (Duoneb) 3 ml Q4H PRN INH 05/08/17 00:00 06/07/17 00:00 Glucose (Glucose 40% Gel) 15-30 GRAMS 15 GRAMS... UD PRN PO 05/08/17 00:15 06/07/17 00:14 Glucose (Glucose Chew Tab) 4-8 Tablets 4 Tabl... UD PRN PO 05/08/17 00:15 06/07/17 00:14 Dextrose (Dextrose 50% 50ML Syringe) 25-50ML OF 50% DW IV FOR... UD PRN IV 05/08/17 00:15 06/07/17 00:14 Glucagon (Glucagon Inj) 1 mg UD PRN SQ 05/08/17 00:15 06/07/17 00:14 Acetaminophen/ Hydrocodone Bitart ([place] 5/325 Tab) 1-2 TABS FOR PAIN 1 TABLET ... Q6H PRN PO 05/08/17 18:00 05/22/17 17:59 Docusate Sodium (coLACE CAP) 100 mg BID PO 05/08/17 21:00 06/07/17 20:59 05/10/17 09:04 100 MG Multivitamins (Multivitamin Tab) 1 tab QAM PO 05/09/17 09:00 06/08/17 08:59 05/10/17 09:05 1 TAB Insulin Aspart (novoLOG ASPART) SLIDING SCALE G... ACHS SC 05/09/17 16:35 06/08/17 16:34 05/11/17 12:10 3 UNITS Insulin Glargine (Lantus Solostar Pen) 35 units HS SC 05/10/17 21:00 05/24/17 20:59 05/10/17 21:16 35 UNITS Piperacillin Sod/ Tazobactam Sod 4.5 gm/Dextrose 120 ml @ 200 mls/hr Q8H IV 05/10/17 22:00 05/20/17 21:59 05/11/17 05:26 200 MLS/HR Piperacillin Sod/ Tazobactam Sod (Consult) 1 ea UD PRN N/A 05/10/17 14:15 06/09/17 14:14 Acetylcysteine (Acetylcysteine Cap) 600 mg Q12H PO 05/13/17 18:00 05/15/17 06:01 Sodium Chloride 1,000 ml @ 88 mls/hr [id number] IV 05/14/17 08:00 06/13/17 07:59 Sodium Bicarbonate 100 meq/Sterile Water 1,100 ml @ 80 mls/hr [id number] IV 05/14/17 08:00 06/13/17 07:59 Objective Vital Signs Date Time Temp Pulse Resp B/P (MAP) Pulse Ox O2 Delivery O2 Flow Rate FiO2 05/11/17 08:45 Room Air 05/11/17 07:28 36.5 76 18 150/74 (99) 90 12/1/17 00:00 Room Air 05/10/17 23:33 37.5 86 18 151/75 (100) 90 Room Air 05/10/17 16:00 94 Room Air 05/10/17 15:19 36.7 71 18 143/73 (96) 94 Room Air Physical Exam General Appearance: WD/WN, no apparent distress Respiratory/Chest: chest non-tender, lungs clear, normal breath sounds, no respiratory distress, no accessory muscle use Cardiovascular: regular rate, rhythm, no edema, no gallop, no JVD, no murmur Abdomen: normal bowel sounds, non tender, soft, no organomegaly, no pulsatile mass Extremities: + pertinent finding (dressing over left foot with wound vac in place draining dark fluid) Laboratory Results Last 24 Hours Test 05/10/17 16:06 05/10/17 20:07 05/11/17 05:45 05/11/17 06:11 Bedside Glucose 336 mg/dl 299 mg/dl 269 mg/dl White Blood Count 6.03 K/uL Red Blood Count 3.48 M/uL Hemoglobin 9.9 g/dL Hematocrit 30.8 % Mean Corpuscular Volume 88.5 fL Mean Corpuscular Hemoglobin 28.4 pg Mean Corpuscular Hemoglobin Concent 32.1 g/dl RDW Standard Deviation 49.5 fL RDW Coefficient of Variation 15.3 % Platelet Count 178 K/uL Mean Platelet Volume 9.7 fL Sodium Level 138 mmol/L Potassium Level 4.0 mmol/L Chloride Level 103 mmol/L Carbon Dioxide Level 27 mmol/L Anion Gap 8.0 mmol/L Blood Urea Nitrogen 21 mg/dl Creatinine 1.57 mg/dl Est Creatinine Clear Calc Drug Dose 49.0 ml/min Estimated GFR () 51.0 Estimated GFR (Non- 44.0 BUN/Creatinine Ratio 13.1 Random Glucose 236 mg/dl Calcium Level 7.9 mg/dl Test 05/11/17 11:44 Bedside Glucose 247 mg/dl Assessment and Plan Mr. 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 Sepsis secondary to necrotizing fasciitis of the left lower extremity - cleared for surgery by cardiology - thank you for the consult - post-op day 3 - Dr. Siddiqi performed a left fourth toe amputation, incision and drainage and placed a wound vac on 05/08 - repeat I&D and wound vac exchange with Dr. Siddiqi today - Dr. Rg on board - much appreciated --> ultrasound showed PVD with advanced atherosclerotic disease in both legs - left lower extremity with indices of 0.46 --> Dr. Rg will be performing an arteriography with possible intervention of the left lower extremity on Sunday to promote healing - continue IV Zosyn, pt will require a prolonged abx course - repeat blood cultures negative - will likely not need ALEKSANDER given first set of blood cultures had 1/2 positive for staph aureus - will discuss w/cardio given he is at a higher risk with his AICD - wound cx - grew klebsiella oxytoca and group G beta strep - toe drainage grew staph aureus and alpha strep that are pansensitive Acute Kidney Injury - gentle rehydration (cautious with hx of CHF). Baseline Cr 1.2-1.4 - creatinine 1.57, slightly elevated from baseline - continue to monitor - Avoid nephrotoxins Hyponatremia - resolved - Na 138 - continue to monitor CAD s/p CABG & Chronic CHF with preserved EF - continue aspirin - Continue home doses of Amlodipine, Metoprolol and Atorvastatin COPD - Continue Ventolin, Advair and Spiriva. Duonebs q4h PRN as needed Type 2 Diabetes Mellitus - home meds held. - continue Lantus 35 units HS (home dose was 48 units HS) - held this AM as NPO - SSI with AC/HS BSG . Depression - continue Doxepine DVT prophylaxis: SCDs and TEDs Code Status: Full Disposition: remains on med/surg, will need rehab on d/c Resident Physician Supervision Note: I interviewed and examined the patient. Discussed with Dr. Casas and agree with findings and plan as documented in the note. Any exceptions or clarifications are listed here: None Documented By: Tyler Maria feeling ok. awaiting repeat OR at the time of my arrival. no new complaints vitals noted nad foot dressed, wound vac in place, no tracking erythema, no respiratory distress foot cellulitis w sepsis now post 4th toe amputation due to PAD, for repeated surgeries and PAD related surgery, bacteremia CPOA as well -repeat blood cultures negative but with bacteremia present on admission, may still need ALEKSANDER - will have to continue to follow, risk stratify Resident Tracking Resident Involvement: Resident Care Provided Care Provided: Adult Hospital Medicine
[2017-05-11] MEDS ORDERED: LEVOFLOXACIN 750 MG TAB PO SCH (11:00)
[2017-05-11] MEDS ORDERED: LIDOCAINE/EPINEPHRINE 1% 20 ML VIAL ONE (12:19)
[2017-05-11] MEDS ORDERED: BUPIVACAINE 0.5 % 5 MG/1 ML MPF 30ML VIAL ONE (12:20)
[2017-05-11] MEDS ORDERED: ATROPINE SULFATE 0.1 MG/ML 5ML SYR IV PRN ×2 (12:30→15:15)
[2017-05-11] MEDS ORDERED: EpHEDrine SULFATE INJ 50 MG/ML AMP IV PRN ×2 (12:30→15:15)
[2017-05-11] MEDS ORDERED: FENTANYL CITRATE INJ 50 MCG/1 ML 2 ML VIAL IV PRN ×2 (12:30→15:15)
[2017-05-11] MEDS ORDERED: ONDANSETRON INJ 2 MG/ML 2 ML VIAL IV PRN ×2 (12:30→15:15)
--- NOTE | 2017-05-11 12:49 | History and Physical ---
History & Physical Date May 11, 2017. Chief Complaint Peripheral artery occlusive disease with gangrenous toe left foot History of Present Illness The patient is a 72 year old male who presented to the emergency department where a gangrenous toe left foot. He had the toe amputation performed. At the time of the amputation the bleeding was extremely poor. He subsequently underwent noninvasive testing which suggested peripheral occlusive disease of the left lower extremity with indices of 0.46. He is known to have congestive heart failure, COPD, coronary artery disease, status post coronary artery bypass grafting, diabetes mellitus, peripheral neuropathy, hypertension, and depression. He is to be taken back to the operating room today for wound VAC change and further debridement if needed. Vitals Vital Signs Past 12 Hours Date Time Temp Pulse Resp B/P (MAP) Pulse Ox O2 Delivery O2 Flow Rate FiO2 05/11/17 08:45 Room Air 05/11/17 07:28 36.5 76 18 150/74 (99) 90 Allergies Coded Allergies: No Known Allergies (Verified , 05/14/17) Home Medications Scheduled Amlodipine (Norvasc), 5 MG PO DAILY Aspirin (Aspirin 81), 81 MG PO DAILY Atorvastatin (Lipitor), 20 MG PO DAILY Doxepin Hcl (Doxepin), 100 MG PO HS Fluticasone Prop/Salmeterol (Advair Diskus 250/50 60 Dose), 1 PUFF INH BID Glipizide Xl (Glucotrol Xl), 10 MG PO BID Insulin Glargine (Lantus Solostar), 48 UNITS SQ QPM Isosorbide Mononitrate Ext Rel (Imdur Ext Rel), 60 MG PO QAM Metoprolol Tartrate (Lopressor) (Lopressor), 75 MG PO BID Omeprazole (Prilosec), 20 MG PO DAILY Tamsulosin Hcl (Flomax), 0.4 MG PO QAM Tiotropium [place] (Spiriva Handihaler), 1 CAP INH DAILY Scheduled PRN Albuterol Hfa (Ventolin Hfa), 2 PUFFS INH Q4 PRN for SOB/Wheezing Ipratropium-Albuterol (Duoneb), 1 TREATMENT INH Q4H PRN for SOB/Wheezing Tramadol (Ultram), 50 MG PO Q6 PRN for Pain Problem List Medical Problems: (1) CHF exacerbation (2) COPD exacerbation (3) Diabetes (4) Hypertension Surgical / Medical History Hx Cardiac Surgery: Yes (CABG X2, PACER/ICD) Hx Abdominal Surgery: No Hx Cancer Surgery: No Hx Thoracic Surgery: No Hx Orthopedic: Yes (SPINAL FUSION) Hx Urinary Tract Surgery: No Past Medical/Surgical History: ASHD, CABG, CHF, COPD, Depression, Diabetes Family History FH: aneurysm FH: coronary artery disease FH: myocardial infarction Social History Smoking Status: Former Smoker Hx Tobacco Use In Past Year?: No Hx Alcohol Use - Type & Amnt: No Hx Substance Use -Type & Amnt: No Review of Systems Respiratory: No cough, No cyanosis, No MEJIA, No hemoptysis, No orthopnea, No PND , No short of breath, No sputum production, No stridor, No wheezing, No dyspnea , No problem reported Cardiovascular: No chest pain, No chest tightness, No chest pressure, No palpitations, No syncope, No diaphoresis, No edema, No intermittent claudication , No orthopnea, No cyanosis, No mumur, No lightheadedness, No paroxysmal nocturnal dyspnea, No problem reported Gastrointestinal: No abdominal pain, No constipation, No diarrhea, No nausea, No vomiting, No anorexia, No appetite changes, No belching, No flatulence, No food intolerance, No hematemesis, No hemorrhoids, No hematochezia, No stool changes, No heartburn, No indigestion, No dysphagia, No rectal bleeding, No problem reported Musculoskeletal: No back pain, No gout, No joint pain, No joint swelling, No muscle pain, No muscle stiffness, No muscle weakness, No neck pain, No problem reported Neurologic: + paresthesia Psychiatric: + depression Physical Exam Constitutional: General Apperance: well-nourished, well-developed Level of Distress: NAD Ambulation: ambulating normally Psychiatric: Mental Status: active & alert, normal mood, normal affect Orientation: oriented except where noted, to time, to place, to person Memory: recent memory normal, remote memory normal Neck: supple Lungs: Auscultation: breath sounds normal Cardiovascular: Heart Auscultation: RRR Peripheral Pulses: Carotid Pulse: normal on the left, normal on the right Radial Pulse: normal on the left, normal on the right Femoral Pulse: normal on the left, normal on the right Posterior Tibialis Pulse: absent on the left, absent on the right Dorsalis Pedis Pulse: absent on the left, absent on the right Abdomen: Inspection & Palpation: soft Musculoskeletal: normal Extremities: Upper Right: no cyanosis, no edema, no varicosities, no palpable cord, no clubbing, no ulcers, no mottling Upper Left: no cyanosis, no edema, no varicosities, no palpable cord, no clubbing, no ulcers, no mottling Lower Right: no cyanosis, no edema, no varicosities, no palpable cord, no clubbing, no ulcers, no mottling Lower Left: no cyanosis, no edema, no varicosities, no palpable cord, no clubbing, no ulcers, no mottling Neurologic: Cranial Nerves: grossly intact Assessment and Plan Impression: 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 Impression: Due to the noninvasive results I would recommend we do arteriography with possible intervention of the left lower extremity. This will be scheduled for Sunday. The patient understands the risks options and benefits and agrees to go ahead with this procedure. I would continue the local care that is being given at this time. Thank you very much for letting me participate in the care of this patient.
[2017-05-11] MEDS ORDERED: MIDAZOLAM HCL 1 MG/ML 2ML VIAL ONE (13:06)
[2017-05-11] MEDS ORDERED: FENTANYL CITRATE INJ 50 MCG/1 ML 2 ML VIAL ONE (13:06)
[2017-05-11] MEDS ORDERED: ONDANSETRON INJ 2 MG/ML 2 ML VIAL ONE (13:07)
[2017-05-11] MEDS ORDERED: DEXAMETHASONE SOD INJ 4 MG/ML VIAL ONE (13:07)
[2017-05-11] MEDS ORDERED: LIDOCAINE HCL 2% 2 ML VIAL (20MG/ML) ONE (13:07)
[2017-05-11] MEDS ORDERED: PROPOFOL IV EMULSION 10 MG/ML 20 ML VIAL IV ONE (13:07)
--- NOTE | 2017-05-11 14:52 | [facility] Operative Report ---
Operative Report Operative Date May 11, 2017. Pre-Operative Diagnosis Left Foot Infection & Open Wound Post-Operative Diagnosis Left Foot Infection & Open Wound Procedure(s) Performed Left Foot I&D Deep. Excahnge of Wound Vac Surgeon Dr. Siddiqi Membership Administrator Surgeon(s) Dr. Gray Estimated Blood Loss 20mL Findings No meño purulence. Further declaration of wound. Debrided back to healthier bleeding tissue. Fluids 450 Specimens none per surgeon Drains Wound Vac Anesthesia LMA Complication(s) None Disposition Recovery Room / PACU (Stable) Indications The patient is a 72-year-old male with history of diabetes and peripheral vascular disease, who had undergone left fourth toe amputation and I&D of the left foot with placement of wound VAC earlier this week. The patient is returning to the operating room today to have the wound VAC removed and undergo repeat I&D of the left foot. The patient understands the risks of surgery, which include but are not limited to: bleeding, infection, re-operation, damage to nerves and arteries, continued pain and DVT. The patient understands all of these instructions and explanations, all of their questions have been satisfactorily addressed. The patient has elected to proceed with surgery and the informed consent was signed. Description of Procedure The patient was taken to the Operating Room and placed in the [place] position on the operating table. After general anesthetic was administered a multidisciplinary time-out was performed identifying my initials on the left limb as the correct and operative limb. Zosyn was given as it was during his regular scheduled dosing. The wound VAC and previous sutures were removed. The left leg was prepped and draped in the usual Orthopaedic sterile fashion. There was devitalized, necrotic soft tissue around the plantar and dorsal aspect of the wound. There was no paternal aunt material. The fourth and fifth metatarsals were debrided back with a rongeur to allow for further closure of the wound. Any devitalized and necrotic soft tissue was removed with a combination of sharp dissection with a scalpel, curette, and rongeur. The wound was copiously irrigated with 2 L of normal saline throughout the case. There was significant improvement in the surrounding soft tissue, with noted bleeding. Any superficial skin that was sloughing off was removed with Metzenbaum scissors. The incision on the plantar aspect of the foot was closed with 3-0 Prolene. The proximal aspect of the main wound was closed with 0 Prolene in vertical mattress fashion. This resulted in the remaining wound being measured at 2 x 2.5 cm. A wound VAC along with an incisional bridging components were placed over the wounds in the standard fashion and maintained a continuous 125 mmHg vacuum seal. The sponge and needle counts were correct. POST-OP: Patient will be re-admitted and continued on IV per the primary service. He will start Lovenox in the a.m. 40 mg daily subcutaneous. He will be allowed to be weightbearing as tolerated through his heel. Continue wound VAC at 125 mmHg on continuous. Postop x-rays of the left foot will be obtained. On Sunday the wound VAC will be exchanged by the wound care nurse. At this point, as long as there is no recurrence of infection, we will hold off on returning to the operating room. I attest to the content of the Intraoperative Record and any orders documented therein. Any exceptions are noted below.
--- NOTE | 2017-05-11 15:48 | DIAGNOSTIC IMAGING REPORT ---
L FOOT MIN 3 VIEWS ROUTINE CLINICAL HISTORY: Left foot partial amputation postoperative evaluation COMPARISON: 05/07/2017 DISCUSSION: Progressive amputation of the phalanges of the fourth toe. Partial resection distal aspect fourth metatarsal. Partial resection of a small bony exostosis of the residual fifth metatarsal distally. Surgical drains in position. There is no evidence for soft tissue swelling. IMPRESSION: Progressive amputation of the distal aspects of the fourth and fifth toes as discussed. Expected soft tissue postoperative change. No acute process. The above report was generated using voice recognition software. It may contain grammatical, syntax or spelling errors. Electronically signed by: Zander Rodrigues M.D. 05/11/2017 3:47 PM Dictated Date/Time: 05/11/2017 3:45 PM
--- NOTE | 2017-05-11 15:55 | Anesthesiology Progress Note ---
Anesthesia Post Op Note Date & Time May 11, 2017 at 15:55 Vital Signs Pain Intensity: 0 Vital Signs Past 12 Hours Date Time Temp Pulse Resp B/P (MAP) Pulse Ox O2 Delivery O2 Flow Rate FiO2 05/11/17 15:30 78 16 139/65 97 Nasal Cannula 2 Oxymask 05/11/17 15:20 78 20 119/62 97 Oxymask 10 05/11/17 15:10 82 20 130/60 98 Oxymask 10 05/11/17 15:02 36.5 82 16 145/67 97 Oxymask 10 05/11/17 08:45 Room Air 05/11/17 07:28 36.5 76 18 150/74 (99) 90 Notes Mental Status: alert / awake / arousable, participated in evaluation Pt Amnestic to Procedure: Yes Nausea / Vomiting: adequately controlled Pain: adequately controlled Airway Patency, RR, SpO2: stable & adequate BP & HR: stable & adequate Hydration State: stable & adequate Anesthetic Complications: no major complications apparent
--- NOTE | 2017-05-11 16:28 | NUR ---
pt returned from PACU at this time. he is in stable condition. alert and oriented though drowsy. denies pain. vitals are stable. wound vac intact to LLE. will proceed w/ assessment and monitor.
[2017-05-11 16:30] VITALS: O2SAT 95
[2017-05-11 16:32] VITALS: BP 155/74; PULSE 80; TEMP 37.4; O2SAT 97
[2017-05-11] MEDS: ATORVASTATIN 20 MG TAB PO SCH (16:49)
[2017-05-11] MEDS: AMLODIPINE BESYLATE 5 MG TAB PO SCH (16:49)
[2017-05-11] MEDS: ASPIRIN 81 MG ECTAB PO SCH (16:49)
[2017-05-11] MEDS: PANTOprazole SOD 40 MG TAB PO SCH (16:50)
[2017-05-11] MEDS: MULTIVITAMIN TAB PO SCH (16:50)
[2017-05-11] MEDS: TAMSULOSIN HCL 0.4 MG CAP PO SCH (16:50)
[2017-05-11] MEDS: ISOSORBIDE MONONITRATE 60 MG TABCR PO SCH (16:50)
--- NOTE | 2017-05-11 17:00 | NUR ---
A: pt alert and oriented. he is OOB w/ assist and walker to BR. pt returned from OR/PACU and is in stable condition. pt on 2L O2 via NC. no sob noted w/ activity. saline lock intact and being used for intermitt. abx. site flushing w/o issue. pt denies any pain. he is tolerating diet w/o nausea. pt voiding in urinal . he does have some urge incontinence. trace edema to BLE. BLE are discolored. wound vac intact and functional to LLE. alexey wrap covers extremity and extremity is elevated. vitals remain stable. he is ringing for assist as needed. will continue care.
--- NOTE | 2017-05-11 17:20 | NUR ---
Chart reviewed. Patient to the OR today. Patient also for the OR on Sunday. Patient may need a rehab setting. Will follow for discharge planning.
[2017-05-11] MEDS: DOXEPIN HCL 50 MG CAP PO SCH (20:28)
--- NOTE | 2017-05-11 20:50 | NUR ---
notified Dr Cam at this time that pt BSG [id number]. MD responded to give ordered SQ insulin and recheck at 2300. will monitor.
[2017-05-11] MEDS: INSULIN GLARGINE SOLOSTAR 100 UNITS/ML 3 ML PEN SC SCH (21:29)
[2017-05-11 23:04] VITALS: BP 134/70; PULSE 82; TEMP 36.9; O2SAT 96
[2017-05-12] MEDS ORDERED: NURSING VERBAL MED ORDER ONE (00:45)
[2017-05-12] MEDS ORDERED: INSULIN ASPART 100 UNITS/ML 3 ML PEN SC STA (00:55)
[2017-05-12] MEDS: PIPERACILL/TAZOBAC IV 4.5 GM in DEXTROSE 5% 100ML 100 ML IV SCH ×3 (01:02→16:50)
--- NOTE | 2017-05-12 05:14 | NUR ---
ID: Patient alert & oriented x 4. VSS. No c/o pain. O2 sats stable on 2L via nc. No c/o SOB or chest pain. LLE amputation site dressing dry & intact. OOB with assist of 1 & walker. D/C plan & date uncertain @ this time. Will continue to monitor.
[2017-05-12 06:50] LABS: HEMATOCRIT 30.6 % (42-52); MEAN CORPUSCULAR HEMOGLOBIN 29.1 pg (25-34); MEAN CORPUSCULAR HGB CONC 32.7 g/dl (32-36); MEAN PLATELET VOLUME 9.5 fL (7.4-10.4); PLATELET COUNT 198 K/uL (130-400); RED CELL DISTRIBUTION WIDTH CV 15.1 % (11.5-14.5); RED CELL DISTRIBUTION WIDTH SD 49.1 fL (36.4-46.3); WHITE BLOOD COUNT 5.72 K/uL (4.8-10.8)
[2017-05-12 07:25] LABS: CALCIUM 7.9 mg/dl (8.5-10.1); CREATININE 1.52 mg/dl (0.60-1.40); POTASSIUM 3.9 mmol/L (3.5-5.1)
--- NOTE | 2017-05-12 07:27 | Family Medicine Progress Note ---
Progress Note Date of Service May 12, 2017. Subjective Pt evaluation today including: conversation w/ patient, physical exam, chart review, lab review, review of inpatient medication list Pain: No pain reported PO Intake: Tolerating PO intake Voiding: no voiding problems Mr. Frank reports he is feeling fine. He denies chest pain, fever, chills, SOB , n/v, abdominal pain, or pain in his left foot. Constitutional: No fever, No chills Respiratory: No cough, No sputum Abdomen: No pain, No nausea, No vomiting Musculoskeletal: No calf pain All Other Systems: Reviewed and Negative Medications Current Inpatient Medications Medications (Trade) Dose Ordered Sig/Elsie Route Start Time Stop Time Status Last Admin Dose Admin Acetaminophen (Tylenol Tab) 650 mg Q4H PRN PO 05/07/17 23:15 06/06/17 23:14 Al Hydrox/Mg Hydrox/Simethicone (Maalox Max Susp) 15 ml Q4H PRN PO 05/07/17 23:15 06/06/17 23:14 Magnesium Hydroxide (Milk Of Magnesia Susp) 30 ml Q12H PRN PO 05/07/17 23:15 06/06/17 23:14 Ondansetron HCl (Zofran Inj) 4 mg Q6H PRN IV 05/07/17 23:15 06/06/17 23:14 Morphine Sulfate (MoRPHine SULFATE INJ) 2 mg Q30M PRN IV 05/07/17 23:15 05/21/17 23:14 Polyethylene (Miralax Powder Packet) 17 gm DAILY PRN PO 05/07/17 23:15 06/06/17 23:14 Albuterol (Ventolin Hfa Inhaler) 2 puffs Q4 PRN INH 05/07/17 23:45 06/06/17 23:44 Amlodipine Besylate (Norvasc Tab) 5 mg DAILY PO 05/08/17 09:00 06/07/17 08:59 05/12/17 10:17 5 MG Aspirin (Ecotrin Tab) 81 mg DAILY PO 05/08/17 09:00 06/07/17 08:59 Future hold 05/12/17 10:15 81 MG Atorvastatin Calcium (Lipitor Tab) 20 mg DAILY PO 05/08/17 09:00 06/07/17 08:59 05/12/17 10:17 20 MG Doxepin HCl (Sinequan Cap) 100 mg HS PO 05/08/17 21:00 06/07/17 20:59 05/11/17 20:28 100 MG Salmeterol Xinafoate/ Fluticasone (Advair Diskus 250/50 Inh) 1 puff BID INH 05/08/17 09:00 06/07/17 08:59 05/12/17 08:43 1 PUFF Isosorbide Mononitrate (Imdur Ext Rel Tab) 60 mg QAM PO 05/08/17 09:00 06/07/17 08:59 05/12/17 10:16 60 MG Metoprolol Tartrate (Lopressor Tab) 75 mg BID PO 05/08/17 09:00 06/07/17 08:59 05/12/17 10:15 75 MG Tamsulosin HCl (Flomax Cap) 0.4 mg QAM PO 05/08/17 09:00 06/07/17 08:59 05/12/17 10:16 0.4 MG Tiotropium [place] (Spiriva Handihaler Inhaler) 1 puff DAILY INH 05/08/17 09:00 06/07/17 08:59 05/12/17 08:43 1 PUFF Tramadol HCl (Ultram Tab) 50 mg Q6 PRN PO 05/07/17 23:45 06/06/17 23:44 Pantoprazole Sodium (Protonix Tab) 40 mg QAM PO 05/08/17 09:00 06/07/17 08:59 05/12/17 10:15 40 MG Albuterol/ Ipratropium (Duoneb) 3 ml Q4H PRN INH 05/08/17 00:00 06/07/17 00:00 Glucose (Glucose 40% Gel) 15-30 GRAMS 15 GRAMS... UD PRN PO 05/08/17 00:15 06/07/17 00:14 Glucose (Glucose Chew Tab) 4-8 Tablets 4 Tabl... UD PRN PO 05/08/17 00:15 06/07/17 00:14 Dextrose (Dextrose 50% 50ML Syringe) 25-50ML OF 50% DW IV FOR... UD PRN IV 05/08/17 00:15 06/07/17 00:14 Glucagon (Glucagon Inj) 1 mg UD PRN SQ 05/08/17 00:15 06/07/17 00:14 Acetaminophen/ Hydrocodone Bitart ([place] 5/325 Tab) 1-2 TABS FOR PAIN 1 TABLET ... Q6H PRN PO 05/08/17 18:00 05/22/17 17:59 Docusate Sodium (coLACE CAP) 100 mg BID PO 05/08/17 21:00 06/07/17 20:59 05/12/17 08:44 100 MG Multivitamins (Multivitamin Tab) 1 tab QAM PO 05/09/17 09:00 06/08/17 08:59 05/12/17 10:17 1 TAB Insulin Aspart (novoLOG ASPART) SLIDING SCALE G... ACHS SC 05/09/17 16:35 06/08/17 16:34 05/12/17 08:56 13 UNITS Piperacillin Sod/ Tazobactam Sod 4.5 gm/Dextrose 120 ml @ 200 mls/hr Q8H IV 05/10/17 22:00 05/20/17 21:59 05/12/17 08:56 200 MLS/HR Piperacillin Sod/ Tazobactam Sod (Consult) 1 ea UD PRN N/A 05/10/17 14:15 06/09/17 14:14 Acetylcysteine (Acetylcysteine Cap) 600 mg Q12H PO 05/13/17 18:00 05/15/17 06:01 Sodium Chloride 1,000 ml @ 88 mls/hr [id number] IV 05/14/17 08:00 06/13/17 07:59 Sodium Bicarbonate 100 meq/Sterile Water 1,100 ml @ 80 mls/hr [id number] IV 05/14/17 08:00 06/13/17 07:59 Insulin Glargine (Lantus Solostar Pen) 25 units BID SC 05/12/17 20:00 05/24/17 20:59 Enoxaparin Sodium (Lovenox Inj) 40 mg QAM SQ 05/13/17 08:00 06/12/17 07:59 Objective Vital Signs Date Time Temp Pulse Resp B/P (MAP) Pulse Ox O2 Delivery O2 Flow Rate FiO2 05/12/17 07:50 36.5 78 18 153/69 (97) 93 Room Air 05/12/17 00:20 Nasal Cannula 2.0 05/11/17 23:04 36.9 82 18 134/70 (91) 96 Nasal Cannula 2.0 05/11/17 16:32 37.4 80 18 155/74 (101) 97 Nasal Cannula 2.0 05/11/17 16:30 95 Room Air 05/11/17 16:05 80 20 154/64 96 Nasal Cannula 2 Oxymask 05/11/17 15:50 78 18 147/67 98 Nasal Cannula 2 Oxymask 05/11/17 15:40 36.5 76 18 148/71 96 Nasal Cannula 2 Oxymask 05/11/17 15:30 78 16 139/65 97 Nasal Cannula 2 Oxymask 05/11/17 15:20 78 20 119/62 97 Oxymask 10 05/11/17 15:10 82 20 130/60 98 Oxymask 10 05/11/17 15:02 36.5 82 16 145/67 97 Oxymask 10 Physical Exam General Appearance: WD/WN, no apparent distress Respiratory/Chest: chest non-tender, lungs clear, normal breath sounds, no respiratory distress, no accessory muscle use Cardiovascular: regular rate, rhythm, no edema, no gallop, no JVD, no murmur Abdomen: normal bowel sounds, non tender, soft, no organomegaly, no pulsatile mass Extremities: + pertinent finding (left foot with dressing and wound vac in place) Laboratory Results Last 24 Hours Test 05/11/17 11:44 05/11/17 15:08 05/11/17 16:25 05/11/17 20:27 Bedside Glucose 247 mg/dl 196 mg/dl 190 mg/dl 371 mg/dl Test 05/11/17 23:04 05/12/17 05:53 05/12/17 07:39 Bedside Glucose 333 mg/dl 250 mg/dl White Blood Count 5.72 K/uL Red Blood Count 3.44 M/uL Hemoglobin 10.0 g/dL Hematocrit 30.6 % Mean Corpuscular Volume 89.0 fL Mean Corpuscular Hemoglobin 29.1 pg Mean Corpuscular Hemoglobin Concent 32.7 g/dl RDW Standard Deviation 49.1 fL RDW Coefficient of Variation 15.1 % Platelet Count 198 K/uL Mean Platelet Volume 9.5 fL Sodium Level 136 mmol/L Potassium Level 3.9 mmol/L Chloride Level 101 mmol/L Carbon Dioxide Level 31 mmol/L Anion Gap 4.0 mmol/L Blood Urea Nitrogen 17 mg/dl Creatinine 1.52 mg/dl Est Creatinine Clear Calc Drug Dose 50.6 ml/min Estimated GFR () 53.0 Estimated GFR (Non- 45.8 BUN/Creatinine Ratio 11.3 Random Glucose 269 mg/dl Calcium Level 7.9 mg/dl Assessment and Plan Mr. 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 Sepsis secondary to necrotizing fasciitis of the left lower extremity - cleared for surgery by cardiology - thank you for the consult - post-op day 4 - Dr. Siddiqi performed a left fourth toe amputation, incision and drainage and placed a wound vac on 05/08 - he had a repeat I&D and wound vac exchange with Dr. Siddiqi yesterday - Dr. Rg on board - much appreciated --> ultrasound showed PVD with advanced atherosclerotic disease in both legs - left lower extremity with indices of 0.46 --> Dr. Rg will be performing an arteriography with possible intervention of the left lower extremity tomorrow to promote healing - continue IV Zosyn, pt will require a prolonged abx course - repeat blood cultures negative -> given he had 1 set of positive blood cultures for staph aureus, that this is the same bacteria that grew in his wound culture, with the same sensitivities , could have been bacteremia as opposed to contaminant -> given that he was possibly bacteremic on arrival and we are unsure of the duration of this bacteremia, and that is high risk with his AICD - will order TTE. if negative, will have to do ALEKSANDER to rule out seeding of his device/valves - wound cx - grew klebsiella oxytoca and group G beta strep - toe drainage grew staph aureus and alpha strep that are pansensitive Acute Kidney Injury - gentle rehydration (cautious with hx of CHF). Baseline Cr 1.2-1.4 - creatinine 1.52, yesterday was 1.57, slightly elevated from baseline - continue to monitor - Avoid nephrotoxins CAD s/p CABG & Chronic CHF with preserved EF - continue aspirin - Continue home doses of Amlodipine, Metoprolol and Atorvastatin COPD - Continue Ventolin, Advair and Spiriva. Duonebs q4h PRN as needed Type 2 Diabetes Mellitus - home meds held. - his sugar levels were high so changed insulin regimen to 25 Lantus bid as he was becoming hyperglycemic before receiving his daily dose of Lantus at night - tightened carb coverage to CF of 25 and carb ratio 1:7 - home dose was 48 units HS - SSI with AC/HS BSG . Depression - continue Doxepine DVT prophylaxis: SCDs and TEDs, Lovenox Code Status: Full Disposition: remains on med/surg, will need rehab on d/c Resident Physician Supervision Note: I interviewed and examined the patient. Discussed with Dr. Casas and agree with findings and plan as documented in the note. Any exceptions or clarifications are listed here: None Documented By: Tyler Maria feeling ok no new complaints. discussed concern on having to rule out endocarditis or lead wire infection - start w TTE. vitals noted nad breathing unlabored no pallor or icterus no trackign erythema sepsis from foot infection w bacteremia - as above. late addendum is that TTE was negative. given that he'll likely need LONG duration of abx, could consider foregoing ALEKSANDER, but with hardware in which infection of lead wires could definitively change prison management, seems prudent to need ALEKSANDER at some point in near future - will need to d/w cardiology further otherwise as above stable Resident Tracking Resident Involvement: Resident Care Provided Care Provided: Adult Hospital Medicine
[2017-05-12 07:50] VITALS: BP 153/69; PULSE 78; TEMP 36.5; O2SAT 93
[2017-05-12] MEDS ORDERED: INSULIN GLARGINE SOLOSTAR 100 UNITS/ML 3 ML PEN SC ONE (08:30)
[2017-05-12] MEDS: TIOTROPIUM BROMIDE 5 PUFF/90 MCG INH INH SCH (08:43)
[2017-05-12] MEDS: FLUTICASONE/SALMETEROL 250/50 (ADVAIR) 14 PUFF/1 INHALER INH SCH ×2 (08:43→20:30)
[2017-05-12] MEDS: DOCUSATE SODIUM 100 MG CAP PO SCH ×2 (08:44→20:28)
[2017-05-12] MEDS: INSULIN ASPART 100 UNITS/ML 3 ML PEN SC SCH ×4 (08:56→20:37)
[2017-05-12] MEDS ORDERED: ENOXAPARIN 40 MG/0.4 ML SYR SQ ONE (09:16)
[2017-05-12] MEDS: ASPIRIN 81 MG ECTAB PO SCH (10:15)
[2017-05-12] MEDS: PANTOprazole SOD 40 MG TAB PO SCH (10:15)
[2017-05-12] MEDS: METOPROLOL TARTRATE 50 MG TAB PO SCH ×2 (10:15→20:29)
[2017-05-12] MEDS: TAMSULOSIN HCL 0.4 MG CAP PO SCH (10:16)
[2017-05-12] MEDS: ISOSORBIDE MONONITRATE 60 MG TABCR PO SCH (10:16)
[2017-05-12] MEDS: AMLODIPINE BESYLATE 5 MG TAB PO SCH (10:17)
[2017-05-12] MEDS: MULTIVITAMIN TAB PO SCH (10:17)
[2017-05-12] MEDS: ATORVASTATIN 20 MG TAB PO SCH (10:17)
[2017-05-12] MEDS ORDERED: VANCOMYCIN TROUGH ONE (13:30)
--- NOTE | 2017-05-12 13:42 | ECHOCARDIOGRAM REPORT ---
*NOTICE TO RECEIVING LIBERTARIAN AGENCY This information is strictly Confidential and protected under [place] law. [place] law prohibits you from making any further disclosure of this information unless further disclosure is expressly permitted by the written consent of the person to whom it pertains or is authorized by law. A general authorization for the release of medical or other information is not sufficient for this purpose. Hospital accepts no responsibility if the information is made available to any other person, INCLUDING THE PATIENT. Interpretation Summary * Name: ZEINA WALLACE Study Date: 05/12/2017 09:40 AM BP: 153/69 mmHg * Patient Location: C.4E\S\E408\S\1 HR: 78 * : 1945 (M/d/yyyy) Gender: Male Height: 70 in * Age: 72 yrs Ethnicity: [place] Weight: 194 lb * Ordering Physician: Tyler Maria * Referring Physician: Self, Referred * Performed By: Kayley Garcia RDCS * * Reason For Study: Endocarditis * BSA: 2.1 m2 * The study was technically adequate. * Compared to prior study, there is no significant change. * There is no evidence of a mass or vegetation. This does not rule out endocarditis. * -- Conclusions -- * Ejection Fraction = 55-60%. * The base inferior and posterior herbert are mildly hypokinetic. * There is a pacemaker lead in the right ventricle. * There is no significant valvular disease Procedure Details * A complete two-dimensional transthoracic echocardiogram was performed (2D, M-mode, Doppler and color flow Doppler). * A contrast injection of Definity was performed to improve assessment of LV function. * Contrast was injected into an intravenous site in the right arm. * One vial of Definity ultrasound contrast was diluted in normal saline to a total volume of 10 ml. A total of '3' ml of solution was administered during imaging. * Lot # [id number] of Definity utilized for procedure. * Expiration date MAY 28. * The attending nurse who injected the contrast agent was Opal Montiel RN. Left Ventricle * The left ventricle is normal in size. * There is normal left ventricular wall thickness. * Ejection Fraction = 55-60%. * Left ventricular systolic function is normal. * The base inferior and posterior herbert are mildly hypokinetic. Right Ventricle * The right ventricle is normal size. * There is a pacemaker lead in the right ventricle. * The right ventricular systolic function is normal as assessed by tricuspid annular plane systolic excursion (TAPSE) (normal >1.5 cm). Atria * The left atrial size is normal. * Right atrial size is normal. * There is no evidence of atrial septal defect, but resolution does not allow assessment for a patent foramen ovale. Mitral Valve * The mitral valve is not well visualized. * There is moderate mitral annular calcification. * There is no mitral valve stenosis. * Significant mitral regurgitation is absent. Tricuspid Valve * The tricuspid valve is not well visualized. * There is no tricuspid stenosis. * Significant tricuspid regurgitation is absent. Aortic Valve * The aortic valve is trileaflet. * Aortic stenosis is absent. * There is no significant aortic regurgitation. Pulmonic Valve * The pulmonary valve is not well seen, but the Doppler examination is normal without significant regurgitation or stenosis. Great Vessels * The aortic root and proximal ascending aorta are normal sized. Pericardium/Pleural * There is no pericardial effusion. Great Vessels * Normal inferior vena cava diameter and respiratory variation suggests normal central venous pressure. Left Ventricular Diastolic Function * Pulse wave TDI of the anterior and posterior mitral annulas demonstrates normal LV relaxation MMode 2D Measurements and Calculations IVSd 1.1 cm LVIDd 5.2 cm LVIDs 3.7 cm LVPWd 1.1 cm IVS/LVPW 0.95 FS 29.4 % EDV(Teich) 129.8 ml ESV(Teich) 57.2 ml EF(Teich) 56.0 % EDV(cubed) 141.0 ml ESV(cubed) 49.6 ml EF(cubed) 64.8 % LV mass(C)d 223.3 grams LV mass(C)dI 108.4 grams/m\S\2 SV(Teich) 72.6 ml SI(Teich) 35.2 ml/m\S\2 SV(cubed) 91.4 ml SI(cubed) 44.4 ml/m\S\2 Ao root diam 3.4 cm Ao root area 9.2 cm\S\2 ACS 2.1 cm LA dimension 3.6 cm asc Aorta Diam 3.1 cm LA/Ao 1.1 LVOT diam 2.0 cm LVOT area 3.2 cm\S\2 LVAd ap4 35.6 cm\S\2 LVLd ap4 8.0 cm EDV(MOD-sp4) 128.9 ml EDV(sp4-el) 134.1 ml LVAs ap4 21.1 cm\S\2 LVLs ap4 6.9 cm ESV(MOD-sp4) 54.1 ml ESV(sp4-el) 54.5 ml EF(MOD-sp4) 58.0 % EF(sp4-el) 59.3 % LVAd ap2 31.5 cm\S\2 LVLd ap2 7.3 cm EDV(MOD-sp2) 113.3 ml EDV(sp2-el) 115.2 ml LVAs ap2 20.8 cm\S\2 LVLs ap2 6.9 cm ESV(MOD-sp2) 49.9 ml ESV(sp2-el) 52.8 ml EF(MOD-sp2) 56.0 % EF(sp2-el) 54.1 % LVLd %diff -9.65 % EDV(MOD-bp) 127.3 ml LVLs %diff -0.12 % ESV(MOD-bp) 51.7 ml EF(MOD-bp) 59.4 % SV(MOD-sp4) 74.8 ml SI(MOD-sp4) 36.3 ml/m\S\2 SV(MOD-sp2) 63.4 ml SI(MOD-sp2) 30.8 ml/m\S\2 SV(MOD-bp) 75.6 ml SI(MOD-bp) 36.7 ml/m\S\2 SV(sp4-el) 79.5 ml SI(sp4-el) 38.6 ml/m\S\2 SV(sp2-el) 62.3 ml SI(sp2-el) 30.3 ml/m\S\2 Doppler Measurements and Calculations MV E max manan 81.0 cm/sec MV A max manan 73.7 cm/sec MV E/A 1.1 MV dec time 0.19 sec Ao V2 max 117.3 cm/sec Ao max PG 5.5 mmHg Ao max PG (full) 1.7 mmHg LUPE(V,A) 2.7 cm\S\2 LUPE(V,D) 2.7 cm\S\2 LV V1 max PG 3.8 mmHg LV V1 max 98.0 cm/sec PA V2 max 92.3 cm/sec PA max PG 3.4 mmHg PA acc slope 542.1 cm/sec\S\2 PA acc time 0.11 sec TR max manan 188.7 cm/sec PA pr(Accel) 29.9 mmHg
[2017-05-12 14:51] VITALS: BP 162/74; PULSE 75; TEMP 37.1; O2SAT 91
--- NOTE | 2017-05-12 15:01 | Orthopedic Progress Note ---
Orthopedic Progress Note Date of Service May 12, 2017. Subjective Post OP Day: POD #1 s/p Repeat I&D L foot with repeat wound vac placement , POD # 4 s/p $th Toe amp, L foot I&D, wound Vac placement Reports: feeling well, Denies: complaints Objective calves soft nontender, dressing C/D/I, A&O x3, toes mobile Neurovascularly unchanged. Wound vac in place. Date Time Temp Pulse Resp B/P (MAP) Pulse Ox O2 Delivery O2 Flow Rate FiO2 05/12/17 09:00 Nasal Cannula 2.0 05/12/17 07:50 36.5 78 18 153/69 (97) 93 Room Air 05/12/17 00:20 Nasal Cannula 2.0 05/11/17 23:04 36.9 82 18 134/70 (91) 96 Nasal Cannula 2.0 05/11/17 16:32 37.4 80 18 155/74 (101) 97 Nasal Cannula 2.0 05/11/17 16:30 95 Room Air 05/11/17 16:05 80 20 154/64 96 Nasal Cannula 2 Oxymask 05/11/17 15:50 78 18 147/67 98 Nasal Cannula 2 Oxymask 05/11/17 15:40 36.5 76 18 148/71 96 Nasal Cannula 2 Oxymask 05/11/17 15:30 78 16 139/65 97 Nasal Cannula 2 Oxymask 05/11/17 15:20 78 20 119/62 97 Oxymask 10 05/11/17 15:10 82 20 130/60 98 Oxymask 10 05/11/17 15:02 36.5 82 16 145/67 97 Oxymask 10 Laboratory Results 24 Hours: Test 05/12/17 05:53 Hematocrit 30.6 % Hemoglobin 10.0 g/dL Assessment & Plan Assessment: POD # 1 S/P repeat I&D L foot and wound vac placement. POD # 4 -status post left fourth toe/ray amputation/resection, I&D of left foot abscess, wound VAC placement. Plan: Cont PO pain meds Cont IV ABX As prescribed May be out of bed, weightbearing as tolerated on his left heel. Keep dressings intact. Keep wound VAC in place 125 mmHg continuous. Wound VAC nurse consulted, wound VAC currently functioning well. Postop shoe left foot when out of bed. May need a walker to assist with ambulation. Continue elevation for swelling Continue diabetic diet. Restart Lovenox. Hold for after Sunday's dose for anticipation of surgery by Dr. Rg on Sunday. Continue care per primary service.
[2017-05-12 16:00] VITALS: O2SAT 96
[2017-05-12 17:09] VITALS: O2SAT 92
[2017-05-12] MEDS: DOXEPIN HCL 50 MG CAP PO SCH (20:30)
[2017-05-12] MEDS: INSULIN GLARGINE SOLOSTAR 100 UNITS/ML 3 ML PEN SC SCH (20:37)
[2017-05-12 22:47] VITALS: BP 153/65; PULSE 77; TEMP 36.7; O2SAT 90
[2017-05-13] MEDS: PIPERACILL/TAZOBAC IV 4.5 GM in DEXTROSE 5% 100ML 100 ML IV SCH ×3 (01:07→16:23)
--- NOTE | 2017-05-13 04:09 | NUR ---
ID: Patient alert & oriented x 4. VSS. No c/o pain. O2 sats stable on RA. No c/o SOB or chest pain. LLE amputation site dressing dry & intact. OOB with assist of 1 & walker. D/C plan & date uncertain @ this time. Will continue to monitor.
[2017-05-13 07:21] LABS: CALCIUM 8.3 mg/dl (8.5-10.1); CREATININE 1.38 mg/dl (0.60-1.40); POTASSIUM 3.7 mmol/L (3.5-5.1)
[2017-05-13 07:22] VITALS: BP 169/86; PULSE 80; TEMP 36.7; O2SAT 93
--- NOTE | 2017-05-13 07:43 | Family Medicine Progress Note ---
Progress Note Date of Service May 13, 2017. Subjective Pt evaluation today including: conversation w/ patient, physical exam, chart review, lab review, review of inpatient medication list Pain: No pain reported PO Intake: Tolerating PO intake Voiding: no voiding problems Mr. Frank reports he feels well today, and has no new complaints. Constitutional: No fever, No chills Respiratory: No cough, No sputum, No wheezing, No shortness of breath Cardiovascular: No chest pain Abdomen: No pain, No nausea, No vomiting, No diarrhea All Other Systems: Reviewed and Negative Medications Current Inpatient Medications Medications (Trade) Dose Ordered Sig/Elsie Route Start Time Stop Time Status Last Admin Dose Admin Acetaminophen (Tylenol Tab) 650 mg Q4H PRN PO 05/07/17 23:15 06/06/17 23:14 Al Hydrox/Mg Hydrox/Simethicone (Maalox Max Susp) 15 ml Q4H PRN PO 05/07/17 23:15 06/06/17 23:14 Magnesium Hydroxide (Milk Of Magnesia Susp) 30 ml Q12H PRN PO 05/07/17 23:15 06/06/17 23:14 Ondansetron HCl (Zofran Inj) 4 mg Q6H PRN IV 05/07/17 23:15 06/06/17 23:14 Morphine Sulfate (MoRPHine SULFATE INJ) 2 mg Q30M PRN IV 05/07/17 23:15 05/21/17 23:14 Polyethylene (Miralax Powder Packet) 17 gm DAILY PRN PO 05/07/17 23:15 06/06/17 23:14 Albuterol (Ventolin Hfa Inhaler) 2 puffs Q4 PRN INH 05/07/17 23:45 06/06/17 23:44 Amlodipine Besylate (Norvasc Tab) 5 mg DAILY PO 05/08/17 09:00 06/07/17 08:59 05/12/17 10:17 5 MG Aspirin (Ecotrin Tab) 81 mg DAILY PO 05/08/17 09:00 06/07/17 08:59 Future hold 05/12/17 10:15 81 MG Atorvastatin Calcium (Lipitor Tab) 20 mg DAILY PO 05/08/17 09:00 06/07/17 08:59 05/12/17 10:17 20 MG Doxepin HCl ([place] Cap) 100 mg HS PO 05/08/17 21:00 06/07/17 20:59 05/12/17 20:30 100 MG Salmeterol Xinafoate/ Fluticasone (Advair Diskus 250/50 Inh) 1 puff BID INH 05/08/17 09:00 06/07/17 08:59 05/12/17 20:30 1 PUFF Isosorbide Mononitrate (Imdur Ext Rel Tab) 60 mg QAM PO 05/08/17 09:00 06/07/17 08:59 05/12/17 10:16 60 MG Metoprolol Tartrate (Lopressor Tab) 75 mg BID PO 05/08/17 09:00 06/07/17 08:59 05/12/17 20:29 75 MG Tamsulosin HCl (Flomax Cap) 0.4 mg QAM PO 05/08/17 09:00 06/07/17 08:59 05/12/17 10:16 0.4 MG Tiotropium [place] (Spiriva Handihaler Inhaler) 1 puff DAILY INH 05/08/17 09:00 06/07/17 08:59 05/12/17 08:43 1 PUFF Tramadol HCl (Ultram Tab) 50 mg Q6 PRN PO 05/07/17 23:45 06/06/17 23:44 Pantoprazole Sodium (Protonix Tab) 40 mg QAM PO 05/08/17 09:00 06/07/17 08:59 05/12/17 10:15 40 MG Albuterol/ Ipratropium (Duoneb) 3 ml Q4H PRN INH 05/08/17 00:00 06/07/17 00:00 Glucose (Glucose 40% Gel) 15-30 GRAMS 15 GRAMS... UD PRN PO 05/08/17 00:15 06/07/17 00:14 Glucose (Glucose Chew Tab) 4-8 Tablets 4 Tabl... UD PRN PO 05/08/17 00:15 06/07/17 00:14 Dextrose (Dextrose 50% 50ML Syringe) 25-50ML OF 50% DW IV FOR... UD PRN IV 05/08/17 00:15 06/07/17 00:14 Glucagon (Glucagon Inj) 1 mg UD PRN SQ 05/08/17 00:15 06/07/17 00:14 Acetaminophen/ Hydrocodone Bitart ([place] 5/325 Tab) 1-2 TABS FOR PAIN 1 TABLET ... Q6H PRN PO 05/08/17 18:00 05/22/17 17:59 Docusate Sodium (coLACE CAP) 100 mg BID PO 05/08/17 21:00 06/07/17 20:59 05/12/17 20:28 100 MG Multivitamins (Multivitamin Tab) 1 tab QAM PO 05/09/17 09:00 06/08/17 08:59 05/12/17 10:17 1 TAB Insulin Aspart (novoLOG ASPART) SLIDING SCALE G... ACHS SC 05/09/17 16:35 06/08/17 16:34 05/12/17 20:37 1 UNITS Piperacillin Sod/ Tazobactam Sod 4.5 gm/Dextrose 120 ml @ 200 mls/hr Q8H IV 05/10/17 22:00 05/20/17 21:59 05/13/17 01:07 200 MLS/HR Piperacillin Sod/ Tazobactam Sod (Consult) 1 ea UD PRN N/A 05/10/17 14:15 06/09/17 14:14 Acetylcysteine (Acetylcysteine Cap) 600 mg Q12H PO 05/13/17 18:00 05/15/17 06:01 Sodium Chloride 1,000 ml @ 88 mls/hr [id number] IV 05/14/17 08:00 06/13/17 07:59 Sodium Bicarbonate 100 meq/Sterile Water 1,100 ml @ 80 mls/hr [id number] IV 05/14/17 08:00 06/13/17 07:59 Insulin Glargine (Lantus Solostar Pen) 25 units BID SC 05/12/17 20:00 05/24/17 20:59 05/12/17 20:37 25 UNITS Enoxaparin Sodium (Lovenox Inj) 40 mg QAM SQ 05/13/17 08:00 06/12/17 07:59 Objective Vital Signs Date Time Temp Pulse Resp B/P (MAP) Pulse Ox O2 Delivery O2 Flow Rate FiO2 05/13/17 07:22 36.7 80 16 169/86 (113) 93 Room Air 05/13/17 00:25 Room Air 05/12/17 22:47 36.7 77 18 153/65 (94) 90 Room Air 05/12/17 17:09 92 Room Air 05/12/17 16:00 96 Room Air 05/12/17 14:51 37.1 75 18 162/74 (103) 91 05/12/17 09:00 Nasal Cannula 2.0 Physical Exam General Appearance: WD/WN, no apparent distress Respiratory/Chest: chest non-tender, lungs clear, normal breath sounds, no respiratory distress, no accessory muscle use Cardiovascular: regular rate, rhythm, no edema, no gallop, no JVD, no murmur Abdomen: normal bowel sounds, non tender, soft, no organomegaly, no pulsatile mass Extremities: + pertinent finding (left foot wrapped in bandage with wound vac draining scant dark brown fluid) Laboratory Results Last 24 Hours Test 05/12/17 12:03 05/12/17 17:02 05/12/17 20:00 05/13/17 06:06 Bedside Glucose 320 mg/dl 257 mg/dl 204 mg/dl Sodium Level 135 mmol/L Potassium Level 3.7 mmol/L Chloride Level 100 mmol/L Carbon Dioxide Level 31 mmol/L Anion Gap 4.0 mmol/L Blood Urea Nitrogen 14 mg/dl Creatinine 1.38 mg/dl Est Creatinine Clear Calc Drug Dose 55.7 ml/min Estimated GFR () 59.6 Estimated GFR (Non- 51.4 BUN/Creatinine Ratio 10.3 Random Glucose 225 mg/dl Calcium Level 8.3 mg/dl Test 05/13/17 07:38 Bedside Glucose 216 mg/dl Assessment and Plan Mr. 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 Sepsis secondary to necrotizing fasciitis of the left lower extremity - cleared for surgery by cardiology - thank you for the consult - post-op day 5 - Dr. Siddiqi performed a left fourth toe amputation, incision and drainage and placed a wound vac on 05/08 - he had a repeat I&D and wound vac exchange with Dr. Siddiqi 2 days ago - Dr. Rg on board - much appreciated --> ultrasound showed PVD with advanced atherosclerotic disease in both legs - left lower extremity with indices of 0.46 --> Dr. Rg will be performing an arteriography with possible intervention of the left lower extremity tomorrow to promote healing - continue IV Zosyn, pt will require a prolonged abx course - repeat blood cultures negative -> TTE showed no evidence of mass or vegetation - does not definitively rule out endocarditis though -> will discuss with cardiology as to whether he will require a ALEKSANDER given he will already be on a long course of abx for his foot infection Acute Kidney Injury - creatinine 1.38, back to baseline (Baseline Cr 1.2-1.4) - continue to monitor CAD s/p CABG & Chronic CHF with preserved EF - continue aspirin - Continue home doses of Amlodipine, Metoprolol and Atorvastatin COPD - Continue Ventolin, Advair and Spiriva. Duonebs q4h PRN as needed Type 2 Diabetes Mellitus - home meds held. - continue 25 Lantus bid and SS w/tightened carb coverage of CF of 25 and carb ratio 1:7 - home dose was 48 units HS - SSI with AC/HS BSG . Depression - continue Doxepine DVT prophylaxis: SCDs and TEDs, Lovenox Code Status: Full Disposition: remains on med/surg, will need rehab on d/c Resident Physician Supervision Note: I interviewed and examined the patient. Discussed with Dr. Casas and agree with findings and plan as documented in the note. Any exceptions or clarifications are listed here: None Documented By: Tyler Maria sleeping comfortably. no new problems. awaiting surgery again tomorrow echo noted vitals noted nad breathing unlabored no pallor or icterus sepsis/bacteremia/severe foot infection related to PVD and DM neuropathy - stable on current abx. will need to d/w cardiology re ?utility of ALEKSANDER if wire doesn't appear to have vegetations and duration of abx is likely to match or exceed what would be needed for endocarditis. but unclear about sensitivity of TTE for wire/hardware vegetations. stable on current abx. otherwise as above Resident Tracking Resident Involvement: Resident Care Provided Care Provided: Adult [facility]
[2017-05-13] MEDS: FLUTICASONE/SALMETEROL 250/50 (ADVAIR) 14 PUFF/1 INHALER INH SCH ×2 (08:46→20:44)
[2017-05-13] MEDS: MULTIVITAMIN TAB PO SCH (08:47)
[2017-05-13] MEDS: ATORVASTATIN 20 MG TAB PO SCH (08:47)
[2017-05-13] MEDS: ISOSORBIDE MONONITRATE 60 MG TABCR PO SCH (08:47)
[2017-05-13] MEDS: ASPIRIN 81 MG ECTAB PO SCH (08:47)
[2017-05-13] MEDS: TIOTROPIUM BROMIDE 5 PUFF/90 MCG INH INH SCH (08:47)
[2017-05-13] MEDS: METOPROLOL TARTRATE 50 MG TAB PO SCH ×2 (08:48→20:45)
[2017-05-13] MEDS: PANTOprazole SOD 40 MG TAB PO SCH (08:48)
[2017-05-13] MEDS: DOCUSATE SODIUM 100 MG CAP PO SCH ×2 (08:49→20:45)
[2017-05-13] MEDS: AMLODIPINE BESYLATE 5 MG TAB PO SCH (08:49)
[2017-05-13] MEDS: TAMSULOSIN HCL 0.4 MG CAP PO SCH (08:49)
[2017-05-13] MEDS: INSULIN ASPART 100 UNITS/ML 3 ML PEN SC SCH ×4 (09:02→20:39)
[2017-05-13] MEDS: INSULIN GLARGINE SOLOSTAR 100 UNITS/ML 3 ML PEN SC SCH ×2 (09:05→20:40)
[2017-05-13] MEDS: ENOXAPARIN 40 MG/0.4 ML SYR SQ SCH (09:05)
[2017-05-13 15:55] VITALS: BP 166/78; PULSE 79; TEMP 37.1; O2SAT 94
[2017-05-13] MEDS ORDERED: INSULIN ASPART 100 UNITS/ML 3 ML PEN SC ONE (18:00)
[2017-05-13] MEDS: ACETYLCYSTEINE 600 MG CAP PO SCH (18:19)
[2017-05-13] MEDS: DOXEPIN HCL 50 MG CAP PO SCH (20:46)
[2017-05-14] VITALS (10 sets, daily range): BP systolic 132–169; BP diastolic 71–83; PULSE 67–78; TEMP 36.3–37.2; O2SAT 93–95; Ht 177.8 cm; Wt 88.2 kg
[2017-05-14] MEDS: PIPERACILL/TAZOBAC IV 4.5 GM in DEXTROSE 5% 100ML 100 ML IV SCH ×3 (00:37→16:31)
--- NOTE | 2017-05-14 03:11 | NUR ---
ID: Patient alert & oriented x 4. VSS. No c/o pain. O2 sats stable on RA. No c/o SOB or chest pain. LLE amputation site dressing dry & intact. NPO at this time for procedure. OOB with assist of 1 & walker. D/C plan & date uncertain @ this time. Will continue to monitor.
[2017-05-14] MEDS: ACETYLCYSTEINE 600 MG CAP PO SCH ×2 (06:22→18:13)
--- NOTE | 2017-05-14 07:37 | Anesthesiology Progress Note ---
Anesthesia Post Op Note Date & Time May 14, 2017 at 07:36 Vital Signs Pain Intensity: 0.0 Vital Signs Past 12 Hours Date Time Temp Pulse Resp B/P (MAP) Pulse Ox O2 Delivery O2 Flow Rate FiO2 05/14/17 07:06 36.8 78 18 161/76 (104) 93 Room Air 05/14/17 01:03 37.2 78 18 163/72 (102) 93 Room Air 05/14/17 00:20 Room Air Notes Mental Status: alert / awake / arousable, participated in evaluation Pt Amnestic to Procedure: Yes Nausea / Vomiting: adequately controlled Pain: adequately controlled Airway Patency, RR, SpO2: stable & adequate BP & HR: stable & adequate Hydration State: stable & adequate Anesthetic Complications: no major complications apparent
[2017-05-14] MEDS: ASPIRIN 81 MG ECTAB PO SCH (08:00)
[2017-05-14] MEDS: DOCUSATE SODIUM 100 MG CAP PO SCH ×2 (08:00→20:56)
[2017-05-14] MEDS ORDERED: SODIUM CHLORIDE 0.9% 1000ML 1,000 ML IV SCH (08:00)
[2017-05-14] MEDS: METOPROLOL TARTRATE 50 MG TAB PO SCH ×2 (08:00→20:58)
[2017-05-14] MEDS ORDERED: SODIUM BICARBONATE 8.4% INJ 100 MEQ in STERILE WATER 1000 ML 1,000 ML IV SCH (08:00)
[2017-05-14] MEDS: TIOTROPIUM BROMIDE 5 PUFF/90 MCG INH INH SCH (08:02)
[2017-05-14] MEDS: TAMSULOSIN HCL 0.4 MG CAP PO SCH (08:02)
[2017-05-14] MEDS: FLUTICASONE/SALMETEROL 250/50 (ADVAIR) 14 PUFF/1 INHALER INH SCH ×2 (08:03→20:56)
[2017-05-14] MEDS: MULTIVITAMIN TAB PO SCH (08:03)
[2017-05-14] MEDS: AMLODIPINE BESYLATE 5 MG TAB PO SCH (08:03)
[2017-05-14] MEDS: ATORVASTATIN 20 MG TAB PO SCH (08:03)
[2017-05-14] MEDS: ISOSORBIDE MONONITRATE 60 MG TABCR PO SCH (08:03)
[2017-05-14] MEDS: PANTOprazole SOD 40 MG TAB PO SCH (08:03)
[2017-05-14] MEDS: INSULIN ASPART 100 UNITS/ML 3 ML PEN SC SCH ×4 (08:23→21:01)
[2017-05-14] MEDS: INSULIN GLARGINE SOLOSTAR 100 UNITS/ML 3 ML PEN SC SCH ×2 (08:24→21:01)
[2017-05-14] MEDS ORDERED: NURSING VERBAL MED ORDER ONE (08:30)
--- NOTE | 2017-05-14 13:06 | Orthopedic Progress Note ---
Orthopedic Progress Note Date of Service May 14, 2017. Subjective Post OP Day: 2 (Also post op Day 5 from intitial amputation; I&D; wound vac placement) Reports: feeling well, pain controlled w PO medications, Denies: complaints, chest pain, SOB, nausea / vomiting, light headedness, calf pain, using [employer] Objective calves soft nontender, incision C/D/I, A&O x3, toes mobile, CMS intact Patient is able to depict light sensation to touch in Left foot. Wound care nurse changing dressing. Wound appears to be healing well. Sutures intact. Slight maceration to closure sites on plantar surface. No tenderness. Continuation of venous stasis dermatitis to lower extremities from severe vascular compromise. Cap refill unable to be checked due to onychomycotic nails. Periph pulses faintly palpable. Date Time Temp Pulse Resp B/P (MAP) Pulse Ox O2 Delivery O2 Flow Rate FiO2 05/14/17 08:25 Room Air 05/14/17 07:06 36.8 78 18 161/76 (104) 93 Room Air 05/14/17 01:03 37.2 78 18 163/72 (102) 93 Room Air 05/14/17 00:20 Room Air 05/13/17 16:00 Room Air 05/13/17 15:55 37.1 79 18 166/78 (107) 94 Room Air Assessment & Plan Assessment: POD # 2 S/P repeat I&D L foot and wound vac placement. POD # 5 -status post left fourth toe/ray amputation/resection, I&D of left foot abscess, wound VAC placement. Plan: Cont PO pain meds Cont IV ABX As prescribed May be out of bed, weightbearing as tolerated on his left heel. Keep dressings intact. Keep wound VAC in place 125 mmHg continuous. Wound VAC nurse was present doing dressing and wound VAC change. Postop shoe left foot when out of bed. May need a walker to assist with ambulation. Continue elevation for swelling Continue diabetic diet. Restart Lovenox tomorrow. Hold for after Sunday's dose for anticipation of surgery by Dr. Rg later today. Continue care per primary service. Will Discuss findings with Dr. Siddiqi. I, Dr. Siddiqi, saw and examined the patient and discussed the management with my PA. I reviewed my PAs note and agree with the documented findings and the plan of care I developed.
[2017-05-14] MEDS ORDERED: MIDAZOLAM HCL 1 MG/ML 2ML VIAL ONE (14:02)
[2017-05-14] MEDS ORDERED: HEPARIN SOD (PORCINE) 1000 UNIT/ML 10 ML VIAL ONE (14:02)
[2017-05-14] MEDS ORDERED: FENTANYL CITRATE INJ 50 MCG/1 ML 2 ML VIAL ONE (14:02)
--- NOTE | 2017-05-14 14:11 | NUR ---
CWOCN: WOUND VAC TO LEFT DISTAL/LATERAL FOOT CHANGED. FOUND LAYERS OF IODOBAN WERE ALSO PLACED OVER VAC DRESSING IN ADDITION TO VAC DRAPE. FOUND TRAC PAD OVER WOUND, FOAM NOT UNDER TRAC PAD DISC. FOUND PLANTAR FOOT SUTURE LINE MODERATELY MACERATED. FOUND DISTAL WOUND EDGE MACERATED. COVERED THESE SITES WITH AQUACEL AG. VAC DRESSING APPLIED. VAC SET TO -125MMHG CONTINUOUS MODE. WILL NEED TO FOLLOW-UP AT [facility].
--- NOTE | 2017-05-14 14:13 | Progress Note ---
Progress Note Date of Service May 14, 2017. Progress Note Patient for left leg angio with possible intervention. I have discussed the risks options and benefits of the procedure with the patient. The patient understands the risks options and benefits and agrees to the procedure. I have examined the patient, reviewed the History & Physical and in the interval since the performance of the History & Physical I have noted the following changes of clinical significance: No changes noted
--- NOTE | 2017-05-14 14:14 | Procedure Note ---
Pre-Mod Sedation Assessment General Date of Moderate Sedation: May 14, 2017. Vital Signs: Vital Signs Past 12 Hours Date Time Temp Pulse Resp B/P (MAP) Pulse Ox O2 Delivery O2 Flow Rate FiO2 05/14/17 14:07 36.8 78 18 161/76 93 Room Air 2.0 05/14/17 08:25 Room Air 05/14/17 07:06 36.8 78 18 161/76 (104) 93 Room Air Pre-Sedation Airway Assessment Oral Cavity: Dental Abnormalities Short Thick Neck: No Hx of Sleep Apnea: Yes Smoking Status: Former Smoker Mallampati Classification: Class I ASA Classification: Class III Notes The planned sedation has been discussed with the patient and consent obtained. I have identified the patient, determined the appropriateness of sedation and have assessed the patient immediately prior to the procedure. All medicine(s) and interventions are by my order.
--- NOTE | 2017-05-14 14:15 | Medical Consult ---
Consultation Note Date of Service May 14, 2017. Consultation Note May 11, 2017. Chief Complaint Peripheral artery occlusive disease with gangrenous toe left foot History of Present Illness The patient is a 72 year old male who presented to the emergency department where a gangrenous toe left foot. He had the toe amputation performed. At the time of the amputation the bleeding was extremely poor. He subsequently underwent noninvasive testing which suggested peripheral occlusive disease of the left lower extremity with indices of 0.46. He is known to have congestive heart failure, COPD, coronary artery disease, status post coronary artery bypass grafting, diabetes mellitus, peripheral neuropathy, hypertension, and depression. He is to be taken back to the operating room today for wound VAC change and further debridement if needed. Vitals Vital Signs Past 12 Hours Date Time Temp Pulse Resp B/P (MAP) Pulse Ox O2 Delivery O2 Flow Rate FiO2 05/11/17 08:45 Room Air 05/11/17 07:28 36.5 76 18 150/74 (99) 90 Allergies Coded Allergies: No Known Allergies (Verified , 11/06/16) Home Medications Scheduled Amlodipine (Norvasc), 5 MG PO DAILY Aspirin (Aspirin 81), 81 MG PO DAILY Atorvastatin (Lipitor), 20 MG PO DAILY Doxepin Hcl (Doxepin), 100 MG PO HS Fluticasone Prop/Salmeterol (Advair Diskus 250/50 60 Dose), 1 PUFF INH BID Glipizide Xl (Glucotrol Xl), 10 MG PO BID Insulin Glargine (Lantus Solostar), 48 UNITS SQ QPM Isosorbide Mononitrate Ext Rel (Imdur Ext Rel), 60 MG PO QAM Metoprolol Tartrate (Lopressor) (Lopressor), 75 MG PO BID Omeprazole (Prilosec), 20 MG PO DAILY Tamsulosin Hcl (Flomax), 0.4 MG PO QAM Tiotropium [place] (Spiriva Handihaler), 1 CAP INH DAILY Scheduled PRN Albuterol Hfa (Ventolin Hfa), 2 PUFFS INH Q4 PRN for SOB/Wheezing Ipratropium-Albuterol (Duoneb), 1 TREATMENT INH Q4H PRN for SOB/Wheezing Tramadol (Ultram), 50 MG PO Q6 PRN for Pain Problem List Medical Problems: (1) CHF exacerbation (2) COPD exacerbation (3) Diabetes (4) Hypertension Surgical / Medical History Hx Cardiac Surgery: Yes (CABG X2, PACER/ICD) Hx Abdominal Surgery: No Hx Cancer Surgery: No Hx Thoracic Surgery: No Hx Orthopedic: Yes (SPINAL FUSION) Hx Urinary Tract Surgery: No Past Medical/Surgical History: ASHD, CABG, CHF, COPD, Depression, Diabetes Family History FH: aneurysm FH: coronary artery disease FH: myocardial infarction Social History Smoking Status: Former Smoker Hx Tobacco Use In Past Year?: No Hx Alcohol Use - Type & Amnt: No Hx Substance Use -Type & Amnt: No ROS: Vascular H&P v2 Review of Systems Respiratory: No cough, No cyanosis, No MEJIA, No hemoptysis, No orthopnea, No PND , No short of breath, No sputum production, No stridor, No wheezing, No dyspnea , No problem reported Cardiovascular: No chest pain, No chest tightness, No chest pressure, No palpitations, No syncope, No diaphoresis, No edema, No intermittent claudication , No orthopnea, No cyanosis, No mumur, No lightheadedness, No paroxysmal nocturnal dyspnea, No problem reported Gastrointestinal: No abdominal pain, No constipation, No diarrhea, No nausea, No vomiting, No anorexia, No appetite changes, No belching, No flatulence, No food intolerance, No hematemesis, No hemorrhoids, No hematochezia, No stool changes, No heartburn, No indigestion, No dysphagia, No rectal bleeding, No problem reported Musculoskeletal: No back pain, No gout, No joint pain, No joint swelling, No muscle pain, No muscle stiffness, No muscle weakness, No neck pain, No problem reported Neurologic: + paresthesia Psychiatric: + depression Physical Ex: Vascular H&P v2 Physical Exam Constitutional: General Apperance: well-nourished, well-developed Level of Distress: NAD Ambulation: ambulating normally Psychiatric: Mental Status: active & alert, normal mood, normal affect Orientation: oriented except where noted, to time, to place, to person Memory: recent memory normal, remote memory normal Neck: supple Lungs: Auscultation: breath sounds normal Cardiovascular: Heart Auscultation: RRR Peripheral Pulses: Carotid Pulse: normal on the left, normal on the right Radial Pulse: normal on the left, normal on the right Femoral Pulse: normal on the left, normal on the right Posterior Tibialis Pulse: absent on the left, absent on the right Dorsalis Pedis Pulse: absent on the left, absent on the right Abdomen: Inspection & Palpation: soft Musculoskeletal: normal Extremities: Upper Right: no cyanosis, no edema, no varicosities, no palpable cord, no clubbing, no ulcers, no mottling Upper Left: no cyanosis, no edema, no varicosities, no palpable cord, no clubbing, no ulcers, no mottling Lower Right: no cyanosis, no edema, no varicosities, no palpable cord, no clubbing, no ulcers, no mottling Lower Left: no cyanosis, no edema, no varicosities, no palpable cord, no clubbing, no ulcers, no mottling Neurologic: Cranial Nerves: grossly intact A&P: Vascular H&P v2 Assessment and Plan Impression: 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 Impression: Due to the noninvasive results I would recommend we do arteriography with possible intervention of the left lower extremity. This will be scheduled for Sunday. The patient understands the risks options and benefits and agrees to go ahead with this procedure. I would continue the local care that is being given at this time. Thank you very much for letting me participate in the care of this patient.
--- NOTE | 2017-05-14 14:18 | Family Medicine Progress Note ---
Progress Note Date of Service May 14, 2017. Subjective Pt evaluation today including: conversation w/ patient, physical exam, chart review, lab review, review of studies Spoke with patient early this morning before his vascular procedure. At that time, he was resting in bed and without any acute complaint. When dried blood was noted on his nose and minimally on his gown, he said he briefly had a bloody nose that quickly resolved with light pressure. He denies any acute concerns overall and looks forward to further testing. Was NPO overnight. Constitutional: No fever, No chills Respiratory: No cough, No shortness of breath Cardiovascular: No chest pain Abdomen: No pain, No nausea, No vomiting Heme: + abnormal bleeding/bruising (epistaxis overnight) Medications Current Inpatient Medications Medications (Trade) Dose Ordered Sig/Elsie Route Start Time Stop Time Status Last Admin Dose Admin Acetaminophen (Tylenol Tab) 650 mg Q4H PRN PO 05/07/17 23:15 06/06/17 23:14 Al Hydrox/Mg Hydrox/Simethicone (Maalox Max Susp) 15 ml Q4H PRN PO 05/07/17 23:15 06/06/17 23:14 Magnesium Hydroxide (Milk Of Magnesia Susp) 30 ml Q12H PRN PO 05/07/17 23:15 06/06/17 23:14 Ondansetron HCl (Zofran Inj) 4 mg Q6H PRN IV 05/07/17 23:15 06/06/17 23:14 Morphine Sulfate (MoRPHine SULFATE INJ) 2 mg Q30M PRN IV 05/07/17 23:15 05/21/17 23:14 Polyethylene (Miralax Powder Packet) 17 gm DAILY PRN PO 05/07/17 23:15 06/06/17 23:14 Albuterol (Ventolin Hfa Inhaler) 2 puffs Q4 PRN INH 05/07/17 23:45 06/06/17 23:44 Amlodipine Besylate (Norvasc Tab) 5 mg DAILY PO 05/08/17 09:00 06/07/17 08:59 05/14/17 08:03 5 MG Aspirin (Ecotrin Tab) 81 mg DAILY PO 05/08/17 09:00 06/07/17 08:59 Future hold 05/13/17 08:47 81 MG Atorvastatin Calcium (Lipitor Tab) 20 mg DAILY PO 05/08/17 09:00 06/07/17 08:59 05/14/17 08:03 20 MG Doxepin HCl (Sinequan Cap) 100 mg HS PO 05/08/17 21:00 06/07/17 20:59 05/13/17 20:46 100 MG Salmeterol Xinafoate/ Fluticasone (Advair Diskus 250/50 Inh) 1 puff BID INH 05/08/17 09:00 06/07/17 08:59 05/14/17 08:03 1 PUFF Isosorbide Mononitrate (Imdur Ext Rel Tab) 60 mg QAM PO 05/08/17 09:00 06/07/17 08:59 05/14/17 08:03 60 MG Metoprolol Tartrate (Lopressor Tab) 75 mg BID PO 05/08/17 09:00 06/07/17 08:59 05/14/17 08:00 75 MG Tamsulosin HCl (Flomax Cap) 0.4 mg QAM PO 05/08/17 09:00 06/07/17 08:59 05/14/17 08:02 0.4 MG Tiotropium [place] (Spiriva Handihaler Inhaler) 1 puff DAILY INH 05/08/17 09:00 06/07/17 08:59 05/14/17 08:02 1 PUFF Tramadol HCl (Ultram Tab) 50 mg Q6 PRN PO 05/07/17 23:45 06/06/17 23:44 Pantoprazole Sodium (Protonix Tab) 40 mg QAM PO 05/08/17 09:00 06/07/17 08:59 05/14/17 08:03 40 MG Albuterol/ Ipratropium (Duoneb) 3 ml Q4H PRN INH 05/08/17 00:00 06/07/17 00:00 Glucose (Glucose 40% Gel) 15-30 GRAMS 15 GRAMS... UD PRN PO 05/08/17 00:15 06/07/17 00:14 Glucose (Glucose Chew Tab) 4-8 Tablets 4 Tabl... UD PRN PO 05/08/17 00:15 06/07/17 00:14 Dextrose (Dextrose 50% 50ML Syringe) 25-50ML OF 50% DW IV FOR... UD PRN IV 05/08/17 00:15 06/07/17 00:14 Glucagon (Glucagon Inj) 1 mg UD PRN SQ 05/08/17 00:15 06/07/17 00:14 Acetaminophen/ Hydrocodone Bitart ([place] 5/325 Tab) 1-2 TABS FOR PAIN 1 TABLET ... Q6H PRN PO 05/08/17 18:00 05/22/17 17:59 Docusate Sodium (coLACE CAP) 100 mg BID PO 05/08/17 21:00 06/07/17 20:59 05/13/17 20:45 100 MG Multivitamins (Multivitamin Tab) 1 tab QAM PO 05/09/17 09:00 06/08/17 08:59 05/14/17 08:03 1 TAB Insulin Aspart (novoLOG ASPART) SLIDING SCALE G... ACHS SC 05/09/17 16:35 06/08/17 16:34 05/14/17 11:49 3 UNITS Piperacillin Sod/ Tazobactam Sod 4.5 gm/Dextrose 120 ml @ 200 mls/hr Q8H IV 05/10/17 22:00 05/20/17 21:59 05/14/17 08:13 200 MLS/HR Piperacillin Sod/ Tazobactam Sod (Consult) 1 ea UD PRN N/A 05/10/17 14:15 06/09/17 14:14 Acetylcysteine (Acetylcysteine Cap) 600 mg Q12H PO 05/13/17 18:00 05/15/17 06:01 05/14/17 06:22 600 MG Sodium Chloride 1,000 ml @ 88 mls/hr [id number] IV 05/14/17 08:00 06/13/17 07:59 05/14/17 08:08 88 MLS/HR Sodium Bicarbonate 100 meq/Sterile Water 1,100 ml @ 80 mls/hr [id number] IV 05/14/17 08:00 06/13/17 07:59 05/14/17 11:45 80 MLS/HR Enoxaparin Sodium (Lovenox Inj) 40 mg QAM SQ 05/13/17 08:00 06/12/17 07:59 Future Hold Insulin Glargine (Lantus Solostar Pen) 30 units BID SC 05/13/17 20:00 05/24/17 20:59 05/14/17 08:24 15 UNITS Objective Vital Signs Date Time Temp Pulse Resp B/P (MAP) Pulse Ox O2 Delivery O2 Flow Rate FiO2 05/14/17 14:07 36.8 78 18 161/76 93 Room Air 2.0 05/14/17 08:25 Room Air 05/14/17 07:06 36.8 78 18 161/76 (104) 93 Room Air 05/14/17 01:03 37.2 78 18 163/72 (102) 93 Room Air 05/14/17 00:20 Room Air 05/13/17 16:00 Room Air 05/13/17 15:55 37.1 79 18 166/78 (107) 94 Room Air Physical Exam General Appearance: no apparent distress ENT: + pertinent finding (dried nasal blood, no active bleeding) Respiratory/Chest: lungs clear, normal breath sounds, no respiratory distress Cardiovascular: regular rate, rhythm, no murmur Abdomen: normal bowel sounds, non tender Skin: + pertinent finding (Left toe wound vac in place, remaining toes bandaged. Right SCD on. ) Laboratory Results Test 05/14/17 11:38 Bedside Glucose 228 mg/dl (70-99) Assessment and Plan Mr. 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 Sepsis secondary to necrotizing fasciitis of the left lower extremity - See related inpatient procedures below. - Briefly started on vancomycin and levaquin, then transitioned to Zosyn 4.5 grams IV q8h on 30Nov. - Initial 27Nov BCx was neg x 1 and positive x1 for staph aureus. - Repeat 29Nov BCx x 2 were negative. - Abscess and toe cultures on 27&28Nov were positive for multiple bacteria (see reports). - [id number] Transthoracic Echo to eval for endocarditis showed no evidence of mass or vegetation but does not definitively rule out endocarditis. ---- Will discuss with cardiology the utility of a ALEKSANDER for further evaluation of the same. Patient is likely to be on a long course of antibiotics for his foot/toe anyway. Inpatient procedures thus far: - See related cardiology notes for surgery clearance recommendations. - Underwent a left fourth toe amputation, I&D, and wound vac placement on (thus POD #6 on Sunday). - Underwent a repeat I&D with wound vac exchange on (thus PPD #3 on Sunday ). - Vascular surgery (Dr. Rg) consulted. Patient went for a left lower extremity angiogram (with mechanical closure of right femoral artery) on . Please see his notes for full details. Acute Kidney Injury - Admit Cr 1.79, improving. Monitoring as inpatient. CAD s/p CABG & Chronic CHF with preserved EF - continue aspirin - Continue home doses of Amlodipine, Metoprolol and Atorvastatin COPD - Continue Ventolin, Advair and Spiriva. Duonebs q4h PRN as needed Type 2 Diabetes Mellitus - Home meds held. - Continue 25 Lantus bid and SS w/tightened carb coverage of CF of 25 and carb ratio 1:7 ---- May need tightening around these post-procedure periods. - Home dose was lantus 48 units q HS - SSI with AC/HS BSG. Depression - continue Doxepine DVT prophylaxis: SCDs and TEDs. Lovenox held for surgical procedures, heparin in interim. Likely restart post-procedures. Code Status: Full Disposition: remains on med/surg, will need rehab on d/c Resident Physician Supervision Note: I interviewed and examined the patient. Discussed with Dr. Kerr and agree with findings and plan as documented in the note. Documented By: Morro Bynum Resident Tracking Resident Involvement: Resident Care Provided Care Provided: Adult Hospital Medicine (inpt rounds)
[2017-05-14] MEDS ORDERED: MIDAZOLAM HCL 1 MG/ML 2ML VIAL IV ONE ×2 (14:35→14:39)
[2017-05-14] MEDS ORDERED: FENTANYL CITRATE INJ 50 MCG/1 ML 2 ML VIAL IV ONE (14:35)
[2017-05-14] MEDS ORDERED: LIDOCAINE HCL 1% 20 ML VIAL INJ ONE ×2 (14:40→14:44)
--- NOTE | 2017-05-14 14:57 | NUR ---
DIABETES Pt identified for elevated BG > 300 via BG report. BG 178 on admit. Last A1c 7.4% (eAG 252) on 02/24. Current DM Meds: Lantus 30units BID (was 25units BID) and Novolog 1:7 plus CF:20 with BG goal of 140-180. Fasting BG 232 this AM. Other values [phone] yesterday. Please see [facility]: Inpatient Teaching Record (Note pad icon) for additional information. INPATIENT RECOMMENDATIONS: 1. Consider pharmacy consult d/t poor glycemic control. 2. TDD = 105units yesterday + 20%, physician calculator recommends Lantus 32units BID and Novolog 1:4 plus CF:15. Addendum: 05/14/17 at [address] Amended: Links added.
[2017-05-14] MEDS ORDERED: IODIXANOL (VISIPAQUE) 270 MG/ML 150ML IV ONE (15:09)
--- NOTE | 2017-05-14 15:15 | [facility] Post Operative Brief Note ---
Immediate Operative Summary Operative Date May 14, 2017. Pre-Operative Diagnosis gangrene left foot Post-Operative Diagnosis same Procedure(s) Performed Left Lower Extremity Angiogram, Mechanical Closure Right Femoral Artery, Moderate Concious Sedation [address] Rg Fitness Plan Coordinator Surgeon(s) Morena Gallardo MD Estimated Blood Loss 5 ml Findings pt and at occlusion, peroneal feeds to post tib at ankle Fluids (cc crystalloids) 450 Specimens none Anesthesia Local with sedation Complication(s) None Disposition
--- NOTE | 2017-05-14 15:20 | Procedure Note ---
Post-Moderate Sedation Plan General Date of Moderate Sedation May 14, 2017. Vital Signs: Vital Signs Past 12 Hours Date Time Temp Pulse Resp B/P (MAP) Pulse Ox O2 Delivery O2 Flow Rate FiO2 05/14/17 14:07 36.8 78 18 161/76 93 Room Air 2.0 05/14/17 08:25 Room Air 05/14/17 07:06 36.8 78 18 161/76 (104) 93 Room Air Review - Discharge Plan Post Moderate Sedation Plan: On clinical assessment, the patient appears to have tolerated the conscious sedation without complications. Patient is recovering as anticipated. Patient will continue to be monitored by nursing and may be discharged when conscious sedation discharge criteria are met.
--- NOTE | 2017-05-14 15:47 | DIAGNOSTIC IMAGING REPORT ---
DATE OF PROCEDURE: 05/07/2017 PREOPERATIVE DIAGNOSES: Left toe gangrene, left lower extremity critical limb ischemia. POSTOPERATIVE DIAGNOSIS: Same. PROCEDURE: 1. Ultrasound guided access of right common femoral artery. 2. Aortogram. 3. Left lower extremity angiogram diagnostic. 4. Closure with StarClose device. 5. Conscious sedation for 38 minutes. SURGEON: Dr. Augustine Rg. SEC REPORTING CONSULTANT: Dr. Morena Gallardo. ANESTHESIA: Local plus conscious sedation. ESTIMATED BLOOD LOSS: 5 mL. COMPLICATIONS: None apparent. DRAINS: None. SPECIMENS: None. FLUOROSCOPY TIME: 1.5 minutes. Milligrays 52 milligrays. CONTRAST: 40 mL. INDICATIONS: Mr. Frank is a 72-year-old gentleman who had previously undergone left toe amputations for gangrenous toes. At the time procedure, it was noted that he had poor bleeding of the amputation site; therefore, vascular surgery was asked to evaluate his vasculature. The patient was advised of the risks and benefits of undergoing an angiogram to optimize his vascular supply to heal his toe wound. The patient agreed to undergo above procedure. DESCRIPTION OF PROCEDURE: The patient was brought into the operative suite. He was prepped and draped in the usual fashion. A timeout occurred. The common femoral artery was identified under ultrasound and it was patent. Lidocaine was instilled and the common femoral artery was percutaneously accessed with an 18 gauge needle. A wire was placed and a 5-[place] sheath was placed over this wire. An angled Glidewire was then advanced into the aorta. A rim catheter was advanced over this and placed approximately at the L4 area. The wire was removed. An aortogram was obtained. This showed a patent infrarenal aorta, patent bilateral common iliac arteries without evidence of significant stenosis, patent bilateral external and internal iliac arteries with irregularities of minimal calcification and patent left common femoral and SFA arteries. The angled Glidewire was then replaced and the rim catheter was used to cross the bifurcation. The wire was advanced into the SFA and the rim catheter advanced to the femoral head. Angiograms were then performed down the left lower extremity. This showed widely patent profunda artery, widely patent SFA artery with some areas of irregular plaque, none greater than 50%, patent popliteal artery and patent TP trunk. The PAIGE occludes proximally. The PT occluded proximally The main outflow to the foot is the peroneal artery. This reconstitutes his distal posterior tibial artery just above the ankle. There was no significant stenosis to intervene upon. It was decided to end the procedure at this point. The wire and catheter were removed. A StarClose device was placed for closure. Dr. Augustine Rg was present for the entirety of this case. I, Dr. Rg was present and scrubbed for the entire procedure. JHOANA
[2017-05-14] MEDS: SODIUM BICARBONATE 8.4% INJ 100 MEQ in STERILE WATER 1000 ML 1,000 ML IV SCH (16:00)
--- NOTE | 2017-05-14 16:06 | NUR ---
A: Pt arrived from pacu, vss. Pt with right femeral dressing, no s/s of hematoma or bleeding around site, Pt denies pain. Agrees to lay in bed for 2 hours. Will monitor.
[2017-05-14] MEDS: SODIUM CHLORIDE 0.9% 1000ML 1,000 ML IV SCH (16:26)
--- NOTE | 2017-05-14 16:46 | NUR ---
Patient to the OR today. Patient plans on returning home but may need a rehab setting. Will talk with patient about discharge plans.
[2017-05-14] MEDS: DOXEPIN HCL 50 MG CAP PO SCH (20:57)
[2017-05-15] MEDS: PIPERACILL/TAZOBAC IV 4.5 GM in DEXTROSE 5% 100ML 100 ML IV SCH ×2 (01:47→08:24)
[2017-05-15] MEDS: SODIUM BICARBONATE 8.4% INJ 100 MEQ in STERILE WATER 1000 ML 1,000 ML IV SCH (01:47)
[2017-05-15] MEDS: SODIUM CHLORIDE 0.9% 1000ML 1,000 ML IV SCH (04:50)
--- NOTE | 2017-05-15 05:25 | NUR ---
ID: Patient alert & oriented x 4. VSS. No c/o pain. O2 sats stable on RA. No c/o SOB or chest pain. LLE amputation site dressing dry & intact; wound vac in place. OOB with assist of 1 & walker. D/C plan & date uncertain @ this time. Will continue to monitor.
[2017-05-15 05:59] LABS: BASO % 0.2 %; BASO ABS # 0.01 K/uL (0-0.2); EOS % 1.6 %; EOS ABS # 0.08 K/uL (0-0.5); HEMATOCRIT 32.2 % (42-52); HEMOGLOBIN 10.7 g/dL (14.0-18.0); IG# 0.03 K/uL (0.00-0.02); LYMPH % 12.1 %; MEAN CORPUSCULAR HEMOGLOBIN 29.2 pg (25-34); MEAN CORPUSCULAR HGB CONC 33.2 g/dl (32-36); MEAN PLATELET VOLUME 9.2 fL (7.4-10.4); MONO % 7.9 %; MONO ABS # 0.39 K/uL (0.11-0.59); NEUT % 77.6 %; NEUT ABS # 3.85 K/uL (1.4-6.5); PLATELET COUNT 228 K/uL (130-400); RED CELL DISTRIBUTION WIDTH CV 14.6 % (11.5-14.5); RED CELL DISTRIBUTION WIDTH SD 47.1 fL (36.4-46.3); WHITE BLOOD COUNT 4.96 K/uL (4.8-10.8)
[2017-05-15] MEDS: ACETYLCYSTEINE 600 MG CAP PO SCH (06:08)
[2017-05-15 06:33] LABS: CALCIUM 8.2 mg/dl (8.5-10.1); CREATININE 1.39 mg/dl (0.60-1.40); POTASSIUM 3.7 mmol/L (3.5-5.1)
[2017-05-15 08:00] VITALS: BP 161/74; PULSE 77; TEMP 36.7; O2SAT 95
[2017-05-15] MEDS: ENOXAPARIN 40 MG/0.4 ML SYR SQ SCH (08:00)
[2017-05-15] MEDS: TIOTROPIUM BROMIDE 5 PUFF/90 MCG INH INH SCH (08:04)
[2017-05-15] MEDS: FLUTICASONE/SALMETEROL 250/50 (ADVAIR) 14 PUFF/1 INHALER INH SCH ×2 (08:04→19:54)
[2017-05-15] MEDS: DOCUSATE SODIUM 100 MG CAP PO SCH ×2 (08:04→19:29)
[2017-05-15] MEDS: ASPIRIN 81 MG ECTAB PO SCH (08:05)
[2017-05-15] MEDS: TAMSULOSIN HCL 0.4 MG CAP PO SCH (08:05)
[2017-05-15] MEDS: ISOSORBIDE MONONITRATE 60 MG TABCR PO SCH (08:05)
[2017-05-15] MEDS: ATORVASTATIN 20 MG TAB PO SCH (08:05)
[2017-05-15] MEDS: MULTIVITAMIN TAB PO SCH (08:06)
[2017-05-15] MEDS: AMLODIPINE BESYLATE 5 MG TAB PO SCH (08:06)
[2017-05-15] MEDS: METOPROLOL TARTRATE 50 MG TAB PO SCH ×2 (08:06→19:31)
[2017-05-15] MEDS: PANTOprazole SOD 40 MG TAB PO SCH (08:06)
[2017-05-15 08:15] VITALS: O2SAT 95
[2017-05-15] MEDS: INSULIN GLARGINE SOLOSTAR 100 UNITS/ML 3 ML PEN SC SCH (08:15)
[2017-05-15] MEDS: INSULIN ASPART 100 UNITS/ML 3 ML PEN SC SCH ×5 (08:15→23:53)
--- NOTE | 2017-05-15 08:55 | Family Medicine Progress Note ---
Progress Note Date of Service May 15, 2017. Subjective Pt evaluation today including: conversation w/ patient, physical exam, chart review, lab review Found patient sitting in the exam chair, watching tv. Says procedure yesterday went well from his perspective. He says, "I'm fine" this morning and has no acute c/o. No new nosebleeds yesterday/overnight. Constitutional: No fever, No chills Respiratory: No cough, No shortness of breath Cardiovascular: No chest pain Abdomen: No nausea, No vomiting Musculoskeletal: + problem reported (denies pain with toes) Skin: + rash (chronic lower extremity skin changes) Medications Current Inpatient Medications Medications (Trade) Dose Ordered Sig/Elsie Route Start Time Stop Time Status Last Admin Dose Admin Acetaminophen (Tylenol Tab) 650 mg Q4H PRN PO 05/07/17 23:15 06/06/17 23:14 Al Hydrox/Mg Hydrox/Simethicone (Maalox Max Susp) 15 ml Q4H PRN PO 05/07/17 23:15 06/06/17 23:14 Magnesium Hydroxide (Milk Of Magnesia Susp) 30 ml Q12H PRN PO 05/07/17 23:15 06/06/17 23:14 Ondansetron HCl (Zofran Inj) 4 mg Q6H PRN IV 05/07/17 23:15 06/06/17 23:14 Morphine Sulfate (MoRPHine SULFATE INJ) 2 mg Q30M PRN IV 05/07/17 23:15 05/21/17 23:14 Polyethylene (Miralax Powder Packet) 17 gm DAILY PRN PO 05/07/17 23:15 06/06/17 23:14 Albuterol (Ventolin Hfa Inhaler) 2 puffs Q4 PRN INH 05/07/17 23:45 06/06/17 23:44 Amlodipine Besylate (Norvasc Tab) 5 mg DAILY PO 05/08/17 09:00 06/07/17 08:59 05/15/17 08:06 5 MG Aspirin (Ecotrin Tab) 81 mg DAILY PO 05/08/17 09:00 06/07/17 08:59 Future hold 05/15/17 08:05 81 MG Atorvastatin Calcium (Lipitor Tab) 20 mg DAILY PO 05/08/17 09:00 06/07/17 08:59 05/15/17 08:05 20 MG Doxepin HCl (Sinequan Cap) 100 mg HS PO 05/08/17 21:00 06/07/17 20:59 05/14/17 20:57 100 MG Salmeterol Xinafoate/ Fluticasone (Advair Diskus 250/50 Inh) 1 puff BID INH 05/08/17 09:00 06/07/17 08:59 05/15/17 08:04 1 PUFF Isosorbide Mononitrate (Imdur Ext Rel Tab) 60 mg QAM PO 05/08/17 09:00 06/07/17 08:59 05/15/17 08:05 60 MG Metoprolol Tartrate (Lopressor Tab) 75 mg BID PO 05/08/17 09:00 06/07/17 08:59 05/15/17 08:06 75 MG Tamsulosin HCl (Flomax Cap) 0.4 mg QAM PO 05/08/17 09:00 06/07/17 08:59 05/15/17 08:05 0.4 MG Tiotropium [place] (Spiriva Handihaler Inhaler) 1 puff DAILY INH 05/08/17 09:00 06/07/17 08:59 05/15/17 08:04 1 PUFF Tramadol HCl (Ultram Tab) 50 mg Q6 PRN PO 05/07/17 23:45 06/06/17 23:44 Pantoprazole Sodium (Protonix Tab) 40 mg QAM PO 05/08/17 09:00 06/07/17 08:59 05/15/17 08:06 40 MG Albuterol/ Ipratropium (Duoneb) 3 ml Q4H PRN INH 05/08/17 00:00 06/07/17 00:00 Glucose (Glucose 40% Gel) 15-30 GRAMS 15 GRAMS... UD PRN PO 05/08/17 00:15 06/07/17 00:14 Glucose (Glucose Chew Tab) 4-8 Tablets 4 Tabl... UD PRN PO 05/08/17 00:15 06/07/17 00:14 Dextrose (Dextrose 50% 50ML Syringe) 25-50ML OF 50% DW IV FOR... UD PRN IV 05/08/17 00:15 06/07/17 00:14 Glucagon (Glucagon Inj) 1 mg UD PRN SQ 05/08/17 00:15 06/07/17 00:14 Acetaminophen/ Hydrocodone Bitart ([place] 5/325 Tab) 1-2 TABS FOR PAIN 1 TABLET ... Q6H PRN PO 05/08/17 18:00 05/22/17 17:59 Docusate Sodium (coLACE CAP) 100 mg BID PO 05/08/17 21:00 06/07/17 20:59 05/15/17 08:04 100 MG Multivitamins (Multivitamin Tab) 1 tab QAM PO 05/09/17 09:00 06/08/17 08:59 05/15/17 08:06 1 TAB Insulin Aspart (novoLOG ASPART) SLIDING SCALE G... ACHS SC 05/09/17 16:35 06/08/17 16:34 05/15/17 08:15 18 UNITS Piperacillin Sod/ Tazobactam Sod 4.5 gm/Dextrose 120 ml @ 200 mls/hr Q8H IV 05/10/17 22:00 05/20/17 21:59 05/15/17 08:24 200 MLS/HR Piperacillin Sod/ Tazobactam Sod (Consult) 1 ea UD PRN N/A 05/10/17 14:15 06/09/17 14:14 Enoxaparin Sodium (Lovenox Inj) 40 mg QAM SQ 05/13/17 08:00 06/12/17 07:59 Future hold Insulin Glargine (Lantus Solostar Pen) 30 units BID SC 05/13/17 20:00 05/24/17 20:59 05/15/17 08:15 30 UNITS Sodium Chloride 1,000 ml @ 90 mls/hr Q11H7M IV 05/14/17 16:00 06/13/17 15:59 05/15/17 04:50 90 MLS/HR Sodium Bicarbonate 100 meq/Sterile Water 1,100 ml @ 80 mls/hr [id number] IV 05/14/17 16:00 06/13/17 15:59 05/15/17 01:47 80 MLS/HR Objective Vital Signs Date Time Temp Pulse Resp B/P (MAP) Pulse Ox O2 Delivery O2 Flow Rate FiO2 05/15/17 08:00 36.7 77 22 161/74 (103) 95 Room Air 05/15/17 00:15 Room Air 05/14/17 23:53 36.5 77 18 132/77 (95) 93 Nasal Cannula 3.0 05/14/17 16:52 36.7 05/14/17 16:32 68 18 169/83 (111) 94 Room Air 05/14/17 16:30 36.7 67 18 164/80 (108) 93 05/14/17 16:16 36.7 71 18 150/71 (97) 95 05/14/17 16:00 Room Air 05/14/17 15:22 36.3 73 16 152/77 93 Room Air 05/14/17 15:17 36.3 69 16 147/73 94 Room Air 05/14/17 15:12 68 18 158/85 97 Room Air 05/14/17 14:07 36.8 78 18 161/76 93 Room Air 2.0 Physical Exam General Appearance: WD/WN, no apparent distress Respiratory/Chest: lungs clear, normal breath sounds, no respiratory distress Cardiovascular: regular rate, rhythm, no murmur Abdomen: non tender, soft Extremities: + pertinent finding (left foot wound vac in place, socks overlying ) Skin: + pertinent finding (chronic likely vascular skin changes on bilateral shins) Laboratory Results 05/15/17 05:37 Red Blood Count 3.66, Mean Corpuscular Volume 88.0, Mean Corpuscular Hemoglobin 29.2, Mean Corpuscular Hemoglobin Concent 33.2, Mean Platelet Volume 9.2, Neutrophils (%) (Auto) 77.6, Lymphocytes (%) (Auto) 12.1, Monocytes (%) (Auto) 7.9, Eosinophils (%) (Auto) 1.6, Basophils (%) (Auto) 0.2, Neutrophils # (Auto) 3.85, Lymphocytes # (Auto) 0.60, Monocytes # (Auto) 0.39, Eosinophils # (Auto) 0.08, Basophils # (Auto) 0.01 05/15/17 05:37 Test 05/15/17 05:37 05/15/17 08:03 White Blood Count 4.96 K/uL (4.8-10.8) Red Blood Count 3.66 M/uL (4.7-6.1) Hemoglobin 10.7 g/dL (14.0-18.0) Hematocrit 32.2 % (42-52) Mean Corpuscular Volume 88.0 fL (80-100) Mean Corpuscular Hemoglobin 29.2 pg (25-34) Mean Corpuscular Hemoglobin Concent 33.2 g/dl (32-36) Platelet Count 228 K/uL (130-400) Mean Platelet Volume 9.2 fL (7.4-10.4) Neutrophils (%) (Auto) 77.6 % Lymphocytes (%) (Auto) 12.1 % Monocytes (%) (Auto) 7.9 % Eosinophils (%) (Auto) 1.6 % Basophils (%) (Auto) 0.2 % Neutrophils # (Auto) 3.85 K/uL (1.4-6.5) Lymphocytes # (Auto) 0.60 K/uL (1.2-3.4) Monocytes # (Auto) 0.39 K/uL (0.11-0.59) Eosinophils # (Auto) 0.08 K/uL (0-0.5) Basophils # (Auto) 0.01 K/uL (0-0.2) RDW Standard Deviation 47.1 fL (36.4-46.3) RDW Coefficient of Variation 14.6 % (11.5-14.5) Immature Granulocyte % (Auto) 0.6 % Immature Granulocyte # (Auto) 0.03 K/uL (0.00-0.02) Anion Gap 5.0 mmol/L (3-11) Est Creatinine Clear Calc Drug Dose 55.3 ml/min Estimated GFR () 59.1 Estimated GFR (Non- 51.0 BUN/Creatinine Ratio 11.4 (10-20) Calcium Level 8.2 mg/dl (8.5-10.1) Bedside Glucose 273 mg/dl (70-99) Assessment and Plan Mr. 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 Sepsis secondary to necrotizing fasciitis of the left lower extremity - See related inpatient procedures below. - Briefly started on vancomycin and levaquin, then transitioned to Zosyn 4.5 grams IV q8h on 30Apr. Zosyn was stopped on . - : ID consulted. Recommended transition to Rocephin 2 grams q24h. Began the same on with planned 14 day course. - Patient will need PICC line for rocephin as above. - Initial 27Nov BCx was neg x 1 and positive x1 for staph aureus. - Repeat 29Nov BCx x 2 were negative. - Abscess and toe cultures on &Nov were positive for multiple bacteria (see reports). - Transthoracic Echo to eval for endocarditis showed no evidence of mass or vegetation but does not definitively rule out endocarditis. Plan is to not acutely pursue ALEKSANDER for further evaluation of the same, as patient is likely to be on a long course of antibiotics for his foot/toe anyway. Inpatient procedures thus far: - See related cardiology notes for surgery clearance recommendations. - Underwent a left fourth toe amputation, I&D, and wound vac placement on (thus POD #6 on Sunday). - Underwent a repeat I&D with wound vac exchange on (thus PPD #3 on Sunday ). - Vascular surgery (Dr. Rg) consulted. Patient went for a left lower extremity angiogram (with mechanical closure of right femoral artery) on . Please see his notes for full details. Acute Kidney Injury - Admit Cr 1.79, improving. Monitoring as inpatient. CAD s/p CABG & Chronic CHF with preserved EF - continue aspirin - Continue home doses of Amlodipine, Metoprolol and Atorvastatin COPD - Continue Ventolin, Advair and Spiriva. Duonebs q4h PRN as needed Type 2 Diabetes Mellitus - Home PO meds held. Home dose of lantus was 48 units q HS. - Initially modified lantus to 25 bid and SS w/tightened carb coverage of CF of 25 and carb ratio 1:7. Noted to continue to have elevations in 200's. - : Placed glycemic consult, greatly appreciate assistance. Depression - continue Doxepine DVT prophylaxis: SCDs and TEDs. Lovenox held for surgical procedures, heparin in interim, then lovenox restarted. Code Status: Full Disposition: remains on med/surg, will need rehab on d/c. PCM = Dr. "V" in [facility] [place]. Lives at [place]. - PT consult: Initial 29Nov note "if pt reached below goals, recommend return home with continued PT servcies in home. If does not reach goals, then short term acute rehab would benefit pt to achieve independ and safe d/c." Last re -eval 05Dec, ongoing therapy. - OT consult: Initial 30Nov note "Pt is functioning well with basic ADLs and functional mobility. Pt was able to comply with weight-bearing restrictions and complete simulated dressing and mobility WFL. NO further in-pt OT needs identified. Recommend Home OT evaluation for safety." Last re-eval 29Nov. Resident Physician Supervision Note: I was present with the resident physician during the history and exam. I discussed the case with the resident and agree with the findings and plan as documented in the note. The patient is up and out of bed and feels much better today. Will consult infectious disease to clarify recommendations for antibiotics. He may need PICC line placement and this was discussed with the patient today. Documented By: Morro Bynum Resident Tracking Resident Involvement: Resident Care Provided Care Provided: Adult Hospital Medicine (inpt rounds)
[2017-05-15] MEDS ORDERED: NURSING VERBAL MED ORDER ONE (11:15)
[2017-05-15] MEDS ORDERED: PHARMACY GLYCEMIC MGMT CONSULT PRN (12:29)
--- NOTE | 2017-05-15 13:15 | NUR ---
CWOCN: DISCUSSED PATIENT WITH DR FREIRE. WOULD LIKE PATIENT TO FOLLOW-UP AT [facility] FOR WOUND CARE. APPOINTMENT OBTAINED FOR PATIENT SUNDAY, 05/18@ 0730. CONSULTED ICD 9 CODER FOR HOME VAC. COMPLETED CLINICAL PORTION OF WOUND VAC ORDER.
[2017-05-15] MEDS ORDERED: INSULIN HUMAN REGULAR PER UNIT 5 UNITS in SYRINGE 4.95 ML IV ONE (13:30)
--- NOTE | 2017-05-15 14:00 | Pharmacy Progress Note ---
Glycemic Control Intl Consult Date of Service May 15, 2017. Scope Glycemic Pharmacist consulted by Dr Del Rosario on 05/15 for glycemic control and to write orders per [facility] inpatient glycemic control protocol Objective Weight (Kilograms): 88.200 Accuchecks BSG (last 24hrs): Test 05/14/17 13:50 05/14/17 16:51 05/14/17 20:46 05/15/17 05:37 Bedside Glucose 221 mg/dl (70-99) 230 mg/dl (70-99) 248 mg/dl (70-99) Random Glucose 264 mg/dl (70-99) Test 05/15/17 08:03 05/15/17 11:40 Bedside Glucose 273 mg/dl (70-99) 356 mg/dl (70-99) Laboratory Data (last 24hrs) Test 05/15/17 05:37 Anion Gap 5.0 mmol/L BUN/Creatinine Ratio 11.4 Blood Urea Nitrogen 16 mg/dl Creatinine 1.39 mg/dl Potassium Level 3.7 mmol/L Sodium Level 135 mmol/L White Blood Count 4.96 K/uL Red Blood Count 3.66 M/uL Hemoglobin 10.7 g/dL Hematocrit 32.2 % Mean Corpuscular Volume 88.0 fL Mean Corpuscular Hemoglobin 29.2 pg Mean Corpuscular Hemoglobin Concent 33.2 g/dl Platelet Count 228 K/uL Mean Platelet Volume 9.2 fL Neutrophils (%) (Auto) 77.6 % Lymphocytes (%) (Auto) 12.1 % Monocytes (%) (Auto) 7.9 % Eosinophils (%) (Auto) 1.6 % Basophils (%) (Auto) 0.2 % Neutrophils # (Auto) 3.85 K/uL Lymphocytes # (Auto) 0.60 K/uL Monocytes # (Auto) 0.39 K/uL Eosinophils # (Auto) 0.08 K/uL Basophils # (Auto) 0.01 K/uL HbA1c 02/24/17: 7.4% Recent Pertinent Medications Outpatient Anti-diabetic Regimen: * glipizide XL 10mg BID, lantus 48QPM * A1c = 7.4 % 02/24/17 The patient is currently receiving: * Basal insulin: Lantus 30 units every 12 hours (only 35 units actually given on 05/14) * Correctional Insulin: Novolog Correction per scale ACHS Goal Range: Low 140 mg/dL - High 180 mg/dL Correction Factor: 15 mg/dL/unit * Prandial insulin: Per carb ratio of 1 unit per 7 grams CHO consumed * Oral Agents: none Risk Factors for Insulin Resistance: * Steroids: * Infection: Sepsis secondary to necrotizing fasciitis of the left lower extremity * Pressors: * IVF: * Recent Surgery * Diet: * Mechanical Ventilation: Assessment & Plan ASSESSMENT: * Patient with sugars in the two to high three hundreds since admission. He has received variable amounts of insulin and has been NPO at times for surgery. Given the fact that he has remained hyperglycemic receiving ~100 units of insulin, will increase lantus dose and significantly tighten correction factor/ carb ratio. I will also give a one time 5 unit regular IV bolus for lunch level of 356. PLAN FOR INPATIENT GLYCEMIC CONTROL: * One time IV regular insulin 5 units * Increasing Lantus to 38 units SQ BID starting this evening * Changing correction factor to 10 mg/dl/unit * Changing carb ratio to 1 unit per 4 grams CHO consumed * Continuing / changing goal range to Low 120 mg/dL - High 150 mg/dL * ACHS plus 0000/0400 checks * Please note that the plan above was derived based on current level of insulin resistance and hospital stress. These recommendations are appropriate for inpatient admission only. Plan of care upon discharge will need to be reassessed to avoid potential outpatient hypo/hyperglycemia. Thank you.
--- NOTE | 2017-05-15 14:37 | NUR ---
Met with patient and daughter today about discharge plans. Patient plans on returning home and going to the [facility]. Asked him about a rehab setting. He is fine with going home and does not want rehab. Asked about home health services. He declined. He will go to the Wound Care Center. Consult received for a wound vac. [facility] referral started. Will follow for discharge planning.
--- NOTE | 2017-05-15 14:43 | Orthopedic Progress Note ---
Orthopedic Progress Note Date of Service May 15, 2017. Subjective Post OP Day: 3 (Repeat I&D with Woundvac placement & POD #6 s/p L 4th toe amputation, I&D, woundvac placement.) Denies: complaints Objective calves soft nontender, dressing C/D/I (Woundvac in place. Remaining toes and foot look good.), A&O x3 Date Time Temp Pulse Resp B/P (MAP) Pulse Ox O2 Delivery O2 Flow Rate FiO2 05/15/17 08:15 95 Room Air 05/15/17 08:00 36.7 77 22 161/74 (103) 95 Room Air 05/15/17 00:15 Room Air 05/14/17 23:53 36.5 77 18 132/77 (95) 93 Nasal Cannula 3.0 05/14/17 16:52 36.7 05/14/17 16:32 68 18 169/83 (111) 94 Room Air 05/14/17 16:30 36.7 67 18 164/80 (108) 93 05/14/17 16:16 36.7 71 18 150/71 (97) 95 05/14/17 16:00 Room Air 05/14/17 15:22 36.3 73 16 152/77 93 Room Air 05/14/17 15:17 36.3 69 16 147/73 94 Room Air 05/14/17 15:12 68 18 158/85 97 Room Air Laboratory Results 24 Hours: Test 05/15/17 05:37 White Blood Count 4.96 K/uL Red Blood Count 3.66 M/uL Hemoglobin 10.7 g/dL Hematocrit 32.2 % Mean Corpuscular Volume 88.0 fL Mean Corpuscular Hemoglobin 29.2 pg Mean Corpuscular Hemoglobin Concent 33.2 g/dl Platelet Count 228 K/uL Mean Platelet Volume 9.2 fL Neutrophils (%) (Auto) 77.6 % Lymphocytes (%) (Auto) 12.1 % Monocytes (%) (Auto) 7.9 % Eosinophils (%) (Auto) 1.6 % Basophils (%) (Auto) 0.2 % Neutrophils # (Auto) 3.85 K/uL Lymphocytes # (Auto) 0.60 K/uL Monocytes # (Auto) 0.39 K/uL Eosinophils # (Auto) 0.08 K/uL Basophils # (Auto) 0.01 K/uL Assessment & Plan Assessment: POD # 3 S/P repeat I&D L foot and wound vac placement. POD # 6 S/P left fourth toe/ray amputation/resection, I&D of left foot abscess, wound VAC placement. Plan: Cont PO pain meds Cont ABX As prescribed Keep wound VAC in place 125 mmHg continuous. Wound VAC nurse to change wound VAC change --. Can be transitioned to wound care clinic once medically stable for discharge home. May be out of bed, weightbearing as tolerated on his left heel. Postop shoe left foot when out of bed. May need a walker to assist with ambulation. Continue elevation for swelling Continue diabetic diet. Lovenox continue for 3 weeks, then switch to Asprin 325 mg PO BID for another 3 weeks. Continue care per primary service. May be discharged from an orthopaedic standpoint. Will see him back in the office in 2-3 weeks. Please call [phone] for an appointment.
--- NOTE | 2017-05-15 15:17 | Progress Note ---
Progress Note Date of Service May 15, 2017. Progress Note ID Consult Dictated #[id number] A/P: 1. MSSA Septicemia 2. Necrotizing Fasciitis - left foot - polymicrobial -Will change to ctx 2g IV daily, x 14 days, will follow in wound center post d/ c and can extend duration if needed -Will need picc line and echo prior to d/c, repeat cultures negative and final -Will need weekly cbc,cmp, esr while on abx -Will follow, thank you
--- NOTE | 2017-05-15 15:21 | Consultant Recommendations ---
Video Engineer Recommendations Date of Service May 15, 2017. Video Engineer Recommendations Status post incision and drainage and wound VAC application left lower extremity by Dr. Siddiqi on May 08, 2017 and May 11, 2017. He may weight-bear as tolerated left lower extremity on his heel and with postop shoe on left foot. Continue wound VAC Follow-up with wound clinic for wound VAC and dressing changes as instructed. Okay for the Wound Center to remove sutures when they feel appropriate approximately 10-14 days after surgery. Elevate left lower extremity above heart to relieve swelling as necessary. Follow-up with Dr. Siddiqi approximately 2-3 weeks after surgery. Please call to schedule appointment. Continue Lovenox 40 mg daily 2 more weeks and then begin aspirin 325 mg twice daily for another 3 weeks. Please keep on antibiotics no less than 8 weeks or until the wound heals completely, whichever comes first. Please call [phone] with any problems, questions, or concerns.
[2017-05-15 15:33] VITALS: BP 135/75; PULSE 79; TEMP 36.8; O2SAT 96
--- NOTE | 2017-05-15 15:38 | INFECT. DISEASE CONSULTATION ---
DATE OF CONSULTATION: 05/15/2017 HISTORY OF PRESENT ILLNESS: This is a 72-year-old gentleman who was admitted to the hospital with worsening toe infection. 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 He continued to have worsening pain in his foot. It continued to drain and then became dark and had foul smelling odor. For this reason, he presented to the Emergency Room. A CAT scan was done in the ER which showed significant soft tissue edema and gas, concerning for necrotizing fasciitis. He was evaluated by orthopedic surgery and taken to the operating room on the . At that time, he underwent debridement and amputation of his fourth toe. Superficial and intraoperative cultures grew Klebsiella oxytoca group G strep and MSSA, bacteroides and peptostreptococcus. He was placed on Zosyn and he remains on this. He has been afebrile for some days; however, upon admission to the hospital, he did have a T-max of 39.5. He has been afebrile from the time of his amputation. He did return to the OR on the for additional debridement and VAC change. He did undergo from yesterday. His VAC changed yesterday. He plans potential discharge to home with plans to followup at the wound care center for VAC care. He did have blood cultures on the and /2 sets also grew MSSA. His repeat blood cultures on the are no growth and final. He currently is out of bed to chair. He states his pain is resolved. He currently offers no complaints. He is tolerating Zosyn without difficulty. He denies any nausea, vomiting or diarrhea. His appetite is stable. He states he is anticipating discharge to home hopefully tomorrow with plans to followup at the wound center. Infectious diseases was asked to evaluate this patient for antibiotic recommendations on discharge. PAST MEDICAL HISTORY: Significant for COPD, CHF, coronary artery disease with a history of CABG. He had a non-ST elevated MA in October of this year, type 2 diabetes, peripheral neuropathy, hypertension, depression and previous toe amputations. FAMILY HISTORY: Noncontributory. SOCIAL HISTORY: Significant for history of tobacco use. He denies any alcohol or drug use. ALLERGIES: He has no known drug allergies. MEDICATIONS: Include insulin, Zosyn, Lovenox, multivitamin, Colace, Percocet, Norvasc, Ecotrin, Lipitor, Advair, Imdur, Lopressor, Flomax, Spiriva, Protonix, albuterol, Ultram, Tylenol, Maalox, milk of magnesia, Zofran, morphine and MiraLax. PHYSICAL EXAMINATION: VITAL SIGNS: He is afebrile, pulse 77, respiratory rate is 22, blood pressure 161/74, oxygen saturation is 95% on room air. GENERAL: He is awake, alert and oriented x3. He is in no acute distress. HEENT: Mucous membranes are moist. Extraocular muscles are intact. HEART: Regular. LUNGS: Clear bilaterally. ABDOMEN: Soft and nondistended. EXTREMITIES: There is no lower extremity edema. VAC in place over the left foot. LABORATORY STUDIES: CBC today reveals a white blood cell count of 4.9, hemoglobin 10.7, and platelets 228. Chemistry panel: Sodium 135, potassium 3.7, chloride 99, bicarbonate 31, BUN 16, creatinine 1.3, glucose is 356. CRP was elevated at 22 on admission. Hepatitis C antibody is negative. Again, wound culture grew Klebsiella group G strep MSSA and bacteroides. Blood cultures from the are growing MSSA in 1/2 sets. Repeat blood cultures on the are negative. IMAGING DATA: CT of the foot is as above. A foot x-ray on the showed soft tissue emphysema. Chest x-ray in the ER showed no evidence of disease. ASSESSMENT AND PLAN: Methicillin-sensitive Staphylococcus aureus septicemia, likely secondary to necrotizing latest of the left foot. At this time, he will be transitioned to Rocephin 2 grams IV daily. He likely will need a minimum of 14 days IV therapy at home. He will plan to follow with infectious diseases at the wound center as well and antibiotic duration can be extended on an outpatient basis, if needed. Thank you for this consultation.
[2017-05-15 16:00] VITALS: O2SAT 96
--- NOTE | 2017-05-15 16:36 | NUR ---
Talked with Dr. Siddiqi's nurse about patient signing the wound vac script. She will have Dr. Siddiqi sign wound vac script. Wound vac script faxed to Dr. Siddiqi for signature. Will fax signed script to [facility] when returned from Dr. Siddiqi's office.
[2017-05-15] MEDS ORDERED: PIPERACILL/TAZOBAC IV 4.5 GM in DEXTROSE 5% 100ML 100 ML IV SCH (17:00)
[2017-05-15] MEDS ORDERED: INSULIN GLARGINE SOLOSTAR 100 UNITS/ML 3 ML PEN SC SCH ×2 (17:00→20:00)
--- NOTE | 2017-05-15 17:54 | NUR ---
a: picc line ordered. as per md, picc line to be placed tomorrow for d/c. pt aware. iv team aware.
[2017-05-15 19:27] VITALS: BP 147/75; PULSE 80; TEMP 36.7; O2SAT 95
[2017-05-15] MEDS: CEFTRIAXONE SOD INJ 2,000 MG in DEXTROSE 5% 50ML 50 ML IV SCH (19:48)
[2017-05-15] MEDS: DOXEPIN HCL 50 MG CAP PO SCH (20:31)
[2017-05-15 23:30] VITALS: BP 166/90; PULSE 81; TEMP 36.7; O2SAT 96
--- NOTE | 2017-05-16 00:45 | NUR ---
Id note: Independent in room. Vss. Wound vac to left foot @ -125. Denies pain. Tolerating diet. Receiving intermittent iv abx, Patient to receive Picc line for outpatient iv abx. therapy. Tentative discharge to home with services.
[2017-05-16] MEDS: INSULIN ASPART 100 UNITS/ML 3 ML PEN SC SCH ×5 (04:00→20:52)
[2017-05-16 07:50] VITALS: BP 163/67; PULSE 76; TEMP 36.7; O2SAT 90
[2017-05-16] MEDS ORDERED: INSULIN GLARGINE SOLOSTAR 100 UNITS/ML 3 ML PEN SC SCH (08:00)
[2017-05-16] MEDS: ENOXAPARIN 40 MG/0.4 ML SYR SQ SCH (08:00)
[2017-05-16 08:15] VITALS: O2SAT 95
[2017-05-16] MEDS: TIOTROPIUM BROMIDE 5 PUFF/90 MCG INH INH SCH (08:31)
[2017-05-16] MEDS: FLUTICASONE/SALMETEROL 250/50 (ADVAIR) 14 PUFF/1 INHALER INH SCH ×2 (08:31→20:54)
[2017-05-16] MEDS: ASPIRIN 81 MG ECTAB PO SCH (08:32)
[2017-05-16] MEDS: DOCUSATE SODIUM 100 MG CAP PO SCH ×2 (08:32→20:47)
[2017-05-16] MEDS: PANTOprazole SOD 40 MG TAB PO SCH (08:33)
[2017-05-16] MEDS: AMLODIPINE BESYLATE 5 MG TAB PO SCH (08:33)
[2017-05-16] MEDS: ISOSORBIDE MONONITRATE 60 MG TABCR PO SCH (08:33)
[2017-05-16] MEDS: MULTIVITAMIN TAB PO SCH (08:33)
[2017-05-16] MEDS: TAMSULOSIN HCL 0.4 MG CAP PO SCH (08:33)
[2017-05-16] MEDS: ATORVASTATIN 20 MG TAB PO SCH (08:33)
[2017-05-16] MEDS: METOPROLOL TARTRATE 50 MG TAB PO SCH ×2 (08:34→20:46)
[2017-05-16] MEDS: INSULIN GLARGINE SOLOSTAR 100 UNITS/ML 3 ML PEN SC SCH ×2 (08:48→20:52)
--- NOTE | 2017-05-16 10:30 | NUR ---
CWOCN: REMOVED WOUND VAC FROM LEFT FOOT SURGICAL SITE. DARKENED AREA REMAINS, SLIGHTLY EXTENDED IN SIZE FROM 05/14. PRIMARY NURSE CALLED SURGEON OFFICE. AWAITING RETURN CALL Addendum: 05/16/17 at 1210 by Jessica Main 911 OPERATOR MET MACK JOHN AT BEDSIDE TO EVALUATE LEFT FOOT WOUND. WILL CONTINUE VAC AND ALLOW AREA TO DECLARE ITSELF.
--- NOTE | 2017-05-16 10:35 | Pharmacy Progress Note ---
Pharmacy Glycemic Short Note 2 Date of Service May 16, 2017. OUTPATIENT ANTIDIABETIC REGIMEN: * glipizide XL 10mg BID, lantus 48 units QPM * A1c = 7.4 % 02/24/17 ASSESSMENT: * Mr. Frank's BSGs have improved significantly over the past 24 hours * He received 138 units of insulin yesterday with a fasting of 144 mg/dL this AM * At this point, I will plan to back off on the basal slightly, especially since he did not require additional coverage overnight * Will also loosen the CF now that BSGs improved * New est TDD ~125 units PLAN FOR INPATIENT GLYCEMIC CONTROL: * Decrease Lantus to 34 units BID * Continue Novolog ACHS, d/c overnight accuchecks * Goal 120-150 * LOOSEN CF to 15 * CR 4 PLAN FOR DISCHARGE: * A1c indicates good outpatient control * Continue outpatient regimen
--- NOTE | 2017-05-16 10:42 | NUR ---
Wound vac information submitted to [facility] today. Signed script received from Dr. Siddiqi. Script and other information faxed to [facility]. As per attending, patient will need IV Rocephin daily for at least 14 days. Referral to [facility] for IV antibiotics to check insurance coverage. Will follow for discharge planning.
--- NOTE | 2017-05-16 11:02 | Orthopedic Progress Note ---
Orthopedic Progress Note Date of Service May 16, 2017. Subjective Post OP Day: 5 Reports: feeling well, Denies: complaints, chest pain, SOB, nausea / vomiting, calf pain Additional Notes: States no increased pain in left foot, chronic neuropathy Objective calves soft nontender, N/V intact, capillary refill less than 2 sec., A&O x3, toes mobile Wound with no fluctuance, mild maceration around incisions due to moisture. Nontender to palpation left foot. Small area of necrotic tissue developing on plantar surface of wound. Mildly increased from pictures on Sunday. No purulence. Wound clean and dry. Date Time Temp Pulse Resp B/P (MAP) Pulse Ox O2 Delivery O2 Flow Rate FiO2 05/16/17 07:50 36.7 76 22 163/67 (99) 90 Room Air 05/16/17 00:00 Room Air 05/15/17 23:30 36.7 81 18 166/90 (115) 96 Room Air 05/15/17 20:00 Room Air 05/15/17 19:27 36.7 80 16 147/75 (99) 95 Room Air 05/15/17 16:00 96 Room Air 05/15/17 15:33 36.8 79 20 135/75 (95) 96 Room Air Assessment & Plan Assessment: POD # 5 S/P repeat I&D L foot and wound vac placement. POD # 8 S/P left fourth toe/ray amputation/resection, I&D of left foot abscess, wound VAC placement. Plan: Cont PO pain meds Cont ABX As prescribed Keep wound VAC in place 125 mmHg continuous. - wound nurse at bedside to reapply wound. I do not see any need at this time for further debridement in the OR. Wound VAC nurse to change wound VAC change --. Can be transitioned to wound care clinic once medically stable for discharge home. May be out of bed, weightbearing as tolerated on his left heel. Postop shoe left foot when out of bed. May need a walker to assist with ambulation. Continue elevation for swelling Continue diabetic diet. Lovenox continue for 3 weeks, then switch to Asprin 325 mg PO BID for another 3 weeks. Continue care per primary service. May be discharged from an orthopaedic standpoint. Will see him back in the office in 2-3 weeks. Please call [phone] for an appointment.
--- NOTE | 2017-05-16 11:28 | NUR ---
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 *The clinic is located at [address] in [place]. The clinic phone number is [phone]. Please, follow up at [facility] with Dr. Betancur on SundayMay 22 at 10:00 am. *If you need to change this appointment you can call the office at [phone]. Please, follow up with Dr. Siddiqi (ortho surgeon) on SundayMay 30 at 9:15 am. *This office is located in [address] of The [facility] - big building next to this hospital. If you need to change this appointment you can call the office at [phone]." Addendum: 05/16/17 at 1238 by Gavi Chisholm SERV Per request of Dr. Hurtado I call pt's pharmacy w/ script for Lovenox 40 mg sq 1 x day x 14 days. The copay is $11.45. Addendum: 05/16/17 at 1356 by Gavi Chisholm SERV I call the wound clinic and left a message requesting that pt's appointment next week be scheduled w/ Dr. Dewitt. I left my phone number and ask that they return my call. Addendum: 05/16/17 at 1358 by Gavi Chisholm SERV The wound clinic office manager calls back and confirms that he will see Dr. Dewitt within 2 weeks. Addendum: 05/17/17 at 1311 by Gavi Chisholm SERV Per request of Dr. Rock, I call pt's retail pharmacy and cancel the script for Lovenox.
--- NOTE | 2017-05-16 13:27 | NUR ---
a: ss made aware pt is to be discharged with picc line and iv rocephin qday. pt agrees that he would be able to give himself antibiotic if home health teaches him how to do it. wound vac remains intact. wound vac dressing changed today. pt to follow up at wound clinic on sunday. will continue to monitor.
[2017-05-16] MEDS ORDERED: CEFT1INJ57 IV (13:52)
[2017-05-16] MEDS ORDERED: INSDGIPEN SQ (13:52)
--- NOTE | 2017-05-16 14:23 | Progress Note ---
Subjective Date of Service: May 16, 2017. Subjective Pt evaluation today including: conversation w/ patient, physical exam, chart review, lab review pt s/p picc line, repeat blood cultures negative and final. awaiting insurance for home abx vs [facility]. states his is in local nursing facility and he is travelling daily to see her and could go to [facility] if needed but would prefer home. to be d/c later today with vac and plan to follow in wound center. afebrile pain controlled, all remaining ros reviewed and are negative. Problem List Medical Problems: (1) Bilateral pneumonia Status: Acute (2) Cellulitis of lower extremity Status: Acute (3) Gangrenous toe Status: Acute (4) Necrotizing fasciitis Status: Acute (5) NSTEMI (non-ST elevated myocardial infarction) Status: Acute (6) Renal insufficiency Status: Acute (7) Respiratory failure Status: Acute (8) Sepsis Status: Acute (9) Thrombocytopenia Status: Acute Objective Vital Signs Date Time Temp Pulse Resp B/P (MAP) Pulse Ox O2 Delivery O2 Flow Rate FiO2 05/16/17 08:15 95 Room Air 05/16/17 07:50 36.7 76 22 163/67 (99) 90 Room Air 05/16/17 00:00 Room Air 05/15/17 23:30 36.7 81 18 166/90 (115) 96 Room Air 05/15/17 20:00 Room Air 05/15/17 19:27 36.7 80 16 147/75 (99) 95 Room Air 05/15/17 16:00 96 Room Air 05/15/17 15:33 36.8 79 20 135/75 (95) 96 Room Air Physical Exam General Appearance: WD/WN, no apparent distress Eyes: normal inspection, EOMI Neck: supple Respiratory/Chest: lungs clear, normal breath sounds, no respiratory distress Cardiovascular: regular rate, rhythm, no edema Abdomen: non tender, soft Extremities: non-tender, no pedal edema Neurologic/Psychiatric: alert, oriented x 3 Skin: normal color, no rash Comments: vac in place Laboratory Results Item Value Date Time Gram Stain - Final Complete 05/07/171954 Abscess Swab Blood Culture - Final Complete 05/07/172018 Blood Staphylococcus Aureus Blood Culture - Final Complete 05/09/17 1114 Blood NO GROWTH Blood Culture - Final Complete 11/29/17 1126 Blood NO GROWTH Last 24 Hours Test 05/15/17 16:25 05/15/17 19:55 05/15/17 23:51 05/16/17 04:11 Bedside Glucose 267 mg/dl 198 mg/dl 130 mg/dl 106 mg/dl Test 05/16/17 07:36 05/16/17 11:19 Bedside Glucose 144 mg/dl 164 mg/dl Assessment and Plan (1) MSSA (methicillin susceptible Staphylococcus aureus) septicemia Assessment & Plan: will need 14 days IV abx, on ctx and planning this for d/c. will need weekly cbc, cmp, esr while on abx. will plan to follow at wound center post d/c. suspect he will need prolonged course of abx but hoping to transition to po after he completes course for bsi. will follow at wound center and further manage abx. ok for d/c from ID standpoint. (2) Necrotizing fasciitis
[2017-05-16] MEDS ORDERED: ENOX40IN SQ (14:30)
--- NOTE | 2017-05-16 14:42 | Discharge Instructions ---
Discharge Instructions Date of Service May 17, 2017. Admission Reason for Admission: Sepsis Discharge Discharge Diagnosis / Problem: Toe amptuation, MSSA septicemia, PAD Discharge Goals Goal(s): Decrease discomfort, Improve function, Diagnostic testing, Therapeutic intervention, Prevent Disease Progression Activity Recommendations Activity Limitations: as noted below Lifting Limitations: gradually increase as tolerated Exercise/Sports Limitations: gradually increase as tolerated May Resume Sexual Activity: when tolerated Shower/Bathe: no limitations Driving or Machine Use: no limitations . Instructions / Follow-Up Instructions / Follow-Up Mr. Frank, ksenia were admitted for infection of your left fourth toe. This was amputated and the infection was drained. You also had a procedure by vascular to help with blood flow to your legs. An IV line was placed so that you can continue antibiotics at home. You have been given 14 days of IV antibiotics but will need to follow up with infectious disease in 2 weeks for extending your course of antibiotics. You will need blood work weekly while on IV antibiotics which you may coordinate with your PCP. (Specifically CBC, BMP, ESR). You will also have a wound vac which will be managed by wound care. You have a wound vac in place; please follow up with wound care clinic as scheduled on Sunday, May 18, 2017 You will also need to follow up with Orthopedics as scheduled. Please also follow up with your PCP next week as scheduled. For prevention of blood clots, Orthopedics recommends Blood thinner shots ( Lovenox) for 2 weeks and then switching to aspirin 325 mg twice daily for 3 weeks. After that you may continue your daily baby aspirin (81 mg) However, upon further discussion, you report that you will not be taking the lovenox injections. As an alternative we recommend Aspirin 325 twice daily for 5 weeks and then continue your daily Aspirin 81 mg thereafter Home Health services will be arranged for help with IV antibiotics. With respect to your blood sugars, they were elevated while in the hospital. Your Lantus was adjusted to 55 units once at night. Please monitor your blood sugars and follow up with your PCP to have your dose adjusted. If your blood sugars, remain persistently elevated above >250, please call your PCP Current Hospital Diet Patient's current hospital diet: Regular Diet, Diabetes Type 2 Diet Discharge Diet Recommended Diet: Diabetes Type 2 Diet Procedures Procedures Performed: Left Lower Extremity Angiogram, Mechanical Closure Right Femoral Artery, Moderate Concious Sedation 1435 to 1509 Pending Studies Studies pending at discharge: no Laboratory Results Hemoglobin A1c Test 02/24/17 08:40 Range/Units Estimated Average Glucose 166 mg/dl Hemoglobin A1c 7.4 H 4.5-5.6 % Lipid Panel Test 02/24/17 08:40 Range/Units Triglycerides Level 76 0-150 mg/dl Cholesterol Level 94 0-200 mg/dl HDL Cholesterol 29 mg/dl Cholesterol/HDL Ratio 3.2 LDL Cholesterol, Calculated 50 mg/dl Medical Emergencies . Who to Call and When: Medical Emergencies: If at any time you feel your situation is an emergency, please call 911 immediately. . Non-Emergent Contact Non-Emergency issues call your: Primary Care Provider Call Non-Emergent contact if: you have a fever . . "Provider Documentation" section prepared by Mary Prasad. . Dish Carrier Recommendations Dish Carrier Recommendations: Status post incision and drainage and wound VAC application left lower extremity by Dr. Siddiqi on May 08, 2017 and May 11, 2017. He may weight-bear as tolerated left lower extremity on his heel and with postop shoe on left foot. Continue wound VAC Follow-up with wound clinic for wound VAC and dressing changes as instructed. Okay for the Wound Center to remove sutures when they feel appropriate approximately 10-14 days after surgery. Elevate left lower extremity above heart to relieve swelling as necessary. Follow-up with Dr. Siddiqi approximately 2-3 weeks after surgery. Please call to schedule appointment. Continue Lovenox 40 mg daily 2 more weeks and then begin aspirin 325 mg twice daily for another 3 weeks. Please keep on antibiotics no less than 8 weeks or until the wound heals completely, whichever comes first. Please call [phone] with any problems, questions, or concerns. VTE Core Measure Inpt VTE Proph given/why not?: Enoxaparin (Lovenox)SQ, SCD's
[2017-05-16 14:55] VITALS: BP 163/67; PULSE 76; TEMP 36.7; O2SAT 95
[2017-05-16 15:24] VITALS: BP 144/87; PULSE 72; TEMP 36.7; O2SAT 96
--- NOTE | 2017-05-16 15:54 | NUR ---
Pt seen for followup, refer to linked note for full assessment and recommendations. Addendum: 05/16/17 at [address] Amended: Links added.
--- NOTE | 2017-05-16 16:53 | NUR ---
Call from Carolyn at [facility]. Script needs to have the order date, not the start date per Medicare regulations. Change the script to say "order date". Script revised and faxed to [facility]. Talked with Kay at [facility]. Patient has out of pocket expenses. $250 deductible and supplies expense. After the deductible, he has 80% of supply cost until he reaches $750. So the supplies will be $70 per day. He also has $3.30 per week for the antibiotics. Talked with patient about the out of pocket expenses. He is fine with these expenses. We talked about home health for the IV antibiotics and for the wound vac. He wants [facility]. He prefers going home tomorrow morning. Told him that he will receive his dose in the afternoon at home. He prefers dosing in the afternoon. He will go to the wound clinic in the morning and will visit his in the [facility] in the morning. Talked with Kay about patient in agreement with out of pocket costs. Told her that patient will use [facility] for home health services. Line information, height and weight, and the script faxed to Kay at [facility]. Referral made to [facility]. Checked the [facility] website. Wound vac is still pending. Plan discharge to home tomorrow.
[2017-05-16] MEDS: CEFTRIAXONE SOD INJ 2,000 MG in DEXTROSE 5% 50ML 50 ML IV SCH (16:55)
--- NOTE | 2017-05-16 18:59 | Family Medicine Progress Note ---
Progress Note Date of Service May 16, 2017. Subjective doing well No concerns Constitutional: No fever, No chills Eyes: No worsening of vision ENT: No hearing loss Respiratory: No cough, No sputum, No wheezing, No shortness of breath, No dyspnea on exertion Cardiovascular: No chest pain Abdomen: No pain, No nausea, No vomiting, No diarrhea, No constipation Male : No dysuria Objective Physical Exam General Appearance: no apparent distress ENT: hearing grossly normal Neck: no adenopathy, no JVD Respiratory/Chest: lungs clear, normal breath sounds, no respiratory distress, no accessory muscle use Cardiovascular: regular rate, rhythm, no edema Abdomen: normal bowel sounds, non tender, soft Extremities: + pertinent finding (Left foot in dressing and boot, wound vac in place) Neurologic/Psychiatric: alert, normal mood/affect Assessment and Plan Mr. 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 Sepsis secondary to necrotizing fasciitis of the left lower extremity - See related inpatient procedures below. - Briefly started on vancomycin and levaquin, then transitioned to Zosyn 4.5 grams IV q8h on 30Apr. Zosyn was stopped on Dec. - 05Dec: ID consulted. Recommended transition to Rocephin 2 grams q24h. Began the same on 05Dec with planned 14 day course.- Will need prolonged course (8 weeks, per ortho) - Picc line placed - Initial 27Apr BCx was neg x 1 and positive x1 for staph aureus. - Repeat 29Nov BCx x 2 were negative. - Abscess and toe cultures on 27&28Nov were positive for multiple bacteria (see reports). - [id number] Transthoracic Echo to eval for endocarditis showed no evidence of mass or vegetation but does not definitively rule out endocarditis. Plan is to not acutely pursue ALEKSANDER for further evaluation of the same, as patient is likely to be on a long course of antibiotics for his foot/toe anyway. Inpatient procedures thus far: - See related cardiology notes for surgery clearance recommendations. - Underwent a left fourth toe amputation, I&D, and wound vac placement on (thus POD #6 on Sunday). - Underwent a repeat I&D with wound vac exchange on (thus PPD #3 on Sunday ). - Vascular surgery (Dr. Rg) consulted. Patient went for a left lower extremity angiogram (with mechanical closure of right femoral artery) on . Please see his notes for full details. Acute Kidney Injury - Resolving, Cr 1.39 this morning CAD s/p CABG & Chronic CHF with preserved EF - continue aspirin - Continue home doses of Amlodipine, Metoprolol and Atorvastatin COPD - Continue Ventolin, Advair and Spiriva. Duonebs q4h PRN as needed Type 2 Diabetes Mellitus - Home PO meds held. Home dose of lantus was 48 units q HS. -currently lantus at 35 bid and SS. Noted to continue to have elevations in 200' s. - Dec: Placed glycemic consult, greatly appreciate assistance. Depression - continue Doxepine DVT prophylaxis: SCDs and TEDs. Lovenox held for surgical procedures, heparin in interim, then lovenox restarted. Code Status: Full Disposition: Patient does not want rehab. PCM = Dr. Fall" in [facility]. Lives at [place]. - PT consult: Initial 29Apr note "if pt reached below goals, recommend return home with continued PT servcies in home. If does not reach goals, then short term acute rehab would benefit pt to achieve independ and safe d/c." Last re- eval , ongoing therapy. - OT consult: Initial 30Nov note "Pt is functioning well with basic ADLs and functional mobility. Pt was able to comply with weight-bearing restrictions and complete simulated dressing and mobility WFL. NO further in-pt OT needs identified. Recommend Home OT evaluation for safety." Last re-eval . Anticipate D/C tomorrow. Lovenox 40 mg x 2 weeks + Aspirin 325 for another 3 weeks. Resident Physician Supervision Note: I was present with the resident during the history and exam. I discussed the case with the resident and agree with the findings and plan as documented in the note. Any exceptions or clarifications are listed here: [None] Documented By: Morro Bynum
[2017-05-16] MEDS: DOXEPIN HCL 50 MG CAP PO SCH (20:48)
[2017-05-16 23:12] VITALS: BP 164/81; PULSE 75; TEMP 36.6; O2SAT 96
--- NOTE | 2017-05-17 00:23 | NUR ---
ID: Pt A/Ox4. Denies CP, SOB, N/V or pain at this time. Resting in bed in NAD. VSS on room air. Wound vac intact to left foot. PICC intact, pt to go home on IV antibiotics. Independent in room. For full assessment see EMR. Pt discharge to home today with home health services. CM following. Q1H rounding maintained and call vieira within reach. Will continue to monitor.
[2017-05-17 07:16] VITALS: BP 145/80; PULSE 81; TEMP 36.5; O2SAT 94
[2017-05-17] MEDS: METOPROLOL TARTRATE 50 MG TAB PO SCH (07:50)
[2017-05-17] MEDS: TAMSULOSIN HCL 0.4 MG CAP PO SCH (07:50)
[2017-05-17] MEDS: ATORVASTATIN 20 MG TAB PO SCH (07:50)
[2017-05-17] MEDS: ASPIRIN 81 MG ECTAB PO SCH (07:50)
[2017-05-17] MEDS: AMLODIPINE BESYLATE 5 MG TAB PO SCH (07:51)
[2017-05-17] MEDS: TIOTROPIUM BROMIDE 5 PUFF/90 MCG INH INH SCH (07:51)
[2017-05-17] MEDS: ISOSORBIDE MONONITRATE 60 MG TABCR PO SCH (07:51)
[2017-05-17] MEDS: FLUTICASONE/SALMETEROL 250/50 (ADVAIR) 14 PUFF/1 INHALER INH SCH (07:51)
[2017-05-17] MEDS: PANTOprazole SOD 40 MG TAB PO SCH (07:51)
[2017-05-17] MEDS: MULTIVITAMIN TAB PO SCH (07:51)
[2017-05-17] MEDS: DOCUSATE SODIUM 100 MG CAP PO SCH (07:51)
[2017-05-17] MEDS: ENOXAPARIN 40 MG/0.4 ML SYR SQ SCH (07:52)
[2017-05-17] MEDS: INSULIN GLARGINE SOLOSTAR 100 UNITS/ML 3 ML PEN SC SCH (07:54)
[2017-05-17] MEDS: INSULIN ASPART 100 UNITS/ML 3 ML PEN SC SCH ×2 (08:41→12:14)
--- NOTE | 2017-05-17 11:12 | Pharmacy Progress Note ---
Pharmacy Glycemic Short Note 2 Date of Service May 17, 2017. OUTPATIENT ANTIDIABETIC REGIMEN: * glipizide XL 10mg BID, lantus 48 units QPM * A1c = 7.4 % 02/24/17 ASSESSMENT: 05/16/17 * Mr. Frank's BSGs have improved significantly over the past 24 hours * He received 138 units of insulin yesterday with a fasting of 144 mg/dL this AM * At this point, I will plan to back off on the basal slightly, especially since he did not require additional coverage overnight * Will also loosen the CF now that BSGs improved * New est TDD ~125 units 05/17/17 * Mr. Frank received 116 units of insulin yesterday with BSGs ranging from 168- 202 mg/dL * No changes to causes of insulin resistance * Fasting BSG = 168 - will increase Lantus ~15% * Postprandial BSGs elevated yesterday - will tighten CR to provide more prandial coverage PLAN FOR INPATIENT GLYCEMIC CONTROL: * Increase Lantus to 38 units BID * Continue Novolog ACHS * Goal 120-150 * CF 15 * TIGHTEN CR to 3
[2017-05-17 11:39] VITALS: BP 117/70; PULSE 71; TEMP 36.6; O2SAT 95
--- NOTE | 2017-05-17 12:24 | NUR ---
Case Management Note- Wound Vac delivered to [facility]. Placed the wound vac in patient room for nursing to change prior to discharge. Placed wound vac in patient room and instruction patient to take box with him. Explained to patient that his primary insurance is billed through [facility]. At this time, he might have to pay a monthly co-pay. Patient aware and agrees to possible co-pay. Proof of Delivery/Assignment of Benefits statement signed and faxed to [facility]. Form also scanned into electronic records. JOSEFINA Suazo, is to administer IV abx prior to discharge today. Patient will discharge home with [facility] and [facility]. Spoke with Kay at [facility] and agrees with plan. Spoke with Tania at [facility]. She confirmed start of care for services tomorrow 05/18. Discharge instructions faxed to [facility].
[2017-05-17] MEDS ORDERED: ASPECOTC PO (12:31)
[2017-05-17] MEDS ORDERED: CEFTRIAXONE SOD INJ 2,000 MG in DEXTROSE 5% 50ML 50 ML IV SCH (13:15)
--- NOTE | 2017-05-17 13:50 | NUR ---
Patient discharged. IV Rocephin administered prior to discharge. Wound vac changed to home device without difficulty. Patient discharged with PICC intact. Patient escorted out via wheelchair.
--- NOTE | 2017-05-17 18:19 | Discharge Summary ---
Discharge Summary Date of Service May 17, 2017. Discharge Summary Admission Date: May 07, 2017 at 23:15 Discharge Date: May 17, 2017 Discharge Disposition: Home Principal Diagnosis: Sepsis 2/2 Necrotizing fascitis of LLE Problems/Secondary Diagnoses: PAD ANGELITO hyperglycemia /DM2 CAD Depression COPD Immunizations: Have You Had Influenza Vaccine: Yes Influenza Vaccine Date: Mar 11, 2013 History of Tetanus Vaccine?: Unknown History of Pneumococcal: Yes Pneumococcal Date: Mar 11, 2013 History of Hepatitis B Vaccine: No Procedures: L TIBIA/FIBULA 2 VIEWS ROUTINE IMPRESSION: No radiographic evidence of osteomyelitis or necrotizing fasciitis within the limitations of technique. If there is continuing clinical concern, cross-sectional imaging could be obtained. Foot Xray IMPRESSION: Soft tissue emphysema at the bases of the first through fourth toes raise concern for necrotizing fasciitis. Correlate clinically. Ankle Xray IMPRESSION: Suggestion of subtle periosteal reaction along the medial distal tibia. This raises concern for osteomyelitis in the appropriate clinical setting. Lower extremity CT IMPRESSION: Soft tissue emphysema most concerning for necrotizing fasciitis involving the fourth toe and extending proximally in the flexor compartment to the level of the sustentaculum reginaldo but not proximal to the ankle mortise. Osseous erosion of the proximal phalanx of the fourth toe also suggest osteomyelitis. Extensive soft tissue subcutaneous infiltration could suggest cellulitis. Lower ext US IMPRESSION: 1. Peripheral vascular disease as above. 2. Borderline elevated velocities within the proximal right superficial femoral artery suggests stenosis. 3. Mildly elevated velocities within the proximal and distal portions of the left superficial femoral artery suggest stenosis. 4. There is three-vessel runoff to the foot bilaterally. 5. Ankle brachial indices as above. Consultations: Infectious disease Vascular Surgery Cardiology Orthopedic surgery Medication Reconciliation New Medications: Aspirin (Aspirin) 325 Mg Tab 325 MG PO BID for 40 Days Ceftriaxone Sod (Rocephin) 1 Gm Inj 1 GM IV DAILY, #14 VIAL Changed Medications: Insulin Glargine (Lantus Solostar) 100 Unit/Ml Inj 55 UNITS SQ QPM for 30 Days, #30 PEN (Changed from: 48 UNITS) Continued Medications: Albuterol Hfa (Ventolin Hfa) 200 Puffs/39279 Mcg Aers 2 PUFFS INH Q4 PRN for SOB/Wheezing, #1 INHALER Amlodipine (Norvasc) 5 Mg Tab 5 MG PO DAILY, TAB Atorvastatin (Lipitor) 20 Mg Tab 20 MG PO DAILY, TAB Doxepin Hcl (Doxepin) 100 Mg Cap 100 MG PO HS Fluticasone Prop/Salmeterol (Advair Diskus 250/50 60 Dose) 1 Ea Aerp 1 PUFF INH BID, INHALER Glipizide Xl (Glucotrol Xl) 10 Mg Tab 10 MG PO BID Ipratropium-Albuterol (Duoneb) 3 Ml Nebu 1 TREATMENT INH Q4H PRN for SOB/Wheezing, INHA Isosorbide Mononitrate Ext Rel (Imdur Ext Rel) 60 Mg Ertab 60 MG PO QAM, TAB Metoprolol Tartrate (Lopressor) (Lopressor) 50 Mg Tab 75 MG PO BID, TAB Omeprazole (Prilosec) 20 Mg Cap 20 MG PO DAILY, CAP Tamsulosin Hcl (Flomax) 0.4 Mg Cap 0.4 MG PO QAM, CAP Tiotropium [place] (Spiriva Handihaler) 30 Puff/540 Mcg Aerp 1 CAP INH DAILY, INHALER Tramadol (Ultram) 50 Mg Tab 50 MG PO Q6 PRN for Pain, TAB Discharge Exam Review of Systems: Constitutional: No fever, No chills, No sweats Respiratory: No cough, No sputum, No shortness of breath, No dyspnea on exertion, No dyspnea at rest Cardiovascular: No chest pain Abdomen: No pain, No nausea, No vomiting, No diarrhea Musculoskeletal: + joint pain, No calf pain Genitourinary - Female: + dysuria Genitourinary - Male: No hematuria, No dysuria Physical Exam: General Appearance: no apparent distress ENT: hearing grossly normal Neck: supple, no adenopathy Respiratory/Chest: lungs clear, normal breath sounds, no respiratory distress, no accessory muscle use Cardiovascular: regular rate, rhythm, no edema Abdomen / GI: normal bowel sounds, non tender, soft Extremities: + pertinent finding (extensive stasis changes over both extremities, left foot in dressing + wound vac in place and Boot) Neurologic/Psychiatric: no motor/sensory deficits, alert, normal mood/affect , oriented x 3 Hospital Course Mr. 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 Presenting Problems: 1. Sepsis 2/2 to necrotizing fasciitis of the left lower extremity - Initially started on IV Vanc, Levaquin then transitioned to Zosyn and then to Rocephin (Per ID consultation). - Given extensive cardiac history, He underwent cardiology clearance. - (05/08) Underwent Left 4th toe amputation with subsequent I&D and Wound vac placement (05/08) - (05/11) Due to tracking of infection along flexor tendons, He underwent repeat I&D, debridement and exchange of Wound vac. - (05/14) Vacular Surgery was consulted and patient went for a left lower extremity angiogram (with mechanical closure of right femoral artery) - TTE did not show any evidence of endocarditis. ALEKSANDER was decided against, given that he would be on prolonged course of IV antibiotics (roughly 8 weeks per Ortho) - Wound cultures cultures grew multiple organisms including Staph Aureus - Initial Blood cultures grew MSSA - Repeat BC were negative - On discharge:- Patient had picc line placed with 2 weeks of IV Rocephin and plan to extend course to 6-8 weeks after ID follow up - Also has wound vac with wound care follow up outpatient. - Per ortho, Lovenox 40 mg daily x 2 weeks and aspiring 325 mg BID for another 3 weeks as recommended however, patient has been refusing lovenox in the hospital and admitted that he would not continue this outpatient. So the primary service recommended aspirin 325 mg BID for 5 weeks as an alternative. - Patient declines rehab. PT recommended continued PT at home or short inpatient rehab. Patient is ambulatory without much difficulty - OT did not recommend any further therapy while in hospital. Acute Problems: 1. Acute Kidney Injury - Improved to baseline with fluids 2. Hyperglycemia with h/o of controlled DM 2 - Lantus and SS was adjusted several times to control his sugars - Glycemic consult was placed eventually - on D/C Patient's Lantus was increased to 55 units at night- with parameters and recommendation to follow up with PCP Chronic problems: 1. CAD s/p CABG & Chronic CHF with preserved EF - continued aspirin - Continued home doses of Amlodipine, Metoprolol and Atorvastatin 2. COPD - Continued Ventolin, Advair and Spiriva. Duonebs q4h PRN as needed 3. Type 2 Diabetes Mellitus - Home PO meds held during inpatient hospitalization. - as above, changes to lantus and SS 4. Depression - continued Doxepine Resident Physician Supervision Note: I was present with Dr. Pearson during the history and exam. I discussed the case with the resident and agree with the findings and plan as documented in the note. ] Documented By: Morro Bynum Total Time Spent: Greater than 30 minutes This includes examination of the patient, discharge planning, medication reconciliation, and communication with other providers. Total time 45 minutes Discharge Instructions Please refer to the electronic Patient Visit Report (Discharge Instructions) for additional information. Follow-Up Wound care clinic Orthopedics Family Medicine Infectious DIsease Additional Copies To Onofre Betancur M.D.
[2017-05-17] MEDS ORDERED: INSULIN GLARGINE SOLOSTAR 100 UNITS/ML 3 ML PEN SC SCH (20:00)
--- NOTE | 2017-05-24 09:00 | [facility] Operative Report ---
Operative Report Operative Date May 14, 2017. Pre-Operative Diagnosis gangrene left foot Post-Operative Diagnosis same Procedure(s) Performed Left Lower Extremity Angiogram, Mechanical Closure Right Femoral Artery, Aortogram, USN localization of right common femoral artery, Moderate Concious Sedation [address] 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 Frank is a 72-year-old gentleman who had previously undergone left toe amputations for gangrenous toes. At the time procedure, it was noted that he had poor bleeding of the amputation site; therefore, vascular surgery was asked to evaluate his vasculature. The patient was advised of the risks and benefits of undergoing an angiogram to optimize his vascular supply to heal his toe wound. The patient agreed to undergo above procedure. Description of Procedure DESCRIPTION OF PROCEDURE: The patient was brought into the operative suite. He was prepped and draped in the usual fashion. A timeout occurred. The common femoral artery was identified under ultrasound and it was patent. Lidocaine was instilled and the common femoral artery was percutaneously accessed with an 18 gauge needle. A wire was placed and a 5-Barbadian sheath was placed over this wire. An angled Glidewire was then advanced into the aorta. A rim catheter was advanced over this and placed approximately at the L4 area. The wire was removed. An aortogram was obtained. This showed a patent infrarenal aorta, patent bilateral common iliac arteries without evidence of significant stenosis, patent bilateral external and internal iliac arteries with irregularities of minimal calcification and patent left common femoral and SFA arteries. The angled Glidewire was then replaced and the rim catheter was used to cross the bifurcation. The wire was advanced into the SFA and the rim catheter advanced to the femoral head. Angiograms were then performed down the left lower extremity. This showed widely patent profunda artery, widely patent SFA artery with some areas of irregular plaque, none greater than 50%, patent popliteal artery and patent TP trunk. The PAIGE occludes proximally. The PT occluded proximally The main outflow to the foot is the peroneal artery. This reconstitutes his distal posterior tibial artery just above the ankle. There was no significant stenosis to intervene upon. It was decided to end the procedure at this point. The wire and catheter were removed. A StarClose device was placed for closure. Dr. Augustine Rg was present for the entirety of this case. I, Dr. Rg was present and scrubbed for the entire procedure. I attest to the content of the Intraoperative Record and any orders documented therein. Any exceptions are noted below.
[2017-05-28] MEDS ORDERED: CEPH-571 PO (14:02)
[2017-06-18] MEDS ORDERED: CEPH-571 PO (13:08)
[2017-07-16] MEDS ORDERED: CEPH-571 PO (13:06)
[2017-08-01] MEDS ORDERED: CEPH-571 PO (10:07)
[2017-11-02] MEDS ORDERED: ASPCH81X PO (06:44)
[2017-12-05] MEDS ORDERED: SULF800T23 PO (07:57)
[2017-12-05] MEDS ORDERED: AMOX500C3 PO (07:57)
[2018-01-09] MEDS ORDERED: AMOX500C3 PO (10:06)
[2018-01-17] MEDS ORDERED: LEVO1TAB33 PO (07:55)
== END 2017-05-17 14:31 | disposition home health service (06) | DRG 853 ==
LOC: C.EDB 19:26 → UNDOADMIN 22:00 → C.2E 22:00 → C.2T 23:15 → C.2E 23:15 → ENRESERV 05-09 14:14 → C.4E 05-09 15:13
PROVIDERS: ADMIT Student in an Organized Health Care Education/Training Program; ATTEND Family Medicine
PROC: 0Y6W0Z0 Detachment at Left 4th Toe, Complete, Open Approach (ICD-10-PCS; principal; 2017-05-08 08:15)
PROC: 0JDR0ZZ Extraction of Left Foot Subcutaneous Tissue and Fascia, Open Approach (ICD-10-PCS; principal; 2017-05-08 08:15)
PROC: 0LBW0ZZ Excision of Left Foot Tendon, Open Approach (ICD-10-PCS; principal; 2017-05-08 08:15)
PROC: 0QBP0ZZ Excision of Left Metatarsal, Open Approach (ICD-10-PCS; 2017-05-11)
PROC: B41DYZZ Fluoroscopy of Aorta and Bilateral Lower Extremity Arteries using Other Contrast (ICD-10-PCS; 2017-05-14)
PROC: 05HB33Z Insertion of Infusion Device into Right Basilic Vein, Percutaneous Approach (ICD-10-PCS; 2017-05-15)
DX: A41.01 Sepsis due to Methicillin susceptible Staphylococcus aureus (principal); M72.6 Necrotizing fasciitis; M86.9 Osteomyelitis, unspecified; E11.52 Type 2 diabetes mellitus with diabetic peripheral angiopathy with gangrene; I96 Gangrene, not elsewhere classified; N17.9 Acute kidney failure, unspecified; E87.1 Hypo-osmolality and hyponatremia; L03.032 Cellulitis of left toe; E11.69 Type 2 diabetes mellitus with other specified complication; B95.4 Other streptococcus as the cause of diseases classified elsewhere; B95.61 Methicillin susceptible Staphylococcus aureus infection as the cause of diseases classified elsewhere; B96.89 Other specified bacterial agents as the cause of diseases classified elsewhere; R04.0 Epistaxis; I50.9 Heart failure, unspecified; I45.10 Unspecified right bundle-branch block; J44.9 Chronic obstructive pulmonary disease, unspecified; E11.65 Type 2 diabetes mellitus with hyperglycemia; E11.42 Type 2 diabetes mellitus with diabetic polyneuropathy; I25.10 Atherosclerotic heart disease of native coronary artery without angina pectoris; I87.2 Venous insufficiency (chronic) (peripheral); B35.1 Tinea unguium; E78.5 Hyperlipidemia, unspecified; K21.9 Gastro-esophageal reflux disease without esophagitis; N40.0 Benign prostatic hyperplasia without lower urinary tract symptoms; G47.00 Insomnia, unspecified; F51.9 Sleep disorder not due to a substance or known physiological condition, unspecified; F32.9 Major depressive disorder, single episode, unspecified; I25.2 Old myocardial infarction; Z23 Encounter for immunization; Z95.1 Presence of aortocoronary bypass graft; Z89.422 Acquired absence of other left toe(s); Z89.421 Acquired absence of other right toe(s); Z95.810 Presence of automatic (implantable) cardiac defibrillator; Z86.74 Personal history of sudden cardiac arrest; Z87.891 Personal history of nicotine dependence; Z79.4 Long term (current) use of insulin; Z79.51 Long term (current) use of inhaled steroids; Z79.82 Long term (current) use of aspirin; Z79.899 Other long term (current) drug therapy

== ENCOUNTER → 2017-05-22 | Outpatient (CLI) | payer OTHER ==
[~2017-05-22] MED LIST changes: +AMLO5TAB3 PO; +AMOX500C3 PO; +ASPCH81X PO; +ASPECOTC PO; -ASPI-435 PO; +CEFT1INJ57 IV; +CEPH-571 PO; -FLM4 PO; -IMDSR60 PO; -INDO-24 PO; +INSDGI SC; +INSPMPHMLG; +ISOS60TA25 PO; +LEVO1TAB33 PO; -LPR25 PO; +METO50TA16 PO; +SULF800T23 PO; +TAMS0.4C38 PO
[2017-05-22 17:49] LABS: HEMATOCRIT 33.8 % (42-52); HEMOGLOBIN 10.9 g/dL (14.0-18.0); MEAN CELL VOLUME 90.4 fL (80-100); MEAN CORPUSCULAR HEMOGLOBIN 29.1 pg (25-34); MEAN CORPUSCULAR HGB CONC 32.2 g/dl (32-36); PLATELET COUNT 271 K/uL (130-400); RED CELL DISTRIBUTION WIDTH CV 15.7 % (11.5-14.5); RED CELL DISTRIBUTION WIDTH SD 50.2 fL (36.4-46.3); WHITE BLOOD COUNT 5.17 K/uL (4.8-10.8)
[2017-05-22 18:36] LABS: ALBUMIN 2.4 gm/dl (3.4-5.0); ALT/SGPT 34 U/L (12-78); AST/SGOT 24 U/L (15-37); BLOOD UREA NITROGEN 23 mg/dl (7-18); CALCIUM 8.2 mg/dl (8.5-10.1); CARBON DIOXIDE 28 mmol/L (21-32); GLUCOSE 93 mg/dl (70-99); POTASSIUM 4.3 mmol/L (3.5-5.1); SODIUM 138 mmol/L (136-145)
[2017-05-22 18:39] LABS: ALKALINE PHOSPHATASE 95 U/L (45-117); TOTAL PROTEIN 7.8 gm/dl (6.4-8.2)
== END | disposition home or self-care (01) ==
LOC: C.LABSPEC 09:40
PROVIDERS: ATTEND Internal Medicine Infectious Disease
DX: M86.9 Osteomyelitis, unspecified (principal)

== ENCOUNTER → 2017-05-29 | Outpatient (CLI) | payer OTHER ==
[~2017-05-29] MED LIST changes: +AMLO-110 PO; -AMLO5TAB3 PO; -AMOX500C3 PO; -ASPCH81X PO; -ASPECOTC PO; +ASPI325T45 PO; -INSDGI SC; -INSPMPHMLG; -IPRA-64 INH; +IPRASOL4 INH; -LEVO1TAB33 PO; -SULF800T23 PO
[2017-05-29 16:40] LABS: HEMATOCRIT 33.1 % (42-52); HEMOGLOBIN 11.1 g/dL (14.0-18.0); MEAN CELL VOLUME 88.5 fL (80-100); MEAN CORPUSCULAR HEMOGLOBIN 29.7 pg (25-34); MEAN CORPUSCULAR HGB CONC 33.5 g/dl (32-36); MEAN PLATELET VOLUME 10.4 fL (7.4-10.4); PLATELET COUNT 173 K/uL (130-400); RED CELL DISTRIBUTION WIDTH CV 16.1 % (11.5-14.5); RED CELL DISTRIBUTION WIDTH SD 51.5 fL (36.4-46.3)
[2017-05-29 17:33] LABS: ALBUMIN 2.6 gm/dl (3.4-5.0); ALKALINE PHOSPHATASE 102 U/L (45-117); ALT/SGPT 28 U/L (12-78); AST/SGOT 34 U/L (15-37); BLOOD UREA NITROGEN 25 mg/dl (7-18); CALCIUM 8.3 mg/dl (8.5-10.1); CARBON DIOXIDE 28 mmol/L (21-32); CREATININE 1.43 mg/dl (0.60-1.40); GLUCOSE 147 mg/dl (70-99); POTASSIUM 4.5 mmol/L (3.5-5.1); SODIUM 138 mmol/L (136-145); TOTAL PROTEIN 7.5 gm/dl (6.4-8.2)
== END | disposition home or self-care (01) ==
LOC: C.LABSPEC 12:47
PROVIDERS: ATTEND Internal Medicine Infectious Disease
DX: M86.9 Osteomyelitis, unspecified (principal)

== ENCOUNTER → 2017-06-07 | Outpatient (CLI) | payer OTHER ==
[2017-06-07 17:30] LABS: HEMATOCRIT 34.4 % (42-52); HEMOGLOBIN 11.1 g/dL (14.0-18.0); MEAN CELL VOLUME 89.1 fL (80-100); MEAN CORPUSCULAR HEMOGLOBIN 28.8 pg (25-34); MEAN CORPUSCULAR HGB CONC 32.3 g/dl (32-36); MEAN PLATELET VOLUME 10.2 fL (7.4-10.4); PLATELET COUNT 149 K/uL (130-400); RED CELL DISTRIBUTION WIDTH CV 16.8 % (11.5-14.5); RED CELL DISTRIBUTION WIDTH SD 54.3 fL (36.4-46.3); WHITE BLOOD COUNT 4.19 K/uL (4.8-10.8)
[2017-06-07 18:07] LABS: ALBUMIN 2.7 gm/dl (3.4-5.0); ALT/SGPT 27 U/L (12-78); AST/SGOT 21 U/L (15-37); BLOOD UREA NITROGEN 30 mg/dl (7-18); CALCIUM 8.3 mg/dl (8.5-10.1); CARBON DIOXIDE 29 mmol/L (21-32); CREATININE 1.34 mg/dl (0.60-1.40); GLUCOSE 282 mg/dl (70-99); POTASSIUM 4.8 mmol/L (3.5-5.1); SODIUM 135 mmol/L (136-145)
[2017-06-07 18:09] LABS: ALKALINE PHOSPHATASE 103 U/L (45-117); TOTAL PROTEIN 7.7 gm/dl (6.4-8.2)
== END | disposition home or self-care (01) ==
LOC: C.LABSPEC 10:27
PROVIDERS: ATTEND Internal Medicine Infectious Disease
DX: M86.9 Osteomyelitis, unspecified (principal)

== ENCOUNTER → 2017-09-07 | Outpatient (CLI) | payer OTHER ==
[~2017-09-07] MED LIST changes: -ASPI325T45 PO; -CEFT1INJ57 IV
[2017-09-07 13:02] LABS: HEMOGLOBIN A1C 8.9 % (4.5-5.6)
[2017-09-07 13:08] LABS: ALBUMIN 2.5 gm/dl (3.4-5.0); ALT/SGPT 21 U/L (12-78); AST/SGOT 16 U/L (15-37); BLOOD UREA NITROGEN 18 mg/dl (7-18); CALCIUM 8.7 mg/dl (8.5-10.1); CARBON DIOXIDE 29 mmol/L (21-32); CREATININE 1.13 mg/dl (0.60-1.40); GLUCOSE 302 mg/dl (70-99); POTASSIUM 4.4 mmol/L (3.5-5.1); SODIUM 137 mmol/L (136-145)
[2017-09-07 13:14] LABS: ALKALINE PHOSPHATASE 97 U/L (45-117); TOTAL PROTEIN 7.2 gm/dl (6.4-8.2)
== END | disposition home or self-care (01) ==
LOC: C.LABPVFM 08:04
PROVIDERS: ATTEND Family Medicine
DX: I12.9 Hypertensive chronic kidney disease with stage 1 through stage 4 chronic kidney disease, or unspecified chronic kidney disease (principal); E13.319 Other specified diabetes mellitus with unspecified diabetic retinopathy without macular edema; N18.9 Chronic kidney disease, unspecified

== ENCOUNTER → 2018-01-11 | Day surgery (SDC) | payer OTHER ==
[~2018-01-11] VITALS: Ht 180.3 cm; Wt 88.0 kg
[~2018-01-11] MED LIST changes: -AMLO-110 PO; +AMLO5TAB3 PO; +AMOX500C3 PO; +ASPCH81X PO; -CEPH-571 PO; +DALBAVANCIN IV 1,500 MG in DEXTROSE 5% 250ML 250 ML IV SCH; +IPRA-64 INH; -IPRASOL4 INH; +SULF800T23 PO
[2018-01-11 09:11] VITALS: BP 138/71; PULSE 73; TEMP 36.4; O2SAT 92; Ht 180.3 cm; Wt 88.0 kg
[2018-01-11 11:08] VITALS: BP 154/74; PULSE 80; TEMP 37; O2SAT 96
== END | disposition home or self-care (01) ==
LOC: C.MTU 08:55
PROVIDERS: ATTEND Internal Medicine Infectious Disease
DX: M86.9 Osteomyelitis, unspecified (principal); L97.519 Non-pressure chronic ulcer of other part of right foot with unspecified severity

== ENCOUNTER → 2018-01-11 | Outpatient (CLI) | payer OTHER ==
[~2018-01-11] MED LIST changes: -DALBAVANCIN IV 1,500 MG in DEXTROSE 5% 250ML 250 ML IV SCH; +INSDGI SC; +INSPMPHMLG; +LEVO1TAB33 PO
--- NOTE | 2018-01-11 11:59 | DIAGNOSTIC IMAGING REPORT ---
R LOWER EXTREMITY WITHOUT HISTORY: 72 years-old Male R 1ST TOE NON HEALING WOUND R/O OSTEO patient presents with chronic pain with nonhealing ulcer about the right first toe COMPARISON: None available TECHNIQUE: Multiple axial CT images of the right foot were obtained without use of IV contrast. Coronal and sagittal reformatted images were obtained from the axial data set and were submitted for review. A dose lowering technique was used consistent with the principals of MAYRA. FINDINGS: There is subtle cortical destruction with bony fragments seen along the distal portion of the first distal phalanx, image 172 series 3, image 29 series 301 and image 12 of series 300. The bones appear mildly demineralized. Degenerative changes are noted about the midfoot. Peripherally corticated periarticular erosions about the first metatarsal head are noted along with adjacent soft tissue calcifications. 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 No acute fracture or dislocation. Postoperative changes from amputation of the fifth digit at the level of the metatarsal phalangeal joint. Mild marginal spurring with joint space narrowing is seen throughout the midfoot. 3 mm metallic density foreign body about the plantar midfoot may reflect a skin staple, image 146 series 3. Extensive peripheral arterial calcifications are noted along with moderate subcutaneous edema and skin thickening. Moderate to extensive atrophy of the intrinsic musculature about the foot. Imaged tendons and ligamentous structures appear grossly intact. Moderate focal soft tissue swelling with suggested skin ulcer about the distal first toe. Punctate Hyperattenuating material is noted within the wound tract extending towards the bone. IMPRESSION: 1. Moderate subcutaneous edema and skin thickening about the foot suggests cellulitis with venous stasis or lymphedema also within the differential. Soft tissue ulcer of the distal first digit is also noted without drainable fluid collection. 2. Subtle cortical destruction with bony fragmentation seen along the distal portion of the first distal phalanx is suspicious for osteomyelitis. 3. Suggestion of gout arthropathy with minimal calcified tophi formation about the first MTP joint. 4. Peripheral arterial disease. Atrophy of the intrinsic musculature suggests sequela of long-standing diabetes mellitus with denervation changes. The above report was generated using voice recognition software. It may contain grammatical, syntax or spelling errors. Electronically signed by: Kel Myers M.D. 01/11/2018 11:58 AM Dictated Date/Time: 01/11/2018 11:47 AM
--- NOTE | 2018-01-25 13:45 | CODING QUERY NO DIAGNOSIS ---
TREATMENT RENDERED WITHOUT A DIAGNOSIS To promote full compliance with coding requirements relating to patient care, physician participation is requested in all cases of hims coder uncertainty. Please assist us with providing a diagnosis/symptom for the test(s) below: A diagnosis/symptom was not documented on your Order. A valid diagnosis/symptom is required to bill all insurances. Please remember that we are unable to code a diagnosis of rule out, probable, possible, questionable, or suspected. Tests that require a diagnosis: DOS: 01/11/18 * CT LOWER EXTREM W/O CONTRAST DIAGNOSIS: Provider Signature: Date: Thank you Monisha Rush [employer] Information Management Once completed, please kindly fax back to [phone] For questions please call [phone]
== END | disposition home or self-care (01) ==
LOC: C.CTS 08:57
PROVIDERS: ATTEND Emergency Medicine
DX: M86.171 Other acute osteomyelitis, right ankle and foot (principal); I73.9 Peripheral vascular disease, unspecified

== ENCOUNTER 2018-01-18 05:26 | Day surgery (SDC) | payer OTHER ==
[~2018-01-18] VITALS: Ht 179.1 cm; Wt 88.0 kg
[2018-01-18] VITALS (10 sets, daily range): BP systolic 111–126; BP diastolic 56–67; PULSE 60–79; TEMP 36.1–36.6; O2SAT 91–96; Ht 179.1 cm; Wt 88.0 kg
[~2018-01-18 05:26] MED LIST changes: -INSDGI SC; -INSPMPHMLG; +PATIENT'S HEIGHT AND/OR WEIGHT NEEDED SCH
[2018-01-18] MEDS ORDERED: CEFAZOLIN 1000MG IV PUSH 7.5 ML IV SCH (06:00)
[2018-01-18] MEDS ORDERED: SODIUM CHLORIDE 0.9% 1000ML IV SCH (06:00)
--- NOTE | 2018-01-18 06:02 | History and Physical ---
History & Physical Date of Service Jan 18, 2018. History & Physical CC: Nonhealing left foot with superficial femoral artery occlusion and gangrene right great toe. HPI: Mr Frank is a 66-year-old gentleman who has open areas on his left foot which have not healed. His index on the right foot is now decreased to 0.42 from 0.78. Unfortunately the last 2 weeks his right great toe has become gangrenous. He claims not getting giving much discomfort however it is having some slight drainage.. He does not give a history of claudication, although he does not walk far enough or fast enough. He denies any symptoms consistent with rest pain. He had had ulcerations on his toes which have healed. He also has a toe amputation of the right fifth toe in the past. Allergies: None known. Medications: amoxicillin 500 mg oral capsule, 500 mg= 1 cap, PO, tid atorvastatin 20 mg oral tablet, 20 mg= 1 tab, PO, Daily doxepin 100 mg oral capsule, 100 mg= 1 cap, PO, qhs isosorbide mononitrate 60 mg oral tablet, extended release, 60 mg= 1 tab, PO, qAM Lantus Solostar Pen 100 units/mL subcutaneous solution, 70 units, subQ, qhs levoFLOXacin 500 mg oral tablet, 500 mg= 1 tab, PO, q24h Metoprolol Tartrate 50 mg oral tablet, 50 mg= 1 tab, PO, Daily omeprazole 20 mg oral delayed release capsule, 20 mg= 1 cap, PO, Daily Spiriva 18 mcg inhalation capsule, 18 mcg= 1 each, inhaled, Daily sulfamethoxazole-trimethoprim 800 mg-160 mg oral tablet, 1 tab, PO, bid tamsulosin 0.4 mg oral capsule, 0.4 mg= 1 cap, PO, Daily Past medical history is positive for diabetes, hypertension, amputation of right fifth toe. Past medical/surgical history in addition to the amputation of the fifth toe is a back fusion in 2011. Acid reflux ATHEROSCLEROSIS OF [place] ARTERIES OF THE EXTREMITIES WITH INTERMITTENT CLAUDICATION Diabetes mellitus type 2 HTN ( hypertension) Neuropathy S/P orthopedic surgery, . Family history is positive for hypertension, heart disease and diabetes. Personal history: He smoked in the past and quit in 1985. He drinks 4 drinks a day of alcohol. Review of systems was done completely. The only positive findings were poor wound healing of his feet, shiny skin in his lower legs, generalized leg pain when walking, pain in his legs at night in bed, burning, numbness and tingling in both feet secondary to neuropathy. Physical Examination: The patient is awake, oriented x3. He is in no apparent distress. He has a normal body habitus. His blood pressure is 148/70 in the right, 140/70 in the left. Head and neck within normal limits. There are on carotid bruits. Lungs are clear to auscultation. Heart: Regular rate and rhythm, without murmurs, gallops or rubs. Abdominal exam is benign. I could not appreciate any pulsatile mass in the abdomen. However, his abdomen was fairly large. Vascular exam: . His femorals are +2 and cannot appreciate pedal pulses in either foot. Left foot has a dressing on but does have open wounds, according to the wound center. The right foot has gangrenous changes from the mid portion of the great toe distally. 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 Plan and Recommendations: Patient is admitted for arteriography with possible intervention. I have discussed the risks options and benefits of the procedure with the patient. The patient understands the risks options and benefits and agrees to the procedure.
[2018-01-18] MEDS ORDERED: CEFAZOLIN SOD 2000MG/15 ML IV PUSH ONE (06:18)
[2018-01-18 07:09] LABS: CREATININE 1.48 mg/dl (0.60-1.40)
--- NOTE | 2018-01-18 07:31 | History & Physical Bridge Note ---
H&P Re-Evaluation Bridge Note: I have examined the patient, reviewed the History & Physical and in the interval since the performance of the History & Physical I have noted the following changes of clinical significance: No changes noted
--- NOTE | 2018-01-18 07:37 | Pre Sedation Assessment ---
Pre Sedation Assessment General Date of Sedation: Jan 18, 2018. Vital Signs Past 12 Hours Date Time Temp Pulse Resp B/P (MAP) Pulse Ox O2 Delivery O2 Flow Rate FiO2 01/18/18 06:11 36.4 79 20 126/62 (83) 91 Room Air Review Cardiovascular: regular rate, rhythm Lungs: lungs clear Pre-Sedation Airway Assessment Smoking Status: Former Smoker Hx of Sleep Apnea: No Short Thick Neck: No Thyro-mental Distance: > 3 Finger Breadths Oral Cavity: WNL Mallampati Classification: Class II ASA Classification: Class III NPO Status Date of Last Intake of Fluids: Jan 18, 2018 Time of Last Intake of Fluids: 0530 Date of Last Intake of Solids: Jan 17, 2018 Time of Last Intake of Solids: 1200 Procedure Planning Contraindications for Sedation: None Current Medications Reviewed: Yes Notes The planned sedation has been discussed with the patient. Informed Consent was obtained. I have identified the patient, determined the appropriateness of sedation and have assessed the patient immediately prior to the procedure. All medicine(s) and interventions are by my order.
[2018-01-18] MEDS ORDERED: HEPARIN SOD (PORCINE) 1000 UNIT/ML 10 ML VIAL ONE (07:41)
[2018-01-18] MEDS ORDERED: FENTANYL CITRATE INJ 50 MCG/1 ML 2 ML VIAL ONE (07:42)
[2018-01-18] MEDS ORDERED: MIDAZOLAM HCL 1 MG/ML 2ML VIAL ONE (07:42)
[2018-01-18] MEDS ORDERED: MIDAZOLAM HCL 1 MG/ML 2ML VIAL IV ONE (08:22)
[2018-01-18] MEDS ORDERED: FENTANYL CITRATE INJ 50 MCG/1 ML 2 ML VIAL IV ONE (08:22)
[2018-01-18] MEDS ORDERED: LIDOCAINE HCL 1% 20 ML VIAL INJ ONE (08:31)
--- NOTE | 2018-01-18 09:05 | [facility] Operative Report ---
Operative Report Operative Date Jan 18, 2018. 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 Mild aortoiliac disease. Mild [employer] and SFA disease. On right the AT and PT are occluded. The PT reconstitutes at the ankle from collaterals from the peroneal. On the left the AT and PT are also occluded and the PT reconstitutes at the ankle from collaterals from the peroneal. Specimens None Drains None Anesthesia Type IV Sedat Cons RN Only Complication(s) none Disposition Recovery Room / PACU Indications Mr. Frank is a 72 year old male with open ulcerations on his left foot which have not healed. Additionally, over the last 2 weeks his right great toe has become gangrenous. His JEREMIAH on the right foot is decreased to 0.42 from 0.78. He does not endorse a history of claudication, although he does not walk far enough or fast enough. He denies any symptoms consistent with rest pain. He also has a toe amputation of the right fifth toe in the past. The risks, benefits and alternatives of the procedure were explained to him and he agreed to proceed. Description of Procedure The patient was brought to the angio suite and placed in the supine position. He was prepped and draped in the bilateral groins in the typical sterile fashion. Antibiotics were administered. Local anesthesia was administered with 1 lidocaine. The left common femoral artery was accessed under ultrasound guidance. A 5 Urdu sheath was placed. An 0.035 angled glidewire was advanced to the aorta. A 5 Fr pigtail catheter was inserted. Aortogram was completed which revealed mild aortoiliac disease, and renal arteries without evidence of stenosis bilaterally. Arteriogram of the bilateral iliacs and femoral arteries were then completed which showed mild disease. A Merit Rim catheter was then used to access the right iliac artery. The 0.035 angled glide wire was advanced into the SFA and the Rim was then advanced to the SFA. Right lower extremity arteriogram was completed which revealed occluded AT and PT with the PT reconstituting at the level of the ankle. The catheter and wire were removed. Left lower extremity arteriogram was completed which again revealed an occluded AT and PT with the PT reconstituting at the ankle. The sheath was removed and the Starclose device was used to close the puncture site. Pressure was held and hemostasis was achieved. The patient tolerated the procedure well and was brought to the recovery room in good condition. Dr. Rg was present and scrubbed for the entire case. I attest to the content of the Intraoperative Record and any orders documented therein. Any exceptions are noted below.
[2018-01-18] MEDS ORDERED: IODIXANOL (VISIPAQUE) 270 MG/ML 150ML IV ONE (09:06)
--- NOTE | 2018-01-18 09:07 | [facility] Post Operative Brief Note ---
Immediate Operative Summary Operative Date Jan 18, 2018. 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
--- NOTE | 2018-01-18 09:13 | Discharge Instructions ---
Discharge Instructions Date of Service Jan 18, 2018. Visit Reason for Visit: Gangrene Both Feet Discharge Discharge Diagnosis / Problem: Bilateral infrapopliteal artery occlusive disease Discharge Goals Goal(s): Diagnostic testing Activity Recommendations Activity Limitations: per Instructions/Follow-up section Anesthesia . Post Anesthesia Instructions: If you have had General Anesthesia or IV Sedation: * Do not drive today. * Resume driving when surgeon permits. * Do not make important decisions or sign legal documents today. * Call surgeon for: 1. Temperature elevations greater than 101 degrees F. 2. Uncontrollable pain. 3. Excessive bleeding. 4. Persistent nausea and vomiting. 5. Medication intolerance (nausea, vomiting or rash). * For nausea and vomiting use only clear liquids such as: tea, soda, bouillon until nausea subsides, then gradually increase diet as tolerated. * If you have any concerns or questions, call your surgeon's office. If physician is unavailable and it is an emergency, call 911 or go to the nearest emergency room. . Instructions / Follow-Up Instructions / Follow-Up Call [phone] to schedule a follow up appointment if one not already scheduled. SPECIAL CARE INSTRUCTIONS: Medications: * Continue to take your medications as directed. If you have been given a prescription for Plavix, please fill it immediately and take as directed. Incision Care: * Your puncture site may have some bruising and minor swelling for about one week. * You will have a small dressing covering your puncture site. You may remove the dressing after 24 hours and shower. You may let the warm soapy water run over it, but be sure to dry the puncture site well and keep it dry. * DO NOT IMMERSE THE INCISION IN A TUB/POOL/etc. UNTIL HEALED. * Puncture sites should be kept covered with a band-aid until it begins to heal. Restrictions: * Depending on whether you leg or arm was punctured to access the arteries, you will be required to lay flat, hold your arm still, or both, for about 4 hours after the procedure to prevent bleeding. * Limit your activity for the first 48 hours. You may walk and go up and down steps. Avoid excessive bending or movement at the puncture site. Possible Complications: * Excessive Swelling - after blood flow is improved you may notice increased swelling in the lower legs. This is a normal response. This usually depends on the amount of blockages in the leg, how long they have been there prior to your procedure and how much blood flow was restored. Elevating your legs will help to improve this. Please notify our office ([phone] ) if the swelling does not go away after lying in bed overnight. * Infection/Drainage/Bleeding - Drainage or bleeding from the puncture site should be minimal. If you have excessive bleeding or drainage, call our office ([phone]) right away. * Pain - You may experience some mild pain or soreness at your puncture site. If your pain does not improve, please contact our office ([phone]). Call your doctor and seek emergent treatment if you develop: * Temperature above 101 degrees * Any fever or chills * Any redness or purulent drainage from the puncture site * Any new dusky/blue colored toes or feet with coolness or sharp or aching pain. SKIN IRRITATION: * You may experience some redness and/or swelling in the area where radiation was administered. If any skin irritation occurs, please contact your family physician. FOLLOW UP VISIT: Keep any scheduled doctor appointments. Diet Recommendations Recommended Home Diet: resume previous diet Procedures Procedures Performed: Ultrasound Localization of Left Femoral Artery Aortogram Bilateral Left Lower Extremity Angiogram Moderate Sedation 0822- Pending Studies Studies pending at discharge: no Medical Emergencies . Who to Call and When: Medical Emergencies: If at any time you feel your situation is an emergency, please call 911 immediately. . Non-Emergent Contact Non-Emergency issues call your: Surgeon . . "Provider Documentation" section prepared by Augustine Rg. .
--- NOTE | 2018-01-18 09:21 | Post Sedation Assessment ---
Post Sedation Assessment General Date of Sedation Jan 18, 2018. Vital Signs: Vital Signs Past 12 Hours Date Time Temp Pulse Resp B/P (MAP) Pulse Ox O2 Delivery O2 Flow Rate FiO2 01/18/18 08:25 66 14 114/63 98 Oxymask 4 01/18/18 08:22 66 14 120/63 98 Oxymask 4 01/18/18 08:15 66 14 121/64 98 Oxymask 4 01/18/18 08:10 68 14 106/62 98 Oxymask 4 01/18/18 06:11 36.4 79 20 126/62 (83) 91 Room Air Post Procedure Recovery Score Activity: (2) Moves 4 extremities * Respiration: (2) Deep breath/cough Circulation: (2) +/-20% PreAnes Value Consciousness: (2) Fully Awake Oxygen Saturation: (2) > 92% On Room Air Post Anesthesia Score: 10 Discharge Sedation Level of Care: Fast Track Phase II Post Sedation Plan On clinical assessment, the patient appears to have tolerated the sedation without complications. Patient is recovering as anticipated. Patient will continue to be monitored by nursing and may be discharged when sedation discharge criteria are met per below protocol. Upon Completions of procedure and up to 15 minutes continue every 5 minute vital signs and the P.A.R. score; then discharge to a Phase I or Fast Track to Phase II per the following guidelines: * Discharge Patient to appropriate Phase II area if PAR is 8 or greater or return to pre- procedure baseline. The post - procedure orders will be as directed. * If PAR score is less than 8 or not return to pre-procedure baseline then patient will follow Phase I monitoring till PAR is reached for Phase II. The Phase I may be done in procedure room or may call to secure a Phase I area. * If naloxone or flumazenil are used for reversal, hold in Phase I for an additional 60 -120 minutes before discharge to Phase II. Please call the Sedation Physician to re-evaluate and complete post-note for discharge to Phase II area. Do NOT discharge from procedure sedation or Phase 1 until post- sedation evaluation note is complete by procedure /sedation MD Sedation Discharge Instructions to be given to the patient at discharge to home.
== END 2018-01-18 12:30 | disposition home or self-care (01) ==
LOC: C.ACU 05:26
PROVIDERS: ATTEND Surgery Vascular Surgery
DX: I70.261 Atherosclerosis of native arteries of extremities with gangrene, right leg (principal); I70.292 Other atherosclerosis of native arteries of extremities, left leg; K21.9 Gastro-esophageal reflux disease without esophagitis; E11.40 Type 2 diabetes mellitus with diabetic neuropathy, unspecified; I10 Essential (primary) hypertension; Z79.4 Long term (current) use of insulin; Z87.891 Personal history of nicotine dependence

== ENCOUNTER 2018-01-21 08:57 | Inpatient (IN) | payer OTHER ==
[~2018-01-21] VITALS: Ht 177.8 cm; Wt 86.5 kg
[2018-01-21] VITALS (11 sets, daily range): BP systolic 118–159; BP diastolic 54–78; PULSE 67–88; TEMP 36.3–37.5; O2SAT 93–99; BMI 27.0; BMI 27.4
--- NOTE | 2018-01-21 06:16 | History and Physical ---
History & Physical Date of Service Jan 21, 2018. History & Physical CC: Nonhealing left foot with superficial femoral artery occlusion and gangrene right great toe. HPI: Mr Frank is a 66-year-old gentleman who has open areas on his left foot which have not healed. His index on the right foot is now decreased to 0.42 from 0.78. Unfortunately the last 2 weeks his right great toe has become gangrenous. He claims not getting giving much discomfort however it is having some slight drainage.. He does not give a history of claudication, although he does not walk far enough or fast enough. He denies any symptoms consistent with rest pain. He had had ulcerations on his toes which have healed. He also has a toe amputation of the right fifth toe in the past. He had arteriography which showed significant infrapopliteal artery occlusions. Allergies: None known. Medications: amoxicillin 500 mg oral capsule, 500 mg= 1 cap, PO, tid atorvastatin 20 mg oral tablet, 20 mg= 1 tab, PO, Daily doxepin 100 mg oral capsule, 100 mg= 1 cap, PO, qhs isosorbide mononitrate 60 mg oral tablet, extended release, 60 mg= 1 tab, PO, qAM Lantus Solostar Pen 100 units/mL subcutaneous solution, 70 units, subQ, qhs levoFLOXacin 500 mg oral tablet, 500 mg= 1 tab, PO, q24h Metoprolol Tartrate 50 mg oral tablet, 50 mg= 1 tab, PO, Daily omeprazole 20 mg oral delayed release capsule, 20 mg= 1 cap, PO, Daily Spiriva 18 mcg inhalation capsule, 18 mcg= 1 each, inhaled, Daily sulfamethoxazole-trimethoprim 800 mg-160 mg oral tablet, 1 tab, PO, bid tamsulosin 0.4 mg oral capsule, 0.4 mg= 1 cap, PO, Daily Past medical history is positive for diabetes, hypertension, amputation of right fifth toe. Past medical/surgical history in addition to the amputation of the fifth toe is a back fusion in 2011. Acid reflux ATHEROSCLEROSIS OF [place] ARTERIES OF THE EXTREMITIES WITH INTERMITTENT CLAUDICATION Diabetes mellitus type 2 HTN ( hypertension) Neuropathy S/P orthopedic surgery, . Family history is positive for hypertension, heart disease and diabetes. Personal history: He smoked in the past and quit in 1985. He drinks 4 drinks a day of alcohol. Review of systems was done completely. The only positive findings were poor wound healing of his feet, shiny skin in his lower legs, generalized leg pain when walking, pain in his legs at night in bed, burning, numbness and tingling in both feet secondary to neuropathy. Physical Examination: The patient is awake, oriented x3. He is in no apparent distress. He has a normal body habitus. His blood pressure is 148/70 in the right, 140/70 in the left. Head and neck within normal limits. There are on carotid bruits. Lungs are clear to auscultation. Heart: Regular rate and rhythm, without murmurs, gallops or rubs. Abdominal exam is benign. I could not appreciate any pulsatile mass in the abdomen. However, his abdomen was fairly large. Vascular exam: . His femorals are +2 and cannot appreciate pedal pulses in either foot. Left foot has a dressing on but does have open wounds, according to the wound center. The right foot has gangrenous changes from the mid portion of the great toe distally. 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 Gangrene of right great toe Plan and Recommendations: Patient is admitted for amputation of his right great toe and possible wound vac placement. I have discussed the risks options and benefits of the procedure with the patient. The patient understands the risks options and benefits and agrees to the procedure.
[~2018-01-21 08:57] MED LIST changes: +CEFAZOLIN 1000MG IV PUSH 7.5 ML IV SCH; +LACTATED RINGER'S 1000ML 1,000 ML IV ONE; -PATIENT'S HEIGHT AND/OR WEIGHT NEEDED SCH
[2018-01-21] MEDS ORDERED: SULF800T23 PO (09:36)
[2018-01-21] MEDS ORDERED: INSDGI SC (09:36)
[2018-01-21] MEDS ORDERED: INSPMPHMLG (09:39)
[2018-01-21 09:45] LABS: BASO % 0.2 %; BASO ABS # 0.01 K/uL (0-0.2); HEMATOCRIT 36.6 % (42-52); HEMOGLOBIN 11.8 g/dL (14.0-18.0); IG# 0.01 K/uL (0.00-0.02); LYMPH % 8.6 %; LYMPH ABS # 0.42 K/uL (1.2-3.4); MEAN CELL VOLUME 85.9 fL (80-100); MEAN CORPUSCULAR HEMOGLOBIN 27.7 pg (25-34); MEAN PLATELET VOLUME 8.8 fL (7.4-10.4); MONO % 6.7 %; MONO ABS # 0.33 K/uL (0.11-0.59); NEUT % 84.3 %; NEUT ABS # 4.12 K/uL (1.4-6.5); PLATELET COUNT 224 K/uL (130-400); RED CELL DISTRIBUTION WIDTH CV 15.8 % (11.5-14.5); WHITE BLOOD COUNT 4.89 K/uL (4.8-10.8)
[2018-01-21] MEDS ORDERED: MIDAZOLAM HCL 1 MG/ML 2ML VIAL ONE (09:46)
[2018-01-21] MEDS ORDERED: ONDANSETRON INJ 2 MG/ML 2 ML VIAL ONE (09:46)
[2018-01-21] MEDS ORDERED: PROPOFOL IV EMULSION 10 MG/ML 20 ML VIAL ONE (09:46)
[2018-01-21] MEDS ORDERED: LIDOCAINE HCL 2% 2 ML VIAL (20MG/ML) ONE (09:46)
[2018-01-21] MEDS ORDERED: FENTANYL CITRATE INJ 50 MCG/1 ML 2 ML VIAL ONE (09:47)
[2018-01-21 09:57] LABS: INR 1.2 (0.9-1.1); PTT PATIENT 29.9 SECONDS (21.0-31.0)
[2018-01-21 09:59] LABS: MEAN CORPUSCULAR HGB CONC 32.2 g/dl (32-36)
[2018-01-21 10:02] LABS: CALCIUM 8.3 mg/dl (8.5-10.1); CREATININE 1.38 mg/dl (0.60-1.40); POTASSIUM 4.4 mmol/L (3.5-5.1)
[2018-01-21] MEDS ORDERED: ATROPINE SULFATE 0.1 MG/ML 5ML SYR IV PRN (10:15)
[2018-01-21] MEDS ORDERED: EpHEDrine SULFATE INJ 50 MG/ML AMP IV PRN (10:15)
[2018-01-21] MEDS ORDERED: FENTANYL CITRATE INJ 50 MCG/1 ML 2 ML VIAL IV PRN (10:15)
[2018-01-21] MEDS ORDERED: ONDANSETRON INJ 2 MG/ML 2 ML VIAL IV PRN ×2 (10:15→12:45)
[2018-01-21] MEDS ORDERED: CEFAZOLIN SOD 1 GM VIAL ONE (11:54)
[2018-01-21] MEDS ORDERED: PHENYLEPHRINE 100MCG/ML 5ML SYR ONE (12:00)
[2018-01-21] MEDS ORDERED: EpHEDrine SULFATE 50MG/5ML SYR ONE (12:00)
--- NOTE | 2018-01-21 12:29 | [facility] Post Operative Brief Note ---
Immediate Operative Summary Operative Date Jan 21, 2018. Pre-Operative Diagnosis Gangrene right great toe Post-Operative Diagnosis Same Procedure(s) Performed Right Great Toe Transmetatarsal Amputation Surgeon Dr Rg Rivet Sticker Surgeon(s) Loyda Holguin MD Estimated Blood Loss 20ml Findings Consistent with Post-Op Diagnosis Specimens A. right great toe Drains None Anesthesia Type General Complication(s) none Disposition Accompanied Pt To Recover: no Disposition: Recovery Room / PACU
--- NOTE | 2018-01-21 12:33 | [facility] Operative Report ---
Operative Report Operative Date Jan 21, 2018. Pre-Operative Diagnosis Gangrene right great toe Post-Operative Diagnosis Same Procedure(s) Performed Right Great Toe Transmetatarsal Amputation Surgeon Dr. Rg Single Stroke Preformer Surgeon(s) Loyda Avilez MD Estimated Blood Loss 20ml Findings Right great toe gangrene, good blood flow to wound following amputation. Specimens A. right great toe Drains None Anesthesia Type General Complication(s) none Disposition no Recovery Room / PACU Indications The patient is a 72 year old male with a history of PAD and gangrene of the right great toe. Risks, benefits and alternatives were discussed with the patient and he agreed to proceed with amputation of his right great toe. Description of Procedure The patient was brought to the operating room. He was placed in the supine position. General anesthesia was administered. He was given preoperative antibiotics. Time out was performed. His right foot was prepped and draped in the typical sterile fashion. A circumferential incision was made around his right great toe and extended on his medial foot to the mid-metatarsal. The toe was disarticulated at the metatarsal phalangeal joint. The distal metatarsal was dissected to the level of the incision. The periosteal elevator was used to elevate the periosteum overlying the metatarsal bone. An oscillating saw was used to divide the metatarsal and it was removed. There were several osteophytes which were dissected out and removed. There was good blood flow to the wound. Hemostasis was achieved and the wound was irrigated. The soft tissues were approximated with 3-0 vicryl over the bone. The incision was partially closed with 4-0 nylon. The distal portion was left open and packed with 1/2 inch iodoform packing. It was dressed with 4x4 gauze and kerlix. The patient tolerated the procedure well without complication. He was brought to the PACU in good condition. Dr. Rg was present and scrubbed for the entire procedure. I attest to the content of the Intraoperative Record and any orders documented therein. Any exceptions are noted below.
[2018-01-21] MEDS ORDERED: ALBUT/IPRATROP 3MG/0.5MG NEB 3 ML VIAL INH PRN (12:45)
[2018-01-21] MEDS ORDERED: MoRPHine SULFATE 4 MG/ML 1 ML CARP\\VIAL IV PRN (12:45)
[2018-01-21] MEDS ORDERED: OXYCODONE/ACETAMINOPHEN 5-325 TAB PO PRN (12:45)
[2018-01-21] MEDS ORDERED: GLUCOSE 40% GEL 15 GM TUBE PO PRN (12:45)
[2018-01-21] MEDS ORDERED: GLUCAGON FOR INJ 1 MG VIAL SQ PRN (12:45)
[2018-01-21] MEDS ORDERED: ALBUTEROL HFA 8 GM INHALER INH PRN (12:45)
[2018-01-21] MEDS ORDERED: CARBOHYDRATES FOR HYPOGLYCEMIA PO PRN (12:45)
[2018-01-21] MEDS ORDERED: GLUCOSE 10 TABS/TUBE PO PRN (12:45)
[2018-01-21] MEDS ORDERED: DEXTROSE 50% 50 ML SYR IV PRN (12:45)
--- NOTE | 2018-01-21 14:12 | Anesthesiology Progress Note ---
Anesthesia Post Op Note Date & Time Jan 21, 2018 at 14:12 Vital Signs Pain Intensity: 0.0 Vital Signs Past 12 Hours Date Time Temp Pulse Resp B/P (MAP) Pulse Ox O2 Delivery O2 Flow Rate FiO2 01/21/18 13:59 96 Nasal Cannula 2.0 01/21/18 13:30 68 15 135/64 95 Nasal Cannula 2 01/21/18 13:15 36.6 68 16 116/68 96 Nasal Cannula 2 01/21/18 13:05 71 15 119/67 100 Nasal Cannula 2 01/21/18 12:55 69 20 117/71 100 Oxymask 10 01/21/18 12:45 84 17 103/62 100 Oxymask 10 01/21/18 12:36 36.1 90 12 111/55 98 Oxymask 10 01/21/18 09:44 36.3 73 20 144/77 (99) 96 Room Air Notes Mental Status: alert / awake / arousable, participated in evaluation Pt Amnestic to Procedure: Yes Nausea / Vomiting: adequately controlled Pain: adequately controlled Airway Patency, RR, SpO2: stable & adequate BP & HR: stable & adequate Hydration State: stable & adequate Anesthetic Complications: no major complications apparent
[2018-01-21] MEDS ORDERED: D5W AND 1/2NSS 1,000 ML IV SCH (14:15)
[2018-01-21] MEDS ORDERED: NURSING VERBAL MED ORDER ONE (15:15)
[2018-01-21] MEDS: INSULIN HUMAN REGULAR SC SCH ×2 (18:42→21:53)
[2018-01-21] MEDS: FLUTICASONE/SALMETEROL 250/50 (ADVAIR) 14 PUFF/1 INHALER INH SCH (21:25)
[2018-01-21] MEDS: AMOXICILLIN 500 MG CAP PO SCH (21:25)
[2018-01-21] MEDS: SULFAMETHOXAZOLE/TRIMETHOPRIM DS 800/160MG TAB PO SCH (21:25)
[2018-01-21] MEDS: METOPROLOL TARTRATE 25 MG TAB PO SCH (21:25)
[2018-01-21] MEDS: DOXEPIN HCL 50 MG CAP PO SCH (21:26)
[2018-01-21] MEDS: INSULIN GLARGINE SOLOSTAR 100 UNITS/ML 3 ML PEN SC SCH (21:54)
[2018-01-22] VITALS (7 sets, daily range): BP systolic 132–159; BP diastolic 64–77; PULSE 66–80; TEMP 36.5–37.4; O2SAT 96–98; Ht 177.8 cm; Wt 86.5 kg
[2018-01-22] MEDS: FLUTICASONE/SALMETEROL 250/50 (ADVAIR) 14 PUFF/1 INHALER INH SCH ×2 (08:50→21:12)
[2018-01-22] MEDS: TIOTROPIUM BROMIDE 5 PUFF/90 MCG INH INH SCH (08:51)
[2018-01-22] MEDS: ASPIRIN 81 MG ECTAB PO SCH (08:52)
[2018-01-22] MEDS: AMOXICILLIN 500 MG CAP PO SCH ×3 (08:52→21:12)
[2018-01-22] MEDS: TAMSULOSIN HCL 0.4 MG CAP PO SCH (08:53)
[2018-01-22] MEDS: ISOSORBIDE MONONITRATE 60 MG TABCR PO SCH (08:53)
[2018-01-22] MEDS: ATORVASTATIN 20 MG TAB PO SCH (08:54)
[2018-01-22] MEDS: LEVOFLOXACIN 500 MG TAB PO SCH (08:54)
[2018-01-22] MEDS: METOPROLOL TARTRATE 25 MG TAB PO SCH ×2 (08:55→21:09)
[2018-01-22] MEDS: SULFAMETHOXAZOLE/TRIMETHOPRIM DS 800/160MG TAB PO SCH ×2 (08:56→21:11)
[2018-01-22] MEDS: AMLODIPINE BESYLATE 5 MG TAB PO SCH (08:56)
[2018-01-22] MEDS: PANTOprazole SOD 40 MG TAB PO SCH (08:56)
[2018-01-22] MEDS: INSULIN HUMAN REGULAR SC SCH ×4 (09:16→21:18)
[2018-01-22] MEDS: ENOXAPARIN 30 MG/0.3 ML SYR SQ SCH ×2 (09:22→21:10)
--- NOTE | 2018-01-22 12:01 | Progress Note ---
Progress Note Date of Service: Jan 22, 2018. Subjective 72yo m with multiple medical problems, POD #1 after RLE great toe TMA, seen in f /u today. Pt denies any complaints. Problem List Medical Problems: (1) Bilateral pneumonia Status: Acute (2) NSTEMI (non-ST elevated myocardial infarction) Status: Acute (3) Renal insufficiency Status: Acute (4) Respiratory failure Status: Acute (5) Thrombocytopenia Status: Acute Objective Vital Signs Vital Signs Past 12 Hours Date Time Temp Pulse Resp B/P (MAP) Pulse Ox O2 Delivery O2 Flow Rate FiO2 01/22/18 11:30 36.5 74 16 132/72 (92) 96 Room Air 01/22/18 09:30 96 Nasal Cannula 2.0 01/22/18 07:50 Nasal Cannula 2.0 01/22/18 07:20 37.1 72 16 148/70 (96) 96 Room Air 01/22/18 03:08 36.5 71 16 143/70 (94) 96 Nasal Cannula 2.0 01/22/18 00:30 Nasal Cannula 2.0 Exam CONST: A&O x3, NAD, chronically ill appearing CHEST: RRR lungs decreased, but ctab ABD: soft, nontender, + bs x 4 quad EXT: RLE Great toe amp site nontender, old blood on dressings, no active bleeding noted. Tissue appears red. No necrosis or periwound erythema noted. Laboratory and Microbiology Results Past 24 Hours Test 01/21/18 12:39 01/21/18 16:58 01/21/18 20:45 01/22/18 08:13 Range/Units Bedside Glucose 117 162 167 153 70-99 mg/dl ASSESSMENT adn PLAN: s/p RLE great toe TMA R great toe gangrene PAD Pt doing well post op. Will order wound vac to be placed today.
--- NOTE | 2018-01-22 13:56 | Anesthesiology Progress Note ---
Anesthesia Post Op Note Date & Time Jan 22, 2018 at 13:56 Vital Signs Pain Intensity: 0.0 Vital Signs Past 12 Hours Date Time Temp Pulse Resp B/P (MAP) Pulse Ox O2 Delivery O2 Flow Rate FiO2 01/22/18 11:30 36.5 74 16 132/72 (92) 96 Room Air 01/22/18 09:30 96 Nasal Cannula 2.0 01/22/18 07:50 Nasal Cannula 2.0 01/22/18 07:20 37.1 72 16 148/70 (96) 96 Room Air 01/22/18 03:08 36.5 71 16 143/70 (94) 96 Nasal Cannula 2.0 Notes Mental Status: alert / awake / arousable, participated in evaluation Pt Amnestic to Procedure: Yes Nausea / Vomiting: adequately controlled Pain: adequately controlled Airway Patency, RR, SpO2: stable & adequate BP & HR: stable & adequate Hydration State: stable & adequate Anesthetic Complications: no major complications apparent
[2018-01-22] MEDS: DOXEPIN HCL 50 MG CAP PO SCH (21:11)
[2018-01-22] MEDS: INSULIN GLARGINE SOLOSTAR 100 UNITS/ML 3 ML PEN SC SCH (21:19)
[2018-01-23 07:20] VITALS: BP 146/74; PULSE 72; TEMP 36.4; O2SAT 90
[2018-01-23 07:30] VITALS: O2SAT 90
[2018-01-23] MEDS: FLUTICASONE/SALMETEROL 250/50 (ADVAIR) 14 PUFF/1 INHALER INH SCH (08:33)
[2018-01-23] MEDS: TIOTROPIUM BROMIDE 5 PUFF/90 MCG INH INH SCH (08:34)
[2018-01-23] MEDS: ASPIRIN 81 MG ECTAB PO SCH (08:35)
[2018-01-23] MEDS: AMOXICILLIN 500 MG CAP PO SCH ×2 (08:35→13:19)
[2018-01-23] MEDS: TAMSULOSIN HCL 0.4 MG CAP PO SCH (08:36)
[2018-01-23] MEDS: LEVOFLOXACIN 500 MG TAB PO SCH (08:36)
[2018-01-23] MEDS: ATORVASTATIN 20 MG TAB PO SCH (08:37)
[2018-01-23] MEDS: METOPROLOL TARTRATE 25 MG TAB PO SCH (08:38)
[2018-01-23] MEDS: AMLODIPINE BESYLATE 5 MG TAB PO SCH (08:38)
[2018-01-23] MEDS: SULFAMETHOXAZOLE/TRIMETHOPRIM DS 800/160MG TAB PO SCH (08:39)
[2018-01-23] MEDS: PANTOprazole SOD 40 MG TAB PO SCH (08:39)
[2018-01-23] MEDS: ENOXAPARIN 30 MG/0.3 ML SYR SQ SCH (08:46)
[2018-01-23] MEDS: INSULIN HUMAN REGULAR SC SCH ×2 (08:56→13:06)
[2018-01-23] MEDS: ISOSORBIDE MONONITRATE 60 MG TABCR PO SCH (09:03)
--- NOTE | 2018-01-23 14:04 | Discharge Instructions ---
Discharge Instructions Date of Service Jan 23, 2018. Admission Reason for Admission: Gangrene Right Great Toe Discharge Discharge Diagnosis / Problem: post R great toe amputation, R great toe gangrene Discharge Goals Goal(s): Therapeutic intervention, Prevent Disease Progression Activity Recommendations Activity Limitations: per Instructions/Follow-up section . Instructions / Follow-Up Instructions / Follow-Up 1. DO NOT get Wound Vac dressing wet. 2. Weight bearing as tolerated with post op shoe/boot and dressing on. 3. Pt to see [facility] for [facility]ound Care within 1 week. Call for appt. 4. Pt will be contacted by Dr Rg's office regarding another surgical procedure needed on Left foot next week. Call [phone] if questions. 5. Pt will have Wound Vac changed three times weekly by home nursing. Current Hospital Diet Patient's current hospital diet: AHA Diet (Heart Healthy), Diabetes Type 2 Diet Discharge Diet Recommended Diet: AHA Diet (Heart Healthy), Diabetes Type 2 Diet Procedures Procedures Performed: Right Great Toe Transmetatarsal Amputation Pending Studies Studies pending at discharge: no Medical Emergencies . Who to Call and When: Medical Emergencies: If at any time you feel your situation is an emergency, please call 911 immediately. . Non-Emergent Contact Non-Emergency issues call your: Primary Care Provider, Surgeon . "Provider Documentation" section prepared by Anni Balderas. .
--- NOTE | 2018-01-23 14:12 | Progress Note ---
Progress Note Date of Service: Jan 23, 2018. Subjective 72 yo m POD # 2 after R great toe amputation, seen in f/u today. Pt denies pain. Vac has been on since yesterday. Problem List Medical Problems: (1) Bilateral pneumonia Status: Acute (2) NSTEMI (non-ST elevated myocardial infarction) Status: Acute (3) Renal insufficiency Status: Acute (4) Respiratory failure Status: Acute (5) Thrombocytopenia Status: Acute Objective Vital Signs Vital Signs Past 12 Hours Date Time Temp Pulse Resp B/P (MAP) Pulse Ox O2 Delivery O2 Flow Rate FiO2 01/23/18 07:56 Room Air 01/23/18 07:30 90 Room Air 01/23/18 07:20 36.4 72 20 146/74 (98) 90 Room Air Exam CONST: A&O x3, NAD, chronically ill appearing male CHEST: RRR lungs decreased, but ctab ABD: soft, nontender, + bs x 4 quad EXT: RLE wound with vac in place. No erythema noted. Intake & Output 8-Hour Column 01/23/18 01/24/18 01/24/18 16:00 00:00 08:00 Intake Total 830 ml Output Total 950 ml Balance -120 ml 24-Hour Column 01/24/18 08:00 Intake Total 830 ml Output Total 950 ml Balance -120 ml Laboratory and Microbiology Results Past 24 Hours Test 01/22/18 17:08 01/22/18 20:46 01/23/18 08:01 01/23/18 12:15 Range/Units Bedside Glucose 118 157 146 253 70-99 mg/dl ASSESSMENT and PLAN: s/p RLE great toe amputation R great toe gangrene Pt doing well post op. Vac working appropriately. Plan for d/c when home vac approval obtained and home nursing scheduled.
[2018-01-23 15:35] VITALS: BP 132/65; PULSE 72; TEMP 36.6; O2SAT 97
[2018-01-23 16:11] VITALS: BP 132/65; PULSE 72; TEMP 36.6; O2SAT 97
--- NOTE | 2018-01-26 00:56 | DISCHARGE SUMMARY ---
ADMISSION DIAGNOSIS: Gangrene of the right great toe. DISCHARGE DIAGNOSES: 1. Status post amputation of the right great toe. 2. Right great toe gangrene. DISCHARGE CONDITION: Stable. CONSULTATIONS IN THE HOSPITAL: Included none. PROCEDURES IN THE HOSPITAL: Included the amputation of his right great toe, which was performed on 01/21/2018 with an EBL of 20 mL and no significant complication. HISTORY OF PRESENT ILLNESS: Mr. Frank is a 72-year-old male with a longstanding history of severe medical problems including peripheral arterial disease and diabetes as well as hypertension. He had previously undergone amputation of his right fifth toe as well as a left transmetatarsal amputation. Unfortunately, the patient continues to have wounds that take a considerable amount of time to heal and his right great toe ulceration continued to worsen despite conservative treatment. He was then recommended to undergo surgical amputation. The patient had previously undergone angiography by Dr. Rg as well; however, no intervention was able to be performed and the patient did appear to have adequate runoff flow. Due to the worsening gangrene of his right great toe, the patient was recommended to undergo amputation. The patient expressed understanding and agreement to proceed after discussion with Dr. Rg. HOSPITAL COURSE: The patient was admitted on 01/21/2018 after undergoing his right great toe amputation. The procedure went as expected and was without significant complications. He remained essentially stable postoperatively. On postop day #1, we did recommend that the patient have a wound VAC placed to his surgical open area in order to increase healing. The patient was agreeable and this was placed by wound care. On postop day #2, he continued to do okay with the wound VAC and we recommended that he be discharged at that time with outpatient followup. PHYSICAL EXAMINATION: VITAL SIGNS: As follows, blood pressure of 132/65 with a respiratory rate of 18, pulse of 72, temperature 36.6, and pulse oximetry of 97% on room air. CONSTITUTIONAL: The patient is a [id number] elderly male in no acute distress. He is ambulatory with some support. He has a postop shoes on both feet. HEAD: Normocephalic and atraumatic. EYES: EOMI. ENMT: Demonstrates hearing loss, rhinorrhea, or pharyngeal erythema. NECK: Supple, nontender with midline trachea without mass or crepitus. LUNGS: Demonstrated no dyspnea. They are decreased significantly throughout but sound clear. CARDIOVASCULAR: His heart is regular. His peripheral pulses are normal in extremities unless otherwise noted, specifically they are normal in his carotid, brachial, radial, and femoral pulses. His lower extremity distal pulses are nonpalpable. He has brisk capillary refill to his remaining toes on the right foot. His left foot transmetatarsal amputation is currently dressed. ABDOMEN: Soft, nontender with normoactive bowel sounds in all 4 quadrants. He moves all extremities equally and has no focal neurological deficits. DIET UPON DISCHARGE: Low-cholesterol AHA and diabetic diet. MEDICATIONS UPON DISCHARGE: Reconciled in the chart and are as per his discharge instructions. DISCHARGE PLAN: He is to follow up with Dr. Rg or his PA Anni Balderas within 2 weeks for reevaluation preferably on wound VAC change day. Additionally, he will be set up to follow up with the [facility] for wound care as an outpatient as well and will have home nursing set up to come to his house and change his VAC. He is advised to call the office with any other questions.
== END 2018-01-23 17:50 | disposition home health service (06) | DRG 256 ==
LOC: C.ACU 08:57 → C.MSN 12:42 → ENRESERV 13:23
PROVIDERS: ADMIT Surgery Vascular Surgery; ATTEND Surgery Vascular Surgery
PROC: 0Y6P0Z0 Detachment at Right 1st Toe, Complete, Open Approach (ICD-10-PCS; principal; 2018-01-21 11:00)
DX: E11.52 Type 2 diabetes mellitus with diabetic peripheral angiopathy with gangrene (principal); I96 Gangrene, not elsewhere classified; I70.261 Atherosclerosis of native arteries of extremities with gangrene, right leg; L97.519 Non-pressure chronic ulcer of other part of right foot with unspecified severity; E11.621 Type 2 diabetes mellitus with foot ulcer; E11.42 Type 2 diabetes mellitus with diabetic polyneuropathy; I25.10 Atherosclerotic heart disease of native coronary artery without angina pectoris; J44.9 Chronic obstructive pulmonary disease, unspecified; I10 Essential (primary) hypertension; E78.5 Hyperlipidemia, unspecified; K21.9 Gastro-esophageal reflux disease without esophagitis; I25.2 Old myocardial infarction; Z89.421 Acquired absence of other right toe(s); Z89.422 Acquired absence of other left toe(s); Z95.1 Presence of aortocoronary bypass graft; Z95.810 Presence of automatic (implantable) cardiac defibrillator; Z98.1 Arthrodesis status; Z87.891 Personal history of nicotine dependence; Z86.74 Personal history of sudden cardiac arrest; Z79.2 Long term (current) use of antibiotics; Z79.4 Long term (current) use of insulin; Z79.51 Long term (current) use of inhaled steroids; Z79.899 Other long term (current) drug therapy

== ENCOUNTER → 2018-01-30 | Day surgery (SDC) | payer OTHER ==
[2018-01-28 07:55] VITALS: Ht 179.1 cm; Wt 86.4 kg
[~2018-01-30] VITALS: Ht 179.1 cm; Wt 86.4 kg
[~2018-01-30] MED LIST changes: -CEFAZOLIN 1000MG IV PUSH 7.5 ML IV SCH; +CEFAZOLIN 2000MG IV PUSH 15 ML IV SCH; +FENTANYL CITRATE INJ 50 MCG/1 ML 2 ML VIAL ONE; -GLIP1TAB85 PO; +INSDGI SC; -INSDGIPEN SQ; +INSPMPHMLG; -LACTATED RINGER'S 1000ML 1,000 ML IV ONE; +LACTATED RINGER'S 1000ML 1,000 ML IV SCH; +PROPOFOL IV EMULSION 10 MG/ML 20 ML VIAL ONE; +SODIUM CHLORIDE 0.9% 1000ML IV ONE
--- NOTE | 2018-01-30 05:51 | History and Physical ---
History & Physical Date of Service Jan 30, 2018. History & Physical CC: Nonhealing left foot TMA HPI: Mr Frank is a 66-year-old gentleman who has open areas on his left foot which have not healed. He had an amputation of his right great toe. He is now admitted for revision of his left foot TMA. He had had ulcerations on his toes which have healed. He also has a toe amputation of the right fifth toe in the past. Allergies: None known. Medications: amoxicillin 500 mg oral capsule, 500 mg= 1 cap, PO, tid atorvastatin 20 mg oral tablet, 20 mg= 1 tab, PO, Daily doxepin 100 mg oral capsule, 100 mg= 1 cap, PO, qhs isosorbide mononitrate 60 mg oral tablet, extended release, 60 mg= 1 tab, PO, qAM Lantus Solostar Pen 100 units/mL subcutaneous solution, 70 units, subQ, qhs levoFLOXacin 500 mg oral tablet, 500 mg= 1 tab, PO, q24h Metoprolol Tartrate 50 mg oral tablet, 50 mg= 1 tab, PO, Daily omeprazole 20 mg oral delayed release capsule, 20 mg= 1 cap, PO, Daily Spiriva 18 mcg inhalation capsule, 18 mcg= 1 each, inhaled, Daily sulfamethoxazole-trimethoprim 800 mg-160 mg oral tablet, 1 tab, PO, bid tamsulosin 0.4 mg oral capsule, 0.4 mg= 1 cap, PO, Daily Past medical history is positive for diabetes, hypertension, amputation of right fifth toe. Past medical/surgical history in addition to the amputation of the fifth toe is a back fusion in 2011. 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 Family history is positive for hypertension, heart disease and diabetes. Personal history: He smoked in the past and quit in 1985. He drinks 4 drinks a day of alcohol. Review of systems was done completely. The only positive findings were poor wound healing of his feet, shiny skin in his lower legs, generalized leg pain when walking, pain in his legs at night in bed, burning, numbness and tingling in both feet secondary to neuropathy. Physical Examination: The patient is awake, oriented x3. He is in no apparent distress. He has a normal body habitus. His blood pressure is 148/70 in the right, 140/70 in the left. Head and neck within normal limits. There are on carotid bruits. Lungs are clear to auscultation. Heart: Regular rate and rhythm, without murmurs, gallops or rubs. Abdominal exam is benign. I could not appreciate any pulsatile mass in the abdomen. However, his abdomen was fairly large. Vascular exam: . His femorals are +2 and cannot appreciate pedal pulses in either foot. Left foot has a dressing on but does have open wounds,of the TMA. The right foot has an open great toe amputation site. 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 Open left foot TMA Plan and Recommendations: Patient is admitted for revision of his left foot TMA. I have discussed the risks options and benefits of the procedure with the patient. The patient understands the risks options and benefits and agrees to the procedure.
[2018-01-30 08:08] LABS: CALCIUM 8.6 mg/dl (8.5-10.1); CREATININE 1.39 mg/dl (0.60-1.40); POTASSIUM 4.5 mmol/L (3.5-5.1)
--- NOTE | 2018-01-30 08:09 | Progress Note ---
Progress Note Date of Service Jan 30, 2018. Progress Note Left foot wound healed. No surgery needed.
== END | disposition home or self-care (01) ==
LOC: C.ACU 07:20
PROVIDERS: ATTEND Surgery Vascular Surgery
DX: Z04.8 Encounter for examination and observation for other specified reasons (principal); I70.292 Other atherosclerosis of native arteries of extremities, left leg; Z53.8 Procedure and treatment not carried out for other reasons; I77.1 Stricture of artery; J44.9 Chronic obstructive pulmonary disease, unspecified; I10 Essential (primary) hypertension; K21.9 Gastro-esophageal reflux disease without esophagitis; I25.10 Atherosclerotic heart disease of native coronary artery without angina pectoris; E13.319 Other specified diabetes mellitus with unspecified diabetic retinopathy without macular edema; E11.42 Type 2 diabetes mellitus with diabetic polyneuropathy; E78.5 Hyperlipidemia, unspecified; Z89.422 Acquired absence of other left toe(s); Z87.891 Personal history of nicotine dependence; Z89.421 Acquired absence of other right toe(s); Z79.899 Other long term (current) drug therapy; Z82.49 Family history of ischemic heart disease and other diseases of the circulatory system; Z95.810 Presence of automatic (implantable) cardiac defibrillator

== ENCOUNTER 2022-04-28 09:14 | Inpatient (IN) ==
[2022-04-28] MEDS ORDERED: ALBUT/IPRATROP 3MG/0.5MG NEB 3 ML VIAL NEB STA ×2 (09:32→10:26)
[2022-04-28] MEDS ORDERED: methylPREDNISolone 125 MG/2 ML VIAL IV STA (09:32)
--- NOTE | 2022-04-28 09:41 | Emergency Department Note ---
Impression & Plan Hypoxia, SOB (shortness of breath), COPD exacerbation, Creatinine elevation ED Provider Note NAME: ZEINA WALLACE AGE: 77 SEX: M : 1945 ARRIVES VIA: Ambulance INFORMANT: [Patient][nursing] ED PROVIDER(S): [Detxer Hebert MD] CHIEF COMPLAINT: Short of breath HISTORY OF PRESENT ILLNESS: The patient is a 77-year-old male with a history of COPD. The patient states that this morning, he was getting ready for an appointment at the wound center when he began to feel short of breath. He turned on some oxygen. He has oxygen he is supposed to use at nighttime but lately, he has felt so well he has not even used the O2 at night. He does not use O2 during the day. When he arrived at the wound center, his saturation was in the 70s and he was sent to the ED by ambulance. The patient denies any cough or fever. He has not had vomiting or diarrhea. He states that his left leg is being followed for a wound on the plantar aspect of the foot and slowly, it seems to be getting better. The patient has not had any sick contacts. He does not describe any chest pain. REVIEW OF SYSTEMS: See HPI for pertinent positives and negatives. A total of ten systems were reviewed and were otherwise negative. PMHx/PSHx: See Below SOCIAL HISTORY: See Below. PHYSICAL EXAM: GENERAL: Patient is in no acute distress. HEENT: No acute trauma, normocephalic atraumatic, mucous membranes moist, no nasal congestion, no scleral icterus. NECK: No stridor, no adenopathy, no meningismus, trachea is midline. LUNGS: Diminished breath sounds bilaterally, scattered wheezing bilaterally, no obvious respiratory distress. HEART: Without murmurs gallops or rubs, regular rate and rhythm. ABDOMEN: Soft, nontender, bowel sounds positive, no peritonitis. Abdominal d istention noted. EXTREMITIES: No cyanosis. There is a right below the knee amputation. The left lower extremity is edematous with some chronic skin change. There is a bandage on the left plantar foot. He has had previous amputation of the left fourth and fifth toes. NEUROLOGIC: Oriented x 3, no acute motor or sensory deficits, no focal weakness. SKIN: No rash, no jaundice, no diaphoresis. DIFFERENTIAL DIAGNOSIS: Reactive airway disease, pneumonia, COVID-19, RSV, influenza, pneumothorax, COPD, CHF, infection, cardiac ischemia, pulmonary embolism, bronchitis, musculos keletal, gastrointestinal, as well as other pathologies. EMERGENCY DEPARTMENT COURSE/PROCEDURES: ECG: Indication was shortness of breath and hypoxia. The ECG shows a normal sinus rhythm with a right bundle branch block. The rate is 75. There is no ST elevation, no PVCs P the QTc is 491. Continuous Cardiac Monitoring: An order was placed for continuous cardiac monitoring. The monitor shows a rate of 82 with normal sinus rhythm. Critical Care Note: I have personally spent 45 minutes of critical care time in the direct management of this patient. This includes bedside care, interpretation of diagnostic studies, and testing, discussion with consultants, patient, and family members, and other required patient management activities. This 45 minutes is in excess of all separately billable procedures. MEDICAL DECISION MAKING: There is no leukocytosis or concerning anemia. Platelet count is slightly low. The thrombocytopenia is baseline for the patient. INR was 1.2, slightly elevated. There was an elevation to the creatinine, looking at recent testing, his renal insufficiency appears somewhat chronic. No concerning liver enzyme elevation. ECG showed a normal sinus rhythm, no ischemia. Cardiac enzyme testing x1 was not consistent with acute cardiac injury. BNP was not elevated making fluid overload less likely. Respiratory bio fire testing was completely negative. Lactic acid level was not elevated making sepsis less likely. Chest film showed some COPD, no pneumonia, no CHF. On exam, the patient was hypoxic. The patient was given IV Solu-Medrol, a DuoNeb, a second DuoNeb was administered. Despite the above treatment, the patient is still hypoxic and requiring O2 supplementation. I do not think he is able to be discharged home. He appears t o be suffering from a COPD flare, the reason for the flare though is unclear. I spoke with the patient and case management, the on-call hospitalist was consulted. Past Med/Surg History Medical History Achilles rupture, left Cardiac arrest 2013 Cellulitis of lower extremity CHF exacerbation COPD exacerbation Diabetic ulcer of heel Diabetic ulcer of toe of left foot Diabetic ulcer of toe of left foot associated with type 2 diabetes mellitus, limited to breakdown of skin Diverticulosis of colon Enlarged prostate Foot ulcer due to secondary DM Former smoker History of amputation of great toe IVCD (intraventricular conduction defect) MSSA (methicillin susceptible Staphylococcus aureus) Myocardial infarction NSTEMI 11/2016 after COPD exacerbation Necrotizing fasciitis 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 Peripheral artery disease Status post amputation of toe of left foot Surgical History H/O spinal fusion History of amputation of lesser toe of left foot History of amputation of lesser toe of right foot Hx of CABG S/P below knee amputation Status post amputation of toe of right foot Family History Father Myocardial infarction Denies family history of Ovarian cancer Prostate cancer Breast cancer Colorectal cancer Social History Smoking Status: Former smoker Tobacco Type: Cigarettes Second Hand Exposure: No; Hx Alcohol Use: No Hx Substance Use: No Preferred Language: Icelandic Communication Ability: Effective Visual Impairment: Limited Hearing Ability: Hard of Hearing 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 Feels Safe at Home: Yes Childhood Exposure to Second-Hand Smoke: Yes Diet Comment: "not very good at that" during the past year weight has: remained stable Dental Care, Regularly: Yes Seatbelt Use: always Sunscreen Use: No Gender Identity: Male Assistive Devices: Glasses, Hearing Aid - Bilateral, Nebulizer, Oxygen - at Night, Walker and Wheelchair Allergies Allergies Allergy/AdvReac Type Severity Reaction Status Date / Time No Known Drug Allergies Allergy Verified 04/28/22 08:24 Home Meds Home Medications Medication Instructions Recorded Confirmed aspirin 81 mg chewable tablet 81 mg PO DAILY 02/07/18 04/28/22 (Medhat Chewable Low Dose Aspirin) glipizide 10 mg tablet 20 mg PO BID 02/24/19 04/28/22 blood sugar diagnostic (Contour #[phone] ea 02/02/20 04/28/22 Next Test Strips) insulin glargine 100 unit/mL (3 65 unit subcut QPM 11/01/21 04/28/22 mL) subcutaneous pen (Lantus Solostar U-100 Insulin) insulin aspart U-100 100 unit/mL 30 unit subcut TID 12/27/21 04/28/22 (3 mL) subcutaneous pen (Novolog Flexpen U-100 Insulin aspart) Previous Rx's Medication Instructions Recorded acetaminophen 500 mg tablet 500 mg PO Q4H PRN pain #30 tabs 03/19/19 (Acetaminophen Extra Strength) gwjgrghg-rdv-cjnvh acid 0.4 1 tab PO DAILY #30 tabs 03/19/19 mg-lycopene 300 mcg-lutein 250 mcg tablet (Centrum Silver) ammonium lactate 5 % lotion 1 applic topical DAILY 30 days 05/13/20 (Lac-Hydrin Five) #226 grams doxepin 100 mg capsule 100 mg PO HS #90 caps 05/16/21 metoprolol tartrate 50 mg tablet 75 mg PO BID #270 tabs 05/16/21 (Lopressor) atorvastatin 40 mg tablet 40 mg PO DAILY #30 tabs 06/13/21 isosorbide mononitrate 60 mg 60 mg PO DAILY #30 tabs 06/13/21 tablet,extended release 24 hr omeprazole 20 mg capsule,delayed 20 mg PO DAILY #30 caps 07/14/21 release tamsulosin 0.4 mg capsule 0.4 mg PO DAILY #30 caps 07/14/21 losartan 25 mg tablet 25 mg PO DAILY #90 tabs 09/16/21 amlodipine 5 mg tablet 5 mg PO DAILY #30 tabs 10/14/21 clopidogrel 75 mg tablet (Plavix) 75 mg PO DAILY #30 tabs 11/01/21 empagliflozin 10 mg tablet 10 mg PO DAILY #90 tabs 11/18/21 (Jardiance) levothyroxine 75 mcg tablet 75 mcg PO DAILY #30 tabs 12/06/21 BD Ultra-Fine Sariah Pen Needle 32 #400 ea 01/05/22 gauge x 5/32" (pen needle, diabetic) furosemide 40 mg tablet 40 mg PO DAILY #90 tabs 02/08/22 albuterol sulfate 90 mcg/actuation 2 puff inhalation Q6H PRN 02/23/22 aerosol inhaler (Ventolin HFA) shortness of breath or wheezing #18 grams fluticasone 500 mcg-salmeterol 50 1 inh inhalation BID #1 inhaler 02/23/22 mcg/dose blistr powdr for inhalation (Advair Diskus) tiotropium bromide 18 mcg capsule 1 cap inhalation DAILY #30 caps 02/23/22 with inhalation device (Spiriva with HandiHaler) Results & Data (ED) Vital Signs Vital Signs - 24 hr 04/28/22 09:21 04/28/22 09:21 04/28/22 09:30 Temperature 36.8 C Temperature Source Axillary Pulse Rate 82 Pulse Rate from SpO2 Sensor Pulse Rhythm Regular Pulse Strength Normal Respiratory Rate 20 Respiratory Effort / Characteristics Non-Labored Spontaneous Respiratory Depth Normal Respiratory Pattern Regular Blood Pressure 156/75 H Blood Pressure Mean 102 Blood Pressure Position Sitting Pulse Oximetry 77 L 77 L 95 Oxygen Delivery Method Room Air Nasal Cannula Nasal Cannula Oxygen Flow Rate 0 2 Sepsis Recent Fever Within 48 Hours No Sepsis New/Unexplained Change in Mental Status No Sepsis Action Taken by Nursing No Action Required Oxygen Flow Rate - Titration 6 Pulse Oximetry Post Tiitration 95 04/28/22 09:30 04/28/22 09:22 04/28/22 09:30 Temperature Temperature Source Pulse Rate 75 Pulse Rate from SpO2 Sensor 75 Pulse Rhythm Pulse Strength Respiratory Rate 14 Respiratory Effort / Characteristics Non-Labored Spontaneous Respiratory Depth Normal Respiratory Pattern Regular Blood Pressure 151/81 H Blood Pressure Mean 104 Blood Pressure Position Pulse Oximetry 96 Oxygen Delivery Method Nasal Cannula Nasal Cannula Oxygen Flow Rate 2 7 Sepsis Recent Fever Within 48 Hours Sepsis New/Unexplained Change in Mental Status Sepsis Action Taken by Nursing Oxygen Flow Rate - Titration Pulse Oximetry Post Tiitration 04/28/22 09:30 04/28/22 10:00 04/28/22 10:00 Temperature Temperature Source Pulse Rate 80 73 Pulse Rate from SpO2 Sensor 80 73 Pulse Rhythm Pulse Strength Respiratory Rate 21 21 Respiratory Effort / Characteristics Respiratory Depth Respiratory Pattern Blood Pressure 143/72 H Blood Pressure Mean 95 Blood Pressure Position Pulse Oximetry 93 99 Oxygen Delivery Method Nasal Cannula Nebulizer Oxygen Flow Rate 2 Sepsis Recent Fever Within 48 Hours Sepsis New/Unexplained Change in Mental Status Sepsis Action Taken by Nursing Oxygen Flow Rate - Titration Pulse Oximetry Post Tiitration 04/28/22 10:30 04/28/22 10:30 04/28/22 11:00 Temperature Temperature Source Pulse Rate 76 Pulse Rate from SpO2 Sensor 76 Pulse Rhythm Pulse Strength Respiratory Rate 20 Respiratory Effort / Characteristics Respiratory Depth Respiratory Pattern Blood Pressure 148/68 H 138/65 Blood Pressure Mean 94 89 Blood Pressure Position Pulse Oximetry 92 Oxygen Delivery Method Nasal Cannula Oxygen Flow Rate 2 Sepsis Recent Fever Within 48 Hours Sepsis New/Unexplained Change in Mental Status Sepsis Action Taken by Nursing Oxygen Flow Rate - Titration Pulse Oximetry Post Tiitration 04/28/22 11:00 04/28/22 11:30 04/28/22 11:30 Temperature Temperature Source Pulse Rate 74 74 Pulse Rate from SpO2 Sensor 74 74 Pulse Rhythm Pulse Strength Respiratory Rate 17 19 Respiratory Effort / Characteristics Respiratory Depth Respiratory Pattern Blood Pressure 147/63 H Blood Pressure Mean 91 Blood Pressure Position Pulse Oximetry 98 93 Oxygen Delivery Method Nebulizer Nasal Cannula Oxygen Flow Rate 2 Sepsis Recent Fever Within 48 Hours Sepsis New/Unexplained Change in Mental Status Sepsis Action Taken by Nursing Oxygen Flow Rate - Titration Pulse Oximetry Post Tiitration 04/28/22 12:00 04/28/22 12:00 04/28/22 12:30 Temperature Temperature Source Pulse Rate 74 Pulse Rate from SpO2 Sensor 73 Pulse Rhythm Pulse Strength Respiratory Rate 14 Respiratory Effort / Characteristics Respiratory Depth Respiratory Pattern Blood Pressure 131/63 118/56 L Blood Pressure Mean 85 76 Blood Pressure Position Pulse Oximetry 92 Oxygen Delivery Method Nasal Cannula Oxygen Flow Rate 2 Sepsis Recent Fever Within 48 Hours Sepsis New/Unexplained Change in Mental Status Sepsis Action Taken by Nursing Oxygen Flow Rate - Titration Pulse Oximetry Post Tiitration 04/28/22 12:30 04/28/22 13:00 04/28/22 13:00 Temperature Temperature Source Pulse Rate 70 75 Pulse Rate from SpO2 Sensor 67 75 Pulse Rhythm Pulse Strength Respiratory Rate 15 17 Respiratory Effort / Characteristics Respiratory Depth Respiratory Pattern Blood Pressure 131/65 Blood Pressure Mean 87 Blood Pressure Position Pulse Oximetry 95 96 Oxygen Delivery Method Nasal Cannula Nasal Cannula Oxygen Flow Rate 2 2 Sepsis Recent Fever Within 48 Hours Sepsis New/Unexplained Change in Mental Status Sepsis Action Taken by Nursing Oxygen Flow Rate - Titration Pulse Oximetry Post Tiitration 04/28/22 13:41 04/28/22 13:41 04/28/22 14:00 Temperature Temperature Source Pulse Rate 79 Pulse Rate from SpO2 Sensor 78 Pulse Rhythm Pulse Strength Respiratory Rate 19 Respiratory Effort / Characteristics Respiratory Depth Respiratory Pattern Blood Pressure 150/75 H 143/76 H Blood Pressure Mean 100 98 Blood Pressure Position Pulse Oximetry 97 Oxygen Delivery Method Nasal Cannula Oxygen Flow Rate 2 Sepsis Recent Fever Within 48 Hours Sepsis New/Unexplained Change in Mental Status Sepsis Action Taken by Nursing Oxygen Flow Rate - Titration Pulse Oximetry Post Tiitration 04/28/22 14:00 04/28/22 14:30 04/28/22 14:30 Temperature Temperature Source Pulse Rate 75 74 Pulse Rate from SpO2 Sensor 76 75 Pulse Rhythm Pulse Strength Respiratory Rate 19 Respiratory Effort / Characteristics Respiratory Depth Respiratory Pattern Blood Pressure 134/64 Blood Pressure Mean 87 Blood Pressure Position Pulse Oximetry 98 99 Oxygen Delivery Method Nasal Cannula Nasal Cannula Oxygen Flow Rate 2 2 Sepsis Recent Fever Within 48 Hours Sepsis New/Unexplained Change in Mental Status Sepsis Action Taken by Nursing Oxygen Flow Rate - Titration Pulse Oximetry Post Tiitration 04/28/22 15:20 04/28/22 15:30 04/28/22 15:30 Temperature Temperature Source Pulse Rate 76 73 Pulse Rate from SpO2 Sensor 76 74 Pulse Rhythm Pulse Strength Respiratory Rate 17 17 Respiratory Effort / Characteristics Respiratory Depth Respiratory Pattern Blood Pressure 133/64 Blood Pressure Mean 87 Blood Pressure Position Pulse Oximetry 99 98 Oxygen Delivery Method Nasal Cannula Nasal Cannula Nasal Cannula Oxygen Flow Rate 2 2 2 Sepsis Recent Fever Within 48 Hours Sepsis New/Unexplained Change in Mental Status Sepsis Action Taken by Nursing Oxygen Flow Rate - Titration Pulse Oximetry Post Tiitration 04/28/22 15:40 04/28/22 15:50 04/28/22 16:11 Temperature Temperature Source Pulse Rate 86 80 Pulse Rate from SpO2 Sensor 89 81 Pulse Rhythm Pulse Strength Respiratory Rate 20 19 Respiratory Effort / Characteristics Respiratory Depth Respiratory Pattern Blood Pressure Blood Pressure Mean Blood Pressure Position Pulse Oximetry 92 98 Oxygen Delivery Method Nasal Cannula Nasal Cannula Nasal Cannula Oxygen Flow Rate 2 2 2 Sepsis Recent Fever Within 48 Hours Sepsis New/Unexplained Change in Mental Status Sepsis Action Taken by Nursing Oxygen Flow Rate - Titration Pulse Oximetry Post Tiitration Home Medications Current Medication List: was personally reviewed by me Laboratory Data Attestation: I reviewed the patient's lab results. Result diagrams: 04/28/22 09:31 04/28/22 09:31 Lab Results 04/28/22 04/28/22 04/28/22 Range/Units 09:31 09:31 09:31 WBC 5.18 (4.8-10.8) K/ul RBC 5.49 (4.63-6.08) M/uL Hgb 16.5 (14.0-18.0) g/dl Hct 49.9 (40.1-51.0) % MCV 90.9 (80.0-100.0) fL MCH 30.1 (25.0-34.0) pg MCHC 33.1 (32.0-36.0) g/dL RDW Std Deviation 53.2 H (36.4-46.3) fL RDW Coeff of [place] 16.3 H (11.5-14.5) % Plt Count 100 L (130-400) K/uL MPV 10.7 (9.4-12.4) fL Immature Gran % (Auto) 0.4 % Neut % (Auto) 81.6 % Lymph % (Auto) 9.7 % [place] % (Auto) 5.8 % Eos % (Auto) 2.1 % Baso % (Auto) 0.4 % Neut # (Auto) 4.23 (1.4-6.5) K/uL Lymph # (Auto) 0.50 L (1.2-3.4) K/uL [place] # (Auto) 0.30 (0.24-0.82) K/uL Eos # (Auto) 0.11 (0-0.50) K/uL Baso # (Auto) 0.02 (0-0.2) K/uL Immature Gran # (Auto) 0.02 (0.00-0.02) K/uL Polychromasia 1+ PT 12.7 H (9.0-12.0) Seconds INR 1.2 H (0.9-1.1) APTT 27.6 (21.0-31.0) Seconds PTT Ratio 1.0 D-Dimer (0-500) ug/L FEU Sodium 137 (136-145) mmol/L Potassium 4.6 (3.5-5.1) mmol/L Chloride 98 (98-107) mmol/L Carbon Dioxide 34 H (21-32) mmol/L Anion Gap 5 (3-11) BUN 49 H (6-23) mg/dl Creatinine 2.11 H (0.6-1.4) mg/dl Est Cr Clr Drug Dosing 32.7 ml/min Est GFR ( Amer) 34.4 ml/min Est GFR (Non-Af Amer) 29.7 ml/min BUN/Creatinine Ratio 23.2 H (10-20) Glucose 212 H (70-99(Fasting)) mg/dl POC Glucose (70-99) mg/dl Lactate (0.4-2.0) mmol/L Calcium 9.4 (8.5-10.1) mg/dl Magnesium 2.1 (1.7-2.4) mg/dl Total Bilirubin 0.9 (0.2-1.0) mg/dl AST 21 (13-39) U/L ALT 18 (7-52) U/L Alkaline Phosphatase 102 (34-104) U/L Troponin I High Sens 15.5 (0-20) pg/ml B-Natriuretic Peptide (0-100) pg/ml Total Protein 8.3 (6.0-8.3) gm/dl Albumin 4.1 (3.4-5.0) gm/dl Globulin 4.2 H (2.5-4.0) gm/dl Albumin/Globulin Ratio 1.0 (0.9-2) Adenovirus (PCR) (NotDetected) B. pertussis DNA (PCR) (NotDetected) B.parapertussis DNA PCR (NotDetected) C. pneumoniae DNA (PCR) (NotDetected) Coronavirus OC43 (PCR) (NotDetected) Coronavirus HKU1 (PCR) (NotDetected) Coronavirus 229E (PCR) (NotDetected) SARS-CoV-2 (PCR) (NotDetected) Coronavirus NL63 (PCR) (NotDetected) Human Metapneumovir PCR (NotDetected) Influenza Type A (PCR) (NotDetected) Influenza Type B (PCR) (NotDetected) M. pneumoniae (PCR) (NotDetected) Parainfluenza 1 (PCR) (NotDetected) Parainfluenza 2 (PCR) (NotDetected) Parainfluenza 3 (PCR) (NotDetected) Parainfluenza 4 (PCR) (NotDetected) RSV (PCR) (NotDetected) Entero/Rhino (PCR) (NotDetected) 04/28/22 04/28/22 04/28/22 Range/Units 09:31 09:45 09:50 WBC (4.8-10.8) K/ul RBC (4.63-6.08) M/uL Hgb (14.0-18.0) g/dl Hct (40.1-51.0) % MCV (80.0-100.0) fL MCH (25.0-34.0) pg MCHC (32.0-36.0) g/dL RDW Std Deviation (36.4-46.3) fL RDW Coeff of [place] (11.5-14.5) % Plt Count (130-400) K/uL MPV (9.4-12.4) fL Immature Gran % (Auto) % Neut % (Auto) % Lymph % (Auto) % [place] % (Auto) % Eos % (Auto) % Baso % (Auto) % Neut # (Auto) (1.4-6.5) K/uL Lymph # (Auto) (1.2-3.4) K/uL [place] # (Auto) (0.24-0.82) K/uL Eos # (Auto) (0-0.50) K/uL Baso # (Auto) (0-0.2) K/uL Immature Gran # (Auto) (0.00-0.02) K/uL Polychromasia PT (9.0-12.0) Seconds INR (0.9-1.1) APTT (21.0-31.0) Seconds PTT Ratio D-Dimer 96656 H* (0-500) ug/L FEU Sodium (136-145) mmol/L Potassium (3.5-5.1) mmol/L Chloride (98-107) mmol/L Carbon Dioxide (21-32) mmol/L Anion Gap (3-11) BUN (6-23) mg/dl Creatinine (0.6-1.4) mg/dl Est Cr Clr Drug Dosing ml/min Est GFR ( Amer) ml/min Est GFR (Non-Af Amer) ml/min BUN/Creatinine Ratio (10-20) Glucose (70-99(Fasting)) mg/dl POC Glucose (70-99) mg/dl Lactate (0.4-2.0) mmol/L Calcium (8.5-10.1) mg/dl Magnesium (1.7-2.4) mg/dl Total Bilirubin (0.2-1.0) mg/dl AST (13-39) U/L ALT (7-52) U/L Alkaline Phosphatase (34-104) U/L Troponin I High Sens (0-20) pg/ml B-Natriuretic Peptide 52 (0-100) pg/ml Total Protein (6.0-8.3) gm/dl Albumin (3.4-5.0) gm/dl Globulin (2.5-4.0) gm/dl Albumin/Globulin Ratio (0.9-2) Adenovirus (PCR) Not Detected (NotDetected) B. pertussis DNA (PCR) Not Detected (NotDetected) B.parapertussis DNA PCR Not Detected (NotDetected) C. pneumoniae DNA (PCR) Not Detected (NotDetected) Coronavirus OC43 (PCR) Not Detected (NotDetected) Coronavirus HKU1 (PCR) Not Detected (NotDetected) Coronavirus 229E (PCR) Not Detected (NotDetected) SARS-CoV-2 (PCR) Not Detected (NotDetected) Coronavirus NL63 (PCR) Not Detected (NotDetected) Human Metapneumovir PCR Not Detected (NotDetected) Influenza Type A (PCR) Not Detected (NotDetected) Influenza Type B (PCR) Not Detected (NotDetected) M. pneumoniae (PCR) Not Detected (NotDetected) Parainfluenza 1 (PCR) Not Detected (NotDetected) Parainfluenza 2 (PCR) Not Detected (NotDetected) Parainfluenza 3 (PCR) Not Detected (NotDetected) Parainfluenza 4 (PCR) Not Detected (NotDetected) RSV (PCR) Not Detected (NotDetected) Entero/Rhino (PCR) Not Detected (NotDetected) 04/28/22 04/28/22 Range/Units 09:55 15:42 WBC (4.8-10.8) K/ul RBC (4.63-6.08) M/uL Hgb (14.0-18.0) g/dl Hct (40.1-51.0) % MCV (80.0-100.0) fL MCH (25.0-34.0) pg MCHC (32.0-36.0) g/dL RDW Std Deviation (36.4-46.3) fL RDW Coeff of [place] (11.5-14.5) % Plt Count (130-400) K/uL MPV (9.4-12.4) fL Immature Gran % (Auto) % Neut % (Auto) % Lymph % (Auto) % [place] % (Auto) % Eos % (Auto) % Baso % (Auto) % Neut # (Auto) (1.4-6.5) K/uL Lymph # (Auto) (1.2-3.4) K/uL [place] # (Auto) (0.24-0.82) K/uL Eos # (Auto) (0-0.50) K/uL Baso # (Auto) (0-0.2) K/uL Immature Gran # (Auto) (0.00-0.02) K/uL Polychromasia PT (9.0-12.0) Seconds INR (0.9-1.1) APTT (21.0-31.0) Seconds PTT Ratio D-Dimer (0-500) ug/L FEU Sodium (136-145) mmol/L Potassium (3.5-5.1) mmol/L Chloride (98-107) mmol/L Carbon Dioxide (21-32) mmol/L Anion Gap (3-11) BUN (6-23) mg/dl Creatinine (0.6-1.4) mg/dl Est Cr Clr Drug Dosing ml/min Est GFR ( Amer) ml/min Est GFR (Non-Af Amer) ml/min BUN/Creatinine Ratio (10-20) Glucose (70-99(Fasting)) mg/dl POC Glucose 205 H (70-99) mg/dl Lactate 1.1 (0.4-2.0) mmol/L Calcium (8.5-10.1) mg/dl Magnesium (1.7-2.4) mg/dl Total Bilirubin (0.2-1.0) mg/dl AST (13-39) U/L ALT (7-52) U/L Alkaline Phosphatase (34-104) U/L Troponin I High Sens (0-20) pg/ml B-Natriuretic Peptide (0-100) pg/ml Total Protein (6.0-8.3) gm/dl Albumin (3.4-5.0) gm/dl Globulin (2.5-4.0) gm/dl Albumin/Globulin Ratio (0.9-2) Adenovirus (PCR) (NotDetected) B. pertussis DNA (PCR) (NotDetected) B.parapertussis DNA PCR (NotDetected) C. pneumoniae DNA (PCR) (NotDetected) Coronavirus OC43 (PCR) (NotDetected) Coronavirus HKU1 (PCR) (NotDetected) Coronavirus 229E (PCR) (NotDetected) SARS-CoV-2 (PCR) (NotDetected) Coronavirus NL63 (PCR) (NotDetected) Human Metapneumovir PCR (NotDetected) Influenza Type A (PCR) (NotDetected) Influenza Type B (PCR) (NotDetected) M. pneumoniae (PCR) (NotDetected) Parainfluenza 1 (PCR) (NotDetected) Parainfluenza 2 (PCR) (NotDetected) Parainfluenza 3 (PCR) (NotDetected) Parainfluenza 4 (PCR) (NotDetected) RSV (PCR) (NotDetected) Entero/Rhino (PCR) (NotDetected) Administered Medications Discontinued Medications Albuterol (Albut/Ipratrop 3mg/0.5mg Neb 3 Ml Vial) 3 ml NEB NOW STA; Protocol Stop: 04/28/22 09:33 Last Admin: 04/28/22 09:53 Dose: 3 ml Documented By: THERESA Albuterol (Albut/Ipratrop 3mg/0.5mg Neb 3 Ml Vial) 3 ml NEB NOW STA; Protocol Stop: 04/28/22 10:27 Last Admin: 04/28/22 10:43 Dose: 3 ml Documented By: THERESA Methylprednisolone (Methylprednisolone 125 Mg/2 Ml Vial) 80 mg IV NOW STA Stop: 04/28/22 09:33 Last Admin: 04/28/22 09:54 Dose: 80 mg Documented By: THERESA Imaging Data Radiologist's Impression: Chest X-Ray 04/28/22 09:32 XR chest 1V portable CLINICAL HISTORY: Dyspnea TECHNIQUE: Single frontal radiograph of the chest was obtained. Comparison: Comparison is made to chest radiograph 04/03/2019 FINDINGS: Median sternotomy wires are unchanged. Implanted defibrillator is noted. The lungs are clear. No evidence of pleural effusion or pneumothorax. IMPRESSION: No acute chest disease. ACT 112: Negative or not required by law. Electronically signed by: Ant Rollins M.D. 04/28/2022 10:02 AM Venous Doppler Study 04/28/22 11:52 BILATERAL LOWER EXTREMITY VENOUS DOPPLER CLINICAL HISTORY: hypoxia/ concern over dvt COMPARISON STUDY: Left lower extremity venous Doppler ultrasound July 28, 2013. Bilateral lower extremity venous Doppler ultrasound August 16, 2010. TECHNIQUE: Sonography of the deep venous system of the bilateral lower extremities was performed. Compression and augmentation were evaluated. Right below-knee amputation is noted. FINDINGS: Exam is compromised by suboptimal penetration. The bilateral common femoral, superficial femoral and popliteal veins were compressible. Augmentation was normal. Flow was shown within the deep calf vessels. IMPRESSION: Technically difficult exam but no evidence of deep venous thrombus within the bilateral lower extremities. ACT 112: Negative or not required by law. Electronically signed by: Sathya Krishnan M.D. 04/28/2022 1:53 PM Discharge Plan Visit Data Chief Complaint: Shortness of Breath/Dyspnea Stated Complaint: HYPOXIA ED Provider: Dexter Hebert Discharge Problem: Hypoxia, SOB (shortness of breath), COPD exacerbation, Creatinine elevation Patient Disposition: Admitted As Inpatient Condition: Fair Discharge Instructions Interventions: ED Discharge Assessment Last Done: 04/28/22 16:11 Forms Stand Alone Forms: [facility] Prescriptions Prescriptions: No Action aspirin [Medhat Chewable Aspirin] 81 mg tablet,chewable 81 mg PO DAILY Lac-Hydrin Five 5 % lotion 1 applic topical DAILY 30 Days Qty: 226 2RF Rx Instructions: Apply to legs and feet daily. doxepin 100 mg capsule 100 mg PO HS Qty: 90 3RF metoprolol tartrate [Lopressor] 50 mg tablet 75 mg PO BID Qty: 270 3RF isosorbide mononitrate 60 mg tablet extended release 24 hr 60 mg PO DAILY Qty: 30 11RF atorvastatin 40 mg tablet 40 mg PO DAILY Qty: 30 11RF omeprazole 20 mg capsule,delayed release(DR/EC) 20 mg PO DAILY Qty: 30 11RF tamsulosin 0.4 mg capsule 0.4 mg PO DAILY Qty: 30 11RF amlodipine 5 mg tablet 5 mg PO DAILY Qty: 30 11RF Rx Instructions: p wound care center & dr 1st levothyroxine 75 mcg tablet 75 mcg PO DAILY Qty: 30 5RF (DME) pen needle, diabetic [BD Ultra-Fine Sariah Pen Needle] 32 gauge x 5/32" needle See Dose Instructions .ROUTE .MEDSUPPLY Qty: 400 3RF Dose Instruction: As directed Rx Instructions: Use four times a day furosemide 40 mg tablet 40 mg PO DAILY Qty: 90 2RF glipizide 10 mg tablet 20 mg PO BID Jardiance 10 mg tablet 10 mg PO DAILY Qty: 90 3RF albuterol sulfate [Ventolin HFA] 90 mcg/actuation HFA aerosol inhaler 2 puff INH Q6H PRN (Reason: shortness of breath or wheezing) Qty: 18 11RF fluticasone propion-salmeterol [Advair Diskus] 500-50 mcg/dose blister with device 1 inh INH BID Qty: 1 11RF Spiriva with HandiHaler 18 mcg capsule, w/inhalation device 1 cap inhalation DAILY Qty: 30 11RF acetaminophen [Acetaminophen Extra Strength] 500 mg tablet 500 mg PO Q4H PRN (Reason: pain) Qty: 30 0RF Centrum Silver 0.4-300-250 mg-mcg-mcg tablet 1 tab PO DAILY Qty: 30 0RF (DME) blood sugar diagnostic [Contour Next Test Strips] Strip See Rx Instructions .ROUTE .MEDSUPPLY Qty: 50 Rx Instructions: test 4 times daily losartan 25 mg tablet 25 mg PO DAILY Qty: 90 3RF insulin glargine [Lantus Solostar U-100 Insulin] 100 unit/mL (3 mL) insulin pen 65 unit subcut QPM clopidogrel [Plavix] 75 mg tablet 75 mg PO DAILY Qty: 30 11RF Rx Instructions: has not been filled since october, per Dr ramires, Wound care center has this on med list insulin aspart U-100 [Novolog Flexpen U-100 Insulin] 100 unit/mL (3 mL) insulin pen 30 unit SQ TID Rx Instructions: Inject up to 30 units subcutaneously daily as directed per sliding scale Referrals Referrals: Stephy Lowry CRNP [Primary Care Provider] -
[2022-04-28 09:55] LABS: Hematocrit (blood only) 49.9 % (40.1-51.0); Hemoglobin 16.5 g/dl (14.0-18.0); Mean Corpuscular Hemoglobin 30.1 pg (25.0-34.0); Mean Corpuscular Hgb Conc 33.1 g/dL (32.0-36.0); Mean Corpuscular Volume 90.9 fL (80.0-100.0); Mean Platelet Volume 10.7 fL (9.4-12.4); Platelet Count 100 K/uL (130-400); RDW Coefficient of Variation 16.3 % (11.5-14.5); RDW Standard Deviation 53.2 fL (36.4-46.3); Red Blood Count 5.49 M/uL (4.63-6.08); White Blood Count 5.18 K/ul (4.8-10.8)
[2022-04-28 10:02] LABS: INR 1.2 (0.9-1.1); Partial Thromboplastin Time 27.6 Seconds (21.0-31.0); Prothrombin Time 12.7 Seconds (9.0-12.0)
--- NOTE | 2022-04-28 10:04 | XRay Report ---
XR chest 1V portable CLINICAL HISTORY: Dyspnea TECHNIQUE: Single frontal radiograph of the chest was obtained. Comparison: Comparison is made to chest radiograph 04/03/2019 FINDINGS: Median sternotomy wires are unchanged. Implanted defibrillator is noted. The lungs are clear. No evid ence of pleural effusion or pneumothorax. IMPRESSION: No acute chest disease. ACT 112: Negative or not required by law. Electronically signed by: Ant Rollins M.D. 04/28/2022 10:02 AM
[2022-04-28 10:11] LABS: Albumin Level 4.1 gm/dl (3.4-5.0); BUN Creatinine Ratio 23.2 (10-20); Bilirubin,Total 0.9 mg/dl (0.2-1.0); Calcium 9.4 mg/dl (8.5-10.1); Creatinine Clr Calc Pharmacy 32.7 ml/min; Est GFR (African American) 34.4 ml/min; Est GFR (Non-African American) 29.7 ml/min; Globulin 4.2 gm/dl (2.5-4.0); Magnesium 2.1 mg/dl (1.7-2.4); Potassium 4.6 mmol/L (3.5-5.1); Total Protein 8.3 gm/dl (6.0-8.3)
[2022-04-28 10:13] LABS: Basophils # (auto) 0.02 K/uL (0-0.2); Basophils % (auto) 0.4 %; Eosinophils # (auto) 0.11 K/uL (0-0.50); Eosinophils % (auto) 2.1 %; Immature Granulocytes # (auto) 0.02 K/uL (0.00-0.02); Immature Granulocytes % (auto) 0.4 %; Lymphocytes % (auto) 9.7 %; Monocytes % (auto) 5.8 %; Neutrophils # (auto) 4.23 K/uL (1.4-6.5); Neutrophils % (auto) 81.6 %; Polychromasia 1+
[2022-04-28 11:02] LABS: Troponin I High Sensitivity 15.5 pg/ml (0-20)
[2022-04-28 11:26] LABS: Adenovirus PCR Not Detected (NotDetected); Bordetella parapertussis PCR Not Detected (NotDetected); Bordetella pertussis PCR Not Detected (NotDetected); Chlamydia pneumoniae PCR Not Detected (NotDetected); Coronavirus 229E PCR Not Detected (NotDetected); Coronavirus CoV-2 (COVID19)PCR Not Detected (NotDetected); Coronavirus HKU1 PCR Not Detected (NotDetected); Coronavirus NL63 PCR Not Detected (NotDetected); Coronavirus OC43PCR Not Detected (NotDetected); Human Metapneumovirus PCR Not Detected (NotDetected); Influenza A PCR Not Detected (NotDetected); Influenza B PCR Not Detected (NotDetected); Mycoplasma pneumoniae PCR Not Detected (NotDetected); Parainfluenza Virus 1 PCR Not Detected (NotDetected); Parainfluenza Virus 2 PCR Not Detected (NotDetected); Parainfluenza Virus 3 PCR Not Detected (NotDetected); Parainfluenza Virus 4 PCR Not Detected (NotDetected); Respiratory Syncytial VirusPCR Not Detected (NotDetected); Rhinovirus/Enterovirus PCR Not Detected (NotDetected)
[2022-04-28] MEDS ORDERED: ACETAMINOPHEN 500 MG TAB PO PRN (12:07)
--- NOTE | 2022-04-28 12:17 | History & Physical Report ---
Date of Service April 28, 2022 Assessment & Plan (1) COPD exacerbation: Plan: admit for copd exacerbation on 2 liters nasal cannula, normally on room air will hold IV lasix. will place on ceftriaxone/doxycycline ordered iv steroids on day of admission. will reconsider more in AM. will continue inh maintanence meds concern over pulmonary emboli, however no tachycardia, negative dvt with doppler venous ultrasound. Will not treat as this appears less likely, given no DVT. unable to get CTA of chest due to CKD, and unable to get NM study as there is a global shortage of materials needed for VQ scan. The lack of benefit given low risk of pulmonary emboli, (2) Hypoxia: Plan: as above. (3) Hypothyroidism: Plan: resume home meds (4) Hyperlipidemia: Plan: resume home statin (5) Chronic kidney disease: Plan: CKD stage IIIba at baseline. however, will hold lasix and hold arb as just 1 year ago, breatinine was closer to 1.5 will monitor (6) Hypertension: Plan: resume home meds except ARB History of Present Illness Chief Complaint: SOB Primary Care Provider: KAILEY Henry 77 yo male with history of COPD presents to the hospital from the wound clinic as he was hypoxic. Patient reports that he was his normal state of health.Patient states that he normally does not require oxygen and has only used it about 3 times in the past few months. However, when he arrived at the wound care center, he oxygen saturation were in the 70s and he was sent to the ED by ambulance. The patient has not had any sick contacts. He does not describe any chest pain. Allergies Allergy/AdvReac Type Severity Reaction Status Date / Time No Known Drug Allergies Allergy Verified 04/28/22 08:24 Home Medications Medication Instructions Recorded Confirmed Type aspirin 81 mg chewable tablet 81 mg PO DAILY 02/07/18 04/28/22 History (Medhat Chewable Low Dose Aspirin) glipizide 10 mg tablet 20 mg PO BID 02/24/19 04/28/22 History acetaminophen 500 mg tablet 500 mg PO Q4H PRN pain #30 tabs 03/19/19 04/28/22 Rx (Acetaminophen Extra Strength) gqohrklj-nvd-czupq acid 0.4 1 tab PO DAILY #30 tabs 03/19/19 04/28/22 Rx mg-lycopene 300 mcg-lutein 250 mcg tablet (Centrum Silver) blood sugar diagnostic (Contour #50 ea 02/02/20 04/28/22 History Next Test Strips) ammonium lactate 5 % lotion 1 applic topical DAILY 30 days 05/13/20 04/28/22 Rx (Lac-Hydrin Five) #226 grams doxepin 100 mg capsule 100 mg PO HS #90 caps 05/16/21 04/28/22 Rx metoprolol tartrate 50 mg tablet 75 mg PO BID #270 tabs 05/16/21 04/28/22 Rx (Lopressor) atorvastatin 40 mg tablet 40 mg PO DAILY #30 tabs 06/13/21 04/28/22 Rx isosorbide mononitrate 60 mg 60 mg PO DAILY #30 tabs 06/13/21 04/28/22 Rx tablet,extended release 24 hr omeprazole 20 mg capsule,delayed 20 mg PO DAILY #30 caps 07/14/21 04/28/22 Rx release tamsulosin 0.4 mg capsule 0.4 mg PO DAILY #30 caps 07/14/21 04/28/22 Rx losartan 25 mg tablet 25 mg PO DAILY #90 tabs 09/16/21 04/28/22 Rx amlodipine 5 mg tablet 5 mg PO DAILY #30 tabs 10/14/21 04/28/22 Rx clopidogrel 75 mg tablet (Plavix) 75 mg PO DAILY #30 tabs 11/01/21 04/28/22 Rx insulin glargine 100 unit/mL (3 65 unit subcut QPM 11/01/21 04/28/22 History mL) subcutaneous pen (Lantus Solostar U-100 Insulin) empagliflozin 10 mg tablet 10 mg PO DAILY #90 tabs 11/18/21 04/28/22 Rx (Jardiance) levothyroxine 75 mcg tablet 75 mcg PO DAILY #30 tabs 12/06/21 04/28/22 Rx insulin aspart U-100 100 unit/mL 30 unit subcut TID 12/27/21 04/28/22 History (3 mL) subcutaneous pen (Novolog Flexpen U-100 Insulin aspart) BD Ultra-Fine Sariah Pen Needle 32 #400 ea 01/05/22 04/28/22 Rx gauge x 5/32" (pen needle, diabetic) furosemide 40 mg tablet 40 mg PO DAILY #90 tabs 02/08/22 04/28/22 Rx albuterol sulfate 90 mcg/actuation 2 puff inhalation Q6H PRN 02/23/22 04/28/22 Rx aerosol inhaler (Ventolin HFA) shortness of breath or wheezing #18 grams fluticasone 500 mcg-salmeterol 50 1 inh inhalation BID #1 inhaler 02/23/22 04/28/22 Rx mcg/dose blistr powdr for inhalation (Advair Diskus) tiotropium bromide 18 mcg capsule 1 cap inhalation DAILY #30 caps 02/23/22 04/28/22 Rx with inhalation device (Spiriva with HandiHaler) Past Med/Surg History Medical History Achilles rupture, left Cardiac arrest 2013 Cellulitis of lower extremity CHF exacerbation COPD exacerbation Diabetic ulcer of heel Diabetic ulcer of toe of left foot Diabetic ulcer of toe of left foot associated with type 2 diabetes mellitus, limited to breakdown of skin Diverticulosis of colon Enlarged prostate Foot ulcer due to secondary DM Former smoker History of amputation of great toe IVCD (intraventricular conduction defect) MSSA (methicillin susceptible Staphylococcus aureus) Myocardial infarction NSTEMI 11/2016 after COPD exacerbation Necrotizing fasciitis 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 Peripheral artery disease Status post amputation of toe of left foot Surgical History H/O spinal fusion History of amputation of lesser toe of left foot History of amputation of lesser toe of right foot Hx of CABG S/P below knee amputation Status post amputation of toe of right foot Family History Father Myocardial infarction Denies family history of Ovarian cancer Prostate cancer Breast cancer Colorectal cancer Social History Smoking Status: Former smoker Tobacco Type: Cigarettes Second Hand Exposure: No; Hx Alcohol Use: No Hx Substance Use: No Preferred Language: Tuvaluan Communication Ability: Effective Visual Impairment: Limited Hearing Ability: Hard of Hearing Credit Verification Clerk Required: No Beliefs That Will Affect Care: None marital status: / Current Living Situation: Alone current occupational status: retired How many Children do You have: 2 How many Children do You have Comment: family lives locally and is able to assist with care as needed. Feels Safe at Home: Yes Safety Concerns: Feels Safe At This Time Childhood Exposure to Second-Hand Smoke: Yes Diet Comment: "not very good at that" during the past year weight has: remained stable Dental Care, Regularly: Yes Seatbelt Use: always Sunscreen Use: No Gender Identity: Male Assistive Devices: Oxygen - at Night, Prosthesis and Wheelchair Assistive Devices Comment: r leg prosthetic Review of Systems Constitutional: no fever and no body aches Eyes: no blind spots Ear, Nose, Mouth, Throat: no ear pain Respiratory: + cough and + dyspnea Cardiovascular: no chest pain Gastrointestinal: no abdominal pain Genitourinary: no dysuria Musculoskeletal: no back pain Integumentary: no acne Neurologic: no gait abnormality Psychiatric: no behavioral changes Endocrine: + fatigue Hematologic / Lymphatic: no easy bleeding Allergy / Immunological: no GI upset with certain foods Physical Exam Constitutional: WD/WN, vitals as above Eyes: PERRL, conjunctivae normal, anicteric sclerae ENMT: external ear and nose normal, oropharynx normal Neck: trachea midline, no thyromegaly Respiratory: normal respiratory effort, lungs clear to auscultation Cardiovascular: RRR, no murmur, no edema Gastrointestinal (Abdomen): normal bowel sounds, soft, nontender, no hepatosplenomegaly Musculoskeletal: no cyanosis or clubbing, extremities motor strength 5/5 Skin: no rashes, warm and dry Neurologic: PERRL, EOMI, accommodation nl, no face palsy, no dysarthria Psychiatric: A+Ox3, euthymic affect Lymphatic: no cervical or axillary lymphadenopathy Results & Data Results & Data ([facility]) Vital Signs (Past 12 Hours) Vital Signs Temp Pulse Resp BP Pulse Ox O2 Del Method O2 Flow Rate 04/28/22 11:30 74 19 93 Nasal Cannula 2 04/28/22 11:30 147/63 H 04/28/22 11:00 74 17 98 Nebulizer 04/28/22 11:00 138/65 04/28/22 10:30 76 20 92 Nasal Cannula 2 04/28/22 10:30 148/68 H 04/28/22 10:00 73 21 99 Nebulizer 04/28/22 10:00 143/72 H 04/28/22 09:30 80 21 93 Nasal Cannula 2 04/28/22 09:30 151/81 H 04/28/22 09:22 75 14 96 Nasal Cannula 7 04/28/22 09:30 Nasal Cannula 2 04/28/22 09:30 95 Nasal Cannula 2 04/28/22 09:21 77 L Nasal Cannula 0 04/28/22 09:21 36.8 C 82 20 156/75 H 77 L Room Air PG Care Time/CCT Total # of Minutes Spent Total Time Spent with Patient: Total time spent is greater than 50% in coordination of care (as documented) at patient's floor/unit and/or counseling patient: Coding Level of Care Code 62117 Initial Inpt Care Lvl 3 Diagnoses COPD exacerbation J44.1 Hypoxia R09.02 Hypothyroidism E03.9 Hyperlipidemia E78.5 Chronic kidney disease N18.9 Hypertension I10
[2022-04-28 13:15] LABS: D Dimer 11440 ug/L FEU (0-500)
--- NOTE | 2022-04-28 13:48 | Electrocardiogram Report ---
Test Reason : Blood Pressure : / mmHG Vent. Rate : 075 BPM Atrial Rate : 075 BPM P-R Int : 206 ms QRS Dur : 134 ms QT Int : 440 ms P-R-T Axes : 067 055 081 degrees QTc Int : 491 ms Normal sinus rhythm Right bundle branch block Abnormal ECG When compared with ECG of 03-APR-2018 07:12, Premature ventricular complexes are no longer Present T wave inversion less evident in Anterolateral leads Confirmed by Rolan Vasquez ([id number]) on 04/28/2022 1:48:07 PM Referred By: Lilia Mendez Confirmed By:Rolan Vasquez
--- NOTE | 2022-04-28 13:55 | Ultrasound Report ---
BILATERAL LOWER EXTREMITY VENOUS DOPPLER CLINICAL HISTORY: hypoxia/ concern over dvt COMPARISON STUDY: Left lower extremity venous Doppler ultrasound July 28, 2013. Bilateral lower extremity venous Doppler ultrasound August 16, 2010. TECHNIQUE: Sonography of the deep venous system of the bilateral lower extremities was performed. Co mpression and augmentation were evaluated. Right below-knee amputation is noted. FINDINGS: Exam is compromised by suboptimal penetration. The bilateral common femoral, superficial f emoral and popliteal veins were compressible. Augmentation was normal. Flow was shown within the deep calf vessels. IMPRESSION: Technically difficult exam but no evidence of deep venous thrombus within the bilateral l ower extremities. ACT 112: Negative or not required by law. Electronically signed by: Sathya Krishnan M.D. 04/28/2022 1:53 PM
[2022-04-28] MEDS ORDERED: NON-FORMULARY MEDICATION (Insulin Aspart U-100 [Novolog Flexpen U-100 Insulin] 100 unit/mL SQ SCH (14:00)
[2022-04-28] MEDS ORDERED: PHARMACY GLYCEMIC MGMT CONSULT PRN (15:49)
[2022-04-28] MEDS ORDERED: LANTUS PER UNIT CHARGE SQ ONE (17:30)
[2022-04-28] MEDS: INSULIN ASPART PER UNIT SC SCH ×3 (17:31→23:43)
[2022-04-28] MEDS ORDERED: INFLUENZA VACCINE HIGH DOSE PF 65+ 0.7 ML SYR IM ONE (18:00)
[2022-04-28] MEDS ORDERED: Nursing to Pharmacy Communication SCH (18:30)
[2022-04-28] MEDS: DOXEPIN HCL 50 MG CAPSULE PO SCH (20:38)
[2022-04-28] MEDS: METOPROLOL TARTRATE 25 MG TAB PO SCH (20:38)
[2022-04-28] MEDS: cefTRIAXone SODIUM 2,000 MG in DEXTROSE 5% 50 ML IV SCH (23:04)
[2022-04-28] MEDS: DOXYCYCLINE HYCLATE 100 MG in DEXTROSE 5% 100 ML IV SCH (23:42)
[2022-04-29] MEDS: INSULIN ASPART PER UNIT SC SCH ×5 (03:48→20:51)
[2022-04-29] MEDS: FLUTICASONE/VILANTEROL 100/25MCG 14 PUFFS/INHALER INH SCH (07:51)
[2022-04-29] MEDS: UMECLIDINIUM BROMIDE 62.5MCG/BLISTER 7 PUFFS/INHALER INH SCH (07:52)
[2022-04-29] MEDS: METOPROLOL TARTRATE 25 MG TAB PO SCH ×2 (07:52→20:50)
[2022-04-29] MEDS: amLODIPine BESYLATE 5 MG TAB PO SCH (07:53)
[2022-04-29] MEDS: ATORVASTATIN 40 MG TAB PO SCH (07:53)
[2022-04-29] MEDS: ASPIRIN 81 MG ECTAB PO SCH (07:53)
[2022-04-29] MEDS: ISOSORBIDE MONO EXTENDED REL 60 MG TABCR PO SCH (07:53)
[2022-04-29] MEDS: CLOPIDOGREL BISULFATE 75 MG TAB PO SCH (07:53)
[2022-04-29] MEDS: LEVOTHYROXINE SODIUM 75 MCG TABLET PO SCH (07:54)
[2022-04-29] MEDS: TAMSULOSIN HCL 0.4 MG CAP PO SCH (07:54)
[2022-04-29] MEDS ORDERED: LANTUS PER UNIT CHARGE SQ SCH ×2 (09:00→21:00)
[2022-04-29] MEDS: DOXYCYCLINE HYCLATE 100 MG in DEXTROSE 5% 100 ML IV SCH ×2 (12:00→21:55)
[2022-04-29 13:28] LABS: Hemoglobin 14.7 g/dl (14.0-18.0); Mean Corpuscular Hemoglobin 30.2 pg (25.0-34.0); Mean Corpuscular Hgb Conc 32.7 g/dL (32.0-36.0); Mean Corpuscular Volume 92.4 fL (80.0-100.0); Mean Platelet Volume 10.9 fL (9.4-12.4); Platelet Count 91 K/uL (130-400); RDW Coefficient of Variation 15.9 % (11.5-14.5); RDW Standard Deviation 52.9 fL (36.4-46.3); Red Blood Count 4.87 M/uL (4.63-6.08); White Blood Count 7.57 K/ul (4.8-10.8)
[2022-04-29 13:34] LABS: INR 1.3 (0.9-1.1); Prothrombin Time 13.5 Seconds (9.0-12.0)
[2022-04-29 13:48] LABS: Albumin Globulin Ratio 1.1 (0.9-2); Albumin Level 3.7 gm/dl (3.4-5.0); BUN Creatinine Ratio 26.3 (10-20); Bilirubin,Total 0.5 mg/dl (0.2-1.0); C Reactive Protein 0.84 mg/dl (0-0.5); Calcium 9.1 mg/dl (8.5-10.1); Creatinine Clr Calc Pharmacy 32.8 ml/min; Est GFR (African American) 34.1 ml/min; Est GFR (Non-African American) 29.4 ml/min; Globulin 3.5 gm/dl (2.5-4.0); Potassium 5.1 mmol/L (3.5-5.1); Total Protein 7.2 gm/dl (6.0-8.3)
--- NOTE | 2022-04-29 14:10 | Pharmacy Report ---
Pharmacy Glycemic Short Note 2 - Date of Service April 29, 2022 - Glycemic Short BSG Results (Last 24 hours): 04/28/22 04/28/22 04/28/22 15:42 16:56 20:28 Glucose POC Glucose 205 H 236 H 198 H 04/28/22 04/29/22 04/29/22 23:14 03:34 07:52 Glucose POC Glucose 183 H 156 H 156 H 04/29/22 04/29/22 11:53 13:02 Glucose 302 H* POC Glucose 248 H OUTPATIENT ANTIDIABETIC REGIMEN: * Lantus 65 units SC qPM * Novolog 30 units SC TIDM * Glipizide 20 mg PO BIDM * Jardiance 10 mg PO daily HbA1c: 7.9% (02/14/22) ASSESSMENT: * FARZANA is a 77 year old male admitted evening of 04/28/22 due to COPD exacerbation * Given 80 mg IV Solu-medrol in ED, no ongoing steroids ordered * Outpatient insulin regimen = 155 units/day + orals * Will base initial insulin dosing on this total daily dose * Ceftriaxone and doxycycline at this time PLAN FOR INPATIENT GLYCEMIC CONTROL: * Hold outpatient oral diabetes medications * Basal insulin * Lantus 30-40 units SQ BID (see EHR for details) * Bolus insulin * NovoLog per scale ACHS or Q6hrs while NPO * Goal Range: Low 110 mg/dL - High 140 mg/dL * Correction Factor: 10 mg/dL/unit * Nutritional / Prandial insulin per carb ratio of 1 unit per 3 grams CHO consumed
--- NOTE | 2022-04-29 14:15 | XRay Report ---
XR chest 2V PA/lateral CLINICAL HISTORY: Hypoxia. COMPARISON STUDY: Chest radiograph April 28, 2022. FINDINGS: Left subclavian pacer/AICD is in place. There are median sternotomy wires. Cardiomediastina l silhouette is stable. There is no pneumothorax or pleural effusion. Pulmonary vascular congestion w ithout overt pulmonary edema. Left basilar opacity is present. There is also suspected right infrahil ar opacity. IMPRESSION: 1. Left basilar opacity which may reflect developing pneumonia or atelectasis. Suspected right infrah ilar opacity. 2. Pulmonary vascular congestion without overt edema. ACT 112: Negative or not required by law. Electronically signed by: Sathya Krishnan M.D. 04/29/2022 2:14 PM
[2022-04-29] MEDS ORDERED: SODIUM CHLORIDE 0.9% 1000ML 1,000 ML IV SCH (16:30)
[2022-04-29] MEDS: DOXEPIN HCL 50 MG CAPSULE PO SCH (20:50)
[2022-04-29] MEDS: cefTRIAXone SODIUM 2,000 MG in DEXTROSE 5% 50 ML IV SCH (20:59)
--- NOTE | 2022-04-29 22:14 | Hospitalist Progress Note ---
Date of Service April 29, 2022 Assessment & Plan (1) COPD exacerbation: Plan: admit for copd exacerbation on 2 liters nasal cannula, normally on room air will hold IV lasix. will place on ceftriaxone/doxycycline ordered iv steroids on day of admission. held further dose as crp remains relatively low. will continue inh maintanence meds concern over pulmonary emboli, however no tachycardia, negative dvt with doppler venous ultrasound. Will not treat as this appears less likely, given no DVT. unable to get CTA of chest due to CKD, and unable to get NM study as there is a global shortage of materials needed for VQ scan. The lack of benefit given low risk of pulmonary emboli, will not treat. Xray now showing possible community acquired pneumonia. Will continue treatment as noted above May require 2 step on day of discharge, has oxygen at home, but will need instuction on how much he will now need as he recovers, patient will like to be discharged on Sunday (2) Hypoxia: Plan: as above. (3) Hypothyroidism: Plan: resume home meds (4) Hyperlipidemia: Plan: resume home statin (5) Chronic kidney disease: Plan: CKD stage IIIba at baseline. however, will hold lasix and hold arb as just 1 year ago, baseline was closer to 1.5 will monitor ordered 1 liter of IVF as BUN had been rising on 04/29 (6) Hypertension: Plan: resume home meds except ARB Admission and Anticipated Discharge Date Admission Date: April 28, 2022 Subjective Patient reports no new symptoms. Breathing better. Review of Systems Review of Systems: All systems reviewed & are unremarkable except as noted in HPI & below Physical Exam Constitutional: WD/WN, vitals as above Eyes: PERRL, conjunctivae normal, anicteric sclerae ENMT: external ear and nose normal, oropharynx normal Neck: trachea midline, no thyromegaly Respiratory: normal respiratory effort, lungs clear to auscultation Cardiovascular: RRR, no murmur, no edema Gastrointestinal (Abdomen): normal bowel sounds, soft, nontender, no hepatosplenomegaly Musculoskeletal: no cyanosis or clubbing, extremities motor strength 5/5 Skin: no rashes, warm and dry Neurologic: PERRL, EOMI, accommodation nl, no face palsy, no dysarthria Psychiatric: A+Ox3, euthymic affect Lymphatic: no cervical or axillary lymphadenopathy Results & Data Results & Data ([facility]) Vital Signs (Past 12 Hours) Vital Signs Temp Pulse Resp BP Pulse Ox O2 Del Method O2 Flow Rate 04/29/22 19:50 Nasal Cannula 2 04/29/22 15:33 37.1 C 73 20 146/71 H 92 Nasal Cannula 2 04/29/22 10:24 Nasal Cannula 2 PG Care Time/CCT Total # of Minutes Spent Total Time Spent with Patient: Total time spent is greater than 50% in coordination of care (as documented) at patient's floor/unit and/or counseling patient: Coding Level of Care Code 96970 Subseq Hosp Care Lvl 3 Diagnoses COPD exacerbation J44.1 Hypoxia R09.02 Hypothyroidism E03.9 Hyperlipidemia E78.5 Chronic kidney disease N18.9 Hypertension I10
[2022-04-30] MEDS: LEVOTHYROXINE SODIUM 75 MCG TABLET PO SCH (05:41)
[2022-04-30] MEDS: METOPROLOL TARTRATE 25 MG TAB PO SCH (07:52)
[2022-04-30] MEDS: CLOPIDOGREL BISULFATE 75 MG TAB PO SCH (07:52)
[2022-04-30] MEDS: ATORVASTATIN 40 MG TAB PO SCH (07:53)
[2022-04-30] MEDS: TAMSULOSIN HCL 0.4 MG CAP PO SCH (07:54)
[2022-04-30] MEDS: amLODIPine BESYLATE 5 MG TAB PO SCH (07:55)
[2022-04-30] MEDS: ISOSORBIDE MONO EXTENDED REL 60 MG TABCR PO SCH (07:55)
[2022-04-30] MEDS: UMECLIDINIUM BROMIDE 62.5MCG/BLISTER 7 PUFFS/INHALER INH SCH (07:56)
[2022-04-30] MEDS: ASPIRIN 81 MG ECTAB PO SCH (07:56)
[2022-04-30] MEDS: FLUTICASONE/VILANTEROL 100/25MCG 14 PUFFS/INHALER INH SCH (07:56)
[2022-04-30 08:11] LABS: Hematocrit (blood only) 43.2 % (40.1-51.0); Hemoglobin 14.2 g/dl (14.0-18.0); Mean Corpuscular Hemoglobin 30.3 pg (25.0-34.0); Mean Corpuscular Hgb Conc 32.9 g/dL (32.0-36.0); Mean Corpuscular Volume 92.1 fL (80.0-100.0); Mean Platelet Volume 10.5 fL (9.4-12.4); Platelet Count 84 K/uL (130-400); RDW Coefficient of Variation 15.9 % (11.5-14.5); Red Blood Count 4.69 M/uL (4.63-6.08); White Blood Count 6.08 K/ul (4.8-10.8)
[2022-04-30] MEDS: INSULIN ASPART PER UNIT SC SCH ×2 (08:12→12:01)
[2022-04-30 08:28] LABS: BUN Creatinine Ratio 29.4 (10-20); C Reactive Protein 0.5 mg/dl (0-0.5); Calcium 8.5 mg/dl (8.5-10.1); Creatinine Clr Calc Pharmacy 31.6 ml/min; Est GFR (African American) 32.6 ml/min; Est GFR (Non-African American) 28.1 ml/min; Potassium 4.6 mmol/L (3.5-5.1)
[2022-04-30] MEDS ORDERED: LANTUS PER UNIT CHARGE SQ SCH ×2 (09:00→21:00)
[2022-04-30] MEDS: DOXYCYCLINE HYCLATE 100 MG in DEXTROSE 5% 100 ML IV SCH (11:55)
[2022-04-30] MEDS ORDERED: ALBUT/IPRATROP 3MG/0.5MG NEB 3 ML VIAL NEB STA ×2 (13:36→15:09)
--- NOTE | 2022-04-30 14:55 | XRay Report ---
XR chest 2V PA/lateral HISTORY: continued hypoxia ?developing PNA COMPARISON: Chest 04/29/2022. FINDINGS: No pneumothorax. No pleural effusions. The heart is normal in size. There are poststernotom y changes and left-sided single lead pacemaker/defibrillator. No evidence for pulmonary edema. Patchy lingular airspace opacity persists. Right middle lobe linear scarlike densities remain unchanged. Th ere are old, healed right-sided rib fractures. IMPRESSION: 1. Patchy lingular density persists. This may represent a low-grade pneumonitis or atelectasis. 2. No evidence for pulmonary edema. ACT 112: Negative or not required by law. Electronically signed by: Tam Berry M.D. 04/30/2022 2:53 PM
--- NOTE | 2022-04-30 16:22 | Discharge Summary ---
Date of Service April 30, 2022 Admission HPI Per Admitting Provider 77 yo male with history of COPD presents to the hospital from the wound clinic as he was hypoxic. Patient reports that he was his normal state of health.Patient states that he normally does not require oxygen and has only used it about 3 times in the past few months. However, when he arrived at the wound care center, he oxygen saturation were in the 70s and he was sent to the ED by ambulance. The patient has not had any sick contacts. He does not describe any chest pain. Principal Diagnosis Community Acquired Pneumonia Discharge Exam Constitutional WD/WN, vitals as above Respiratory normal respiratory effort; no respiratory distress Auscultation: lungs clear to auscultation bilaterally; breath sounds present, no diminished lung sounds, no crackles, no rales, no rhonchi and no wheezes Cardiovascular Rate/Rhythm: regular rate and regular rhythm Heart Sounds: no murmur Extremities: + pedal edema (1+ left pre-tibial) Gastrointestinal (Abdomen) normal bowel sounds, soft, nontender, no hepatosplenomegaly Skin no rashes, warm and dry (venous dermatitis changes only) Neurologic moves all extremities and awake; not confused Psychiatric A+Ox3, euthymic affect Discharge Data Allergies Allergy/AdvReac Type Severity Reaction Status Date / Time No Known Drug Allergies Allergy Verified 04/28/22 08:24 Consultations 04/28/22 11:56 ED Decision to Admit Stat Ordered Studies 04/28/22 11:52 US venous doppler LE BI Routine IMPRESSION: Technically difficult exam but no evidence of deep venous thrombus within the bilateral lower extremities. Hospital Course (1) COPD exacerbation: Edy Frank is a 77 year old male admitted to [facility] from April 28 - 2021 due to hypoxia. This improved to > 90% at rest on discharge (he does not exert himself normally and uses a wheelchair around the house). Suspect this was caused by his chronic COPD, excessive exertion prior to his appointment, possible mucus plugging and possible community acquired pneumonia. He was treated with antibiotics during his inpatient stay although no neutrophilia or procalcitonin elevation however he had persistent mild changes on his chest XR. Recommend continuing on antibiotics for this as prescribed and following up with your primary care physician for ongoing treatment. (2) Hypoxia: (3) Hypothyroidism: (4) Hyperlipidemia: (5) Chronic kidney disease: (6) Hypertension: Total Time Total Time Spent Total Time Spent (In Minutes): 45 Discharge Plan Discharge Items Patient Disposition: Home - Self-Care Reason For Visit: ACUTE HYPOXIC RESPIRATORY FAILURE Discharge Diagnosis: Community acquired pneumonia Condition on Discharge: Fair Activity: Resume your previous activity Non-emergency contact: Primary Care Provider Call non-emergency contact if: you have any medication questions and your symptoms worsen Follow-up/Referrals: Stephy Lowry CRNP [Primary Care Provider] - 05/11/22 10:30 am Diet: Carb Consistent or DM2 Addtl Attending Provider Instructions: You were admitted to [facility] from April 28 - 2021 due to low oxygen saturations. This improved back to > 90% at rest on discharge. Suspect this was caused by your chronic COPD, excessive exertion, mucus plugging and possible community acquired pneumonia. Recommend continuing on Augmentin and doxycycline for a short course of a further 3 days on discharge. Given lack of improvement with duonebs or wheezing COPD exacerbation was not suspected and although he had one dose of steroids in the emergency room these were not continued. Pending Studies at Discharge: No Stand-Alone Forms: My [facility], Smoking Cessation Medications and DC Order Prescriptions: New doxycycline hyclate 100 mg tablet 100 mg PO BID 3 Days Qty: 6 0RF amoxicillin-pot clavulanate 875-125 mg tablet 1 tab PO BID 3 Days Qty: 6 0RF Continued aspirin [Medhat Chewable Aspirin] 81 mg tablet,chewable 81 mg PO DAILY Lac-Hydrin Five 5 % lotion 1 applic topical DAILY 30 Days Qty: 226 2RF Rx Instructions: Apply to legs and feet daily. doxepin 100 mg capsule 100 mg PO HS Qty: 90 3RF metoprolol tartrate [Lopressor] 50 mg tablet 75 mg PO BID Qty: 270 3RF isosorbide mononitrate 60 mg tablet extended release 24 hr 60 mg PO DAILY Qty: 30 11RF atorvastatin 40 mg tablet 40 mg PO DAILY Qty: 30 11RF omeprazole 20 mg capsule,delayed release(DR/EC) 20 mg PO DAILY Qty: 30 11RF tamsulosin 0.4 mg capsule 0.4 mg PO DAILY Qty: 30 11RF amlodipine 5 mg tablet 5 mg PO DAILY Qty: 30 11RF Rx Instructions: p wound care center & dr 1st levothyroxine 75 mcg tablet 75 mcg PO DAILY Qty: 30 5RF (DME) pen needle, diabetic [BD Ultra-Fine Sariah Pen Needle] 32 gauge x 5/32" needle See Dose Instructions .ROUTE .MEDSUPPLY Qty: 400 3RF Dose Instruction: As directed Rx Instructions: Use four times a day furosemide 40 mg tablet 40 mg PO DAILY Qty: 90 2RF glipizide 10 mg tablet 20 mg PO BID Jardiance 10 mg tablet 10 mg PO DAILY Qty: 90 3RF albuterol sulfate [Ventolin HFA] 90 mcg/actuation HFA aerosol inhaler 2 puff INH Q6H PRN (Reason: shortness of breath or wheezing) Qty: 18 11RF fluticasone propion-salmeterol [Advair Diskus] 500-50 mcg/dose blister with device 1 inh INH BID Qty: 1 11RF Spiriva with HandiHaler 18 mcg capsule, w/inhalation device 1 cap inhalation DAILY Qty: 30 11RF acetaminophen [Acetaminophen Extra Strength] 500 mg tablet 500 mg PO Q4H PRN (Reason: pain) Qty: 30 0RF Centrum Silver 0.4-300-250 mg-mcg-mcg tablet 1 tab PO DAILY Qty: 30 0RF (DME) blood sugar diagnostic [Contour Next Test Strips] Strip See Rx Instructions .ROUTE .MEDSUPPLY Qty: 50 Rx Instructions: test 4 times daily losartan 25 mg tablet 25 mg PO DAILY Qty: 90 3RF insulin glargine [Lantus Solostar U-100 Insulin] 100 unit/mL (3 mL) insulin pen 65 unit subcut QPM clopidogrel [Plavix] 75 mg tablet 75 mg PO DAILY Qty: 30 11RF Rx Instructions: has not been filled since october, per Dr ramires, Wound care center has this on med list insulin aspart U-100 [Novolog Flexpen U-100 Insulin] 100 unit/mL (3 mL) insulin pen 30 unit SQ TID Rx Instructions: Inject up to 30 units subcutaneously daily as directed per sliding scale Discharge Orders: Discharge Order (Routine); Ordered 04/30/22 Ordered By: Kaleb Rangel Admission Data Admit Date/Time: 04/28/22 12:03 Attending Provider: Kaleb Rangel Admit Provider: Zay Booker Primary Care Provider: Stephy Lowry Other Providers: Zay Booker Other Interventions: Discharge Summary Assessment (RN) Last Done: 04/30/22 16:39 Coding Level of Care Code D/C DAY MANAGEMENT >30 MINS Diagnoses COPD exacerbation J44.1 Hypoxia R09.02 Hypothyroidism E03.9 Hyperlipidemia E78.5 Chronic kidney disease N18.9 Hypertension I10
== END 2022-04-30 17:00 | disposition home or self-care (01) | DRG 193 ==
LOC: ED 09:14 → SUATTDRO 12:03 → 2W 12:03
DX: Z79.82 Long term (current) use of aspirin; Z87.891 Personal history of nicotine dependence; Z89.519 Acquired absence of unspecified leg below knee; Y92.009 Unspecified place in unspecified non-institutional (private) residence as the place of occurrence of the external cause; Z95.1 Presence of aortocoronary bypass graft; J96.01 Acute respiratory failure with hypoxia; X58.XXXA Exposure to other specified factors, initial encounter; I12.9 Hypertensive chronic kidney disease with stage 1 through stage 4 chronic kidney disease, or unspecified chronic kidney disease; T17.900A Unspecified foreign body in respiratory tract, part unspecified causing asphyxiation, initial encounter; E11.51 Type 2 diabetes mellitus with diabetic peripheral angiopathy without gangrene; J18.9 Pneumonia, unspecified organism; I25.2 Old myocardial infarction; Z79.84 Long term (current) use of oral hypoglycemic drugs; E03.9 Hypothyroidism, unspecified; Z95.0 Presence of cardiac pacemaker; N18.31 Chronic kidney disease, stage 3a; Z79.4 Long term (current) use of insulin; Z86.74 Personal history of sudden cardiac arrest; Z79.890 Hormone replacement therapy; Z99.3 Dependence on wheelchair; R79.89 Other specified abnormal findings of blood chemistry; J44.1 Chronic obstructive pulmonary disease with (acute) exacerbation

== ENCOUNTER 2024-12-18 13:41 | Inpatient (IN) ==
--- NOTE | 2024-12-18 14:31 | Emergency Department Note ---
Impression & Plan Sepsis, Cellulitis of right leg, Traumatic open wound of left lower leg with delayed healing, Non-ST elevation [place] (NSTEMI) ED Provider Note CHIEF COMPLAINT: Weakness, fatigue, lower extremity edema, bleeding from the left foot HISTORY OF PRESENT ILLNESS: This 79-year-old male patient presents to the emergency department via ambulance accompanied by son for evaluation of generalized weakness and fatigue. The patient states that over the past several weeks, he has been more more tired and weak. He states that he was to see the wound clinic today, but was unable to get in the truck. When he tried to get into the truck to go to the doctor, he struck his left foot and they noticed a moderate amount of bleeding from the foot. The patient states he has noticed increased swelling in the right stump where his prosthesis sits. He states normally he wears 3 socks over this, but has only been able to wear 1 due to the swelling. He has minimal sensation in his lower extremities but has had some increased pain and discomfort. The patient denies any fever. He has had some chills. He states the primary wound on the left foot is on the heel which seems to be improving overall with the help of wound clinic. The patient has been urinating okay. Denies any abdominal pain or chest pain. He has some shortness of breath and has been using his home oxygen more than previously. He denies any confusion or difficulty with speech. His mouth has been very dry. He denies headache or dizziness. He has had significantly decreased appetite over the past 2 days. He has had some diarrhea as well. Patient is currently on doxycycline due to the wound on the left foot. He states he thinks he has 3 doses remaining of this medication. History provided by: Patient REVIEW OF SYSTEMS: A 10 system review of systems was performed with positives and pertinent negatives listed in the history of present illness. All other systems were reviewed and are negative. ALLERGIES: NKDA PHYSICAL EXAM: VITALS: Vitals are noted on the nurse's note and reviewed by myself. GENERAL: This is a 79-year-old male, in no acute distress, nondiaphoretic, well- developed well-nourished. SKIN: The skin was without rashes, erythema, edema, or bruising. There is no tenting of the skin. Capillary refill less than 2 seconds. HEAD: Normocephalic atraumatic. EARS: External auditory canals clear, tympanic membranes pearly nieves without erythema or effusion bilaterally. No hemotympanum. Negative sandoval sign EYES: Pupils equal round and reactive to light and accommodation. Conjunctivae without injection, sclerae without icterus. Extraocular movements intact. NOSE: Patent, turbinates without inflammation or discharge. No sinus tenderness. MOUTH: Mucous membranes dry. Tonsils are not enlarged. Pharynx without erythema or exudate. Uvula midline. Airway patent. Tongue does not deviate. NECK: Supple without nuchal rigidity. No lymphadenopathy. Cervical spine is nontender. No JVD. HEART: Regular rate and rhythm without murmurs gallops or rubs. LUNGS: Clear to auscultation bilaterally without wheezes, rales or rhonchi. No retractions or accessory muscle use. ABDOMEN: Positive bowel sounds x 4. Soft, nontender, without masses or organomegaly. Lyles sign negative. No guarding or rebound tenderness. MUSCULOSKELETAL: BTK amputation on the right. There are superficial abrasions and erythema with edema of the right stump. Ulcerated wound on the heel of the left foot with no surrounding erythema. Does have some edema in this area. No discharge or bleeding. The patient has had 4/5 digits amputated from the left foot. There is skin sloughing with bleeding from the 3rd digit which appears traumatic from the injury getting into the truck. There is erythema of the foot with edema. Thick plaque like scales on the left lower extremity. No tenderness to palpation. Strength 5/5 throughout. NEURO: Patient was alert and oriented to person place and time. Decree sensation in the bilateral lower extremities. Otherwise, normal sensation to light and sharp touch. No focal neurological deficits. An order was placed for continuous radiation monitor. The monitor showed a normal sinus rhythm at a ventricular rate of 84 bpm, per my interpretation. EKG was reviewed by myself and found to be Normal Sinus Rhythm at a rate of 84 beats per minute and per my interpretation reveals RBBB. ST depression in lateral leads and V3.ST depression is new when compared to EKG completed on 04/28/2022. Imaging as interpreted by myself and the radiologist revealed soft tissue swelling in the left foot and right stump but no acute bony abnormalities, with radiologist interpretation as above. I agree with the radiologist's findings as based upon my independent interpretation. EMERGENCY DEPARTMENT COURSE: The patient was evaluated as above. The patient presents to the emergency department for generalized weakness, fatigue, malaise, as well as right lower extremity edema and a wound on the left foot. The patient's symptoms have been ongoing and progressing over the past several days. He is afebrile, but is hypotensive on initial evaluation. He is not tachycardic. He does endorse increasing oxygen requirement over the past several weeks at home. Patient is currently on doxycycline for chronic wound on the left foot. He is following closely with wound clinic. IV access was obtained, labs are drawn. The patient was immediately hydrated with IV fluids. Blood cultures were obtained. EKG as above. This is concerning for ST depression in the lateral leads and lead V3 which is new. X-ray imaging of the right stump and left foot were completed and reviewed by myself and radiologist as noted. Labs reviewed. Per my interpretation, no leukocytosis. There is an anemia with hemoglobin of 12.6 and hematocrit of 41.1%. Thrombocytopenia with platelet count of 99,000. INR is elevated 1.4. Creatinine elevated at 2.39. Patient's most recent creatinine about 2 months ago was 2. LFTs elevated with an ALT of 61, AST of 114, alkaline phosphatase 321. Total bilirubin mildly elevated 1.3, direct bilirubin 0.7. Electrolytes without significant or concerning abnormality. Blood glucose is 65. Procalcitonin elevated at 3.14. Lactic acid is 1.5. Blood cultures are pending. Initial high-sensitivity troponin 1081.2. Case was discussed with the attending physician. The patient was started on daptomycin and Zosyn Due to concerns for sepsis. I discussed case with Viktoria Sibley complex care nurse on-call, given the elevated troponin and EKG changes. He did review the patient's case, EKG, and did agree to consult on the patient. Please see his dictation regarding this consultation. I discussed the case with Dr. Rangel, Eleanor Menjivar hospitalist physician. I did recommend inpatient care to further manage the sepsis and NSTEMI as well as the patient's wounds and cellulitis. Please see hospitalist and cardiology dictation regarding ongoing management and care of this patient. This visit is during a period of high volume and high acuity in the emergency department. I attest that I have personally reviewed the patient medication list. I attest that I have reviewed the patient's blood pressure and it was found to be normal GCS: 15 In the evaluation and treatment of this patient the following differential diagnoses were entertained: Sepsis, UTI, cellulitis, pneumonia, metabolic, electrolyte abnormalities, cardiac sources, intracerebral event, toxicologic, neurologic, as well as other pathologies. The chart was completed utilizing [employer] Speech voice recognition software. Grammatical errors, random word insertions, pronoun errors, and incomplete sentences are an occasional consequence of this system due to software limitations, ambient noise, and hardware issues. Any formal questions or concerns about the content, text, or information contained within the body of this dictation should be directly addressed to the provider for clarification. Past Med/Surg History Problem List (Updated 12/18/24 @ 21:09 by Pamela Malcolm PA-C) Non-ST elevation [place] (NSTEMI) (Acute) Cellulitis of right leg (Acute) Sepsis (Acute) Malaise Venous stasis ulcers Mixed hearing loss of right ear Hearing loss Shortness of breath (Acute) Long-term current use of proton pump inhibitor therapy Muscle cramping Diabetic ulcer of left foot (Acute) Thickened nails Skin tear of left hand without complication (Acute) Noninfected skin tear of left lower extremity (Acute) Traumatic open wound of left lower leg with delayed healing (Acute) Creatinine elevation (Acute) Hypoxia Blister of foot, left (Acute) Venous ulcer (Acute) Diabetic foot ulcer (Acute) Hypothyroidism Peripheral arterial disease (Chronic) ICD (implantable cardioverter-defibrillator) in place 2-vessel coronary artery disease Chronic kidney disease Chronic obstructive pulmonary disease Chronic reflux esophagitis Hyperlipidemia (Chronic) Stasis dermatitis Cirrhosis Gastroesophageal reflux disease Diabetes (Chronic) Hypertension (Chronic) Medical History Achilles rupture, left Diabetic ulcer of toe of left foot Diabetic ulcer of toe of left foot associated with type 2 diabetes mellitus, limited to breakdown of skin Diabetic ulcer of heel Cellulitis of lower extremity Diverticulosis of colon Enlarged prostate Former smoker Osteomyelitis of left foot Foot ulcer due to secondary DM Peripheral artery disease Myocardial infarction NSTEMI 11/2016 after COPD exacerbation IVCD (intraventricular conduction defect) Pacemaker Med[employer]onic implanted 10/17/13 COPD exacerbation Necrotizing fasciitis MSSA (methicillin susceptible Staphylococcus aureus) CHF exacerbation Cardiac arrest 2013 Surgical History Status post amputation of toe of left foot History of amputation of great toe Status post amputation of toe of right foot S/P below knee amputation H/O spinal fusion Hx of CABG History of amputation of lesser toe of right foot History of amputation of lesser toe of left foot Family History Father Myocardial infarction Denies family history of Ovarian cancer Prostate cancer Breast cancer Colorectal cancer Social History Smoking Status: Unknown if ever smoked Tobacco Type: Cigarettes Second Hand Exposure: No; Do You Dip or Chew Tobacco: No; Hx Alcohol Use: No Hx Substance Use: No Preferred Language: Uzbek Communication Ability: Effective Visual Impairment: Limited Hearing Ability: Hard of Hearing Web Page Designer Required: No Beliefs That Will Affect Care: None marital status: / Current Living Situation: Alone current occupational status: retired How many Children do You have: 2 How many Children do You have Comment: family lives locally and is able to assist with care as needed. Feels Safe at Home: Yes Childhood Exposure to Second-Hand Smoke: Yes Diet: regular Diet Comment: "not very good at that" caffeine: No during the past year weight has: remained stable Dental Care, Regularly: Yes Physical Activity Frequency: Does not Exercise Seatbelt Use: always Sunscreen Use: No Do you think of yourself as: straight/heterosexual Gender Identity: Male Assistive Devices: Glasses, Prosthesis and Wheelchair Allergies Allergies Allergy/AdvReac Type Severity Reaction Status Date / Time No Known Drug Allergies Allergy Verified 12/11/24 13:48 Home Meds Home Medications Medication Instructions Recorded Confirmed aspirin 81 mg chewable tablet 81 mg PO QAM 02/07/18 12/18/24 (Medhat Chewable Low Dose Aspirin) blood sugar diagnostic (Contour #[phone] ea 02/02/20 12/18/24 Next Test Strips) blood-glucose sensor (FreeStyle 09/11/24 12/18/24 Pradeep 3 Sensor device) cholecalciferol (vitamin D3) 25 25 mcg PO QAM 12/18/24 12/18/24 mcg (1,000 unit) tablet (Vitamin D3) clopidogrel 75 mg tablet (Plavix) 75 mg PO QPM 12/18/24 12/18/24 empagliflozin 25 mg tablet 25 mg PO QAM 12/18/24 12/18/24 furosemide 20 mg tablet 20 mg PO QAM 12/18/24 12/18/24 insulin aspart U-100 100 unit/mL 0 - 40 unit subcut DAILY 12/18/24 12/18/24 (3 mL) subcutaneous pen (Novolog FlexPen U-100 Insulin aspart) insulin glargine 100 unit/mL (3 50 unit subcut QPM 12/18/24 12/18/24 mL) subcutaneous pen (Lantus Solostar U-100 Insulin) isosorbide mononitrate 30 mg 30 mg PO QAM 12/18/24 12/18/24 tablet,extended release 24 hr levothyroxine 75 mcg tablet 75 mcg PO DAILYBB 12/18/24 12/18/24 losartan 25 mg tablet 25 mg PO [facility] 12/18/24 12/18/24 [id number] acid 0.4 1 tab PO QA 12/18/24 12/18/24 mg-lycopene 300 mcg-lutein 250 mcg tablet (Centrum Silver) omeprazole 20 mg capsule,delayed 20 mg PO [facility] 12/18/24 12/18/24 release tamsulosin 0.4 mg capsule 0.4 mg PO [facility] 12/18/24 12/18/24 tiotropium bromide 18 mcg capsule 1 cap inhalation [facility] 12/18/24 12/18/24 with inhalation device Previous Rx's Medication Instructions Recorded acetaminophen 500 mg tablet 500 mg PO Q4H PRN pain #30 tabs 03/19/19 (Acetaminophen Extra Strength) albuterol sulfate 90 mcg/actuation 2 puff inhalation Q6H PRN 09/19/23 aerosol inhaler (Ventolin HFA) shortness of breath or wheezing #18 grams doxepin 100 mg capsule 100 mg PO HS #90 caps 03/21/24 metoprolol tartrate 50 mg tablet 75 mg (1.5 x 50 mg) PO BID #270 03/21/24 (Lopressor) tabs ipratropium 0.5 mg-albuterol 3 mg 3 ml inhalation Q4H PRN wheezing 04/28/24 (2.5 mg base)/3 mL nebulization #180 mL soln atorvastatin 40 mg tablet 40 mg PO DAILY #30 tabs 05/16/24 fluticasone 500 mcg-salmeterol 50 1 inh inhalation BID #1 inhaler 09/29/24 mcg/dose blistr powdr for inhalation (Advair Diskus) pen needle, diabetic 32 gauge x #400 ea 10/17/24" doxycycline hyclate 100 mg tablet 100 mg PO bid #20 tabs 12/08/24 Results & Data (ED) Vital Signs Vital Signs - 24 hr 12/18/24 13:51 12/18/24 13:51 12/18/24 13:54 Temperature 36.6 C 36.6 C Temperature Source Oral Oral Pulse Rate 83 82 Pulse Rate [Right Finger] 82 Pulse Rate from SpO2 Sensor Pulse Rhythm Regular Pulse Rhythm [Right Finger] Regular Pulse Strength Normal Pulse Strength [Right Finger] Normal Respiratory Rate 18 18 Respiratory Effort / Characteristics Non-Labored Non-Labored Respiratory Depth Normal Normal Respiratory Pattern Regular Regular Blood Pressure 88/57 L Blood Pressure [Right Arm] 88/57 L Blood Pressure Mean 67 Blood Pressure Mean [Right Arm] 67 Blood Pressure Position Lying Blood Pressure Position [Right Arm] Lying Pulse Oximetry 96 96 Oxygen Delivery Method Room Air Room Air Sepsis Recent Fever Within 48 Hours No Sepsis New/Unexplained Change in Mental Status N/A Sepsis Action Taken by Nursing No Action Required 12/18/24 14:26 12/18/24 14:26 12/18/24 14:33 Temperature Temperature Source Pulse Rate 83 Pulse Rate [Right Finger] 84 Pulse Rate from SpO2 Sensor 83 Pulse Rhythm Pulse Rhythm [Right Finger] Regular Pulse Strength Pulse Strength [Right Finger] Normal Respiratory Rate 19 17 Respiratory Effort / Characteristics Non-Labored Respiratory Depth Normal Respiratory Pattern Regular Blood Pressure 99/64 L Blood Pressure [Right Arm] 106/65 Blood Pressure Mean 75 Blood Pressure Mean [Right Arm] 78 Blood Pressure Position Blood Pressure Position [Right Arm] Lying Pulse Oximetry 95 95 94 Oxygen Delivery Method Room Air Room Air Sepsis Recent Fever Within 48 Hours Sepsis New/Unexplained Change in Mental Status Sepsis Action Taken by Nursing 12/18/24 14:47 12/18/24 14:54 12/18/24 15:33 Temperature Temperature Source Pulse Rate 87 Pulse Rate [Right Finger] 84 86 Pulse Rate from SpO2 Sensor 89 Pulse Rhythm Pulse Rhythm [Right Finger] Regular Regular Pulse Strength Pulse Strength [Right Finger] Normal Normal Respiratory Rate 19 23 18 Respiratory Effort / Characteristics Non-Labored Non-Labored Respiratory Depth Normal Normal Respiratory Pattern Regular Regular Blood Pressure 115/63 Blood Pressure [Right Arm] 99/64 L 99/64 L Blood Pressure Mean 80 Blood Pressure Mean [Right Arm] 75 75 Blood Pressure Position Blood Pressure Position [Right Arm] Lying Lying Pulse Oximetry 93 95 95 Oxygen Delivery Method Room Air Room Air Sepsis Recent Fever Within 48 Hours Sepsis New/Unexplained Change in Mental Status Sepsis Action Taken by Nursing 12/18/24 16:03 12/18/24 16:30 12/18/24 16:30 Temperature Temperature Source Pulse Rate Pulse Rate [Right Finger] Pulse Rate from SpO2 Sensor 88 91 H Pulse Rhythm Pulse Rhythm [Right Finger] Pulse Strength Pulse Strength [Right Finger] Respiratory Rate Respiratory Effort / Characteristics Respiratory Depth Respiratory Pattern Blood Pressure 127/74 110/66 110/66 Blood Pressure [Right Arm] Blood Pressure Mean 91 80 81 Blood Pressure Mean [Right Arm] Blood Pressure Position Blood Pressure Position [Right Arm] Pulse Oximetry 95 95 Oxygen Delivery Method Sepsis Recent Fever Within 48 Hours Sepsis New/Unexplained Change in Mental Status Sepsis Action Taken by Nursing 12/18/24 17:00 12/18/24 17:30 12/18/24 18:00 Temperature Temperature Source Pulse Rate 90 91 H 91 H Pulse Rate [Right Finger] Pulse Rate from SpO2 Sensor 90 92 H Pulse Rhythm Pulse Rhythm [Right Finger] Pulse Strength Pulse Strength [Right Finger] Respiratory Rate 17 16 16 Respiratory Effort / Characteristics Respiratory Depth Respiratory Pattern Blood Pressure 116/62 99/81 L 102/66 Blood Pressure [Right Arm] Blood Pressure Mean 80 85 78 Blood Pressure Mean [Right Arm] Blood Pressure Position Blood Pressure Position [Right Arm] Pulse Oximetry 95 95 95 Oxygen Delivery Method Sepsis Recent Fever Within 48 Hours Sepsis New/Unexplained Change in Mental Status Sepsis Action Taken by Nursing 12/18/24 18:24 12/18/24 18:30 12/18/24 19:00 Temperature Temperature Source Pulse Rate 91 H 91 H 94 H Pulse Rate [Right Finger] Pulse Rate from SpO2 Sensor Pulse Rhythm Pulse Rhythm [Right Finger] Pulse Strength Pulse Strength [Right Finger] Respiratory Rate 18 18 Respiratory Effort / Characteristics Respiratory Depth Respiratory Pattern Blood Pressure 111/58 L 103/65 Blood Pressure [Right Arm] Blood Pressure Mean 71 80 Blood Pressure Mean [Right Arm] Blood Pressure Position Blood Pressure Position [Right Arm] Pulse Oximetry 94 95 Oxygen Delivery Method Sepsis Recent Fever Within 48 Hours Sepsis New/Unexplained Change in Mental Status Sepsis Action Taken by Nursing 12/18/24 20:04 Temperature Temperature Source Pulse Rate 94 H Pulse Rate [Right Finger] Pulse Rate from SpO2 Sensor Pulse Rhythm Pulse Rhythm [Right Finger] Pulse Strength Pulse Strength [Right Finger] Respiratory Rate 18 Respiratory Effort / Characteristics Respiratory Depth Respiratory Pattern Blood Pressure 99/57 L Blood Pressure [Right Arm] Blood Pressure Mean Blood Pressure Mean [Right Arm] Blood Pressure Position Blood Pressure Position [Right Arm] Pulse Oximetry 96 Oxygen Delivery Method Room Air Sepsis Recent Fever Within 48 Hours Sepsis New/Unexplained Change in Mental Status Sepsis Action Taken by Nursing Laboratory Data 12/18/24 13:53 12/18/24 13:53 Lab Results 12/18/24 12/18/24 12/18/24 Range/Units 13:53 15:03 16:12 WBC 5.05 (4.8-10.8) K/ul RBC 4.44 L (4.70-6.10) M/uL Hgb 12.6 L (14.0-18.0) g/dl Hct 41.1 L (42.0-52.0) % MCV 92.6 (80.0-100.0) fL MCH 28.4 (25.0-34.0) pg MCHC 30.7 L (32.0-36.0) g/dL RDW Std Deviation 59.0 H (36.4-46.3) fL RDW Coeff of [place] 17.6 H (11.5-14.5) % Plt Count 99 L (130-400) K/uL MPV 10.3 (9.4-12.4) fL Immature Gran % (Auto) 0.4 % Neut % (Auto) 88.4 % Lymph % (Auto) 5.7 % [place] % (Auto) 5.1 % Eos % (Auto) 0.2 % Baso % (Auto) 0.2 % Neut # (Auto) 4.46 (1.40-6.50) K/uL Lymph # (Auto) 0.29 L (1.20-3.40) K/uL [place] # (Auto) 0.26 (0.11-0.59) K/uL Eos # (Auto) 0.01 (0.00-0.50) K/uL Baso # (Auto) 0.01 (0.00-0.20) K/uL Immature Gran # (Auto) 0.02 (0.01-0.20) K/uL PT 14.8 H (9.0-12.0) Seconds INR 1.4 H (0.9-1.1) APTT 31 (21-31) Seconds PTT Ratio 1.2 Sodium 138 (136-145) mmol/L Potassium 4.9 (3.5-5.1) mmol/L Chloride 102 (98-107) mmol/L Carbon Dioxide 28 (21-32) mmol/L Anion Gap 8 (3-11) BUN 52 H (6-23) mg/dl Creatinine 2.39 H (0.6-1.4) mg/dl Est Cr Clr Drug Dosing 28.9 ml/min eGFR 27.25 BUN/Creatinine Ratio 21.8 H (10-20) Glucose 65 L (70-99(Fasting)) mg/dl Lactate 1.5 (0.4-2.0) mmol/L Calcium 9.6 (8.6-10.3) mg/dl Magnesium 2.1 (1.7-2.4) mg/dl Total Bilirubin 1.3 H (0.2-1.0) mg/dl Direct Bilirubin 0.7 H (0-0.2) mg/dl AST 114 H (13-39) U/L ALT 61 H (7-52) U/L Alkaline Phosphatase 321 H (34-104) U/L Troponin I High Sens 1081.2 H* 919.4 H* (0-20) pg/ml Total Protein 6.7 (6.0-8.3) gm/dl Albumin 3.0 L (3.4-5.0) gm/dl Procalcitonin 3.14 H (0-0.5) ng/ml Administered Medications Discontinued Medications Sodium Chloride (Nss) 1,000 mls @ 999 mls/hr IV .Q1H1M RUFINO Stop: 12/18/24 15:30 Last Infusion: 12/18/24 16:21 Dose: Infused Documented By: NRKeya Admin: 12/18/24 14:37 Dose: 999 mls/hr Documented By: JACQUES Daptomycin 625 mg/ Syringe 12.5 mls @ 6.25 mls/min IV NOW ONE; Protocol Stop: 12/18/24 15:51 Last Admin: 12/18/24 16:15 Dose: 6.25 mls/min Documented By: ROCÍO Piperacillin Sod/Tazobactam Sod (Zosyn) 4.5 gm in 120 mls @ 240 mls/hr IV NOW ONE Stop: 12/18/24 16:09 Last Infusion: 12/18/24 17:04 Dose: Infused Documented By: Admin: 12/18/24 16:15 Dose: 240 mls/hr Documented By: ROCÍO Imaging Data Radiologist's Impression: Chest X-Ray 12/18/24 14:23 XR chest 1V portable CLINICAL HISTORY: Sepsis. COMPARISON STUDY: Chest radiograph April 30, 2022. Chest CT November 06, 2016. FINDINGS: A left subclavian pacer/AICD remains in place. There are median sternotomy wires. Cardiomediastinal silhouette is stable. Hazy medial right basilar opacity is present. There is no radiographic evidence for pulmonary edema. No pneumothorax or pleural effusion. IMPRESSION: Hazy medial right basilar opacity. This may represent pneumonia or atelectasis. Radiographic follow-up is recommended to ensure resolution. ACT 112: Negative or not required by law. Electronically signed by: Sathya Krishnan M.D. 12/18/2024 3:13 PM Foot X-Ray 12/18/24 14:23 LEFT FOOT 3 VIEWS CLINICAL HISTORY: Left foot pain. Draining wound. FINDINGS: 3 views of the left foot are compared to study dated 10/12/2023. The skeletal structures are osteopenic. No acute fracture is seen. There is postsurgical change from amputation of the fourth and fifth toes through the metatarsal shaft. There is chronic deformity and partial bony fusion at the third metatarsophalangeal joint. Moderate osteoarthritic changes seen throughout the foot. There is a large plantar heel spur. There is diffuse soft tissue edema throughout the foot. A wound is suggested overlying the heel. No radiodense foreign body images seen. No bony erosion is identified. IMPRESSION: 1. Soft tissue edema with no acute bony abnormality identified. 2. Osteopenia with chronic and postsurgical changes as above. 3. A heel wound is suggested. No radiodense foreign body is identified. Electronically signed by: Dexter Koenig M.D. 12/18/2024 3:09 PM Tibia/Fibula X-Ray 12/18/24 14:23 XR tibia fibula RT 2V HISTORY: 79 years-old Male pain/swelling in stump, wound COMPARISON: None TECHNIQUE: 2 views of the right tibia and fibula FINDINGS: Prior [id number] amputation. Arterial calcifications. Demineralized appearance of the bones. Moderate soft tissue prominence of the amputation stump. No acute fracture, dislocation or osseous erosion. No opaque foreign body. IMPRESSION: 1. No acute osseous abnormality. 2. Prior [id number] amputation with soft tissue swelling. ACT 112: Negative or not required by law. The above report was generated using voice recognition software. It may contain grammatical, syntax or spelling errors. Electronically signed by: Romulo Myers M.D. 12/18/2024 3:03 PM Discharge Plan Visit Data Chief Complaint: Illness Stated Complaint: WEAKNESS ED Provider: Junior Boyle ED Midlevel Provider: Pamela Malcolm Discharge Problem: Sepsis, Cellulitis of right leg, Traumatic open wound of left lower leg with delayed healing, Non-ST elevation [place] (NSTEMI) Patient Disposition: Admitted As Inpatient Condition: Good Discharge Instructions Interventions: ED Discharge Assessment Last Done: 12/18/24 20:04 Prescriptions Prescriptions: No Action aspirin [Medhat Chewable Aspirin] 81 mg tablet,chewable 81 mg PO QAM metoprolol tartrate [Lopressor] 50 mg tablet 75 mg PO BID Qty: 270 3RF doxepin 100 mg capsule 100 mg PO HS Qty: 90 3RF ipratropium-albuterol 0.5 mg-3 mg(2.5 mg base)/3 mL solution for nebulization 3 ml inhalation Q4H PRN (Reason: wheezing) Qty: 180 3RF atorvastatin 40 mg tablet 40 mg PO DAILY Qty: 30 11RF (DME) pen needle, diabetic 32 gauge x " needle See Dose Instructions .ROUTE .MEDSUPPLY Qty: 400 3RF Dose Instruction: As directed Rx Instructions: Use four times a day doxycycline hyclate 100 mg tablet 100 mg PO bid Qty: 20 0RF Rx Instructions: ordered 11/18/24 to take for 10 days albuterol sulfate [Ventolin HFA] 90 mcg/actuation HFA aerosol inhaler 2 puff INH Q6H PRN (Reason: shortness of breath or wheezing) Qty: 18 11RF acetaminophen [Acetaminophen Extra Strength] 500 mg tablet 500 mg PO Q4H PRN (Reason: pain) Qty: 30 0RF (DME) blood sugar diagnostic [Contour Next Test Strips] Strip See Rx Instructions .ROUTE .MEDSUPPLY Qty: 50 Rx Instructions: test 4 times daily (DME) FreeStyle Pradeep 3 Sensor Device See Rx Instructions .Route Rx Instructions: change every 14 days fluticasone propion-salmeterol [Advair Diskus] 500-50 mcg/dose blister with device 1 inh INH BID Qty: 1 11RF levothyroxine 75 mcg tablet 75 mcg PO DAILYBB insulin glargine [Lantus Solostar U-100 Insulin] 100 unit/mL (3 mL) insulin pen 50 unit subcut QPM Rx Instructions: INJECT 50 UNITS (0.65ML) SUBCUTANEOUSLY EVERY DAY IN THE EVENING isosorbide mononitrate 30 mg tablet extended release 24 hr 30 mg PO QAM empagliflozin 25 mg tablet 25 mg PO QAM furosemide 20 mg tablet 20 mg PO QAM insulin aspart U-100 [Novolog FlexPen U-100 Insulin] 100 unit/mL (3 mL) insulin pen 0 - 40 unit SQ DAILY Rx Instructions: Inject up to 40 units subcutaneously daily as directed per sliding scale tiotropium bromide 18 mcg capsule, w/inhalation device 1 cap inhalation QAM Rx Instructions: INHALE 1 CAPSULE BY MOUTH DAILY cholecalciferol (vitamin D3) [Vitamin D3] 25 mcg (1,000 unit) Tablet 25 mcg PO QAM clopidogrel [Plavix] 75 mg tablet 75 mg PO QPM Rx Instructions: per pt losartan 25 mg tablet 25 mg PO QAM Centrum Silver 0.4-300-250 mg-mcg-mcg tablet 1 tab PO QAM tamsulosin 0.4 mg capsule 0.4 mg PO QAM omeprazole 20 mg capsule,delayed release(DR/EC) 20 mg PO QAM
[2024-12-18] MEDS: SODIUM CHLORIDE 0.9% 1,000 ML IV SCH (14:37)
[2024-12-18 14:39] LABS: Hematocrit (blood only) 41.1 % (42.0-52.0); Hemoglobin 12.6 g/dl (14.0-18.0); Immature Granulocytes # (auto) 0.02 K/uL (0.01-0.20); Immature Granulocytes % (auto) 0.4 %; Mean Corpuscular Hemoglobin 28.4 pg (25.0-34.0); Mean Corpuscular Volume 92.6 fL (80.0-100.0); Platelet Count 99 K/uL (130-400); RDW Standard Deviation 59.0 fL (36.4-46.3); Red Blood Count 4.44 M/uL (4.70-6.10); White Blood Count 5.05 K/ul (4.8-10.8)
[2024-12-18 14:53] LABS: Alanine Aminotransferase 61.0 U/L (7-52); Alkaline Phosphatase 321.0 U/L (34-104); Anion Gap 8.0 (3-11); Bilirubin,Total 1.3 mg/dl (0.2-1.0); Blood Urea Nitrogen 52.0 mg/dl (6-23); Calcium 9.6 mg/dl (8.6-10.3); Carbon Dioxide 28.0 mmol/L (21-32); Chloride 102.0 mmol/L (98-107); Creatinine Clr Calc Pharmacy 28.9 ml/min; Glucose 65.0 mg/dl (70-99(Fasting)); Magnesium 2.1 mg/dl (1.7-2.4); Potassium 4.9 mmol/L (3.5-5.1); Sodium 138.0 mmol/L (136-145); Total Protein 6.7 gm/dl (6.0-8.3)
--- NOTE | 2024-12-18 15:04 | XRay Report ---
XR tibia fibula RT 2V HISTORY: 79 years-old Male pain/swelling in stump, wound COMPARISON: None TECHNIQUE: 2 views of the right tibia and fibula FINDINGS: Prior [id number] amputation. Arterial calcifications. Demineralized appearance of the bones. Mode rate soft tissue prominence of the amputation stump. No acute fracture, dislocation or osseous erosio n. No opaque foreign body. IMPRESSION: 1. No acute osseous abnormality. 2. Prior hwoaz-ddf-cuum amputation with soft tissue swelling. ACT 112: Negative or not required by law. The above report was generated using voice recognition software. It may contain grammatical, syntax o r spelling errors. Electronically signed by: Romulo Myers M.D. 12/18/2024 3:03 PM
[2024-12-18 15:10] LABS: INR 1.4 (0.9-1.1); Partial Thromboplastin Time 31 Seconds (21-31); Prothrombin Time 14.8 Seconds (9.0-12.0)
--- NOTE | 2024-12-18 15:10 | XRay Report ---
LEFT FOOT 3 VIEWS CLINICAL HISTORY: Left foot pain. Draining wound. FINDINGS: 3 views of the left foot are compared to study dated 10/12/2023. The skeletal structures are osteopenic. No acute fracture is seen. There is postsurgical change from amputation of the fourth and fifth toes through the metatarsal shaft. There is chronic deformity and partial bony fusion at the t hird metatarsophalangeal joint. Moderate osteoarthritic changes seen throughout the foot. There is a large plantar heel spur. There is diffuse soft tissue edema throughout the foot. A wound is suggested overlying the heel. No radiodense foreign body images seen. No bony erosion is identified. IMPRESSION: 1. Soft tissue edema with no acute bony abnormality identified. 2. Osteopenia with chronic and postsurgical changes as above. 3. A heel wound is suggested. No radiodense foreign body is identified. Electronically signed by: Dexter Koenig M.D. 12/18/2024 3:09 PM
--- NOTE | 2024-12-18 15:14 | XRay Report ---
XR chest 1V portable CLINICAL HISTORY: Sepsis. COMPARISON STUDY: Chest radiograph April 30, 2022. Chest CT November 06, 2016. FINDINGS: A left subclavian pacer/AICD remains in place. There are median sternotomy wires. Cardiomed iastinal silhouette is stable. Hazy medial right basilar opacity is present. There is no radiographic evidence for pulmonary edema. No pneumothorax or pleural effusion. IMPRESSION: Hazy medial right basilar opacity. This may represent pneumonia or atelectasis. Radiogra [facility] follow-up is recommended to ensure resolution. ACT 112: Negative or not required by law. Electronically signed by: Sathya Krishnan M.D. 12/18/2024 3:13 PM
--- NOTE | 2024-12-18 15:42 | Emergency Department Note ---
ED Visit Note I was consulted by the Advanced Practice Provider Pamela Malcolm PA-C. I performed a substantive portion of the visit including all aspects of medical decision making. .
[2024-12-18] MEDS: PIPERACILLIN/TAZOBACTAM 4.5 GM/120 ML BAG IV ONE (16:15)
[2024-12-18] MEDS: DAPTOmycin 625 MG in SYRINGE 0 ML IV ONE (16:15)
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
--- NOTE | 2024-12-18 18:06 | History & Physical Report ---
Date of Service December 18, 2024 Assessment & Plan (1) Sepsis: (2) Venous stasis ulcers: (3) Traumatic open wound of left lower leg: (4) Cellulitis of right leg: (5) 2-vessel coronary artery disease: (6) Diabetic ulcer of left great toe: (7) Peripheral arterial disease: (8) Diabetes: (9) Hypertension: (10) Noninfected skin tear of left lower extremity: Plan 79 year old male presents to the ER with generalized weakness, erythema and swelling of his stump Sepsis / cellulitis Suspected source skin of either right stump cellulitis vs. ulcer on left lower foot SIRS criteria met with WBC and HR IV daptomycin + Zosyn pending blood culture results With hypotension will hold his furosemide, ISMN and losartan, ok to continue metoprolol with hold parameters Consult wound care nurse Consult vascular surgery - defer advanced imaging to surgery Traumatic injury to left lower foot / Left foot ulcer Local wound care only, would not close wounds as concern for current infection #T2DM / hypoglycemia Hypoglycemia protocol ordered, repeat BSG now Hold Lantus and Jardiance Novolog: --Goal BSG Range: Low 110 mg/dL, High 140 mg/dL --Correction Factor: 45 mg/dL/unit --Carbohydrate ratio = 15 g/unit --BSGs ACHS if eating, q6h if npo Repeat HbA1C with AM labs #Coronary artery disease / peripheral artery disease / elevated troponin / hypertension No chest pain / shortness of breath to suggest ACS Appreciate cardiology consult, TTE pending, repeat troponin with AM labs, suspected demand-ischemia in setting of infection Continue aspirin, clopidogrel, atorvastatin, isosorbide mononitrate, losartan, metoprolol tartrate #GERD Continue omeprazole VTE Prophylaxis - heparin 5000 units SQ BID Disposition - admit to PCU Admission and Anticipated Discharge Date Admission Date: December 18, 2024 History of Present Illness Chief Complaint: Generalized weakness Primary Care Provider: KAILEY Henry Edy Frank is a 79 year old male who presents to the ER with generalized weakens and fatigue. He reports these symptoms have been ongoing for the last few weeks getting progressively worse. The last two days his right leg stump has become more erythematous and swelling to the point he can no longer use his prosthesis. While trying to get into the truck today to get here he hit his left foot which caused a skin tear and bleeding from his foot. He denies any fever or chills. No respiratory, urinary or gastrointestinal complaints. Prior amputations have been performed by his vascular surgeon Dr Rg with known peripheral artery disease. Previous angiogram performed in July although no report attached to this. He follows with the wound clinic frequently for ulcers on his right lower extremity. Allergies Allergy/AdvReac Type Severity Reaction Status Date / Time No Known Drug Allergies Allergy Verified 12/11/24 13:48 Home Medications Medication Instructions Recorded Confirmed Type aspirin 81 mg chewable tablet 81 mg PO QAM 02/07/18 12/18/24 History (Medhat Chewable Low Dose Aspirin) acetaminophen 500 mg tablet 500 mg PO Q4H PRN pain #30 tabs 03/19/19 12/18/24 Rx (Acetaminophen Extra Strength) blood sugar diagnostic (Contour #50 ea 02/02/20 12/18/24 History Next Test Strips) albuterol sulfate 90 mcg/actuation 2 puff inhalation Q6H PRN 09/19/23 12/18/24 Rx aerosol inhaler (Ventolin HFA) shortness of breath or wheezing #18 grams doxepin 100 mg capsule 100 mg PO HS #90 caps 03/21/24 12/18/24 Rx metoprolol tartrate 50 mg tablet 75 mg (1.5 x 50 mg) PO BID #270 03/21/24 12/18/24 Rx (Lopressor) tabs ipratropium 0.5 mg-albuterol 3 mg 3 ml inhalation Q4H PRN wheezing 04/28/24 12/18/24 Rx (2.5 mg base)/3 mL nebulization #180 mL soln atorvastatin 40 mg tablet 40 mg PO DAILY #30 tabs 05/16/24 12/18/24 Rx blood-glucose sensor (FreeStyle 09/11/24 12/18/24 History Pradeep 3 Sensor device) fluticasone 500 mcg-salmeterol 50 1 inh inhalation BID #1 inhaler 09/29/24 12/18/24 Rx mcg/dose blistr powdr for inhalation (Advair Diskus) pen needle, diabetic 32 gauge x #400 ea 10/17/24 12/18/24 Rx 5/32" doxycycline hyclate 100 mg tablet 100 mg PO bid #20 tabs 12/08/24 12/18/24 Rx cholecalciferol (vitamin D3) 25 25 mcg PO QAM 12/18/24 12/18/24 History mcg (1,000 unit) tablet (Vitamin D3) clopidogrel 75 mg tablet (Plavix) 75 mg PO QPM 12/18/24 12/18/24 History empagliflozin 25 mg tablet 25 mg PO QAM 12/18/24 12/18/24 History furosemide 20 mg tablet 20 mg PO QAM 12/18/24 12/18/24 History insulin aspart U-100 100 unit/mL 0 - 40 unit subcut DAILY 12/18/24 12/18/24 History (3 mL) subcutaneous pen (Novolog FlexPen U-100 Insulin aspart) insulin glargine 100 unit/mL (3 50 unit subcut QPM 12/18/24 12/18/24 History mL) subcutaneous pen (Lantus Solostar U-100 Insulin) isosorbide mononitrate 30 mg 30 mg PO QAM 12/18/24 12/18/24 History tablet,extended release 24 hr levothyroxine 75 mcg tablet 75 mcg PO DAILYBB 12/18/24 12/18/24 History losartan 25 mg tablet 25 mg PO QA 12/18/24 12/18/24 History rqeuphdl-sxa-zbabw acid 0.4 1 tab PO QAM 12/18/24 12/18/24 History mg-lycopene 300 mcg-lutein 250 mcg tablet (Centrum Silver) omeprazole 20 mg capsule,delayed 20 mg PO QAM 12/18/24 12/18/24 History release tamsulosin 0.4 mg capsule 0.4 mg PO QA 12/18/24 12/18/24 History tiotropium bromide 18 mcg capsule 1 cap inhalation 12/18/24 12/18/24 History with inhalation device Past Med/Surg History Problem List (Updated 12/18/24 @ 21:09 by Pamela Maclolm PA-C) Non-ST elevation SD (NSTEMI) (Acute) Cellulitis of right leg (Acute) Sepsis (Acute) Malaise Venous stasis ulcers Mixed hearing loss of right ear Hearing loss Shortness of breath (Acute) Long-term current use of proton pump inhibitor therapy Muscle cramping Diabetic ulcer of left foot (Acute) Thickened nails Skin tear of left hand without complication (Acute) Noninfected skin tear of left lower extremity (Acute) Traumatic open wound of left lower leg with delayed healing (Acute) Creatinine elevation (Acute) Hypoxia Blister of foot, left (Acute) Venous ulcer (Acute) Diabetic foot ulcer (Acute) Hypothyroidism Peripheral arterial disease (Chronic) ICD (implantable cardioverter-defibrillator) in place 2-vessel coronary artery disease Chronic kidney disease Chronic obstructive pulmonary disease Chronic reflux esophagitis Hyperlipidemia (Chronic) Stasis dermatitis Cirrhosis Gastroesophageal reflux disease Diabetes (Chronic) Hypertension (Chronic) Medical History Achilles rupture, left Diabetic ulcer of toe of left foot Diabetic ulcer of toe of left foot associated with type 2 diabetes mellitus, limited to breakdown of skin Diabetic ulcer of heel Cellulitis of lower extremity Diverticulosis of colon Enlarged prostate Former smoker Osteomyelitis of left foot Foot ulcer due to secondary DM Peripheral artery disease Myocardial infarction NSTEMI 11/2016 after COPD exacerbation IVCD (intraventricular conduction defect) Pacemaker Medtronic implanted 10/17/13 COPD exacerbation Necrotizing fasciitis MSSA (methicillin susceptible Staphylococcus aureus) CHF exacerbation Cardiac arrest 2013 Surgical History Status post amputation of toe of left foot History of amputation of great toe Status post amputation of toe of right foot S/P below knee amputation H/O spinal fusion Hx of CABG History of amputation of lesser toe of right foot History of amputation of lesser toe of left foot Family History Father Myocardial infarction Denies family history of Ovarian cancer Prostate cancer Breast cancer Colorectal cancer Social History Smoking Status: Former smoker Tobacco Type: Cigarettes Second Hand Exposure: No; Do You Dip or Chew Tobacco: No; Tobacco Cessation Education Requested by Patient: No Hx Alcohol Use: No Hx Substance Use: No Preferred Language: [place] Communication Ability: Effective Visual Impairment: Limited Hearing Ability: Hard of Hearing 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 Other Information That Helps Us Care for You: No Feels Safe at Home: Yes Safety Concerns: Feels Safe At This Time Childhood Exposure to Second-Hand Smoke: Yes Diet: regular Diet Comment: "not very good at that" caffeine: No during the past year weight has: remained stable Dental Care, Regularly: Yes Physical Activity Frequency: Does not Exercise Seatbelt Use: always Sunscreen Use: No Do you think of yourself as: straight/heterosexual Gender Identity: Male Assistive Devices: Glasses, Oxygen - at Night and Wheelchair Review of Systems 2 Review of Systems: All systems reviewed & are unremarkable except as noted in HPI & below Physical Exam 2 Constitutional: WD/WN, vitals as above Eyes: + anicteric sclerae; normal pupil size ENMT: external ear and nose normal, oropharynx normal Respiratory: normal respiratory effort, lungs clear to auscultation Cardiovascular: RRR, no murmur, no edema Gastrointestinal (Abdomen): normal bowel sounds, soft, nontender, no hepatosplenomegaly Skin: Right stump erythema and swelling just on distal area not extending to knee Left foot ulcer over 1st toe and heel with purple discoloration of foot, amputated 4th and 5th toes, skin tears on 2nd and 3rd toes, no sensation in toes chronically Neurologic: moves all extremities and awake; not confused Psychiatric: A+Ox3, euthymic affect Results & Data Results & Data Vital Signs (Past 12 Hours) Vital Signs Temp Pulse Pulse Resp BP BP Pulse Ox 12/18/24 17:00 90 17 116/62 95 12/18/24 16:30 110/66 12/18/24 16:30 110/66 95 12/18/24 16:03 127/74 95 12/18/24 15:33 87 18 115/63 95 12/18/24 14:54 86 23 99/64 L 95 12/18/24 14:47 84 19 99/64 L 93 12/18/24 14:33 83 17 99/64 L 94 12/18/24 14:26 84 19 106/65 95 12/18/24 14:26 95 12/18/24 13:54 82 12/18/24 13:51 36.6 C 82 18 88/57 L 96 12/18/24 13:51 36.6 C 83 18 88/57 L 96 O2 Del Method 12/18/24 17:00 12/18/24 16:30 12/18/24 16:30 12/18/24 16:03 12/18/24 15:33 12/18/24 14:54 Room Air 12/18/24 14:47 Room Air 12/18/24 14:33 12/18/24 14:26 Room Air 12/18/24 14:26 Room Air 12/18/24 13:54 12/18/24 13:51 Room Air 12/18/24 13:51 Room Air Laboratory Results Abnormal lab results 12/18/24 12/18/24 Range/Units 13:53 16:12 RBC 4.44 L (4.70-6.10) M/uL Hgb 12.6 L (14.0-18.0) g/dl Hct 41.1 L (42.0-52.0) % MCHC 30.7 L (32.0-36.0) g/dL RDW Std Deviation 59.0 H (36.4-46.3) fL RDW Coeff of [place] 17.6 H (11.5-14.5) % Plt Count 99 L (130-400) K/uL Lymph # (Auto) 0.29 L (1.20-3.40) K/uL PT 14.8 H (9.0-12.0) Seconds INR 1.4 H (0.9-1.1) BUN 52 H (6-23) mg/dl Creatinine 2.39 H (0.6-1.4) mg/dl BUN/Creatinine Ratio 21.8 H (10-20) Glucose 65 L (70-99(Fasting)) mg/dl Total Bilirubin 1.3 H (0.2-1.0) mg/dl Direct Bilirubin 0.7 H (0-0.2) mg/dl AST 114 H (13-39) U/L ALT 61 H (7-52) U/L Alkaline Phosphatase 321 H (34-104) U/L Troponin I High Sens 1081.2 H* 919.4 H* (0-20) pg/ml Albumin 3.0 L (3.4-5.0) gm/dl Procalcitonin 3.14 H (0-0.5) ng/ml Diagnostic Findings XR tibia fibula RT 2V HISTORY: 79 years-old Male pain/swelling in stump, wound COMPARISON: None TECHNIQUE: 2 views of the right tibia and fibula FINDINGS: Prior pfoil-yds-ilom amputation. Arterial calcifications. Demineralized appearance of the bones. Moderate soft tissue prominence of the amputation stump. No acute fracture, dislocation or osseous erosion. No opaque foreign body. IMPRESSION: 1. No acute osseous abnormality. 2. Prior vzjvq-ehd-ldsp amputation with soft tissue swelling. LEFT FOOT 3 VIEWS CLINICAL HISTORY: Left foot pain. Draining wound. FINDINGS: 3 views of the left foot are compared to study dated 10/12/2023. The skeletal structures are osteopenic. No acute fracture is seen. There is postsurgical change from amputation of the fourth and fifth toes through the metatarsal shaft. There is chronic deformity and partial bony fusion at the third metatarsophalangeal joint. Moderate osteoarthritic changes seen throughout the foot. There is a large plantar heel spur. There is diffuse soft tissue edema throughout the foot. A wound is suggested overlying the heel. No radiodense foreign body images seen. No bony erosion is identified. IMPRESSION: 1. Soft tissue edema with no acute bony abnormality identified. 2. Osteopenia with chronic and postsurgical changes as above. 3. A heel wound is suggested. No radiodense foreign body is identified. XR chest 1V portable CLINICAL HISTORY: Sepsis. COMPARISON STUDY: Chest radiograph April 30, 2022. Chest CT November 06, 2016. FINDINGS: A left subclavian pacer/AICD remains in place. There are median sternotomy wires. Cardiomediastinal silhouette is stable. Hazy medial right basilar opacity is present. There is no radiographic evidence for pulmonary edema. No pneumothorax or pleural effusion. IMPRESSION: Hazy medial right basilar opacity. This may represent pneumonia or atelectasis. Radiographic follow-up is recommended to ensure resolution. Medications Administered ER Medications Given: Normal saline 1000ml bolus Daptomycin 625mg IV Zosyn 4.5g IV ECG Rate (beats per minute): 84 Rhythm: normal sinus Findings: + RBBB Comparison ECG Date: from (April 28, 2022) Change: the following changes noted (T wave inversion more evident in anterolateral leads) Code Status & VTE Plan Code Status No treatment in the event of a cardiac arrest, okay for intubation in the event of a respiratory arrest or any other treatment outside of a cardiac arrest VTE Prophylaxis Plan VTE Prophylaxis will be ordered: Yes PG Care Time/CCT Total # of Minutes Spent Total Time Spent with Patient: Total time spent is greater than 50% in coordination of care (as documented) at patient's floor/unit and/or counseling patient: Coding Level of Care Code 10480 INT INP/OBS CARE 3/75MIN Diagnoses Sepsis A41.9 Venous stasis ulcers I83.009; L97.909 Traumatic open wound of left lower leg, subsequent encounter S81.802D Encounter type: subsequent encounter Cellulitis of right leg L03.115 2-vessel coronary artery disease I25.10 Diabetic ulcer of left great toe E11.621; L97.529 Peripheral arterial disease I73.9 Type 2 diabetes mellitus with diabetic peripheral angiopathy without gangrene, with long-term current use of insulin E11.51; Z79.4 Diabetes mellitus type: type 2 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: with 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 use Diabetes mellitus complication status: with circulatory complication Diabetes mellitus complication detail: with peripheral angiopathy without gangrene Primary hypertension I10 Hypertension type: primary hypertension Noninfected skin tear of left lower extremity S81.812A (3) Traumatic open wound of left lower leg Encounter type: subsequent encounter Qualified Code(s): S81.802D - Unspecified open wound, left lower leg, subsequent encounter (8) Diabetes Diabetes mellitus type: type 2 Diabetes mellitus group home insulin use: with 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 use Diabetes mellitus complication status: with circulatory complication Diabetes mellitus complication detail: with peripheral angiopathy without gangrene Qualified Code(s): E11.51 - Type 2 diabetes mellitus with diabetic peripheral angiopathy without gangrene; Z79.4 - skilled nursing (current) use of insulin (9) Hypertension Hypertension type: primary hypertension Qualified Code(s): I10 - Essential (primary) hypertension
--- NOTE | 2024-12-18 18:46 | Electrocardiogram Report ---
Test Reason : Blood Pressure : */* mmHG Vent. Rate : 84 BPM Atrial Rate : 84 BPM P-R Int : 180 ms QRS Dur : 128 ms QT Int : 430 ms P-R-T Axes : -21 -30 183 degrees QTcB Int : 508 ms Normal sinus rhythm Left axis deviation Right bundle branch block Cannot rule out Inferior infarct , age undetermined T wave abnormality, consider lateral ischemia Abnormal ECG When compared with ECG of 28-Apr-2022 09:22, Nonspecific T wave abnormality now evident in Inferior leads T wave inversion more evident in Anterolateral leads Confirmed by Arthur Delcid ([id number]) on 12/18/2024 6:46:09 PM Referred By: REFERRED SELF Confirmed By: Arthur Delcid
[2024-12-18] MEDS ORDERED: GLUCAGON FOR INJ 1 MG VIAL SQ PRN (20:55)
[2024-12-18] MEDS ORDERED: CARBOHYDRATES FOR HYPOGLYCEMIA PO PRN (20:55)
[2024-12-18] MEDS ORDERED: GLUCOSE 10 TAB/TUBE PO PRN (20:55)
[2024-12-18] MEDS ORDERED: GLUCOSE 40% GEL 15 GM TUBE PO PRN (20:55)
[2024-12-18] MEDS ORDERED: DEXTROSE 50% 50 ML SYRINGE IV PRN (20:55)
[2024-12-18] MEDS: LACTATED RINGER'S 1,000 ML IV ONE (22:12)
[2024-12-18] MEDS: DOXEPIN HCL 50 MG CAPSULE PO SCH (22:12)
[2024-12-18] MEDS: CLOPIDOGREL BISULFATE 75 MG TAB PO SCH (22:12)
[2024-12-18] MEDS: METOPROLOL TARTRATE 25 MG TAB PO SCH (22:13)
[2024-12-18] MEDS: PIPERACILLIN/TAZOBACTAM 4.5 GM/100 ML BAG IV SCH (23:22)
[2024-12-18] MEDS: HEPARIN SOD 5,000 UNIT/0.5 ML VIAL SQ SCH (23:23)
[2024-12-18] MEDS: INSULIN ASPART PER UNIT CHARGE SC SCH (23:35)
[2024-12-19 06:09] LABS: Hematocrit (blood only) 36.6 % (42.0-52.0); Hemoglobin 11.2 g/dl (14.0-18.0); Immature Granulocytes # (auto) 0.03 K/uL (0.01-0.20); Immature Granulocytes % (auto) 0.7 %; Mean Corpuscular Hemoglobin 28.7 pg (25.0-34.0); Mean Corpuscular Volume 93.8 fL (80.0-100.0); Platelet Count 87 K/uL (130-400); RDW Standard Deviation 59.8 fL (36.4-46.3); Red Blood Count 3.90 M/uL (4.70-6.10); White Blood Count 4.56 K/ul (4.8-10.8)
[2024-12-19] MEDS: LEVOTHYROXINE SODIUM 75 MCG TABLET PO SCH (06:10)
[2024-12-19 06:26] LABS: Alanine Aminotransferase 52.0 U/L (7-52); Albumin Globulin Ratio 0.8 (0.9-2); Alkaline Phosphatase 253.0 U/L (34-104); Anion Gap 10.0 (3-11); Bilirubin,Total 1.3 mg/dl (0.2-1.0); Blood Urea Nitrogen 55.0 mg/dl (6-23); Calcium 9.0 mg/dl (8.6-10.3); Carbon Dioxide 25.0 mmol/L (21-32); Chloride 103.0 mmol/L (98-107); Creatinine Clr Calc Pharmacy 28.3 ml/min; Globulin 3.1 gm/dl (2.5-4.0); Glucose 95.0 mg/dl (70-99(Fasting)); Potassium 5.2 mmol/L (3.5-5.1); Sodium 138.0 mmol/L (136-145); Total Protein 5.7 gm/dl (6.0-8.3)
[2024-12-19 07:30] LABS: Hemoglobin A1C 6.3 % (4.5-5.6)
[2024-12-19] MEDS ORDERED: ONDANSETRON INJ 2 MG/ML 2 ML VIAL IV PRN (07:41)
[2024-12-19] MEDS: ONDANSETRON INJ 2 MG/ML 2 ML VIAL IV STA (07:57)
--- NOTE | 2024-12-19 08:39 | Electrocardiogram Report ---
Test Reason : Blood Pressure : */* mmHG Vent. Rate : 91 BPM Atrial Rate : 91 BPM P-R Int : 198 ms QRS Dur : 126 ms QT Int : 420 ms P-R-T Axes : 84 8 55 degrees QTcB Int : 516 ms Normal sinus rhythm Right bundle branch block T wave abnormality, consider lateral ischemia Abnormal ECG When compared with ECG of 18-Dec-2024 13:47, Minimal criteria for Inferior infarct are no longer Present Confirmed by Arthur Delcid ([id number]) on 12/19/2024 8:39:11 AM Referred By: REFERRED SELF Confirmed By: Arthur Delcid
[2024-12-19] MEDS ORDERED: ATORVASTATIN 40 MG TAB PO SCH (09:00)
[2024-12-19] MEDS: ACETAMINOPHEN 325 MG TAB PO PRN (09:09)
[2024-12-19] MEDS: TAMSULOSIN HCL 0.4 MG CAP PO SCH (09:10)
[2024-12-19] MEDS: ASPIRIN 81 MG ECTAB PO SCH (09:12)
[2024-12-19] MEDS: FLUTICASONE/VILANTEROL 100/25MCG 14 PUFFS/INHALER INH SCH (09:12)
[2024-12-19] MEDS: UMECLIDINIUM BROMIDE 62.5MCG/BLISTER 7 PUFFS/INHALER INH SCH (09:12)
[2024-12-19] MEDS: SODIUM CHLORIDE 0.9% 250 ML IV ONE ×2 (09:30→16:04)
[2024-12-19] MEDS ORDERED: DEXTROSE 50% 50 ML SYRINGE IV PRN (10:09)
[2024-12-19] MEDS ORDERED: CARBOHYDRATES FOR HYPOGLYCEMIA PO PRN (10:09)
[2024-12-19] MEDS ORDERED: GLUCOSE 10 TAB/TUBE PO PRN (10:09)
[2024-12-19] MEDS ORDERED: GLUCAGON FOR INJ 1 MG VIAL SQ PRN (10:09)
[2024-12-19] MEDS ORDERED: GLUCOSE 40% GEL 15 GM TUBE PO PRN (10:09)
--- NOTE | 2024-12-19 11:38 | Hospitalist Progress Note ---
Date of Service December 19, 2024 Assessment & Plan (1) Sepsis: Plan: Present on admission. Continue to treat soft tissue infections with daptomycin and Zosyn. (2) Cellulitis of left foot: Plan: Continue intravenous daptomycin and Zosyn, day 2. Wound care consult and vascular surgery consult requested. Local care (3) Peripheral arterial disease: Plan: Right BKA status and multiple procedures have been done on the circulation involving left lower extremity. Vascular surgery consultation requested and pending (4) 2-vessel coronary artery disease: Plan: Troponin elevated on admission and downtrending. Cardiac echo negative for regional wall motion abnormalities. No evidence of acute MS. (5) Diabetes: Plan: Lantus and Jardiance are on hold. Glucose low normal this morning. Sliding scale coverage for now. (6) Hypertension: Plan: Blood pressure borderline low. IV fluid bolus administered then continuous IV fluids. Losartan is on hold. Plan To be determined Admission and Anticipated Discharge Date Admission Date: December 18, 2024 Subjective Alert and oriented. He feels nauseated however. Glucose only 95 with Lantus and Jardiance on hold. Troponin is trending down. Cardiac echo negative for regional wall motion abnormalities. He does not appear to have suffered an acute MS. Case discussed with cardiology. Blood pressure is on the low end and he received a normal saline bolus and will continue with IV fluids at 80 cc/h. Losartan remains on hold. Lasix is also on hold. IV Reglan ordered every 6 hours for the nausea. He remains on intravenous daptomycin and Zosyn, day 2. Wound care consultation requested along with vascular surgery consultation. Review of Systems 2 Review of Systems: Constitutionalno fever or chills ENTno blurred vision, no double vision, no epistaxis, no sore throat Respiratoryno cough, no wheezing, no shortness of breath Cardiacno palpitations, no chest pain, no syncope GIpersistent nausea. Denies vomiting. Poor oral intake. No melena, no hematochezia GUno urinary retention, no urinary incontinence, no dysuria, no hematuria Musculoskeletalno joint pain, no muscle tenderness Skinnecrotic breakdown in multiple areas involving left foot Neurono isolated weakness, no paresthesia. Generalized weakness Psychno depression, no anxiety Physical Exam 2 Physical Exam: General-alert and oriented x3, no fever, no chills HEENT-head atraumatic and normocephalic, pupils equal and reactive to light, extraocular muscles intact Neck-no lymphadenopathy or thyromegaly, trachea midline Chest-clear to auscultation. No rales, wheezing or rhonchi Cardiac-regular rate and rhythm, normal S1 and S2 Abdomen-normal bowel sounds, no hepatosplenomegaly Extremities-right BKA status. Prior amputation of left 4th and 5th toes. Multiple necrotic areas of the remaining toes of the left foot with associated cellulitic changes. Neuro-cranial nerves II through XII intact, motor and sensory function within normal limits, strength symmetrical, no focal deficits Psych-normal affect, normal mood Results & Data Results & Data Vital Signs (Past 12 Hours) Vital Signs Temp Pulse Pulse Resp BP BP Pulse Ox 12/19/24 11:13 96 H 12/19/24 10:59 36.4 C L 82 22 93/58 L 92 12/19/24 10:18 12/19/24 10:03 93 H 91/60 L 12/19/24 09:00 89/51 L 89/57 L 12/19/24 07:52 36.5 C 99 H 22 95/58 L 98 12/19/24 06:12 36.6 C 108 H 18 104/68 98 12/18/24 23:48 36.5 C 103 H 18 116/71 97 O2 Del Method O2 Flow Rate 12/19/24 11:13 12/19/24 10:59 Nasal Cannula 2 12/19/24 10:18 Nasal Cannula 3 12/19/24 10:03 12/19/24 09:00 12/19/24 07:52 Nasal Cannula 3 12/19/24 06:12 Nasal Cannula 3 12/18/24 23:48 Nasal Cannula 3 Laboratory Results 12/19/24 05:14 12/19/24 05:14 PG Care Time/CCT Total # of Minutes Spent Total Time Spent with Patient: Total time spent is greater than 50% in coordination of care (as documented) at patient's floor/unit and/or counseling patient: Coding Level of Care Code 93585 SUB INP/OBS CARE 3/50MIN Diagnoses Sepsis A41.9 Cellulitis of left foot L03.116 Peripheral arterial disease I73.9 2-vessel coronary artery disease I25.10 Type 2 diabetes mellitus with diabetic peripheral angiopathy without gangrene, with long-term current use of insulin E11.51; Z79.4 Diabetes mellitus type: type 2 Diabetes mellitus [facility] insulin use: with intermediate designer use Diabetes mellitus complication status: with circulatory complication Diabetes mellitus complication detail: with peripheral angiopathy without gangrene Primary hypertension I10 Hypertension type: primary hypertension (5) Diabetes Diabetes mellitus type: type 2 Diabetes mellitus intermediate designer insulin use: with intermediate designer use Diabetes mellitus complication status: with circulatory complication Diabetes mellitus complication detail: with peripheral angiopathy without gangrene Qualified Code(s): E11.51 - Type 2 diabetes mellitus with diabetic peripheral angiopathy without gangrene; Z79.4 - nursing home (current) use of insulin (6) Hypertension Hypertension type: primary hypertension Qualified Code(s): I10 - Essential (primary) hypertension
--- NOTE | 2024-12-19 12:19 | Consultation ---
Date of Consultation December 19, 2024 Assessment & Plan (1) Peripheral arterial disease: Would recommend arteriography with possible intervention. I have discussed the risks options and benefits of the procedure with the patient. The patient understands the risks options and benefits and agrees to the procedure. This will be done in am on Sunday Thank you very much for letting us participate in the care of this patient. History of Present Illness Reason for Consultation: PAD Attending Physician: Khris Barraza MD History of Present Illness This is a 79 yo male known to us. He had severe PAD and venous disease of the lower extremity. He has a right leg amputation. He now presents with gangrenous changes of the remaining toes of the left foot. He had arteriography earlier this year which showed severe infrapopliteal artery occlusions with reconstitution of the lower third of the posterior tibial artery. At that time he had an ulcer of his heel and great toe which was granulating. No intervention was done at that time due to good granulation tissue noted. Allergies Allergy/AdvReac Type Severity Reaction Status Date / Time No Known Drug Allergies Allergy Verified 12/11/24 13:48 Home Medications Medication Instructions Recorded Confirmed Type aspirin 81 mg chewable tablet 81 mg PO QAM 02/07/18 12/18/24 History (Medhat Chewable Low Dose Aspirin) acetaminophen 500 mg tablet 500 mg PO Q4H PRN pain #30 tabs 03/19/19 12/18/24 Rx (Acetaminophen Extra Strength) blood sugar diagnostic (Contour #50 ea 02/02/20 12/18/24 History Next Test Strips) albuterol sulfate 90 mcg/actuation 2 puff inhalation Q6H PRN 09/19/23 12/18/24 Rx aerosol inhaler (Ventolin HFA) shortness of breath or wheezing #18 grams doxepin 100 mg capsule 100 mg PO HS #90 caps 03/21/24 12/18/24 Rx metoprolol tartrate 50 mg tablet 75 mg (1.5 x 50 mg) PO BID #270 03/21/24 12/18/24 Rx (Lopressor) tabs ipratropium 0.5 mg-albuterol 3 mg 3 ml inhalation Q4H PRN wheezing 04/28/24 12/18/24 Rx (2.5 mg base)/3 mL nebulization #180 mL soln atorvastatin 40 mg tablet 40 mg PO DAILY #30 tabs 05/16/24 12/18/24 Rx blood-glucose sensor (FreeStyle 09/11/24 12/18/24 History Pradeep 3 Sensor device) fluticasone 500 mcg-salmeterol 50 1 inh inhalation BID #1 inhaler 09/29/24 12/18/24 Rx mcg/dose blistr powdr for inhalation (Advair Diskus) pen needle, diabetic 32 gauge x #400 ea 10/17/24 12/18/24 Rx 5/32" doxycycline hyclate 100 mg tablet 100 mg PO bid #20 tabs 12/08/24 12/18/24 Rx cholecalciferol (vitamin D3) 25 25 mcg PO QAM 12/18/24 12/18/24 History mcg (1,000 unit) tablet (Vitamin D3) clopidogrel 75 mg tablet (Plavix) 75 mg PO QPM 12/18/24 12/18/24 History empagliflozin 25 mg tablet 25 mg PO QAM 12/18/24 12/18/24 History furosemide 20 mg tablet 20 mg PO QAM 12/18/24 12/18/24 History insulin aspart U-100 100 unit/mL 0 - 40 unit subcut DAILY 12/18/24 12/18/24 History (3 mL) subcutaneous pen (Novolog FlexPen U-100 Insulin aspart) insulin glargine 100 unit/mL (3 50 unit subcut QPM 12/18/24 12/18/24 History mL) subcutaneous pen (Lantus Solostar U-100 Insulin) isosorbide mononitrate 30 mg 30 mg PO QAM 12/18/24 12/18/24 History tablet,extended release 24 hr levothyroxine 75 mcg tablet 75 mcg PO DAILYBB 12/18/24 12/18/24 History losartan 25 mg tablet 25 mg PO QAM 12/18/24 12/18/24 History rofvjkbv-rqv-wwaiv acid 0.4 1 tab PO QAM 12/18/24 12/18/24 History mg-lycopene 300 mcg-lutein 250 mcg tablet (Centrum Silver) omeprazole 20 mg capsule,delayed 20 mg PO QAM 12/18/24 12/18/24 History release tamsulosin 0.4 mg capsule 0.4 mg PO QAM 12/18/24 12/18/24 History tiotropium bromide 18 mcg capsule 1 cap inhalation QAM 12/18/24 12/18/24 History with inhalation device Patient History Medical History Achilles rupture, left Diabetic ulcer of toe of left foot Diabetic ulcer of toe of left foot associated with type 2 diabetes mellitus, limited to breakdown of skin Diabetic ulcer of heel Cellulitis of lower extremity Diverticulosis of colon Enlarged prostate Former smoker Osteomyelitis of left foot Foot ulcer due to secondary DM Peripheral artery disease Myocardial infarction NSTEMI 11/2016 after COPD exacerbation IVCD (intraventricular conduction defect) Pacemaker Medtronic implanted 10/17/13 COPD exacerbation Necrotizing fasciitis MSSA (methicillin susceptible Staphylococcus aureus) CHF exacerbation Cardiac arrest 2013 Surgical History Status post amputation of toe of left foot History of amputation of great toe Status post amputation of toe of right foot S/P below knee amputation H/O spinal fusion Hx of CABG History of amputation of lesser toe of right foot History of amputation of lesser toe of left foot Family History Father Myocardial infarction Denies family history of Ovarian cancer Prostate cancer Breast cancer Colorectal cancer Social History Smoking Status: Former smoker Tobacco Type: Cigarettes Second Hand Exposure: No; Do You Dip or Chew Tobacco: No; Tobacco Cessation Education Requested by Patient: No Hx Alcohol Use: No Hx Substance Use: No Preferred Language: Romansh Communication Ability: Effective Visual Impairment: Limited Hearing Ability: Hard of Hearing Intertype Operator Required: No Beliefs That Will Affect Care: None marital status: / Current Living Situation: Alone Current Living Situation Comment: pt states that "daughter visits him frequently" current occupational status: retired How many Children do You have: 2 How many Children do You have Comment: family lives locally and is able to assist with care as needed. Other Information That Helps Us Care for You: No Feels Safe at Home: Yes Safety Concerns: Feels Safe At This Time Childhood Exposure to Second-Hand Smoke: Yes Diet: regular Diet Comment: "not very good at that" caffeine: No during the past year weight has: remained stable Dental Care, Regularly: Yes Physical Activity Frequency: Does not Exercise Seatbelt Use: always Sunscreen Use: No Do you think of yourself as: straight/heterosexual Gender Identity: Male Assistive Devices: Glasses, Oxygen - at Night and Wheelchair Review of Systems Review of Systems: All systems reviewed & are unremarkable except as noted in HPI & below Physical Exam Constitutional: WD/WN, vitals as above Respiratory: normal respiratory effort, lungs clear to auscultation Cardiovascular: Rate/Rhythm: regular rate and regular rhythm Vessels: posterior tibial pulses present (faint doppler on left) Extremities: + abnormal capillary refill Gastrointestinal (Abdomen): Inspection/Auscultation: abdomen normal to inspection; abdomen not distended Percussion/Palpation: abdomen soft Skin: gangrene of remaining toes of left foot Neurologic: CN's II-XI intact bilaterally and moves all extremities Results & Data Vital Signs (Past 12 Hours) Vital Signs Temp Pulse Pulse Resp BP BP Pulse Ox 12/19/24 11:13 96 H 12/19/24 10:59 36.4 C L 82 22 93/58 L 92 12/19/24 10:18 12/19/24 10:03 93 H 91/60 L 12/19/24 09:00 89/51 L 89/57 L 12/19/24 07:52 36.5 C 99 H 22 95/58 L 98 12/19/24 06:12 36.6 C 108 H 18 104/68 98 O2 Del Method O2 Flow Rate 12/19/24 11:13 12/19/24 10:59 Nasal Cannula 2 12/19/24 10:18 Nasal Cannula 3 12/19/24 10:03 12/19/24 09:00 12/19/24 07:52 Nasal Cannula 3 12/19/24 06:12 Nasal Cannula 3
[2024-12-19] MEDS: SODIUM CHLORIDE 0.9% 1,000 ML IV SCH ×2 (12:22→13:30)
[2024-12-19] MEDS: METOCLOPRAMIDE HCL INJ 5 MG/ML 2 ML VIAL IV SCH (12:22)
[2024-12-19] MEDS: INSULIN ASPART PER UNIT CHARGE SC SCH (12:26)
[2024-12-19] MEDS: MoRPHine SULFATE 2 MG/ML CARP IV STA (12:46)
--- NOTE | 2024-12-19 12:59 | Cardiology Progress Note ---
Date of Service December 19, 2024 Assessment & Plan (1) Sepsis: (2) NSTEMI (non-ST elevated myocardial infarction): Plan: 79-year-old male with a complex history of cardiac and vascular disease with history of [id number]-jayelzof cardiac arrest with successful resuscitation in 2013, follow-up cardiac catheterization revealing three-vessel coronary heart disease prompting subsequent transfer to [facility] and CABG x 2 with FREITAS to LAD and LEEANNA to RCA and implantation of a single-chamber Medtronic AICD. Most recent generator change 08/08/2022 (Medtronic). History of carotid disease and severe bilateral lower extremity peripheral arterial disease status post right below the knee amputation. Multiple percutaneous revascularization procedures of the left lower extremity for recurrent wounds, most recent left lower extremity angiogram performed July, at [facility] by Dr Rg with chronic occlusions of his anterior tibial and posterior tibial arteries with patent peroneal artery (single-vessel runoff to the foot) Patient presents with generalized illness feeling and malaise. No subjective fever. History of recent worsening left lower extremity wounds. Procalcitonin elevated to 3.14 NG per mL. Also found to have anterior lateral ST segment depression which is new compared to the previous EKG tracing performed in 2021. Repeat EKG a.m. of 12/19/2024 relatively unchanged with ongoing lateral ST segment changes. High-sensitivity troponin elevated on presentation at 1081 and has trended down to 745 PG per mL as of 12/19/2024 Patient without any meño anginal symptoms. Echocardiogram 12/19/2024, LVEF 55 to 60% noted findings of abdominal ascites which is consistent with his exam -Findings compatible with a type II non-STEMI with demand ischemia in the setting of chronic coronary artery disease and sepsis with worsening left lower extremity wounds. -Patient has ANGELITO on CKD, potassium also mildly elevated 5.2 mmol / l on 12/19/2024 -Blood cultures obtained. Recent wound culture revealing sensitive Staph aureus -Agree with IV fluids, vascular surgery consultation, antibiotics. -continue the patient's prior to hospital treatment with aspirin 81 mg daily, Clopidogrel 75 mg daily,atorvastatin 40 mg daily, metoprolol tartrate 75 mg twice daily -Holding Isosorbide mononitrate,Jardiance, furosemide, losartan. -Will hold off on systemic anticoagulation with heparin at present as I do not think this is due to an acute coronary thrombosis and I am concerned about the patient's bleeding risk. -Agree with plans for vascular surgery evaluation -subcutaneous heparin for DVT prophylaxis. Case discussed with Dr. Barraza of the hospitalist service for the purpose of coordination of care. Nathaly Muro DO Admission and Anticipated Discharge Date Admission Date: December 18, 2024 Subjective Patient seen in cardiology follow-up. Denies any symptoms suggestive angina. Denies new or worsening shortness of breath. He is lying supine. Telemetry reveals sinus rhythm in the 90s. Physical Exam Physical Exam: Temp Pulse Resp BP Pulse Ox O2 Del Method O2 Flow Rate 36.4 C L 96 H 22 93/58 L 92 Nasal Cannula 2 12/19/24 10:59 12/19/24 11:13 12/19/24 10:59 12/19/24 10:59 12/19/24 10:59 12/19/24 10:59 12/19/24 10:59 Constitutional: + ill appearing; no acute distress Eyes: PERRL, conjunctivae normal, anicteric sclerae Neck: trachea midline Respiratory: normal respiratory effort; no labored breathing Auscultation: no crackles, no rales and no wheezes Cardiovascular: Rate/Rhythm: regular rate and regular rhythm Heart Sounds: no murmur Vessels: no JVD Gastrointestinal (Abdomen): normal bowel sounds, soft, nontender, no hep atosplenomegaly Findings compatible with abdominal ascites Neurologic: PERRL, EOMI, accommodation nl, no face palsy, no dysarthria Results & Data Vital Signs (Past 12 Hours) Vital Signs Temp Pulse Pulse Resp BP BP Pulse Ox 12/19/24 11:13 96 H 12/19/24 10:59 36.4 C L 82 22 93/58 L 92 12/19/24 10:18 12/19/24 10:03 93 H 91/60 L 12/19/24 09:00 89/51 L 89/57 L 12/19/24 07:52 36.5 C 99 H 22 95/58 L 98 12/19/24 06:12 36.6 C 108 H 18 104/68 98 O2 Del Method O2 Flow Rate 12/19/24 11:13 12/19/24 10:59 Nasal Cannula 2 12/19/24 10:18 Nasal Cannula 3 12/19/24 10:03 12/19/24 09:00 12/19/24 07:52 Nasal Cannula 3 12/19/24 06:12 Nasal Cannula 3 Laboratory Results Cardiac Enzymes 12/18/24 12/18/24 12/19/24 Range/Units 13:53 16:12 05:14 AST 114 H 117 H (13-39) U/L Troponin I High Sens 1081.2 H* 919.4 H* 745.7 H* (0-20) pg/ml Coagulation 12/18/24 Range/Units 13:53 PT 14.8 H (9.0-12.0) Seconds APTT 31 (21-31) Seconds CBC 12/18/24 12/19/24 Range/Units 13:53 05:14 WBC 5.05 4.56 L (4.8-10.8) K/ul RBC 4.44 L 3.90 L (4.70-6.10) M/uL Hgb 12.6 L 11.2 L (14.0-18.0) g/dl Hct 41.1 L 36.6 L (42.0-52.0) % Plt Count 99 L 87 L (130-400) K/uL Neut # (Auto) 4.46 3.99 (1.40-6.50) K/uL Lymph # (Auto) 0.29 L 0.29 L (1.20-3.40) K/uL [place] # (Auto) 0.26 0.23 (0.11-0.59) K/uL Eos # (Auto) 0.01 0.01 (0.00-0.50) K/uL Baso # (Auto) 0.01 0.01 (0.00-0.20) K/uL Comprehensive Metabolic Panel 12/18/24 12/19/24 Range/Units 13:53 05:14 Sodium 138 138 (136-145) mmol/L Potassium 4.9 5.2 H (3.5-5.1) mmol/L Chloride 102 103 (98-107) mmol/L Carbon Dioxide 28 25 (21-32) mmol/L BUN 52 H 55 H (6-23) mg/dl Creatinine 2.39 H 2.45 H (0.6-1.4) mg/dl Glucose 65 L 95 (70-99(Fasting)) mg/dl Calcium 9.6 9.0 (8.6-10.3) mg/dl Direct Bilirubin 0.7 H (0-0.2) mg/dl AST 114 H 117 H (13-39) U/L ALT 61 H 52 (7-52) U/L Alkaline Phosphatase 321 H 253 H (34-104) U/L Total Protein 6.7 5.7 L (6.0-8.3) gm/dl Albumin 3.0 L 2.6 L (3.4-5.0) gm/dl Intake and Output 12/18/24 12/19/24 12/19/24 22:59 06:59 14:59 Intake Total 1120 / 2220 1100 / 2220 350 / 350 Output Total 100 / 501 401 / 501 Balance 1020 / 1719 699 / 1719 350 / 350 Intake: IV 1120 / 2220 1100 / 2220 350 / 350 Lactated Ringer's 1,000 ml @ 1000 / 1000 999 mls/hr IV .Q1H1M ONE Rx#: [id number] Piperacillin/Tazobactam 4.5 gm 120 / 220 100 / 220 100 / 100 In 100 ml @ 25 mls/hr IV Q8H RUFINO Rx#:[id number] Sodium Chloride 0.9% 250 ml @ 1000 / 1000 250 / 250 999 mls/hr IV .Q16M ONE Rx#: [id number] Output: Urine 100 / 500 400 / 500 # Bowel Movements 1 / Other: Weight 88.9 kg 88.9 kg Weight Measurement Method Built in Bedscale Built in Bedscale Coding Level of Care Code 71507 SUB INP/OBS CARE 3/50MIN Diagnoses Sepsis A41.9 NSTEMI (non-ST elevated myocardial infarction) I21.4
[2024-12-19] MEDS: DAPTOmycin 600 MG in SYRINGE 0 ML IV SCH (15:05)
[2024-12-19 17:21] LABS: Appearance Urine Cloudy (Clear); Bacteria Urine Automated None Seen (None Seen); Cast Urine Automated 0-2 /lpf (0-2); Epithelial Cell Urine Auto 0-2 /hpf (0-2); Glucose Urine UA 1+ (Negative); RBC Urine Automated 0-2 /hpf (0-2); WBC Urine Automated 0-5 /hpf (0-5)
[2024-12-19] MEDS: MoRPHine SULFATE 2 MG/ML CARP IV PRN (19:47)
[2024-12-19 22:00] LABS: Base Excess VBG -9.2 mEq/L; HCO3 VBG 20 mmol/L; Oxygen Saturation VBG 69.6 %; PCO2 VBG 58 mmHg (38-50); PO2 VBG 41 mmHg; pH VBG 7.15 (7.36-7.41)
[2024-12-19] MEDS: ALBUT/IPRATROP 3MG/0.5MG NEB 3 ML VIAL NEB STA (22:01)
[2024-12-19 22:04] LABS: Hematocrit (blood only) 42.3 % (42.0-52.0); Hemoglobin 12.8 g/dl (14.0-18.0); Mean Corpuscular Hemoglobin 29.2 pg (25.0-34.0); Mean Corpuscular Volume 96.6 fL (80.0-100.0); Platelet Count 135 K/uL (130-400); RDW Standard Deviation 63.1 fL (36.4-46.3); Red Blood Count 4.38 M/uL (4.70-6.10); White Blood Count 10.12 K/ul (4.8-10.8)
[2024-12-19 22:25] LABS: Alanine Aminotransferase 69.0 U/L (7-52); Albumin Globulin Ratio 0.7 (0.9-2); Alkaline Phosphatase 269.0 U/L (34-104); Anion Gap 13.0 (3-11); Bilirubin,Total 1.9 mg/dl (0.2-1.0); Blood Urea Nitrogen 62.0 mg/dl (6-23); Calcium 8.9 mg/dl (8.6-10.3); Carbon Dioxide 20.0 mmol/L (21-32); Chloride 101.0 mmol/L (98-107); Creatinine Clr Calc Pharmacy 21.5 ml/min; Globulin 3.8 gm/dl (2.5-4.0); Glucose 164.0 mg/dl (70-99(Fasting)); Potassium 6.5 mmol/L (3.5-5.1); Sodium 134.0 mmol/L (136-145); Total Protein 6.4 gm/dl (6.0-8.3)
--- NOTE | 2024-12-19 22:26 | Communication Note ---
Date of Service: December 19, 2024 Alerted by nurse that pt had increasing oxygen requirements 4L NC -> 8L oxymask. Went to bedside to see pt. Pt states he has no chest pain but just "feels like garbage" and states that he "feels like he is drowning." He states the feeling did improve earlier with morphine somewhat, but states overall he feels incredibly weak and unwell. STAT labs and imaging order. CXR does not appear overtly overloaded on my read. VBG showed resp acidosis; advised nursing staff to place BIPAP. To repeat VBG for improvement. Also given duoneb tx. Lactate elevated at 2.5; continue IVF 80/hr and also given 500 mL bolus LR given diastolic dysfunction. Cr worsened from am labs, K is now critical at 6.5. Given calc gluc, insulin + D50, lokelma dose, and duoneb tx already given.
[2024-12-19 22:39] LABS: Immature Granulocytes # (auto) 0.05 K/uL (0.01-0.20); Immature Granulocytes % (auto) 0.5 %; Polychromasia 1+
[2024-12-19] MEDS: LACTATED RINGER'S 500 ML IV ONE (22:46)
[2024-12-19] MEDS: CALCIUM GLUCONATE 1,000 MG/60 ML BAG IV STA (23:07)
[2024-12-19] MEDS: SODIUM ZIRCONIUM CYCLOSILICATE 10 GM PACKET PO ONE (23:11)
[2024-12-19] MEDS: INSULIN HUMAN REGULAR PER UNIT 10 UNITS in SYRINGE 9.9 ML IV ONE (23:11)
[2024-12-19] MEDS: DEXTROSE 50% 50 ML SYRINGE IV STA (23:13)
[2024-12-19 23:16] LABS: Creatine Kinase 368.0 U/L (30-223)
[2024-12-20 00:37] LABS: Base Excess VBG -12.6 mEq/L; HCO3 VBG 17 mmol/L; Oxygen Saturation VBG 77.0 %; PCO2 VBG 50 mmHg (38-50); PO2 VBG 46 mmHg; pH VBG 7.13 (7.36-7.41)
[2024-12-20 01:04] LABS: Alanine Aminotransferase 65.0 U/L (7-52); Albumin Globulin Ratio 0.7 (0.9-2); Alkaline Phosphatase 216.0 U/L (34-104); Anion Gap 16.0 (3-11); Bilirubin,Total 1.8 mg/dl (0.2-1.0); Blood Urea Nitrogen 57.0 mg/dl (6-23); Calcium 7.5 mg/dl (8.6-10.3); Carbon Dioxide 17.0 mmol/L (21-32); Chloride 101.0 mmol/L (98-107); Creatinine Clr Calc Pharmacy 22.7 ml/min; Globulin 3.1 gm/dl (2.5-4.0); Glucose 298.0 mg/dl (70-99(Fasting)); Potassium 5.6 mmol/L (3.5-5.1); Sodium 134.0 mmol/L (136-145); Total Protein 5.3 gm/dl (6.0-8.3)
--- NOTE | 2024-12-20 01:13 | XRay Report ---
Exam(s): XR CXR 1 VIEW EXAM: XR Chest, 1 View CLINICAL HISTORY: Reason for exam: worsening oxygen requirement. TECHNIQUE: Frontal view of the chest. COMPARISON: Prior chest x-ray from December 18, 2024 FINDINGS: There is an AICD in the left chest wall and distal lead in the right ventricle. Lungs: Mild to moderate peribronchial thickening of the central lower lobe bronchi with increased interstitial opacities in the lower lobes. No consolidation. Pleural space: Unremarkable. No pneumothorax. Heart: Unremarkable. No cardiomegaly. Mediastinum: Unremarkable. Normal mediastinal contour. Bones/joints: Status post median sternotomy with sternal wires intact. No acute fracture. IMPRESSION: Bronchitis, which may be infectious or inflammatory etiologies. No consolidation or pleural effusion. Electronically signed by: Chioma Hess MD 12/20/24 01:13 AM
[2024-12-20] MEDS ORDERED: STAT IV/IM STA (01:46)
[2024-12-20] MEDS: SODIUM BICARBONATE 8.4% 150 MEQ in WATER, STERILE 1,000 ML IV SCH (02:18)
[2024-12-20 02:30] VITALS: RESP 18
[2024-12-20 03:02] VITALS: BP 91/61; PULSE 76; TEMP 97.3
[2024-12-20 03:06] VITALS: O2SAT 99
--- NOTE | 2024-12-20 05:22 | Death Pronouncement Note ---
Date of Service December 20, 2024 Pronouncement Note Admission Date Admission Date: December 18, 2024 Contributing Factors (1) Sepsis: (2) NSTEMI (non-ST elevated myocardial infarction): Summary Additional details: Alerted by nurse that pt had increasing oxygen requirements 4L NC -> 8L oxymask early in the shiftman around 2100. Went to bedside to see pt. Pt states he has no chest pain but just "feels like garbage" and states that he "feels like he is drowning." He states the feeling did improve earlier with morphine somewhat, but states overall he feels incredibly weak and unwell. STAT labs and imaging order. Lung sounds globally diminished (pt does have COPD) but no crackles on exam. CXR does not appear overtly overloaded on my read, he was on NSS 80/hr. VBG showed resp acidosis; advised nursing staff to place BIPAP. Also given duoneb tx. Lactate elevated at 2.5; continue IVF 80/hr and also given 500 mL bolus LR given diastolic dysfunction. Cr worsened from am labs, K is now critical at 6.5. Given calc gluc, insulin + D50, lokelma dose, and duoneb tx already given. Repeat labs done around 0030; potassium improved to 5.6, lactate improved to 2.0, Cr slight improvement. pH was 7.13 (unchanged from prior 7.15) but with corrected CO2, started on bicarb drip 100/hr. Staff tried to straight cath for 319 bladder scan around 0130, fluid out was only 40 cc. Moreira placed. Nurse notified me again around 0442 that pt asleep and now bradycardic 40s. EKG obtained; 1st degree HB and widened QRS. Nurse noted pt did not arouse with EKG. Code purple called. Went to bedside with attending; pt was terminal appearing on arrival to the room. Pt is listed as conditional code; okay with intubation/vent, no CPR or defib. Upon entering the room, patient was found to be in a terminal state. They were unresponsive to, and did not withdrawal from, verbal or tactile stimuli. On cardiopulmonary exam, they were found to be without detectable radial pulses and without spontaneous heart tones with terminal agonal respirations only. Time of was pronounced by me on 12/20/2024 at 0502. Attending physician was notified was notified. Next of kin (daughter) was called x2 but did not answer Signed: Pamela Marin DO ekg monitor reviewed, pt appeared to have become bradycardic and then entered ventricular rhythm before asystole. Additional Data Attending physician: Khris Barraza MD Resident Activity Tracking Resident Involvement: Resident Care Provided Care Provided: Pediatric Care
[2024-12-20 05:38] LABS: Base Excess VBG -13.0 mEq/L; HCO3 VBG 16 mmol/L; Oxygen Saturation VBG 97.3 %; PCO2 VBG 50 mmHg (38-50); PO2 VBG 93 mmHg; pH VBG 7.12 (7.36-7.41)
[2024-12-20 05:47] LABS: Hematocrit (blood only) 41.8 % (42.0-52.0); Hemoglobin 12.6 g/dl (14.0-18.0); Mean Corpuscular Hemoglobin 28.9 pg (25.0-34.0); Mean Corpuscular Volume 95.9 fL (80.0-100.0); Platelet Count 201 K/uL (130-400); RDW Standard Deviation 63.7 fL (36.4-46.3); Red Blood Count 4.36 M/uL (4.70-6.10); White Blood Count 11.38 K/ul (4.8-10.8)
[2024-12-20 06:07] LABS: Anion Gap 15.0 (3-11); Blood Urea Nitrogen 66.0 mg/dl (6-23); Calcium 8.3 mg/dl (8.6-10.3); Carbon Dioxide 16.0 mmol/L (21-32); Chloride 98.0 mmol/L (98-107); Creatinine Clr Calc Pharmacy 18.9 ml/min; Glucose 203.0 mg/dl (70-99(Fasting)); Potassium 7.9 mmol/L (3.5-5.1); Sodium 129.0 mmol/L (136-145)
[2024-12-20 06:09] LABS: Immature Granulocytes # (auto) 0.06 K/uL (0.01-0.20); Immature Granulocytes % (auto) 0.5 %; Polychromasia 1+
--- NOTE | 2024-12-20 08:58 | Discharge Summary ---
Discharge Summary Date of Service December 20, 2024 Principal Dx & Hospital Course #1 = Principal Diagnosis (1) Sepsis: Present on admission. Suspected septic shock because the patient's demise. He was treated while hospitalized with daptomycin and Zosyn. (2) Cellulitis of left foot: Treated while hospitalized with daptomycin and Zosyn. Wound care consult and vascular surgery consult requested. Local care (3) Peripheral arterial disease: Right BKA status and multiple procedures have been done on the circulation involving left lower extremity. Vascular surgery consultation requested and pending (4) 2-vessel coronary artery disease: Troponin elevated on admission and downtrending. Cardiac echo negative for regional wall motion abnormalities. No evidence of acute NC. (5) Diabetes: Lantus and Jardiance are on hold. Glucose low normal on the morning of December 19. Sliding scale coverage for now. (6) Hypertension: Blood pressure borderline low. IV fluid bolus administered on December 19 then continuous IV fluids. Losartan is on hold. Plan The patient on the morning of December 20 at 0502 AM. I was able to reach the patient's daughter, Carmen Goodson, at 8:10 AM on December 20 and inform her of the patient's demise. She requests is remains to be released to [facility] in [place] Admission HPI Per Admitting Provider Edy Frank is a 79 year old male who presents to the ER with generalized weakens and fatigue. He reports these symptoms have been ongoing for the last few weeks getting progressively worse. The last two days his right leg stump has become more erythematous and swelling to the point he can no longer use his prosthesis. While trying to get into the truck today to get here he hit his left foot which caused a skin tear and bleeding from his foot. He denies any fever or chills. No respiratory, urinary or gastrointestinal complaints. Prior amputations have been performed by his vascular surgeon Dr Rg with known peripheral artery disease. Previous angiogram performed in July although no report attached to this. He follows with the wound clinic frequently for ulcers on his right lower extremity. Discharge Exam Not applicable Discharge Plan Discharge Items Patient Disposition: Other Date/Time: 12/20/24 05:02 Hospital Stay Data Consultations 12/18/24 15:56 Consult Cardiology Stat 12/18/24 17:08 ED Decision to Admit Stat 12/18/24 20:55 Consult Vascular Surgery Routine Procedures Performed Operation Date: 12/22/24 10:50 <No data on this case meets the specified criteria> Total Time Total Time Spent Total Time Spent (In Minutes): 35 minutes Coding Level of Care Code 04673 INP/OBS DISCH >30 MIN Diagnoses Sepsis A41.9 Cellulitis of left foot L03.116 Peripheral arterial disease I73.9 2-vessel coronary artery disease I25.10 Type 2 diabetes mellitus with diabetic peripheral angiopathy without gangrene, with long-term current use of insulin E11.51; Z79.4 Diabetes mellitus type: type 2 Diabetes mellitus rehab aide insulin use: with senior care use Diabetes mellitus complication status: with circulatory complication Diabetes mellitus complication detail: with peripheral angiopathy without gangrene Primary hypertension I10 Hypertension type: primary hypertension
--- NOTE | 2024-12-20 10:09 | Electrocardiogram Report ---
Test Reason : Blood Pressure : */* mmHG Vent. Rate : 92 BPM Atrial Rate : 92 BPM P-R Int : 346 ms QRS Dur : 138 ms QT Int : 416 ms P-R-T Axes : 37 130 91 degrees QTcB Int : 514 ms Sinus rhythm with 1st degree A-V block Right bundle branch block Left posterior fascicular block Bifascicular block T wave abnormality, consider lateral ischemia Abnormal ECG When compared with ECG of 18-Dec-2024 16:56, FL interval has increased Left posterior fascicular block is now Present T wave inversion more evident in Anterior leads Confirmed by Marianne Meeks (Jermaine) on 12/20/2024 10:09:35 AM Referred By: REFERRED SELF Confirmed By: Marianne Meeks
[2024-12-22] MEDS ORDERED: SODIUM CHLORIDE 0.9% 1,000 ML IV SCH (07:30)
[2024-12-22] MEDS ORDERED: SODIUM BICARBONATE 8.4% 100 MEQ in WATER, STERILE 1,000 ML IV SCH (07:30)
--- NOTE | 2024-12-22 10:02 | Electrocardiogram Report ---
Test Reason : Blood Pressure : */* mmHG Vent. Rate : 86 BPM Atrial Rate : 86 BPM P-R Int : 372 ms QRS Dur : 158 ms QT Int : 444 ms P-R-T Axes : 20 128 121 degrees QTcB Int : 531 ms Sinus rhythm with 1st degree A-V block with Premature atrial complexes Right bundle branch block Left posterior fascicular block Bifascicular block T wave abnormality, consider lateral ischemia Abnormal ECG When compared with ECG of 19-Dec-2024 09:37, (unconfirmed) Premature atrial complexes are now Present Nonspecific T wave abnormality, worse in Inferior leads T wave inversion less evident in Lateral leads Confirmed by Rasta Nugent ([id number]) on 12/22/2024 10:01:54 AM Referred By: REFERRED SELF Confirmed By: Rasta Nugent
--- NOTE | 2024-12-22 11:21 | Electrocardiogram Report ---
Test Reason : Blood Pressure : */* mmHG Vent. Rate : 51 BPM Atrial Rate : 147 BPM P-R Int : * ms QRS Dur : 170 ms QT Int : 492 ms P-R-T Axes : 81 104 180 degrees QTcB Int : 453 ms Sinus tachycardia Possible 2:1 AV conduction Right bundle branch block Abnormal ECG When compared with ECG of 19-Dec-2024 22:37, (unconfirmed) Premature atrial complexes are no longer Present Vent. rate has decreased by 35 bpm Nonspecific T wave abnormality has replaced inverted T waves in Lateral leads QT has shortened Confirmed by Rasta Nugent ([id number]) on 12/22/2024 11:21:09 AM Referred By: REFERRED SELF Confirmed By: Rasta Nugent
--- NOTE | 2024-12-22 11:21 | Electrocardiogram Report ---
Test Reason : Blood Pressure : */* mmHG Vent. Rate : 47 BPM Atrial Rate : 47 BPM P-R Int : 488 ms QRS Dur : 166 ms QT Int : 530 ms P-R-T Axes : 66 114 186 degrees QTcB Int : 469 ms Sinus bradycardia with 1st degree A-V block Right bundle branch block Abnormal ECG When compared with ECG of 20-Dec-2024 04:48, (unconfirmed) Sinus rhythm is no longer with 2nd degree A-V block Confirmed by Rasta Nugent ([id number]) on 12/22/2024 11:21:20 AM Referred By: REFERRED SELF Confirmed By: Rasta Nugent
== END 2024-12-20 10:16 | disposition expired | DRG 871 ==
LOC: ED 13:41 → 4W 18:02 → SUATTDRO 18:02 → 4W 20:04